=== PATIENT | female | born 1945 | race Hispanic/Latino ===

== ENCOUNTER 2016-12-13 18:40 | Inpatient (IN) | payer MEDICARE ==
[2016-12-13 18:40] VITALS: BMI 36.0
[2016-12-13] MEDS ORDERED: Albuterol-Ipratrop 3 mg / 0.5 (3 ml) UD ONE (19:10)
--- NOTE | 2016-12-13 19:20 | ED PDOC ---
HPI: SOB/CHF/COPD Time Seen by Provider: 12/13/16 19:16 Chief Complaint (Nursing): Shortness Of Breath Chief Complaint (Provider): Shortness of Breath History Per: Patient History/Exam Limitations: no limitations Onset/Duration Of Symptoms: Days (x couple of weeks) Current Symptoms Are (Timing): Still Present Exacerbating Factor(s): Exertion, Laying Flat Current Respiratory Medications: See Home Med List Severity: Moderate Associated Symptoms: denies: Fever, Chest Pain, Ankle/Leg Swelling (baseline only) Additional Complaint(s): Chey Olvera is a 71 year old female, with a medical history inclusive of CAD (s/p MS with implanted defibrillator/pacemaker and coronary stent placement) , CHF, HTN and COPD, who presents to the ED on 12/13/16 for the evaluation of moderate acute on chronic shortness of breath that she has experienced over the past couple of weeks. Though symptoms have been steadily worsening since onset, to the point where she was unable to walk, they had become significantly worse today; prompting ED visit. A Associated productive cough (phlegm, yellow in morning but clear remainder of day) and orthopnea also reported, though patient denies fever, chest pain or worsening of usual leg swelling. Has used usual COPD medications (Spiriva, Proair, etc) without improvement. Of note, patient does not use home O2, though she notes she stopped taking her Lasix 2 weeks ago. PMD/Senior Account Manager: Dr. Jason Animal Care Giver: Ron Past Medical History Reviewed: Historical Data, Nursing Documentation, Vital Signs Vital Signs: Last Vital Signs Temp 97.9 F 12/13/16 18:54 Pulse 75 12/13/16 21:26 Resp 24 12/13/16 20:08 BP 145/87 12/13/16 20:06 Pulse Ox 93 L 12/13/16 21:26 - Medical History PMH: Anxiety, Atrial Fibrillation, CAD (s/p MS), Cardia Arrhythmia, CHF, COPD, Emphysema, HTN, Hypercholesterolemia, Peripheral Edema, Pneumonia Denies: HIV, Chronic Kidney Disease - Surgical History Surgical History: Cholecystectomy, Coronary Stent, Pacemaker (w/defibrilator) - Family History Family History: States: Unknown Family Hx - Social History Ex-Smoker (has not smoked in the last 12 months): Yes Alcohol: None Drugs: Denies - Home Medications Home Medications: Ambulatory Orders Medication Instructions Recorded Valsartan [Diovan] 80 mg PO DAILY 09/23/15 Dabigatran [Pradaxa] 75 mg PO BID #0 cap 09/26/15 Aspirin [Ecotrin] 81 mg PO DAILY 08/27/16 Carvedilol [Coreg] 6.25 mg PO Q12H 08/27/16 Albuterol Sulfate [Proair Hfa] 2 puff IH Q4H PRN 10/18/16 Albuterol/Ipratropium [Duoneb 3 3 ml INH RQ6 #100 neb 10/23/16 mg/0.5 mg (3 ml) UD] Albuterol Sulfate [Proair Hfa] 90 mcg IH Q6 12/13/16 Tiotropium [Spiriva] 15 mg PO DAILY 12/13/16 - Allergies Allergies/Adverse Reactions: Allergies Allergy/AdvReac Type Severity Reaction Status Date / Time No Known Allergies Allergy Verified 12/13/16 18:54 Review of Systems ROS Statement: Except As Marked, All Systems Reviewed And Found Negative Constitutional: Negative for: Fever Cardiovascular: Negative for: Chest Pain, Edema Respiratory: Positive for: Cough, Shortness of Breath, SOB with Exertion, Sputum (phlegm, yellow in morning then clear), Other (orthopnea) Genitourinary Female: Positive for: Dysuria Physical Exam - Reviewed Nursing Documentation Reviewed: Yes Vital Signs Reviewed: Yes - Physical Exam Appears: Positive for: Non-toxic, No Acute Distress Head Exam: Positive for: ATRAUMATIC, NORMOCEPHALIC Skin: Positive for: Normal Color, Warm, Dry Eye Exam: Positive for: Normal appearance, PERRL ENT: Positive for: Normal ENT Inspection Neck: Positive for: Normal, Painless ROM, Supple Cardiovascular/Chest: Positive for: Regular Rate, Rhythm. Negative for: Edema ( no leg swelling), Murmur Respiratory: Positive for: Wheezing (diffuse b/l). Negative for: Respiratory Distress Gastrointestinal/Abdominal: Positive for: Normal Exam, Soft. Negative for: Tenderness Back: Positive for: Normal Inspection Extremity: Positive for: Normal ROM Neurologic/Psych: Positive for: Alert, Oriented - Laboratory Results Result Diagrams: 12/13/16 19:30 12/13/16 19:30 - ECG ECG: Positive for: Interpreted By Me, Viewed By Me ECG Rhythm: Positive for: Sinus Rhythm, Atrial Paced, Premature Ventricular Contraction, Nonspecific Changes (ST, also present on previous EKG) Rate: 75 O2 Sat by Pulse Oximetry: 93 - Radiology X-Ray: Interpreted by Me, Viewed By Me X-Ray Interpretation: No Acute Disease, COPD Medical Decision Making Medical Decision Makin:16 Initial Impression: COPD exacerbation; will r/o infectious/other etiology Initial Plan: * EKG * CXR * ABG * Labs * BNP * Troponin I * PTT * PT * Influenza A B * Solu-Medrol 125mg IVP * Duonebs 3ml INH * Duonebs 3ml INH * Duonebs 3ml INH * Peak Flow Pre/Post Treatment * Peak Flow Pre/Post Treatment * Peak Flow BID * Reevaluation EKG shows an atrial paced sinus rhythm at 75bpm with PVC'S and nonspecific ST changes that are also present on previous EKG. 21:22 Upon provider reevaluation patient reports feeling improved s/p nebulizer treatments, though symptoms remain despite aggressive treatment in ED. Patient will be admitted to [facility] [place] under the service of her PMD Dr. Jason for further evaluation/treatment of COPD exacerbation. Plan has been discussed with patient , who is in agreement. Condition fair. Clinical Impression: COPD Exacerbation. Scribe Attestation: Documented by Janneth Gonzalez, acting as a scribe for Thelma Valladares MD. Provider Scribe Attestation: All medical record entries made by the Scribe were at my direction and personally dictated by me. I have reviewed the chart and agree that the record accurately reflects my personal performance of the history, physical exam, medical decision making, and the department course for this patient. I have also personally directed, reviewed, and agree with the discharge instructions and disposition. Disposition - Clinical Impression Clinical Impression: COPD exacerbation - Patient ED Disposition Is Patient to be Admitted: Yes Discussed With Dr.: Da Jason Doctor Will See Patient In The: ED Counseled Patient/Family Regarding: Studies Performed, Diagnosis - Disposition Disposition Time: 21:22 Condition: FAIR - Pt Status Changed To: Hospital Disposition Of: Inpatient - Admit Certification Admit to Inpatient:: After my assessment, the patient will require hospitalization for at least two midnights. This is because of the severity of symptoms shown, intensity of services needed, and/or the medical risk in this patient being treated as an outpatient. - POA Present On Arrival: None
[2016-12-13] MEDS ORDERED: Albuterol-Ipratrop 3 mg / 0.5 (3 ml) UD INH STA ×3 (19:27→19:31)
[2016-12-13 19:51] LABS: BASO # 0.1 K/uL (0.0-0.2); BASO % 1.1 % (0.0-2.0); EOS # 1.2 K/uL (0.0-0.7); EOS % 9.2 % (0.0-4.0); HEMATOCRIT 43.5 % (34.0-47.0); LYMPH # 2.6 K/uL (1.0-4.3); LYMPH % 20.2 % (20.0-40.0); MEAN CELL VOLUME 90.8 fl (81.0-99.0); MEAN CORPUSCULAR HEMOGLOBIN 30.2 pg (27.0-31.0); MEAN CORPUSCULAR HGB CONC 33.3 g/dL (33.0-37.0); MEAN PLATELET VOLUME 9.4 fl (7.2-11.7); MONO # 1.2 K/uL (0.0-0.8); NEUT # 7.9 K/uL (1.8-7.0); NEUT % 60.5 % (50.0-75.0); RED CELL DISTRIBUTION WIDTH 14.5 % (11.5-14.5)
[2016-12-13 20:00] LABS: ABG ALLEN TEST YES; ARTERIAL BLOOD GAS MODE ROOM AIR; ARTERIAL BLOOD GAS O2 CONTENT 19.4 ML/dL (15-23); ARTERIAL BLOOD GAS PH 7.43 (7.35-7.45); ARTERIAL BLOOD GAS PO2 66 mm/Hg (80-100); ARTERIAL BLOOD HGB O2 SAT 91.5 % (95.0-98.0); CARBOXYHEMOGLOBIN 3.2 % (0.5-1.5); HHB 2.9 % (0.0-5.0); METHEMOGLOBIN 2.3 % (0.0-3.0)
[2016-12-13 20:04] LABS: CALCIUM 9.2 mg/dL (8.4-10.2); POTASSIUM 4.4 MMOL/L (3.6-5.0)
[2016-12-13 20:16] LABS: TROPONIN I 0.031 ng/mL (0.00-0.120)
[2016-12-13 20:20] LABS: PARTIAL THROMBOPLASTIN TIME 37.1 SECONDS (23.3-32.5)
[2016-12-13] MEDS: Albuterol-Ipratrop 3 mg / 0.5 (3 ml) UD INH SCH (23:45)
[2016-12-14] MEDS: methylPREDNISolone 80 MG in Sodium Chloride 0.9% 50 ML IVPB SCH ×3 (00:12→18:10)
[2016-12-14] MEDS: Albuterol-Ipratrop 3 mg / 0.5 (3 ml) UD INH SCH ×5 (04:31→19:04)
--- NOTE | 2016-12-14 11:18 | HP ---
The patient is a 71-year-old female who was admitted via the Emergency Room because of acute exacerba tion of chronic obstructive pulmonary disease. She had been to see her business office assistant and while she wa s in the office, she developed a cough and became very short of breath and had discoloration of the f ingers and lips and was advised to go to the Emergency Room for workup and therapy. In the Emergency Room, she was diagnosed with acute exacerbation of chronic obstructive pulmonary disease and admitte d for workup and therapy. PAST MEDICAL HISTORY: Chronic intermittent atrial fibrillation (paroxysmal atrial fibrillation), chr onic obstructive pulmonary disease, recurrent upper respiratory tract infection, cardiomyopathy requi ring pacemaker placement for arrhythmias, hypertension, near syncopal episode in the past and poor co mpliance to medications. FAMILY HISTORY: Nonrevealing. SOCIAL HISTORY: She is and lives at home alone and denies smoking recently, but used to up u ntil about a year ago. PHYSICAL EXAMINATION: GENERAL: The patient is alert, oriented, appears to be much more comfortable since admission. VITAL SIGNS: Blood pressure 142/74, pulse of 74, respiratory rate 20, O2 sat 94% on 3 L nasal cannul a. SKIN: Shows fair turgor. HEENT: Pupils equal, react to light and accommodation. NECK: JVP flat. Mouth shows fair hygiene. LUNGS: Poor aeration bilaterally with wheezing and rales. HEART: S1, S2. ABDOMEN: Soft, nontender, no organomegaly. EXTREMITIES: Show no edema or cyanosis. CENTRAL NERVOUS SYSTEM: Grossly intact. GENITAL AND RECTAL: Deferred. LABORATORY DATA: WBC 13.0, hemoglobin 14.5, platelet count 184,000. Sodium 145, potassium 4.4, BUN of 24, creatinine 1.1. ProBNP 2060. ABGs: pH 7.43, pCO2 of 39, pO2 of 66, O2 sat 96.9. This is on room air. Chest x-ray official report pending, but read by me shows no acute cardiopulmonary pathol ogy except for cardiomegaly and pacemaker device in place. EKG: Official report is pending. IMPRESSION: Acute exacerbation of chronic obstructive pulmonary disease, history of paroxysmal chron ic atrial fibrillation), history of hypertension, history of cardiomyopathy, status post pacemaker pl acement. PLAN: Continue bronchodilator therapy with IV steroids, IV antibiotics for possible superimposed pul monary infection. We will obtain cardiology evaluation. Further therapy will depend on findings. Da Jason MD cc: 62 TT: 12/14/2016 11:17:37 tn
--- NOTE | 2016-12-14 14:04 | RAD ---
PROCEDURE: CHEST RADIOGRAPH, 1 VIEW HISTORY: dyspnea COMPARISON: 10/18/2016 FINDINGS: LUNGS: Clear. PLEURA: No pneumothorax or pleural fluid seen. CARDIOVASCULAR: Normal heart size. AICD. OSSEOUS STRUCTURES: No significant abnormalities. VISUALIZED UPPER ABDOMEN: Normal. OTHER FINDINGS: None. IMPRESSION: No active disease.
--- NOTE | 2016-12-14 15:23 | CARD ---
APPROVED REPORT EKG Measurement Heart [id number] <Conclusion> Sinus rhythm with atrial paced beats and frequent premature ventricular complexes Marked ST abnormality, possible inferior subendocardial injury Abnormal ECG
--- NOTE | 2016-12-14 19:30 | CP.PCM.CON ---
History of Present Illness - History of Present Illness History of Present Illness: The patient is a 71 year old lady well known to our service who was seen in the office yesterday by Dr. Velasquez. Because of worsening shortness of breath she was advised evaluation in the ED. 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 She also suffers from severe COPD as a result of extensive tobacco use over the years. Review of Systems - Review of Systems Systems not reviewed;Unavailable: Respiratory Distress - Constitutional Constitutional: As Per HPI - EENT Eyes: As Per HPI Ears: As Per HPI - Cardiovascular Cardiovascular: Dyspnea on Exertion, Irregular Heart Rhythm - Respiratory Respiratory: Dyspnea on Exertion - Gastrointestinal Gastrointestinal: As Per HPI - Psychiatric Psychiatric: Anxiety Past Patient History - Past Medical History & Family History Past Medical History?: Yes - Past Social History Smoking Status: Former Smoker - CARDIAC Hx Cardiac Disorders: Yes Hx Atrial Fibrillation: Yes Hx Congestive Heart Failure: Yes Hx Heart Attack: Yes Hx Hypertension: Yes Hx Internal Defibrillator: Yes Hx Pacemaker: Yes - PULMONARY Hx Respiratory Disorders: Yes Hx Chronic Obstructive Pulmonary Disease (COPD): Yes Hx Emphysema: Yes - NEUROLOGICAL Hx Neurological Disorder: No - HEENT Hx HEENT Problems: Yes - RENAL Hx Chronic Kidney Disease: No - ENDOCRINE/METABOLIC Hx Endocrine Disorders: No - HEMATOLOGICAL/ONCOLOGICAL Hx Blood Disorders: No Hx Human Immunodeficiency Virus (HIV): No - INTEGUMENTARY Hx Dermatological Problems: No - MUSCULOSKELETAL/RHEUMATOLOGICAL Hx Musculoskeletal Disorders: No Hx Falls: No - GASTROINTESTINAL Hx Gastrointestinal Disorders: No - GENITOURINARY/GYNECOLOGICAL Hx Genitourinary Disorders: No - PSYCHIATRIC Hx Psychophysiologic Disorder: No Hx Substance Use: No - SURGICAL HISTORY Hx Surgeries: Yes Hx Cholecystectomy: Yes Hx Coronary Stent: Yes - ANESTHESIA Hx Anesthesia: Yes Hx Anesthesia Reactions: No Hx Malignant Hyperthermia: No Has any member of the family had a problem w/ anesthesia?: No Meds Allergies/Adverse Reactions: Allergies Allergy/AdvReac Type Severity Reaction Status Date / Time No Known Allergies Allergy Verified 12/13/16 18:54 - Medications Medications: Current Medications Albuterol/Ipratropium (Duoneb 3 Mg/0.5 Mg (3 Ml) Ud) 3 ml INH RQ4 [facility] Last Admin: 12/14/16 19:04 Dose: Not Given Aspirin (Ecotrin) 81 mg PO DAILY [facility] Last Admin: 12/14/16 09:30 Dose: 81 mg Carvedilol (Coreg) 6.25 mg PO Q12H [facility] Last Admin: 12/14/16 09:30 Dose: 6.25 mg Dabigatran (Pradaxa) 75 mg PO BID [facility] PRN Reason: Protocol Last Admin: 12/14/16 15:31 Dose: 75 mg Levofloxacin/Dextrose (Levaquin 500mg) 100 mls @ 100 mls/hr IVPB DAILY@2100 [facility] Methylprednisolone 80 mg/ (Sodium Chloride) 51.28 mls @ 100 mls/hr IVPB Q8 [facility] Last Admin: 12/14/16 18:10 Dose: 100 mls/hr Valsartan (Diovan) 80 mg PO DAILY [facility] Last Admin: 12/14/16 09:30 Dose: 80 mg Physical Exam - Constitutional Appears: No Acute Distress - Head Exam Head Exam: ATRAUMATIC, NORMOCEPHALIC - Eye Exam Eye Exam: Normal appearance, PERRL - ENT Exam ENT Exam: Mucous Membranes Moist - Respiratory Exam Respiratory Exam: Decreased Breath Sounds, NORMAL BREATHING PATTERN - Cardiovascular Exam Cardiovascular Exam: RRR, +S1, +S2 - GI/Abdominal Exam GI & Abdominal Exam: Normal Bowel Sounds - Extremities Exam Extremities exam: Positive for: normal inspection Results - Vital Signs Recent Vital Signs: Last Vital Signs Temp 98.3 F 12/14/16 17:03 Pulse 74 12/14/16 17:03 Resp 20 12/14/16 17:03 BP 111/65 12/14/16 17:03 Pulse Ox 98 12/14/16 17:03 - Labs Result Diagrams: 12/13/16 19:30 12/13/16 19:30 Assessment & Plan - Assessment and Plan (Free Text) Assessment: 1. Dyspnea. 2. COPD. 3. Hypertension. 4. CAD s/p PCI. 5. PAD. 6. Atrial fibrillation. Plan: 1. Add torsemide 20mg daily. 2. Continue present dose of pradaxs 75 mg q12h. 3. Pulmonary toilet. 4. Will f/u as out patient.
[2016-12-15] MEDS: Albuterol-Ipratrop 3 mg / 0.5 (3 ml) UD INH SCH ×6 (00:07→19:29)
[2016-12-15] MEDS: methylPREDNISolone 80 MG in Sodium Chloride 0.9% 50 ML IVPB SCH ×3 (00:22→17:29)
[2016-12-15] MEDS ORDERED: Promethazine/Cod 6.25mg-10mg/5ml Syr UD PO PRN (11:46)
--- NOTE | 2016-12-15 11:46 | CP.PCM.PN ---
Subjective - Date & Time of Evaluation Date of Evaluation: 12/15/16 Time of Evaluation: 11:46 - Subjective Subjective: COUGHING C/O SWELLING OF LEGS TODAY Objective - Vital Signs/Intake and Output Vital Signs (last 24 hours): Temp Pulse Resp BP Pulse Ox 98.0 F 64 20 127/61 93 L 12/15/16 08:21 12/15/16 09:28 12/15/16 08:21 12/15/16 09:28 12/15/16 08:21 - Medications Medications: Current Medications Albuterol/Ipratropium (Duoneb 3 Mg/0.5 Mg (3 Ml) Ud) 3 ml INH RQ4 [facility] Last Admin: 12/15/16 11:16 Dose: 3 ml Aspirin (Ecotrin) 81 mg PO DAILY [facility] Last Admin: 12/15/16 09:28 Dose: 81 mg Carvedilol (Coreg) 6.25 mg PO Q12H [facility] Last Admin: 12/15/16 09:28 Dose: 6.25 mg Dabigatran (Pradaxa) 75 mg PO BID [facility] PRN Reason: Protocol Last Admin: 12/15/16 09:29 Dose: 75 mg Levofloxacin/Dextrose (Levaquin 500mg) 100 mls @ 100 mls/hr IVPB DAILY@2100 [facility] Last Admin: 12/14/16 21:05 Dose: 100 mls/hr Methylprednisolone 80 mg/ (Sodium Chloride) 51.28 mls @ 100 mls/hr IVPB Q8 [facility] Last Admin: 12/15/16 10:16 Dose: 100 mls/hr Torsemide (Demadex) 20 mg PO DAILY [facility] Last Admin: 12/15/16 09:28 Dose: 20 mg Valsartan (Diovan) 80 mg PO DAILY [facility] Last Admin: 12/15/16 09:27 Dose: 80 mg - Labs Labs: PT 11.4 SECONDS (9.6-11.2) H 12/13/16 19:35 INR 1.10 (0.92-1.08) H 12/13/16 19:35 APTT 37.1 SECONDS (23.3-32.5) H 12/13/16 19:35 - Constitutional Appears: In Acute Distress - Head Exam Head Exam: ATRAUMATIC, NORMAL INSPECTION, NORMOCEPHALIC - Eye Exam Eye Exam: EOMI, Normal appearance, PERRL Pupil Exam: NORMAL ACCOMODATION, PERRL - ENT Exam ENT Exam: Mucous Membranes Moist, Normal Exam - Neck Exam Neck Exam: Full ROM, Normal Inspection. absent: Lymphadenopathy - Respiratory Exam Respiratory Exam: Decreased Breath Sounds, Prolonged Expiratory Phase, Rales, NORMAL BREATHING PATTERN - Cardiovascular Exam Cardiovascular Exam: REGULAR RHYTHM, +S1, +S2. absent: Murmur - GI/Abdominal Exam GI & Abdominal Exam: Soft, Normal Bowel Sounds. absent: Tenderness - Rectal Exam Rectal Exam: NORMAL INSPECTION - Extremities Exam Extremities Exam: Full ROM, Normal Capillary Refill, Normal Inspection, Pedal Edema. absent: Joint Swelling - Back Exam Back Exam: NORMAL INSPECTION - Neurological Exam Neurological Exam: Alert, Awake, CN II-XII Intact, Normal Gait, Oriented x3 - Psychiatric Exam Psychiatric exam: Normal Affect, Normal Mood - Skin Skin Exam: Dry, Intact, Normal Color, Warm Assessment and Plan - Assessment and Plan (Free Text) Assessment: COPD EXAC CHRONIC CHF-DIASTOLIC DYSFUNCTION CARDIOMYOPATHY Plan: CONTINUE RX ORDERED ANTITUSSIVES,PRN
[2016-12-16] MEDS: methylPREDNISolone 80 MG in Sodium Chloride 0.9% 50 ML IVPB SCH (00:53)
[2016-12-16] MEDS: Albuterol-Ipratrop 3 mg / 0.5 (3 ml) UD INH SCH ×6 (01:04→19:34)
[2016-12-16 07:42] LABS: BASO % 0.2 % (0.0-2.0); HEMATOCRIT 41.6 % (34.0-47.0); LYMPH % 4.6 % (20.0-40.0); MEAN CELL VOLUME 92.3 fl (81.0-99.0); MEAN CORPUSCULAR HEMOGLOBIN 29.7 pg (27.0-31.0); MEAN CORPUSCULAR HGB CONC 32.2 g/dL (33.0-37.0); MEAN PLATELET VOLUME 9.5 fl (7.2-11.7); MONO # 0.7 K/uL (0.0-0.8); MONO % 3.2 % (0.0-10.0); NEUT # 19.3 K/uL (1.8-7.0); PLATELET COUNT 172 K/uL (130-400); RED CELL DISTRIBUTION WIDTH 14.8 % (11.5-14.5)
[2016-12-16 07:52] LABS: CALCIUM 8.9 mg/dL (8.4-10.2); POTASSIUM 5.2 MMOL/L (3.6-5.0)
[2016-12-16] MEDS ORDERED: Sodium Chloride 3% for Inhalation 4 ML VIAL.NEB IH PRN (08:37)
--- NOTE | 2016-12-16 08:52 | CP.PCM.PN ---
Subjective - Date & Time of Evaluation Date of Evaluation: 12/16/16 Time of Evaluation: 08:53 - Subjective Subjective: SOB IMPROVING NO CHEST PAINS LESS PEDAL EDEMA STILL COUGHING Objective - Vital Signs/Intake and Output Vital Signs (last 24 hours): Temp Pulse Resp BP Pulse Ox 97.9 F 89 20 166/73 H 94 L 12/15/16 22:00 12/15/16 22:00 12/15/16 22:00 12/15/16 22:00 12/15/16 22:00 - Medications Medications: Current Medications Albuterol/Ipratropium (Duoneb 3 Mg/0.5 Mg (3 Ml) Ud) 3 ml INH RQ4 [facility] Last Admin: 12/16/16 07:44 Dose: 3 ml Aspirin (Ecotrin) 81 mg PO DAILY [facility] Last Admin: 12/15/16 09:28 Dose: 81 mg Carvedilol (Coreg) 6.25 mg PO Q12H [facility] Last Admin: 12/15/16 21:25 Dose: 6.25 mg Dabigatran (Pradaxa) 75 mg PO BID [facility] PRN Reason: Protocol Last Admin: 12/15/16 17:33 Dose: 75 mg Levofloxacin/Dextrose (Levaquin 500mg) 100 mls @ 100 mls/hr IVPB DAILY@2100 [facility] Last Admin: 12/15/16 21:26 Dose: 100 mls/hr Methylprednisolone 40 mg/ (Sodium Chloride) 50.64 mls @ 100 mls/hr IVPB Q12 [facility] Promethazine HCl/Codeine (Phenergan/Codeine Oral Syrup) 10 ml PO Q6 PRN PRN Reason: Cough Last Admin: 12/15/16 22:35 Dose: 10 ml Torsemide (Demadex) 20 mg PO DAILY [facility] Last Admin: 12/15/16 09:28 Dose: 20 mg Valsartan (Diovan) 80 mg PO DAILY [facility] Last Admin: 12/15/16 09:27 Dose: 80 mg - Labs Labs: 12/16/16 06:30 12/16/16 06:30 PT 11.4 SECONDS (9.6-11.2) H 12/13/16 19:35 INR 1.10 (0.92-1.08) H 12/13/16 19:35 APTT 37.1 SECONDS (23.3-32.5) H 12/13/16 19:35 - Constitutional Appears: Chronically Ill - Head Exam Head Exam: ATRAUMATIC, NORMAL INSPECTION, NORMOCEPHALIC - Eye Exam Eye Exam: EOMI, Normal appearance, PERRL Pupil Exam: NORMAL ACCOMODATION, PERRL - ENT Exam ENT Exam: Mucous Membranes Moist, Normal Exam - Neck Exam Neck Exam: Full ROM, Normal Inspection. absent: Lymphadenopathy - Respiratory Exam Respiratory Exam: Decreased Breath Sounds, Rales, Wheezes, NORMAL BREATHING PATTERN - Cardiovascular Exam Cardiovascular Exam: REGULAR RHYTHM, +S1, +S2. absent: Murmur - GI/Abdominal Exam GI & Abdominal Exam: Soft, Normal Bowel Sounds. absent: Tenderness - Rectal Exam Rectal Exam: NORMAL INSPECTION - Extremities Exam Extremities Exam: Full ROM, Normal Capillary Refill, Normal Inspection, Pedal Edema. absent: Joint Swelling - Back Exam Back Exam: NORMAL INSPECTION - Neurological Exam Neurological Exam: Alert, Awake, CN II-XII Intact, Normal Gait, Oriented x3 - Psychiatric Exam Psychiatric exam: Normal Affect, Normal Mood - Skin Skin Exam: Dry, Intact, Normal Color, Warm Assessment and Plan - Assessment and Plan (Free Text) Assessment: ACUTE EXAC OF COPD URI CHF ASHD HTN LEUKOCYTOSIS-?STEROIDS/URI Plan: PANCULTURES CONTINUE PRESENT RX TAPER STEROIDS PT WANTS TO GO HOME BUT WAS ADVISED TO STAY AND BE TREATED
[2016-12-16] MEDS: methylPREDNISolone 40 MG in Sodium Chloride 0.9% 50 ML IVPB SCH ×2 (10:24→20:58)
[2016-12-16 13:56] LABS: NEUTROPHIL 93 % (42-75); TOTAL CELLS COUNTED 100
[2016-12-17] MEDS: Albuterol-Ipratrop 3 mg / 0.5 (3 ml) UD INH SCH ×3 (00:04→07:55)
[2016-12-17 07:47] LABS: BASO % 0.1 % (0.0-2.0); LYMPH # 1.1 K/uL (1.0-4.3); LYMPH % 6.4 % (20.0-40.0); MEAN CELL VOLUME 91.7 fl (81.0-99.0); MEAN CORPUSCULAR HEMOGLOBIN 29.8 pg (27.0-31.0); MEAN CORPUSCULAR HGB CONC 32.6 g/dL (33.0-37.0); MEAN PLATELET VOLUME 9.6 fl (7.2-11.7); NEUT # 14.3 K/uL (1.8-7.0); NEUT % 87.5 % (50.0-75.0); NRBC % 0.1 % (0.0-0.0); RED CELL DISTRIBUTION WIDTH 14.5 % (11.5-14.5); WHITE BLOOD COUNT 16.4 K/uL (4.8-10.8)
[2016-12-17 08:09] LABS: CALCIUM 8.3 mg/dL (8.4-10.2); POTASSIUM 4.8 MMOL/L (3.6-5.0)
--- NOTE | 2016-12-17 09:12 | CP.PCM.PN ---
Subjective - Date & Time of Evaluation Date of Evaluation: 12/17/16 Time of Evaluation: 09:12 - Subjective Subjective: STILL COUGHING HAS EXERTIONAL DYSPNEA Objective - Vital Signs/Intake and Output Vital Signs (last 24 hours): Temp Pulse Resp BP Pulse Ox 98.2 F 66 18 149/85 95 12/17/16 07:41 12/17/16 09:02 12/17/16 07:41 12/17/16 09:02 12/17/16 07:41 - Medications Medications: Current Medications Albuterol Sulfate (Albuterol 0.083% Inhal Jing (2.5 Mg/3 Ml) Ud) 2.5 mg INH RQ6 [facility] Aspirin (Ecotrin) 81 mg PO DAILY [facility] Last Admin: 12/17/16 09:03 Dose: 81 mg Carvedilol (Coreg) 6.25 mg PO Q12H [facility] Last Admin: 12/17/16 09:02 Dose: 6.25 mg Dabigatran (Pradaxa) 75 mg PO BID [facility] PRN Reason: Protocol Last Admin: 12/17/16 09:02 Dose: 75 mg Levofloxacin/Dextrose (Levaquin 500mg) 100 mls @ 100 mls/hr IVPB DAILY@2100 [facility] Last Admin: 12/16/16 20:59 Dose: 100 mls/hr Methylprednisolone 40 mg/ (Sodium Chloride) 50.64 mls @ 100 mls/hr IVPB DAILY [facility] Promethazine HCl/Codeine (Phenergan/Codeine Oral Syrup) 10 ml PO Q6 PRN PRN Reason: Cough Last Admin: 12/15/16 22:35 Dose: 10 ml Torsemide (Demadex) 20 mg PO DAILY [facility] Last Admin: 12/17/16 09:03 Dose: 20 mg Valsartan (Diovan) 80 mg PO DAILY [facility] Last Admin: 12/17/16 09:02 Dose: 80 mg - Labs Labs: 12/17/16 06:35 12/17/16 06:35 PT 11.4 SECONDS (9.6-11.2) H 12/13/16 19:35 INR 1.10 (0.92-1.08) H 12/13/16 19:35 APTT 37.1 SECONDS (23.3-32.5) H 12/13/16 19:35 - Constitutional Appears: In Acute Distress - Head Exam Head Exam: ATRAUMATIC, NORMAL INSPECTION, NORMOCEPHALIC - Eye Exam Eye Exam: EOMI, Normal appearance, PERRL Pupil Exam: NORMAL ACCOMODATION, PERRL - ENT Exam ENT Exam: Mucous Membranes Moist, Normal Exam - Neck Exam Neck Exam: Full ROM, Normal Inspection. absent: Lymphadenopathy - Respiratory Exam Respiratory Exam: Decreased Breath Sounds, Prolonged Expiratory Phase, Rales, Wheezes, NORMAL BREATHING PATTERN - Cardiovascular Exam Cardiovascular Exam: REGULAR RHYTHM, +S1, +S2. absent: Murmur - GI/Abdominal Exam GI & Abdominal Exam: Soft, Normal Bowel Sounds. absent: Tenderness - Rectal Exam Rectal Exam: NORMAL INSPECTION - Extremities Exam Extremities Exam: Full ROM, Normal Capillary Refill, Normal Inspection, Pedal Edema. absent: Joint Swelling - Back Exam Back Exam: NORMAL INSPECTION - Neurological Exam Neurological Exam: Alert, Awake, CN II-XII Intact, Normal Gait, Oriented x3 - Psychiatric Exam Psychiatric exam: Normal Affect, Normal Mood - Skin Skin Exam: Dry, Intact, Normal Color, Warm Assessment and Plan - Assessment and Plan (Free Text) Assessment: ACUTE EXAC OF COPD ASHD URI Plan: TAPER STEROIDS ARRANGE FOR HOME O2 AT 2L/M
--- NOTE | 2016-12-17 09:32 | IP.NPCORE ---
COPD Progress Note - COPD Progress Note Spirometry Assessment Completed:: Yes Plan to assess at outpatient follow up: Yes Symptoms:: Increase in Dyspnea, Cough Initial CXR:: yes Date:: 12/13/16 Time:: 19:29 Oxygen Saturation/Pulse Oximetry:: 95 ABG:: yes Date:: 12/13/16 Nebulizers Q2-4 hrs:: Duonebs/Albuterol Therapy Antibiotics (Name/Dose/Frequency):: Levaquin/500/daily Systemic Steroids w/ methylprednisolone Name/Dose/Frequency:: yes Oxygen Delivery Method: Nasal Cannula Oxygen Flow Rate: 3 Smoking cessation counseling all stages copd exacerbation: Yes
[2016-12-17] MEDS: methylPREDNISolone 40 MG in Sodium Chloride 0.9% 50 ML IVPB SCH (10:00)
[2016-12-17] MEDS: Albuterol 0.083% Inhal Sol (2.5 mg/3 mL) UD INH SCH ×2 (13:16→19:25)
[2016-12-18] MEDS: Albuterol 0.083% Inhal Sol (2.5 mg/3 mL) UD INH SCH ×3 (01:10→13:43)
[2016-12-18 07:35] LABS: BASO # 0.1 K/uL (0.0-0.2); BASO % 0.4 % (0.0-2.0); EOS % 0.1 % (0.0-4.0); HEMATOCRIT 44.9 % (34.0-47.0); LYMPH # 1.5 K/uL (1.0-4.3); LYMPH % 9.9 % (20.0-40.0); MEAN CELL VOLUME 91.1 fl (81.0-99.0); MEAN CORPUSCULAR HEMOGLOBIN 29.8 pg (27.0-31.0); MEAN CORPUSCULAR HGB CONC 32.8 g/dL (33.0-37.0); MEAN PLATELET VOLUME 9.6 fl (7.2-11.7); MONO # 1.4 K/uL (0.0-0.8); MONO % 9.4 % (0.0-10.0); NEUT # 11.9 K/uL (1.8-7.0); NEUT % 80.2 % (50.0-75.0); RED CELL DISTRIBUTION WIDTH 14.4 % (11.5-14.5); WHITE BLOOD COUNT 14.8 K/uL (4.8-10.8)
[2016-12-18 07:40] VITALS: RESP 18
--- NOTE | 2016-12-18 08:38 | CP.PCM.DIS ---
Provider - Provider Date of Admission: 12/13/16 21:22 Attending physician: Da Min MD Time Spent in preparation of Discharge (in minutes): 30 Diagnosis - Discharge Diagnosis (1) COPD exacerbation Status: Acute (2) Chronic atrial fibrillation Status: Acute (3) Upper respiratory infection Status: Acute (4) Acute diastolic congestive heart failure Status: Acute (5) Cardiac arrhythmia Status: Acute (6) Cardiomyopathy Status: Acute (7) Hypertension Status: Acute (8) Non-compliance Status: Acute (9) Hyperkalemia Status: Acute (10) Leukocytosis Status: Acute Hospital Course - Lab Results Lab Results: Micro Results 12/16/16 09:45 Blood-Venous Blood Culture - Preliminary NO GROWTH AFTER 24 HOURS 12/16/16 09:45 Blood-Venous Blood Culture - Preliminary NO GROWTH AFTER 24 HOURS Most Recent Lab Values WBC 14.8 K/uL (4.8-10.8) H 12/18/16 06:15 RBC 4.93 Mil/uL (3.80-5.20) 12/18/16 06:15 Hgb 14.7 g/dL (12.0-16.0) 12/18/16 06:15 Hct 44.9 % (34.0-47.0) 12/18/16 06:15 MCV 91.1 fl (81.0-99.0) 12/18/16 06:15 MCH 29.8 pg (27.0-31.0) 12/18/16 06:15 MCHC 32.8 g/dL (33.0-37.0) L 12/18/16 06:15 RDW 14.4 % (11.5-14.5) 12/18/16 06:15 Plt Count 166 K/uL (130-400) 12/18/16 06:15 MPV 9.6 fl (7.2-11.7) 12/18/16 06:15 Neut % (Auto) 80.2 % (50.0-75.0) H 12/18/16 06:15 Lymph % (Auto) 9.9 % (20.0-40.0) L 12/18/16 06:15 Rains % (Auto) 9.4 % (0.0-10.0) 12/18/16 06:15 Eos % (Auto) 0.1 % (0.0-4.0) 12/18/16 06:15 Baso % (Auto) 0.4 % (0.0-2.0) 12/18/16 06:15 Neut # 11.9 K/uL (1.8-7.0) H 12/18/16 06:15 Lymph # 1.5 K/uL (1.0-4.3) 12/18/16 06:15 Rains # 1.4 K/uL (0.0-0.8) H 12/18/16 06:15 Eos # 0.0 K/uL (0.0-0.7) 12/18/16 06:15 Baso # 0.1 K/uL (0.0-0.2) 12/18/16 06:15 Neutrophils % (Manual) 93 % (42-75) H 12/16/16 06:30 Band Neutrophils % 1 % (0-2) 12/16/16 06:30 Lymphocytes % (Manual) 2 % (20-50) L 12/16/16 06:30 Monocytes % (Manual) 4 % (0-10) 12/16/16 06:30 Platelet Estimate Normal (NORMAL) 12/16/16 06:30 Anisocytosis (manual) Slight 12/16/16 06:30 PT 11.4 SECONDS (9.6-11.2) H 12/13/16 19:35 INR 1.10 (0.92-1.08) H 12/13/16 19:35 APTT 37.1 SECONDS (23.3-32.5) H 12/13/16 19:35 pCO2 39 mm/Hg (35-45) 12/13/16 19:48 pO2 66 mm/Hg (80-100) L 12/13/16 19:48 HCO3 26.0 mmol/L (21-28) 12/13/16 19:48 ABG pH 7.43 (7.35-7.45) 12/13/16 19:48 ABG Total CO2 27.1 mmol/L (22-28) 12/13/16 19:48 ABG O2 Saturation 96.9 % (95-98) 12/13/16 19:48 ABG O2 Content 19.4 ML/dL (15-23) 12/13/16 19:48 ABG Base Excess 1.6 mmol/L (-2.0-3.0) 12/13/16 19:48 ABG Hemoglobin 15.1 g/dL (11.7-17.4) 12/13/16 19:48 ABG Carboxyhemoglobin 3.2 % (0.5-1.5) H 12/13/16 19:48 POC ABG HHb (Measured) 2.9 % (0.0-5.0) 12/13/16 19:48 ABG Methemoglobin 2.3 % (0.0-3.0) 12/13/16 19:48 ABG O2 Capacity 20.0 mL/dL (16-24) 12/13/16 19:48 Simón Test Yes 12/13/16 19:48 A-a O2 Difference 35.0 mm/Hg 12/13/16 19:48 Hgb O2 Saturation 91.5 % (95.0-98.0) L 12/13/16 19:48 Vent Mode Room air 12/13/16 19:48 FiO2 21.0 % 12/13/16 19:48 Sodium 141 mmol/l (132-148) 12/17/16 06:35 Potassium 4.8 MMOL/L (3.6-5.0) 12/17/16 06:35 Chloride 102 mmol/L (98-107) 12/17/16 06:35 Carbon Dioxide 25 mmol/L (22-30) 12/17/16 06:35 Anion Gap 19 (10-20) 12/17/16 06:35 BUN 37 mg/dl (7-17) H 12/17/16 06:35 Creatinine 1.1 mg/dL (0.7-1.2) 12/17/16 06:35 Est GFR ( Amer) 59 12/17/16 06:35 Est GFR (Non-Af Amer) 49 12/17/16 06:35 Random Glucose 145 mg/dL (65-105) H 12/17/16 06:35 Calcium 8.3 mg/dL (8.4-10.2) L 12/17/16 06:35 Troponin I 0.0310 ng/mL (0.00-0.120) 12/13/16 19:30 NT-Pro-B Natriuret Pep 1680 pg/ml (0-900) H 12/16/16 06:30 Influenza Typ A,B (EIA) Negative for flu a/b (NEGATIVE) 12/13/16 19:30 - Hospital Course Hospital Course: SOB IMPROVED COUGH LESS NO CHEST PAINS Discharge Exam - Head Exam Head Exam: ATRAUMATIC, NORMAL INSPECTION, NORMOCEPHALIC - Eye Exam Eye Exam: EOMI, Normal appearance, PERRL Pupil Exam: NORMAL ACCOMODATION, PERRL - Respiratory Exam Respiratory Exam: Prolonged Expiratory Phase - GI/Abdominal Exam GI & Abdominal Exam: Normal Bowel Sounds - Rectal Exam Rectal Exam: NORMAL INSPECTION - Neurological Exam Neurological exam: Alert, CN II-XII Intact, Normal Gait, Oriented x3, Reflexes Normal - Psychiatric Exam Psychiatric exam: Normal Affect, Normal Mood - Skin Skin Exam: Dry, Intact, Normal Color, Warm Discharge Plan - Follow Up Plan Condition: FAIR Disposition: HOME/ ROUTINE Patient education suggested?: Yes Additional Instructions: DISCHARGE TODAY FOLLOW UP WITH DR MIN
[2016-12-18] MEDS ORDERED: methylPREDNISolone 40 MG in Sodium Chloride 0.9% 50 ML IVPB SCH (09:00)
[2016-12-18 12:06] VITALS: BP 132/79; PULSE 62; TEMP 98.2; O2SAT 93
[2016-12-18] MEDS ORDERED: Benzocaine/Menthol (Cepacol) Lozenge PO PRN (12:29)
== END 2016-12-18 14:56 | disposition home or self-care (01) | DRG 190 ==
LOC: H.ER 18:40 → H.ERHOLD 21:22 → H.MEDSURG1 22:15
PROVIDERS: ADMIT Internal Medicine Pulmonary Disease; ATTEND Internal Medicine Pulmonary Disease
DX: J44.1 Chronic obstructive pulmonary disease with (acute) exacerbation (principal); I50.33 Acute on chronic diastolic (congestive) heart failure; I42.9 Cardiomyopathy, unspecified; E87.5 Hyperkalemia; I48.0 Paroxysmal atrial fibrillation; I11.0 Hypertensive heart disease with heart failure; I48.2 Chronic atrial fibrillation; Z91.19 Patient's noncompliance with other medical treatment and regimen; Z95.0 Presence of cardiac pacemaker; I25.10 Atherosclerotic heart disease of native coronary artery without angina pectoris; Z95.5 Presence of coronary angioplasty implant and graft; I25.2 Old myocardial infarction; J06.9 Acute upper respiratory infection, unspecified; E78.5 Hyperlipidemia, unspecified; E78.00 Pure hypercholesterolemia, unspecified; Z72.0 Tobacco use; I73.9 Peripheral vascular disease, unspecified; D72.829 Elevated white blood cell count, unspecified; F41.9 Anxiety disorder, unspecified

== ENCOUNTER 2017-04-22 14:50 | Inpatient (IN) | payer MEDICARE ==
[2017-04-22 14:51] VITALS: BMI 36.0
[2017-04-22] MEDS ORDERED: Morphine 4 MG/ML VIAL IVP STA (15:09)
--- NOTE | 2017-04-22 15:37 | ED PDOC ---
HPI: SOB/CHF/COPD Time Seen by Provider: 04/22/17 15:03 Chief Complaint (Nursing): Upper Extremity Problem/Injury Chief Complaint (Provider): shortness of breath History Per: Patient History/Exam Limitations: no limitations Onset/Duration Of Symptoms: Days (2), Gradual, Persistent Current Symptoms Are (Timing): Still Present Quality: Tightness Current Respiratory Medications: Albuterol Severity: Moderate Associated Symptoms: Chest Pain, Heart Racing, Ankle/Leg Swelling, Light- headedness, Anxiety. denies: Fever, Chills, Sweating, Bloody Cough Similar Symptoms Previously: Similar to previous episodes of COPD exacerbation Additional Complaint(s): Shortness of breath progressive since yesterday after experiencing stress from recent fall and fracture. Exertional dyspnea, cough and leg swelling. No fever. Fell yesterday when she was tripped by her cat. Seen at [facility] in [facility]. Diagnosed with shoulder fracture and discharge to follow up with orthopedist. Taking tylenol with no relief. Denies numbness. PMD Dr Jason Past Medical History Reviewed: Historical Data, Nursing Documentation, Vital Signs Vital Signs: Last Vital Signs Temp 98.7 F 04/22/17 14:54 Pulse 90 04/22/17 14:54 Resp 16 04/22/17 14:54 BP 100/62 04/22/17 14:54 Pulse Ox 100 04/22/17 17:10 - Medical History PMH: Anxiety, Atrial Fibrillation, CAD, Cardia Arrhythmia, CHF, COPD, Emphysema , HTN, Hypercholesterolemia, Peripheral Edema, Pneumonia Denies: HIV, Chronic Kidney Disease - Surgical History Surgical History: Cholecystectomy, Coronary Stent, Pacemaker - Family History Family History: States: Unknown Family Hx - Social History Current smoker - smoking cessation education provided: Yes Ex-Smoker (has not smoked in the last 12 months): Yes Alcohol: None - Home Medications Home Medications: Ambulatory Orders Medication Instructions Recorded Valsartan [Diovan] 80 mg PO DAILY 09/23/15 Aspirin [Ecotrin] 81 mg PO DAILY 08/27/16 Carvedilol [Coreg] 6.25 mg PO Q12H 08/27/16 Albuterol 0.083% [Albuterol 0.083% 3 ml IH Q6H PRN 04/22/17 Inhal Jing (2.5 mg/3 ml) UD] Albuterol Sulfate [Proventil Hfa] 2 puff IH QID PRN 04/22/17 Dabigatran [Pradaxa] 75 mg PO Q12H 04/22/17 Furosemide [Lasix] 40 mg PO DAILY 04/22/17 Promethazine [Phenergan Syrup] 10 ml PO Q6H PRN 04/22/17 - Allergies Allergies/Adverse Reactions: Allergies Allergy/AdvReac Type Severity Reaction Status Date / Time No Known Allergies Allergy Verified 12/13/16 18:54 Review of Systems ROS Statement: Except As Marked, All Systems Reviewed And Found Negative (and as per HPI) Constitutional: Positive for: Weakness, Malaise Cardiovascular: Positive for: Chest Pain, Light Headedness Respiratory: Positive for: Cough, Shortness of Breath, SOB with Exertion. Negative for: Sputum Musculoskeletal: Positive for: Shoulder Pain, Arm Pain Neurological: Negative for: Weakness, Numbness Physical Exam - Reviewed Nursing Documentation Reviewed: Yes Vital Signs Reviewed: Yes - Physical Exam Appears: Positive for: Non-toxic, In Acute Distress Head Exam: Positive for: ATRAUMATIC, NORMOCEPHALIC Skin: Positive for: Dry, Pallor Eye Exam: Positive for: EOMI, PERRL ENT: Positive for: Pharynx Is (clear). Negative for: Nasal Congestion Neck: Positive for: Painless ROM, Supple Cardiovascular/Chest: Positive for: Chest Non Tender, Edema. Negative for: Murmur, Tachycardia Respiratory: Positive for: Rhonchi (faint diffuse), Respiratory Distress. Negative for: Rales Gastrointestinal/Abdominal: Positive for: Soft. Negative for: Tenderness Back: Positive for: Normal Inspection. Negative for: Vertebral Tenderness Extremity: Positive for: Pedal Edema (trace bilateral ankle), Other (LEFT upper extremity: No obvious deformity or swelling, +ttp at humeral head with limited PROM and AROM at shoulder due to pain, 5/5 strength w thumb opposition, thumb abduction and finger abduction, light touch intact in all nerve distrubtions of the hand, <2 sec CR, strong radial pulse) Lymphatic: Negative for: Normal Exam Neurologic/Psych: Positive for: Alert. Negative for: Motor/Sensory Deficits - Laboratory Results Result Diagrams: 04/22/17 15:30 04/22/17 16:00 - ECG ECG: Positive for: Interpreted By Me ECG Rhythm: Positive for: Sinus Rhythm (w PVCs and inferolateral ST segment and T wave abnormalities, similar to previous EKG 12/2016) O2 Sat by Pulse Oximetry: 100 Pulse Ox Interpretation: Normal - Progress ED Course And Treament: Accession No. : [id number] Patient Name / ID : LULÚ PRINGLE / [id number] Exam Date : 04/22/2017 15:28:30 ( Approved ) Study Comment : Sex / Age : F / 72Y Creator : MARCOS CONLEY MD Dictator : MARCOS CONLEY MD Leather Etcher : Edging Machine Feeder : MRACOS CONLEY MD Approver2 : Report Date : 04/22/2017 15:51:24 My Comment : PROCEDURE: Radiographs of the Left Shoulder HISTORY: Shoulder pain COMPARISON: No prior. FINDINGS: BONES: There is an acute nondisplaced fracture in the greater tuberosity of the humerus. There is diffuse bone demineralization. JOINTS: Bone alignment is normal. Glenohumeral and acromioclavicular joints preserved. SOFT TISSUES: Normal. OTHER FINDINGS: None. IMPRESSION: Acute nondisplaced fracture in the greater tuberosity of the humerus. Accession No. : [id number] Patient Name / ID : LULÚ PRINGLE / [id number] Exam Date : 04/22/2017 15:28:30 ( Approved ) Study Comment : Sex / Age : F / 72Y Creator : MARCOS CONLEY MD Dictator : MARCOS CONLEY MD Leather Etcher : Edging Machine Feeder : MARCOS CONLEY MD Approver2 : Report Date : 04/22/2017 15:52:07 My Comment : PROCEDURE: CHEST RADIOGRAPH, 1 VIEW HISTORY: Shortness of breath COMPARISON: 12/13/2016. FINDINGS: LUNGS: There is pulmonary venous congestion. There is no focal consolidation. PLEURA: No pneumothorax or pleural fluid seen. CARDIOVASCULAR: The heart is normal in size. There is stable position of a left-sided dual lead transvenous permanent pacing device. OSSEOUS STRUCTURES: No significant abnormalities. VISUALIZED UPPER ABDOMEN: Normal. OTHER FINDINGS: None. IMPRESSION: Mild pulmonary venous congestion. No active pulmonary disease. Medical Decision Making Medical Decision Makinyo w extensive cardiac and pulmonary comorbities experiencing chest pain and shortness of breath progressively for one day, associated acute LEFT shoulder fracture Needs hospitalization for COPD exacerbation, chest pain in setting of cardiac risk factors Other diagnoses: LEFT humeral head fracture Ddx also include CHF, ACS, anemia, anxiety YOUNG Jason PMD who will admit pt to his service, inpatient ortho consult, pending initial ER workup. 4p Labs demonstrate leukocytosis, elevated probnp. Troponin wnl Potassium elevated but hemolyzed specimen. Ordered repeat. YOUNG Jason findings YOUNG [facility] for inpatient consult 5p Pt c/o chest pain that she attributes to gas. Appears uncomfortable. Requesting sabi vitaly and refusing repeat EKG. Advised that acute chest pain is a sign of heart attack or lethal arrythmia, but she continues to refuse. No sabi vitaly immediately available in ER. GI cocktail ordered pending arrival of sabi vitaly from dietary. Disposition - Clinical Impression Clinical Impression: COPD exacerbation, Humeral head fracture, Chest pain - Patient ED Disposition Is Patient to be Admitted: Yes Counseled Patient/Family Regarding: Studies Performed, Diagnosis - Disposition Disposition Time: 16:00 Condition: FAIR Forms: [employer] (Russian) - Pt Status Changed To: Hospital Disposition Of: Inpatient - Admit Certification Admit to Inpatient:: After my assessment, the patient will require hospitalization for at least two midnights. This is because of the severity of symptoms shown, intensity of services needed, and/or the medical risk in this patient being treated as an outpatient. - POA Present On Arrival: Falls Or Trauma, Poor Glycemic Control
[2017-04-22] MEDS ORDERED: Morphine 4 MG/ML VIAL ONE (15:46)
--- NOTE | 2017-04-22 15:53 | RAD ---
PROCEDURE: Radiographs of the Left Shoulder HISTORY: Shoulder pain COMPARISON: No prior. FINDINGS: BONES: There is an acute nondisplaced fracture in the greater tuberosity of the humerus. There is diffuse bone demineralization. JOINTS: Bone alignment is normal. Glenohumeral and acromioclavicular joints preserved. SOFT TISSUES: Normal. OTHER FINDINGS: None. IMPRESSION: Acute nondisplaced fracture in the greater tuberosity of the humerus.
--- NOTE | 2017-04-22 15:53 | RAD ---
PROCEDURE: CHEST RADIOGRAPH, 1 VIEW HISTORY: Shortness of breath COMPARISON: 12/13/2016. FINDINGS: LUNGS: There is pulmonary venous congestion. There is no focal consolidation. PLEURA: No pneumothorax or pleural fluid seen. CARDIOVASCULAR: The heart is normal in size. There is stable position of a left-sided dual lead transvenous permanent pacing device. OSSEOUS STRUCTURES: No significant abnormalities. VISUALIZED UPPER ABDOMEN: Normal. OTHER FINDINGS: None. IMPRESSION: Mild pulmonary venous congestion. No active pulmonary disease.
[2017-04-22 16:04] LABS: BASO # 0.1 K/uL (0.0-0.2); BASO % 0.8 % (0.0-2.0); EOS # 0.7 K/uL (0.0-0.7); EOS % 4.8 % (0.0-4.0); HEMOGLOBIN 14.8 g/dL (12.0-16.0); LYMPH # 1.7 K/uL (1.0-4.3); LYMPH % 11.1 % (20.0-40.0); MEAN CELL VOLUME 91.8 fl (81.0-99.0); MEAN CORPUSCULAR HGB CONC 32.7 g/dL (33.0-37.0); MEAN PLATELET VOLUME 9.9 fl (7.2-11.7); MONO # 1.2 K/uL (0.0-0.8); MONO % 8.1 % (0.0-10.0); NEUT # 11.5 K/uL (1.8-7.0); NEUT % 75.2 % (50.0-75.0); RBC 4.92 Mil/uL (3.80-5.20); WHITE BLOOD COUNT 15.3 K/uL (4.8-10.8)
[2017-04-22 16:14] LABS: ALB/GLOB RATIO 1.3 (1.0-2.1); ALBUMIN 4.7 g/dL (3.5-5.0); ALT/SGPT 11 U/L (9-52); AST/SGOT 58 U/L (14-36); BLOOD UREA NITROGEN 24 mg/dl (7-17); GFR AFRICAN-AMERICAN > 60; GFR NON-AFRICAN AMERICAN > 60; MAGNESIUM 2.2 MG/DL (1.6-2.3)
[2017-04-22 16:25] LABS: B-TYPE NATRIURETIC PEPTIDE 1130 pg/ml (0-900)
[2017-04-22] MEDS ORDERED: Albuterol-Ipratrop 3 mg / 0.5 (3 ml) UD INH STA (16:35)
[2017-04-22 16:52] LABS: INR 1.2 (0.9-1.2); PARTIAL THROMBOPLASTIN TIME 41.6 Seconds (25.6-37.1); PROTHROMBIN TIME 12.6 Seconds (9.8-13.1)
[2017-04-22] MEDS ORDERED: Alum-Mag Hydrox-Simethicone Susp (30 mL) PO STA (16:59)
[2017-04-22] MEDS ORDERED: Alum-Mag Hydrox-Simethicone Susp (30 mL) ONE (17:50)
[2017-04-22] MEDS ORDERED: Albuterol-Ipratrop 3 mg / 0.5 (3 ml) UD ONE (17:50)
[2017-04-22] MEDS ORDERED: Promethazine 12.5 mg/10 ml Syrup PO PRN (21:01)
[2017-04-23] MEDS: Albuterol-Ipratrop 3 mg / 0.5 (3 ml) UD INH SCH ×4 (04:06→20:08)
[2017-04-23 06:58] LABS: HEMOGLOBIN 13.9 g/dL (12.0-16.0); MEAN CELL VOLUME 92.4 fl (81.0-99.0); MEAN CORPUSCULAR HGB CONC 32.5 g/dL (33.0-37.0); RBC 4.64 Mil/uL (3.80-5.20); RED CELL DISTRIBUTION WIDTH 13.8 % (11.5-14.5); WHITE BLOOD COUNT 12.6 K/uL (4.8-10.8)
[2017-04-23 07:07] LABS: BLOOD UREA NITROGEN 22 mg/dl (7-17); CALCIUM 8.7 mg/dL (8.4-10.2); GFR AFRICAN-AMERICAN > 60; GFR NON-AFRICAN AMERICAN > 60
[2017-04-23 07:14] LABS: B-TYPE NATRIURETIC PEPTIDE 697 pg/ml (0-900)
--- NOTE | 2017-04-23 09:28 | HP ---
HISTORY OF PRESENT ILLNESS: The patient is a 72-year-old female who was admitted via the emergency room followed by an accidental fall at home after she tripped over her car, sustaining right shoulder fracture. She was seen in the hospital in [place], walked up, diagnosed to have a right humerus fracture and was discharged home. She was showed up in the emergency room because she was short of breath, had severe pain in the shoulder and was unable to ambulate without cough and chest tightness. She was admitted for acute exacerbation of COPD and mild congestive heart failure with superimposed right humeral fracture. PAST MEDICAL HISTORY: She has a past medical history of chronic obstructive pulmonary disease; cardiac arrhythmia, status post pacemaker placement; coronary artery disease; recurrent congestive heart failure, hyperlipidemia. FAMILY HISTORY: Non-revealing. SOCIAL HISTORY: She continues to smoke cigarettes. Does not drink alcohol or use drugs and lives at home with family. REVIEW OF SYSTEMS: Essentially remarkable for a chronic shortness of breath, exercise intolerance, and chest tightness. PHYSICAL EXAMINATION GENERAL: The patient is alert, oriented, appears to be in moderate pain because of pain in the shoulder. VITAL SIGNS: Blood pressure 114/71, pulse 70, respiratory rate 18 to 20 per minute. She is afebrile. O2 saturation is 99% on nasal cannula oxygen. SKIN: Shows fair turgor. HEENT: Pupils are equal and reactive to light and accommodation. JVP is flat. LUNGS: Fair aeration with basal dullness and mild rales with mild wheezing. HEART: S1 and S2. She has pacemaker in place in the chest wall. ABDOMEN: Soft and nontender. No organomegaly. EXTREMITIES: 1+ pitting, pedal edema. CENTRAL NERVOUS SYSTEM: Grossly intact. There is a tender left upper extremity placed in a sling. LABORATORY DATA: Remarkable for WBC of 15.3, hemoglobin 14.8, and platelet count of 179,000. Sodium 138, potassium 3.9, BUN of 24, and creatinine 0.9. Pro-BNP 1130. Troponin 0.029. Chest x-ray shows pacemaker in place. No acute cardiopulmonary pathology. EKG: Regular sinus rhythm with premature supraventricular complexes, occasional PVCs, ST-T changes, consider lateral ischemia. X-ray of the right shoulder is remarkable for acute non-displaced fracture in the greater trochanter humerus. IMPRESSION: Acute exacerbation of chronic obstructive pulmonary disease, mild congestive heart failure with diastolic dysfunction, acute right humeral head fracture secondary to fall. PLAN: Orthopedic surgery evaluation, cardiology evaluation for mild congestive heart failure. We will continue the use of bronchodilators and oxygen, analgesics for pain. Further therapy would depend on findings. Da Jason MD
--- NOTE | 2017-04-23 11:29 | CARD ---
APPROVED REPORT EXAM: Two-dimensional and M-mode echocardiogram with Doppler and color Doppler. Other Information Quality : FairRhythm : NSR Technically limited study due to Fractured Lt Shoulder INDICATION Chest Pain Congestive Heart Failure 2D DIMENSIONS IVSd1.29 (0.7-1.1cm)LVDd6.01 (3.9-5.9cm) LVOT Diameter2.67 (1.8-2.4cm)PWd0.84 (0.7-1.1cm) IVSs1.39 (0.8-1.2cm)LVDs4.63 (2.5-4.0cm) FS (%) 22.9 %PWs1.42 (0.8-1.2cm) M-Mode DIMENSIONS Left Atrium (MM)3.42 (2.5-4.0cm)IVSd0.94 (0.7-1.1cm) Aortic Root3.46 (2.2-3.7cm)LVDd5.87 (4.0-5.6cm) Aortic Cusp Exc.2.10 (1.5-2.0cm)PWd0.84 (0.7-1.1cm) IVSs0.98 cmFS (%) 13 % LVDs5.10 (2.0-3.8cm)PWs1.15 cm Mitral Valve MV E Wetfonwq38.2cm/sMV DECEL [id number] A Lsokedht40.0cm/s MV CXV27hdI/A ratio0.6MVA (PHT)2.86cm2 TDI E/Lateral E'0.0E/Medial E'0.0 Pulmonary Valve PV Peak Sjxtwjmn96.7cm/s LEFT VENTRICLE The left ventricle is normal size. There is normal left ventricular wall thickness. The systolic function is moderately impaired. The Ejection Fraction is 30-35%. There is global hypokinesis of the left ventricle. Transmitral Doppler flow pattern is Grade I-abnormal relaxation pattern. No left ventricle thrombus noted on this study. There is no mass noted in the left ventricle. RIGHT VENTRICLE The right ventricle is normal size. There is normal right ventricular wall thickness. The right ventricular systolic function is normal. ATRIA The left atrium size is normal. The right atrium size is normal. The interatrial septum is intact with no evidence for an atrial septal defect. AORTIC VALVE The aortic valve is normal in structure and function. No aortic regurgitation is present. There is no aortic valvular stenosis. There is no aortic valvular vegetation. MITRAL VALVE The mitral valve is normal in structure and function. There is no evidence of mitral valve prolapse. There is no mitral valve stenosis. Mitral regurgitation is trace to mild. TRICUSPID VALVE The tricuspid valve is normal in structure and function. There is no tricuspid valve regurgitation noted. There is no tricuspid valve prolapse or vegetation. There is no tricuspid valve stenosis. PULMONIC VALVE The pulmonary valve is normal in structure and function. There is no pulmonic valvular regurgitation. There is no pulmonic valvular stenosis. GREAT VESSELS The aortic root is normal in size. The IVC is normal in size and collapses >50% with inspiration. PERICARDIAL EFFUSION The pericardium appears normal. There is no pleural effusion. <Conclusion> The left ventricle is normal size. The systolic function is moderately impaired. The Ejection Fraction is 30-35%. There is global hypokinesis of the left ventricle. Transmitral Doppler flow pattern is Grade I-abnormal relaxation pattern. Mitral regurgitation is trace to mild.
--- NOTE | 2017-04-23 11:32 | CARD ---
APPROVED REPORT EKG Measurement Heart [id number] IL [id number] <Conclusion> Sinus rhythm with premature supraventricular complexes and with occasional premature ventricular complexes ST & T wave abnormality, consider inferolateral ischemia Abnormal ECG
--- NOTE | 2017-04-23 11:41 | CARD ---
APPROVED REPORT EKG Measurement Heart [id number] AL [id number] <Conclusion> Sinus rhythm with 1st degree AV block ST & T wave abnormality, consider inferolateral ischemia Abnormal ECG
--- NOTE | 2017-04-23 15:20 | PQF GENQUE ---
Dr. Jason, Please specify the acuity of the Diastolic heart failure in your progress notes: Acute Chronic Acute on chronic Other (please specify) Clinically unable to determine Unknown CXR report: Impression:Mild pulmonary venous congestion. No active pulmonary disease. Pro-BNP:1130->697 Lasix IVP daily, Coreg 6.25 mg PO Q12H This form is a permanent part of the medical record Clarification of your documentation is requested to better reflect the severity of illness and intensity of treatment of your patient. Indicators present [] Specify: [x] ACUTE ON CHRONIC DIASTOLIC HEART FAILURE [] Specify: [] [] Specify: [] [] Specify: [] Location in the medical record that reflects the above clinical findings: [] Treatment Provided: [] PHYSICIAN'S RESPONSE Based on your medical judgment of the clinical indicators outlined above please clarify the following: [] Practitioner response [] If unable to determine, please check the box, sign and date. Present On Admission (POA) Indicator: [] Present at the time of admission [] Not present at the time of admission [] Clinically Undetermined In responding to this query, please exercise your independent professional judgment. The fact that a question is asked does not imply that any particular answer is desired or expected. Thank you for your clarification on this documentation. If you have any questions please call. * Thank you, Shalonda Schofield RN BSN ext. #[phone] MTDD
--- NOTE | 2017-04-23 18:16 | CP.PCM.CON ---
History of Present Illness - History of Present Illness History of Present Illness: I was asked to see patient for Dr. Velasquez, the patient routine beef cattle farm worker. Patient is a 72 year old feamle with a history of ischemic cardiomyopathy s/p AICD ([employer]), CAD s/p stent LAD by Dr. Velasquez, HTN who presents with dyspnea. The patient sustained a fall a few days ago after tripping on her cat. The patient sustained a left shoulder fracture. The patient was discharged from an outside hospital but had persistent dyspnea. The patient was admitted for management of acute on chronic systolic dysfunction. She has received diuretic therapy and is improving. Review of Systems - Constitutional Constitutional: absent: As Per HPI, Anorexia, Chills, Daytime Sleepiness, Excessive Sweating, Fatigue, Fever, Frequent Falls, Headache, Increased Appetite , Lethargy, Malaise, Night Sweats, Snoring, Sleep Apnea, Weight Gain, Weight Loss, Weakness, Other - EENT Eyes: absent: As Per HPI, Blind Spots, Blurred Vision, Change in Vision, Decreased Night Vision, Diplopia, Discharge, Dry Eye, Exophthalmos, Floaters, Irritation, Itchy Eyes, Loss of Peripheral Vision, Pain, Photophobia, Requires Corrective Lenses, Sees Flashes, Spots in Vision, Tunnel Vision, Other Visual Disturbances, Loss of Vision, Other Ears: absent: As Per HPI, Decreased Hearing, Ear Discharge, Ear Pain, Tinnitus, Abnormal Hearing, Disequilibrium, Dizziness, Other Nose/Mouth/Throat: absent: As Per HPI, Epistaxis, Nasal Congestion, Nasal Discharge, Nasal Obstruction, Nasal Trauma, Nose Pain, Post Nasal Drip, Sinus Pain, Sinus Pressure, Bleeding Gums, Change in Voice, Dental Pain, Dry Mouth, Dysphagia, Halitosis, Hoarsness, Lip Swelling, Mouth Lesions, Mouth Pain, Odynophagia, Sore Throat, Throat Swelling, Tongue Swelling, Facial Pain, Neck Pain, Neck Mass, Other - Cardiovascular Cardiovascular: Dyspnea - Respiratory Respiratory: absent: As Per HPI, Cough, Dyspnea, Hemoptysis, Dyspnea on Exertion , Wheezing, Snoring, Stridor, Pain on Inspiration, Chest Congestion, Excessive Mucous Production, Change in Mucous Color, Pain with Coughing, Other - Gastrointestinal Gastrointestinal: absent: As Per HPI, Abdominal Pain, Belching, Bloating, Change in Bowel Habits, Change in Stool Character, Coffee Ground Emesis, Constipation, Cramping, Diarrhea, Dyspepsia, Dysphagia, Early Satiety, Excessive Flatus, Fecal Incontinence, Heartburn, Hematemesis, Hematochezia, Loose Stools, Melena, Nausea, Odynophagia, Temesmus, Vomiting, Other - Genitourinary Genitourinary: absent: As Per HPI, Change in Urinary Stream, Difficulty Urinating, Dysuria, Flank Pain, Hematuria, Pyuria, Nocturia, Urinary Incontinence, Urinary Frequency, Urinary Hesitance, Urinary Urgency, Voiding Freq/Small Amts, Freq UTI, Hx Renal/Bladder Calculi, Hx /Renal Surgery, Bladder Distension, Other - Musculoskeletal Additional comments: shoulder pain - Integumentary Integumentary: absent: As Per HPI, Acne, Alopecia, Bleeding Lesions, Change in Hair, Change in Nails, Change in Pigmentation, Changing Lesions, Dry Skin, Erythema, Furuncle, Hirsutism, Lesions, New Lesions, Non-Healing Lesions, Photosensitivity, Pruritus, Rash, Skin Pain, Skin Ulcer, Sores, Striae, Swelling , Unusual Bruising, Wounds, Jaundice, Other - Neurological Neurological: absent: As Per HPI, Abnormal Gait, Abnormal Hearing, Abnormal Movements, Abnormal Speech, Behavioral Changes, Burning Sensations, Confusion, Convulsions, Disequilibrium, Dizziness, Numbness, Focal Weakness, Frequent Falls , Headaches, Lack of Coordination, Loss of Vision, Memory Loss, Paresthesias, Radicular Pain, Restless Legs, Sensory Deficit, Syncope, Tingling, Tremor, Vertigo, Weakness, Other Visual Disturbances, Other - Psychiatric Psychiatric: absent: As Per HPI, Abnormal Sleep Pattern, Anhedonia, Anxiety, Auditory Hallucinations, Behavioral Changes, Change in Appetite, Change in Libido, Confusion, Depression, Difficulty Concentrating, Hallucinations, Homicidal Ideation, Hopelessness, Irritability, Memory Loss, Mood Swings, Panic Attacks, Paranoia, Suicidal Ideation, Visual Hallucinations, Tactile Hallucinations, Other - Endocrine Endocrine: absent: As Per HPI, Change in Body Appearance, Change in Libido, Cold Intolorance, Deepening of Voice, Excessive Sweating, Fatigue, Flushing, Heat Intolorance, Increase in Ring/Shoe/Hat Size, Palpitations, Polydipsia, Polyphagia, Polyuria, Other - Hematologic/Lymphatic Hematologic: absent: As Per HPI, Easy Bleeding, Easy Bruising, Lymphadenopathy, Other Past Patient History - Infectious Disease Hx of Infectious Diseases: None - Past Medical History & Family History Past Medical History?: Yes - Past Social History Smoking Status: Former Smoker - CARDIAC Hx Cardiac Disorders: Yes Hx Atrial Fibrillation: Yes Hx Cardia Arrhythmia: Yes Hx Congestive Heart Failure: Yes Hx Hypercholesterolemia: Yes Hx Hypertension: Yes Hx Pacemaker: Yes Hx Peripheral Edema: Yes - PULMONARY Hx Respiratory Disorders: Yes Hx Chronic Obstructive Pulmonary Disease (COPD): Yes Hx Emphysema: Yes Hx Pneumonia: Yes - NEUROLOGICAL Hx Neurological Disorder: No - HEENT Hx HEENT Problems: Yes - RENAL Hx Chronic Kidney Disease: No - ENDOCRINE/METABOLIC Hx Endocrine Disorders: No - HEMATOLOGICAL/ONCOLOGICAL Hx Blood Disorders: No Hx Human Immunodeficiency Virus (HIV): No - INTEGUMENTARY Hx Dermatological Problems: No - MUSCULOSKELETAL/RHEUMATOLOGICAL Hx Musculoskeletal Disorders: No Hx Falls: Yes (trip over cat) - GASTROINTESTINAL Hx Gastrointestinal Disorders: No - GENITOURINARY/GYNECOLOGICAL Hx Genitourinary Disorders: No - PSYCHIATRIC Hx Psychophysiologic Disorder: Yes Hx Anxiety: Yes Hx Substance Use: No - SURGICAL HISTORY Hx Surgeries: Yes Hx Cholecystectomy: Yes Hx Coronary Stent: Yes Other/Comment: pacemaker - ANESTHESIA Hx Anesthesia: Yes Hx Anesthesia Reactions: No Hx Malignant Hyperthermia: No Meds Allergies/Adverse Reactions: Allergies Allergy/AdvReac Type Severity Reaction Status Date / Time No Known Allergies Allergy Verified 12/13/16 18:54 - Medications Medications: Current Medications Albuterol/Ipratropium (Duoneb 3 Mg/0.5 Mg (3 Ml) Ud) 3 ml INH RQ6 [facility] Last Admin: 04/23/17 13:21 Dose: 3 ml Aspirin (Ecotrin) 81 mg PO DAILY [facility] Last Admin: 04/23/17 09:09 Dose: 81 mg Carvedilol (Coreg) 6.25 mg PO Q12H [facility] Last Admin: 04/23/17 09:09 Dose: 6.25 mg Dabigatran (Pradaxa) 75 mg PO Q12H [facility] PRN Reason: Protocol Last Admin: 04/23/17 09:08 Dose: 75 mg Furosemide (Lasix) 40 mg IVP DAILY [facility] Last Admin: 04/23/17 09:09 Dose: 40 mg Morphine Sulfate (Morphine) 2 mg IVP Q4 PRN PRN Reason: Pain, moderate (4-7) Last Admin: 08/16/17 15:16 Dose: 2 mg Promethazine HCl (Phenergan Syrup) 12.5 mg PO Q6H PRN PRN Reason: Cough Valsartan (Diovan) 80 mg PO DAILY [facility] Last Admin: 04/23/17 09:09 Dose: 80 mg Physical Exam - Constitutional Appears: Non-toxic - Head Exam Head Exam: NORMAL INSPECTION - Eye Exam Eye Exam: Normal appearance - ENT Exam ENT Exam: Mucous Membranes Moist - Neck Exam Neck exam: Positive for: Full Rom - Respiratory Exam Respiratory Exam: Decreased Breath Sounds - Cardiovascular Exam Cardiovascular Exam: REGULAR RHYTHM - GI/Abdominal Exam GI & Abdominal Exam: Normal Bowel Sounds - Rectal Exam Rectal Exam: Deferred - Extremities Exam Extremities exam: Positive for: normal inspection, pedal edema - Back Exam Back exam: NORMAL INSPECTION - Neurological Exam Neurological exam: Alert, Oriented x3 - Psychiatric Exam Psychiatric exam: Normal Affect - Skin Skin Exam: Normal Color Results - Vital Signs Recent Vital Signs: Last Vital Signs Temp 98.3 F 04/23/17 16:18 Pulse 70 04/23/17 16:18 Resp 18 04/23/17 16:18 BP 116/57 L 04/23/17 16:18 Pulse Ox 93 L 04/23/17 16:18 - Labs Result Diagrams: 04/23/17 06:30 04/23/17 06:30 Labs: Laboratory Results - last 24 hr 04/23/17 04/23/17 04/23/17 06:30 06:30 12:20 WBC 12.6 H RBC 4.64 Hgb 13.9 Hct 42.9 MCV 92.4 MCH 30.0 MCHC 32.5 L RDW 13.8 Plt Count 151 Sodium 138 Potassium 4.0 Chloride 102 Carbon Dioxide 26 Anion Gap 14 BUN 22 H Creatinine 0.9 Est GFR ( Amer) > 60 Est GFR (Non-Af Amer) > 60 Random Glucose 131 H Calcium 8.7 Troponin I 0.0250 0.0280 NT-Pro-B Natriuret Pep 697 Blood Type Confirm 04/23/17 16:11 WBC RBC Hgb Hct MCV MCH MCHC RDW Plt Count Sodium Potassium Chloride Carbon Dioxide Anion Gap BUN Creatinine Est GFR ( Amer) Est GFR (Non-Af Amer) Random Glucose Calcium Troponin I NT-Pro-B Natriuret Pep Blood Type Confirm A POSITIVE - EKG Data EKG Interpreted by: Myself Assessment & Plan (1) Acute on chronic systolic (congestive) heart failure Assessment and Plan: will continue diuretic therapy. patient is improving Status: Acute (2) HTN (hypertension) Assessment and Plan: blood pressure control Status: Acute (3) CAD (coronary artery disease) Assessment and Plan: currently hemodynamically stable Status: Acute (4) Paroxysmal atrial fibrillation Assessment and Plan: continue anticoagulant hterapy Status: Acute
--- NOTE | 2017-04-23 19:58 | CON ---
DATE OF CONSULTATION: 04/23/2017 CHIEF COMPLAINT: Left shoulder proximal humerus fracture. HISTORY OF PRESENT ILLNESS: The patient with the history of cardiac disease, defibrillator, had a mechanical fall landing on to her left shoulder. Patient presented herself with ER. X-ray showed a minimally displaced, left proximal humerus fractures. The patient currently seen on bedside. She denies any shortness of breath. Denies pain in any other extremity or joints. Denies any paresthesia or motor weakness. Currently in a sling. Had limited range of motion secondary to pain. PAST MEDICAL HISTORY: Cardiovascular disease and a defibrillator. PHYSICAL EXAMINATION: EXTREMITIES: Examination of the patient's left shoulder; there is swelling, minimal ecchymosis. Limited range of motion secondary to pain, neurovascularly intact distally, radial, ulnar, median, AIN and PIN nerves are intact. Distal sensation is gross intact. 2+radial pulse. IMAGING: X-ray of the patient's left shoulder shows a minimally displaced proximal humerus fracture of the greater tuberosity. ASSESSMENT: A 72-year-old female with extensive cardiac and pulmonary disease with left shoulder proximal humerus fractures and treatment. I had a detailed discussion with the patient reviewing the history and physical examination x-ray findings of that side due to minimal displacement and the patient extensive medical history. I am recommending a nonoperative management with the proximal humerus fracture for the patient. I reviewed the risks and benefits of both surgical and nonoperative treatment with the patient. She agrees with the plan. She will remain nonweightbearing, remain in sling. Follow up in my office two weeks with the x-rays of the left shoulder. Jeremias Polanco MD
[2017-04-24] MEDS: Albuterol-Ipratrop 3 mg / 0.5 (3 ml) UD INH SCH ×4 (01:00→20:10)
--- NOTE | 2017-04-24 08:33 | CP.PCM.PN ---
Subjective - Date & Time of Evaluation Date of Evaluation: 04/24/17 Time of Evaluation: 08:35 - Subjective Subjective: SOB IMPROVING L SHOULDER PAIN PERSISTS Objective - Vital Signs/Intake and Output Vital Signs (last 24 hours): Temp Pulse Resp BP Pulse Ox 98.4 F 68 18 145/77 95 04/24/17 08:00 04/24/17 08:00 04/24/17 08:00 04/24/17 08:00 04/24/17 08:00 - Medications Medications: Current Medications Albuterol/Ipratropium (Duoneb 3 Mg/0.5 Mg (3 Ml) Ud) 3 ml INH RQ6 [facility] Last Admin: 04/24/17 07:35 Dose: 3 ml Aspirin (Ecotrin) 81 mg PO DAILY [facility] Last Admin: 04/23/17 09:09 Dose: 81 mg Carvedilol (Coreg) 6.25 mg PO Q12H [facility] Last Admin: 04/23/17 21:27 Dose: 6.25 mg Dabigatran (Pradaxa) 75 mg PO Q12H [facility] PRN Reason: Protocol Last Admin: 04/23/17 21:26 Dose: 75 mg Furosemide (Lasix) 40 mg IVP DAILY [facility] Last Admin: 04/23/17 09:09 Dose: 40 mg Morphine Sulfate (Morphine) 2 mg IVP Q4 PRN PRN Reason: Pain, moderate (4-7) Last Admin: 04/24/17 06:31 Dose: 2 mg Promethazine HCl (Phenergan Syrup) 12.5 mg PO Q6H PRN PRN Reason: Cough Valsartan (Diovan) 80 mg PO DAILY [facility] Last Admin: 04/23/17 09:09 Dose: 80 mg - Labs Labs: 04/23/17 06:30 04/23/17 06:30 PT 12.6 Seconds (9.8-13.1) 04/22/17 15:30 INR 1.2 (0.9-1.2) 04/22/17 15:30 APTT 41.6 Seconds (25.6-37.1) H 04/22/17 15:30 - Constitutional Appears: In Acute Distress - Head Exam Head Exam: ATRAUMATIC, NORMAL INSPECTION, NORMOCEPHALIC - Eye Exam Eye Exam: EOMI, Normal appearance, PERRL Pupil Exam: NORMAL ACCOMODATION, PERRL - ENT Exam ENT Exam: Mucous Membranes Moist, Normal Exam - Neck Exam Neck Exam: Full ROM, Normal Inspection. absent: Lymphadenopathy - Respiratory Exam Respiratory Exam: Decreased Breath Sounds, Prolonged Expiratory Phase, NORMAL BREATHING PATTERN - Cardiovascular Exam Cardiovascular Exam: REGULAR RHYTHM, +S1, +S2. absent: Murmur - GI/Abdominal Exam GI & Abdominal Exam: Soft, Normal Bowel Sounds. absent: Tenderness - Rectal Exam Rectal Exam: NORMAL INSPECTION - Extremities Exam Extremities Exam: Full ROM, Normal Capillary Refill, Normal Inspection, Tenderness. absent: Joint Swelling, Pedal Edema Additional comments: L ARM IN A SLING - Back Exam Back Exam: NORMAL INSPECTION - Neurological Exam Neurological Exam: Alert, Awake, CN II-XII Intact, Normal Gait, Oriented x3 - Psychiatric Exam Psychiatric exam: Normal Affect, Normal Mood - Skin Skin Exam: Dry, Intact, Normal Color, Warm Assessment and Plan - Assessment and Plan (Free Text) Assessment: DIASTOLIC CHF-IMPROVING COPD-IMPROVING HTN L HUMERUS FRACTURE Plan: WATCH AND CLOCK REPAIR CLERK FOR TCU PLACEMENT
[2017-04-24 20:22] VITALS: O2SAT 93
--- NOTE | 2017-04-24 21:58 | CP.PCM.PN ---
Subjective - Date & Time of Evaluation Date of Evaluation: 04/24/17 Time of Evaluation: 21:50 - Subjective Subjective: patient has less dyspnea Objective - Vital Signs/Intake and Output Vital Signs (last 24 hours): Temp Pulse Resp BP Pulse Ox 97.9 F 81 18 116/67 93 L 04/24/17 20:22 04/24/17 21:16 04/24/17 20:22 04/24/17 21:16 04/24/17 20:22 - Medications Medications: Current Medications Albuterol/Ipratropium (Duoneb 3 Mg/0.5 Mg (3 Ml) Ud) 3 ml [facility]H RQ6 [facility] Last Admin: 04/24/17 20:10 Dose: 3 ml Aspirin (Ecotrin) 81 mg PO DAILY [facility] Last Admin: 04/24/17 08:51 Dose: 81 mg Carvedilol (Coreg) 6.25 mg PO Q12H [facility] Last Admin: 04/24/17 21:16 Dose: 6.25 mg Dabigatran (Pradaxa) 75 mg PO Q12H [facility] PRN Reason: Protocol Last Admin: 04/24/17 21:16 Dose: 75 mg Furosemide (Lasix) 40 mg IVP DAILY [facility] Last Admin: 04/24/17 08:52 Dose: 40 mg Morphine Sulfate (Morphine) 2 mg IVP Q4 PRN PRN Reason: Pain, moderate (4-7) Last Admin: 04/24/17 14:14 Dose: 2 mg Promethazine HCl (Phenergan Syrup) 12.5 mg PO Q6H PRN PRN Reason: Cough Valsartan (Diovan) 80 mg PO DAILY [facility] Last Admin: 04/24/17 08:51 Dose: 80 mg - Labs Labs: 04/23/17 06:30 04/23/17 06:30 PT 12.6 Seconds (9.8-13.1) 04/22/17 15:30 INR 1.2 (0.9-1.2) 04/22/17 15:30 APTT 41.6 Seconds (25.6-37.1) H 04/22/17 15:30 - Constitutional Appears: Non-toxic - Eye Exam Eye Exam: Normal appearance - ENT Exam ENT Exam: Mucous Membranes Moist - Neck Exam Neck Exam: Full ROM - Respiratory Exam Respiratory Exam: Decreased Breath Sounds - Cardiovascular Exam Cardiovascular Exam: REGULAR RHYTHM - GI/Abdominal Exam GI & Abdominal Exam: Normal Bowel Sounds - Rectal Exam Rectal Exam: Deferred - Extremities Exam Extremities Exam: Pedal Edema - Back Exam Back Exam: NORMAL INSPECTION - Neurological Exam Neurological Exam: Alert - Psychiatric Exam Psychiatric exam: Normal Affect - Skin Skin Exam: Normal Color Assessment and Plan (1) Acute on chronic systolic (congestive) heart failure Assessment & Plan: improving with diuretic therapy Status: Acute (2) HTN (hypertension) Assessment & Plan: controlled Status: Acute (3) CAD (coronary artery disease) Assessment & Plan: will have outpatient follow up wt Dr. Velasquez Status: Acute (4) Paroxysmal atrial fibrillation Assessment & Plan: on Pradaxa Status: Acute
[2017-04-25] MEDS: Albuterol-Ipratrop 3 mg / 0.5 (3 ml) UD INH SCH ×3 (01:00→13:15)
[2017-04-25 05:02] VITALS: TEMP 98.2
[2017-04-25 08:14] VITALS: RESP 18
[2017-04-25 12:02] VITALS: BP 97/62; PULSE 68
--- NOTE | 2017-04-25 12:37 | US ---
PROCEDURE: Bilateral lower extremity venous duplex Doppler. HISTORY: r/o dvt COMPARISON: None available. TECHNIQUE: Bilateral common femoral, superficial femoral, popliteal and posterior tibial veins were evaluated. Flow was assessed with color Doppler, compressibility, assessment of phasic flow and augmentation response. FINDINGS: COMMON FEMORAL VEIN: Right CFV: Unremarkable. Left CFV: Unremarkable. SUPERFICIAL FEMORAL VEIN: Right SFV: Unremarkable. Left SFV: Unremarkable. POPLITEAL VEIN: Right Popliteal: Unremarkable. Left Popliteal: Unremarkable. POSTERIOR TIBIAL VEIN: Right PTV: Unremarkable. Left PTV: Unremarkable. OTHER FINDINGS: None. IMPRESSION: No evidence of deep venous thrombosis.
--- NOTE | 2017-04-25 12:58 | CP.PCM.DIS ---
Provider - Provider Date of Admission: 04/22/17 16:47 Attending physician: Da Jason MD Time Spent in preparation of Discharge (in minutes): 35 Diagnosis - Discharge Diagnosis (1) Acute on chronic systolic (congestive) heart failure Status: Acute (2) CAD (coronary artery disease) Status: Acute (3) COPD exacerbation Status: Acute (4) Chest pain Status: Acute (5) HTN (hypertension) Status: Acute (6) Humeral head fracture Status: Acute (7) Paroxysmal atrial fibrillation Status: Acute (8) Acute diastolic congestive heart failure Status: Acute Hospital Course - Lab Results Lab Results: Most Recent Lab Values WBC 12.6 K/uL (4.8-10.8) H 04/23/17 06:30 RBC 4.64 Mil/uL (3.80-5.20) 04/23/17 06:30 Hgb 13.9 g/dL (12.0-16.0) 04/23/17 06:30 Hct 42.9 % (34.0-47.0) 04/23/17 06:30 MCV 92.4 fl (81.0-99.0) 04/23/17 06:30 MCH 30.0 pg (27.0-31.0) 04/23/17 06:30 MCHC 32.5 g/dL (33.0-37.0) L 04/23/17 06:30 RDW 13.8 % (11.5-14.5) 04/23/17 06:30 Plt Count 151 K/uL (130-400) 04/23/17 06:30 MPV 9.9 fl (7.2-11.7) 04/22/17 15:30 Neut % (Auto) 75.2 % (50.0-75.0) H 04/22/17 15:30 Lymph % (Auto) 11.1 % (20.0-40.0) L 04/22/17 15:30 Knott % (Auto) 8.1 % (0.0-10.0) 04/22/17 15:30 Eos % (Auto) 4.8 % (0.0-4.0) H 04/22/17 15:30 Baso % (Auto) 0.8 % (0.0-2.0) 04/22/17 15:30 Neut # 11.5 K/uL (1.8-7.0) H 04/22/17 15:30 Lymph # 1.7 K/uL (1.0-4.3) 04/22/17 15:30 Knott # 1.2 K/uL (0.0-0.8) H 04/22/17 15:30 Eos # 0.7 K/uL (0.0-0.7) 04/22/17 15:30 Baso # 0.1 K/uL (0.0-0.2) 04/22/17 15:30 PT 12.6 Seconds (9.8-13.1) 04/22/17 15:30 INR 1.2 (0.9-1.2) 04/22/17 15:30 APTT 41.6 Seconds (25.6-37.1) H 04/22/17 15:30 Sodium 138 mmol/l (132-148) 04/23/17 06:30 Potassium 4.0 MMOL/L (3.6-5.0) 04/23/17 06:30 Chloride 102 mmol/L (98-107) 04/23/17 06:30 Carbon Dioxide 26 mmol/L (22-30) 04/23/17 06:30 Anion Gap 14 (10-20) 04/23/17 06:30 BUN 22 mg/dl (7-17) H 04/23/17 06:30 Creatinine 0.9 mg/dL (0.7-1.2) 04/23/17 06:30 Est GFR ( Amer) > 60 04/23/17 06:30 Est GFR (Non-Af Amer) > 60 04/23/17 06:30 Random Glucose 131 mg/dL (65-105) H 04/23/17 06:30 Calcium 8.7 mg/dL (8.4-10.2) 04/23/17 06:30 Phosphorus 2.7 mg/dl (2.5-4.5) 04/22/17 15:20 Magnesium 2.2 MG/DL (1.6-2.3) 04/22/17 15:20 Total Bilirubin 1.7 mg/dl (0.2-1.3) H 04/22/17 15:20 AST 58 U/L (14-36) H D 04/22/17 15:20 ALT 11 U/L (9-52) 04/22/17 15:20 Alkaline Phosphatase 83 U/L (38-126) 04/22/17 15:20 Troponin I 0.0270 ng/mL (0.00-0.120) 04/23/17 20:00 NT-Pro-B Natriuret Pep 697 pg/ml (0-900) 04/23/17 06:30 Total Protein 8.3 G/DL (6.3-8.2) H 04/22/17 15:20 Albumin 4.7 g/dL (3.5-5.0) 04/22/17 15:20 Globulin 3.6 gm/dL (2.2-3.9) 04/22/17 15:20 Albumin/Globulin Ratio 1.3 (1.0-2.1) 04/22/17 15:20 Blood Type A POSITIVE 04/22/17 15:30 Blood Type Confirm A POSITIVE 04/23/17 16:11 Antibody Screen Negative 04/22/17 15:30 BBK History Checked No verified bt 04/22/17 15:30 - Hospital Course Hospital Course: still has dyspnea on exertion and l shoulder pain Discharge Exam - Head Exam Head Exam: ATRAUMATIC, NORMAL INSPECTION, NORMOCEPHALIC - Eye Exam Eye Exam: EOMI, Normal appearance, PERRL Pupil Exam: NORMAL ACCOMODATION, PERRL - Respiratory Exam Respiratory Exam: Decreased Breath Sounds, Prolonged Expiratory Phase - GI/Abdominal Exam GI & Abdominal Exam: Normal Bowel Sounds - Rectal Exam Rectal Exam: NORMAL INSPECTION - Extremities Exam Extremities exam: tenderness Additional comments: left shoulder tenderness - Neurological Exam Neurological exam: Alert, CN II-XII Intact, Normal Gait, Oriented x3, Reflexes Normal - Psychiatric Exam Psychiatric exam: Normal Affect, Normal Mood - Skin Skin Exam: Dry, Intact, Normal Color, Warm Discharge Plan - Follow Up Plan Condition: FAIR Disposition: REHAB FACILITY/REHAB UNIT Patient education suggested?: Yes Additional Instructions: patient cleared for discharge to TCU today by / cont. PT/OT Referrals: Da Jason MD [Staff Provider] -
== END 2017-04-25 14:48 | DRG 190 ==
LOC: H.ER 14:50 → H.ERHOLD 16:47 → H.TEL 20:18
PROVIDERS: ADMIT Internal Medicine Pulmonary Disease; ATTEND Internal Medicine Pulmonary Disease
DX: J44.1 Chronic obstructive pulmonary disease with (acute) exacerbation (principal); I50.43 Acute on chronic combined systolic (congestive) and diastolic (congestive) heart failure; S42.252A Displaced fracture of greater tuberosity of left humerus, initial encounter for closed fracture; I48.0 Paroxysmal atrial fibrillation; I25.5 Ischemic cardiomyopathy; I25.10 Atherosclerotic heart disease of native coronary artery without angina pectoris; I11.0 Hypertensive heart disease with heart failure; E78.5 Hyperlipidemia, unspecified; F41.9 Anxiety disorder, unspecified; E78.00 Pure hypercholesterolemia, unspecified; F17.210 Nicotine dependence, cigarettes, uncomplicated; Z79.01 Long term (current) use of anticoagulants; Z95.5 Presence of coronary angioplasty implant and graft; Z95.810 Presence of automatic (implantable) cardiac defibrillator; W01.0XXA Fall on same level from slipping, tripping and stumbling without subsequent striking against object, initial encounter; Z79.82 Long term (current) use of aspirin; Z87.01 Personal history of pneumonia (recurrent); Y92.009 Unspecified place in unspecified non-institutional (private) residence as the place of occurrence of the external cause

== ENCOUNTER 2017-04-25 13:05 | Inpatient (IN) | payer OTHER, MEDICARE ==
[2017-04-25 16:19] VITALS: RESP 20
[2017-04-25] MEDS: Albuterol-Ipratrop 3 mg / 0.5 (3 ml) UD INH SCH (19:26)
[2017-04-25] MEDS ORDERED: Oxycodone/Acetaminophen 5/325 mg Tab PO PRN (20:22)
[2017-04-26] MEDS: Albuterol-Ipratrop 3 mg / 0.5 (3 ml) UD INH SCH ×4 (01:02→19:26)
[2017-04-26] MEDS: Promethazine 12.5 mg/10 ml Syrup PO PRN (08:39)
--- NOTE | 2017-04-26 23:50 | HP ---
HISTORY OF PRESENT ILLNESS: Mrs. Olvera is a 72-year-old female who was admitted to transitional care unit following stay in the medical floor for fracture of left upper humerus, acute exacerbation of chronic obstructive pulmonary disease and congestive heart failure. She had an accidental fall at home and fractured her left humerus. She also has shortness of breath, chest tightness, exercise intolerance for several days prior to the presentation. PAST MEDICAL HISTORY: Remarkable for coronary artery disease, cardiac arrhythmias status post pacemaker placement, congestive heart failure both diastolic and systolic dysfunction, COPD and hypertension. FAMILY HISTORY: Unremarkable. SOCIAL HISTORY: She indicates that she quit smoking several months ago. Does not use alcohol or drugs. REVIEW OF SYSTEMS: Essentially remarkable for occasional shortness of breath, and pedal edema. PHYSICAL EXAMINATION GENERAL: The patient is alert and oriented. VITAL SIGNS: Stable. HEENT: Pupils are equal and reactive to light and accommodation. JVP is flat. Mouth shows fair hygiene. LUNGS: Fair aeration with dullness at both bases and mild wheezing. HEART: S1 and S2. There is a pacemaker in place in the left anterior chest wall area. ABDOMEN: Soft and nontender. No organomegaly. BREAST: Normal. GENITALIA: Normal. RECTAL: Normal. EXTREMITIES: Shows no edema or cyanosis. There is a sling over the left upper extremity with tenderness in the left shoulder area. CENTRAL NERVOUS SYSTEM: Grossly intact. LABORATORY DATA: Pending. IMPRESSION: Acute exacerbation of chronic obstructive pulmonary disease, congestive heart failure, both diastolic and systolic dysfunction, hypertension fairly controlled, fracture of left humerus due to accidental fall. PLAN: Continue aggressive physical therapy, analgesics for pain as well as bronchodilators, oxygen therapy. No surgery for fracture is indicated at present. As per orthopedic, the patient is to be in sling for several weeks and will be reevaluated by orthopedic doctor as an outpatient. We will continue therapy as ordered in the transitional care unit. Da Jason MD
[2017-04-27] MEDS: Albuterol-Ipratrop 3 mg / 0.5 (3 ml) UD INH SCH ×4 (01:01→19:39)
--- NOTE | 2017-04-27 12:35 | CP.PCM.PN ---
Subjective - Date & Time of Evaluation Date of Evaluation: 04/27/17 Time of Evaluation: 12:39 - Subjective Subjective: STILL HAS L ARM PAIN Objective - Vital Signs/Intake and Output Vital Signs (last 24 hours): Temp Pulse Resp BP Pulse Ox 98.2 F 67 20 134/80 99 04/27/17 08:24 04/27/17 09:24 04/27/17 08:24 04/27/17 09:24 04/27/17 08:24 - Medications Medications: Current Medications Albuterol/Ipratropium (Duoneb 3 Mg/0.5 Mg (3 Ml) Ud) 3 ml INH RQ6 [facility] Last Admin: 04/27/17 08:27 Dose: 3 ml Aspirin (Ecotrin) 81 mg PO DAILY [facility] Last Admin: 04/27/17 09:24 Dose: 81 mg Carvedilol (Coreg) 6.25 mg PO 0900,2100 [facility] Last Admin: 04/27/17 09:24 Dose: 6.25 mg Dabigatran (Pradaxa) 75 mg PO 0900,2100 [facility] PRN Reason: Protocol Last Admin: 04/27/17 09:23 Dose: 75 mg Furosemide (Lasix) 40 mg PO DAILY [facility] Last Admin: 04/27/17 09:24 Dose: 40 mg Oxycodone/Acetaminophen (Percocet 5/325 Mg Tab) 1 tab PO Q4 PRN PRN Reason: Pain, moderate (4-7) Stop: 04/28/17 20:23 Promethazine HCl (Phenergan Syrup) 12.5 mg PO Q6H PRN PRN Reason: Cough Last Admin: 04/26/17 08:39 Dose: 12.5 mg Valsartan (Diovan) 80 mg PO DAILY [facility] Last Admin: 04/27/17 09:24 Dose: 80 mg - Constitutional Appears: No Acute Distress - Head Exam Head Exam: ATRAUMATIC, NORMAL INSPECTION, NORMOCEPHALIC - Eye Exam Eye Exam: EOMI, Normal appearance, PERRL Pupil Exam: NORMAL ACCOMODATION, PERRL - ENT Exam ENT Exam: Mucous Membranes Moist, Normal Exam - Neck Exam Neck Exam: Full ROM, Normal Inspection. absent: Lymphadenopathy - Respiratory Exam Respiratory Exam: Clear to Ausculation Bilateral, NORMAL BREATHING PATTERN - Cardiovascular Exam Cardiovascular Exam: REGULAR RHYTHM, +S1, +S2. absent: Murmur - GI/Abdominal Exam GI & Abdominal Exam: Soft, Normal Bowel Sounds. absent: Tenderness - Rectal Exam Rectal Exam: NORMAL INSPECTION - Extremities Exam Extremities Exam: Full ROM, Normal Capillary Refill, Normal Inspection, Tenderness. absent: Joint Swelling, Pedal Edema Additional comments: L ARM IN A SLING - Back Exam Back Exam: NORMAL INSPECTION - Neurological Exam Neurological Exam: Alert, Awake, CN II-XII Intact, Normal Gait, Oriented x3 - Psychiatric Exam Psychiatric exam: Normal Affect, Normal Mood - Skin Skin Exam: Dry, Intact, Normal Color, Warm Assessment and Plan - Assessment and Plan (Free Text) Assessment: FRACTURE L HUMERAL HEAD COPD ASHD HTN Plan: CONTINUE PRESENT RX WILL ASK VACUUM FILTER OPERATOR TO EVALUATE PT FOR SUBACUTE CARE--SHE INDICATES THAT SHE WILL BE UNABLE TO CARE FOR HERSELF AT HOME BECAUSE OF HER BROKEN ARM
[2017-04-28] MEDS: Albuterol-Ipratrop 3 mg / 0.5 (3 ml) UD INH SCH ×4 (01:00→19:08)
--- NOTE | 2017-04-28 11:08 | CP.PCM.PN ---
Subjective - Date & Time of Evaluation Date of Evaluation: 04/28/17 Time of Evaluation: 11:08 - Subjective Subjective: no new clinical findings Objective - Vital Signs/Intake and Output Vital Signs (last 24 hours): Temp Pulse Resp BP Pulse Ox 97.3 F L 68 20 151/114 H 96 04/28/17 09:35 04/28/17 09:35 04/28/17 09:35 04/28/17 08:58 04/28/17 09:35 - Medications Medications: Current Medications Albuterol/Ipratropium (Duoneb 3 Mg/0.5 Mg (3 Ml) Ud) 3 ml INH RQ6 [facility] Last Admin: 04/28/17 07:34 Dose: 3 ml Aspirin (Ecotrin) 81 mg PO DAILY [facility] Last Admin: 04/28/17 08:58 Dose: 81 mg Carvedilol (Coreg) 6.25 mg PO 0900,2100 [facility] Last Admin: 04/28/17 08:57 Dose: 6.25 mg Dabigatran (Pradaxa) 75 mg PO 0900,2100 [facility] PRN Reason: Protocol Last Admin: 04/28/17 08:58 Dose: 75 mg Furosemide (Lasix) 40 mg PO DAILY [facility] Last Admin: 04/28/17 08:58 Dose: 40 mg Oxycodone/Acetaminophen (Percocet 5/325 Mg Tab) 1 tab PO Q4 PRN PRN Reason: Pain, moderate (4-7) Stop: 04/28/17 20:23 Promethazine HCl (Phenergan Syrup) 12.5 mg PO Q6H PRN PRN Reason: Cough Last Admin: 04/26/17 08:39 Dose: 12.5 mg Valsartan (Diovan) 80 mg PO DAILY [facility] Last Admin: 04/28/17 08:57 Dose: 80 mg - Constitutional Appears: Well - Head Exam Head Exam: ATRAUMATIC, NORMAL INSPECTION, NORMOCEPHALIC - Eye Exam Eye Exam: EOMI, Normal appearance, PERRL Pupil Exam: NORMAL ACCOMODATION, PERRL - ENT Exam ENT Exam: Mucous Membranes Moist, Normal Exam - Neck Exam Neck Exam: Full ROM, Normal Inspection. absent: Lymphadenopathy - Respiratory Exam Respiratory Exam: Clear to Ausculation Bilateral, NORMAL BREATHING PATTERN - Cardiovascular Exam Cardiovascular Exam: REGULAR RHYTHM, +S1, +S2. absent: Murmur - GI/Abdominal Exam GI & Abdominal Exam: Soft, Normal Bowel Sounds. absent: Tenderness - Rectal Exam Rectal Exam: NORMAL INSPECTION - Extremities Exam Extremities Exam: Full ROM, Normal Capillary Refill, Normal Inspection, Tenderness. absent: Joint Swelling, Pedal Edema Additional comments: l arm edema and tenderness - Back Exam Back Exam: NORMAL INSPECTION - Neurological Exam Neurological Exam: Alert, Awake, CN II-XII Intact, Normal Gait, Oriented x3 - Psychiatric Exam Psychiatric exam: Normal Affect, Normal Mood - Skin Skin Exam: Dry, Intact, Normal Color, Warm Assessment and Plan - Assessment and Plan (Free Text) Assessment: copd cad fracture of l humerus Plan: continue same rx physiatry eval
--- NOTE | 2017-04-28 17:22 | CP.PCM.CON ---
History of Present Illness - History of Present Illness History of Present Illness: Dr Garcia PMR consultation on Chey Olvera, born 1945, right hand dominant female who tripped on her grand-daughter's cat and injured her left shoulder. X-ray revealed non-displaced humeral fracture. Dr Polanco reviewed the findings and recommended non-operative treatment. Chey was transferred to the TCU and is non-weight bearing on the left UE. She notes difficulty at home with a flight of steps and a son that is not very helpful at all. She notes some left 4th and 5th, (ulnar distribution) numbness Review of Systems - Constitutional Constitutional: absent: Anorexia, Chills - EENT Ears: absent: Disequilibrium Nose/Mouth/Throat: absent: Nasal Congestion - Cardiovascular Cardiovascular: absent: Chest Pain - Respiratory Respiratory: Dyspnea on Exertion. absent: Dyspnea - Gastrointestinal Gastrointestinal: absent: Constipation - Integumentary Integumentary: Other (ecchymosis left UE) - Neurological Neurological: Numbness (4th and 5th digits left hand). absent: Abnormal Movements Past Patient History - Infectious Disease Hx of Infectious Diseases: None - Past Medical History & Family History Past Medical History?: Yes - Past Social History Smoking Status: Former Smoker Alcohol: None Drugs: Denies Home Situation {Lives}: With Family (but states that son is not helpful at all) - CARDIAC Hx Cardiac Disorders: Yes Hx Atrial Fibrillation: Yes Hx Cardia Arrhythmia: Yes Hx Congestive Heart Failure: Yes Hx Hypercholesterolemia: Yes Hx Hypertension: Yes Hx Pacemaker: Yes Hx Peripheral Edema: Yes - PULMONARY Hx Respiratory Disorders: Yes Hx Chronic Obstructive Pulmonary Disease (COPD): Yes Hx Emphysema: Yes Hx Pneumonia: Yes - NEUROLOGICAL Hx Neurological Disorder: No - HEENT Hx HEENT Problems: Yes - RENAL Hx Chronic Kidney Disease: No - ENDOCRINE/METABOLIC Hx Endocrine Disorders: No - HEMATOLOGICAL/ONCOLOGICAL Hx Blood Disorders: No Hx Human Immunodeficiency Virus (HIV): No - INTEGUMENTARY Hx Dermatological Problems: No - MUSCULOSKELETAL/RHEUMATOLOGICAL Hx Musculoskeletal Disorders: No Hx Falls: Yes (trip over cat) - GASTROINTESTINAL Hx Gastrointestinal Disorders: No - GENITOURINARY/GYNECOLOGICAL Hx Genitourinary Disorders: No - PSYCHIATRIC Hx Psychophysiologic Disorder: Yes Hx Anxiety: Yes Hx Substance Use: No - SURGICAL HISTORY Hx Surgeries: Yes Hx Cholecystectomy: Yes Hx Coronary Stent: Yes Other/Comment: pacemaker - ANESTHESIA Hx Anesthesia: Yes Hx Anesthesia Reactions: No Hx Malignant Hyperthermia: No Meds Allergies/Adverse Reactions: Allergies Allergy/AdvReac Type Severity Reaction Status Date / Time No Known Allergies Allergy Verified 04/25/17 15:01 - Medications Medications: Current Medications Albuterol/Ipratropium (Duoneb 3 Mg/0.5 Mg (3 Ml) Ud) 3 ml INH RQ6 [facility] Last Admin: 04/28/17 13:23 Dose: 3 ml Aspirin (Ecotrin) 81 mg PO DAILY [facility] Last Admin: 04/28/17 08:58 Dose: 81 mg Carvedilol (Coreg) 6.25 mg PO 0900,2099 [facility] Last Admin: 04/28/17 08:57 Dose: 6.25 mg Dabigatran (Pradaxa) 75 mg PO 0900,2100 [facility] PRN Reason: Protocol Last Admin: 04/28/17 08:58 Dose: 75 mg Furosemide (Lasix) 40 mg PO DAILY [facility] Last Admin: 04/28/17 08:58 Dose: 40 mg Oxycodone/Acetaminophen (Percocet 5/325 Mg Tab) 1 tab PO Q4 PRN PRN Reason: Pain, moderate (4-7) Stop: 04/28/17 20:23 Promethazine HCl (Phenergan Syrup) 12.5 mg PO Q6H PRN PRN Reason: Cough Last Admin: 04/26/17 08:39 Dose: 12.5 mg Valsartan (Diovan) 80 mg PO DAILY [facility] Last Admin: 04/28/17 08:57 Dose: 80 mg Physical Exam - Constitutional Appears: Non-toxic (left arm sling) - Head Exam Head Exam: ATRAUMATIC, NORMAL INSPECTION, NORMOCEPHALIC - Eye Exam Pupil Exam: NORMAL ACCOMODATION - ENT Exam ENT Exam: Mucous Membranes Moist - Respiratory Exam Respiratory Exam: NORMAL BREATHING PATTERN - Cardiovascular Exam Cardiovascular Exam: REGULAR RHYTHM - GI/Abdominal Exam GI & Abdominal Exam: absent: Firm - Neurological Exam Neurological exam: Alert, CN II-XII Intact, Oriented x3 - Psychiatric Exam Psychiatric exam: Normal Affect - Skin Skin Exam: Warm (left arm ecchymosis) Results - Vital Signs Recent Vital Signs: Last Vital Signs Temp 97.9 F 04/28/17 16:36 Pulse 68 04/28/17 16:36 Resp 20 04/28/17 16:36 BP 116/75 04/28/17 16:36 Pulse Ox 97 04/28/17 16:36 Assessment & Plan - Assessment and Plan (Free Text) Assessment: decreased sensation in the 4th and 5th digits consistent with her subjective complaints as well she has intact intrinsic motion. This is likely secondary to the positioning of the UE in the sling and resting the elbow on the arm rest as well good ROM right UE good left hand strength intact LE PT/OT to help increase functional independence pain controlled no constipation she will need to have adjustments to living area with grab bars and shower bench and other DMEs to facilitate a safe and appropriate d/c home NWB left UE
[2017-04-29] MEDS ORDERED: Oxycodone/Acetaminophen 5/325 mg Tab PO ONE (00:11)
[2017-04-29] MEDS: Albuterol-Ipratrop 3 mg / 0.5 (3 ml) UD INH SCH ×5 (01:01→19:49)
--- NOTE | 2017-04-29 11:14 | CP.PCM.PN ---
Subjective - Date & Time of Evaluation Date of Evaluation: 04/29/17 Time of Evaluation: 11:14 - Subjective Subjective: undergoing pt/ot Objective - Vital Signs/Intake and Output Vital Signs (last 24 hours): Temp Pulse Resp BP Pulse Ox 97.2 F L 64 20 132/91 H 98 04/29/17 08:06 04/29/17 09:36 04/29/17 08:06 04/29/17 09:36 04/29/17 08:06 - Medications Medications: Current Medications Albuterol/Ipratropium (Duoneb 3 Mg/0.5 Mg (3 Ml) Ud) 3 ml INH RQ6 [facility] Last Admin: 04/29/17 07:44 Dose: 3 ml Aspirin (Ecotrin) 81 mg PO DAILY [facility] Last Admin: 04/29/17 09:32 Dose: 81 mg Carvedilol (Coreg) 6.25 mg PO 0900,2100 [facility] Last Admin: 04/29/17 09:36 Dose: 6.25 mg Dabigatran (Pradaxa) 75 mg PO 0900,2100 [facility] PRN Reason: Protocol Last Admin: 04/29/17 09:32 Dose: 75 mg Furosemide (Lasix) 40 mg PO DAILY [facility] Last Admin: 04/29/17 09:32 Dose: 40 mg Promethazine HCl (Phenergan Syrup) 12.5 mg PO Q6H PRN PRN Reason: Cough Last Admin: 04/26/17 08:39 Dose: 12.5 mg Valsartan (Diovan) 80 mg PO DAILY [facility] Last Admin: 04/29/17 09:32 Dose: 80 mg - Constitutional Appears: Well - Head Exam Head Exam: ATRAUMATIC, NORMAL INSPECTION, NORMOCEPHALIC - Eye Exam Eye Exam: EOMI, Normal appearance, PERRL Pupil Exam: NORMAL ACCOMODATION, PERRL - ENT Exam ENT Exam: Mucous Membranes Moist, Normal Exam - Neck Exam Neck Exam: Full ROM, Normal Inspection. absent: Lymphadenopathy - Respiratory Exam Respiratory Exam: Clear to Ausculation Bilateral, NORMAL BREATHING PATTERN - Cardiovascular Exam Cardiovascular Exam: REGULAR RHYTHM, +S1, +S2. absent: Murmur - GI/Abdominal Exam GI & Abdominal Exam: Soft, Normal Bowel Sounds. absent: Tenderness - Rectal Exam Rectal Exam: NORMAL INSPECTION - Extremities Exam Extremities Exam: Full ROM, Normal Capillary Refill, Normal Inspection. absent : Joint Swelling, Pedal Edema Additional comments: l arm in a sling - Back Exam Back Exam: NORMAL INSPECTION - Neurological Exam Neurological Exam: Alert, Awake, CN II-XII Intact, Normal Gait, Oriented x3 - Psychiatric Exam Psychiatric exam: Normal Affect, Normal Mood - Skin Skin Exam: Dry, Intact, Normal Color, Warm Assessment and Plan - Assessment and Plan (Free Text) Assessment: fracture of l humerus ashd copd Plan: continue present rx social media sr strategy manager consult
[2017-04-29] MEDS ORDERED: Oxycodone/Acetaminophen 5/325 mg Tab PO PRN (20:07)
[2017-04-30] MEDS: Albuterol-Ipratrop 3 mg / 0.5 (3 ml) UD INH SCH ×4 (01:32→19:40)
--- NOTE | 2017-04-30 08:38 | CP.PCM.PN ---
Subjective - Date & Time of Evaluation Date of Evaluation: 04/30/17 Time of Evaluation: 08:39 - Subjective Subjective: NO NEW CLINICAL FINDINGS L ARM STILL IN A SLING WITH SOME OPAIN ON MOVEMENT Objective - Vital Signs/Intake and Output Vital Signs (last 24 hours): Temp Pulse Resp BP Pulse Ox 97.5 F L 73 20 112/66 94 L 04/30/17 07:50 04/30/17 07:50 04/30/17 07:50 04/30/17 07:50 04/30/17 07:50 - Medications Medications: Current Medications Albuterol/Ipratropium (Duoneb 3 Mg/0.5 Mg (3 Ml) Ud) 3 ml INH RQ6 [facility] Last Admin: 04/30/17 07:30 Dose: 3 ml Aspirin (Ecotrin) 81 mg PO DAILY [facility] Last Admin: 04/29/17 09:32 Dose: 81 mg Carvedilol (Coreg) 6.25 mg PO 0900,2099 [facility] Last Admin: 04/29/17 20:14 Dose: 6.25 mg Dabigatran (Pradaxa) 75 mg PO 0900,2099 [facility] PRN Reason: Protocol Last Admin: 04/29/17 20:14 Dose: 75 mg Furosemide (Lasix) 40 mg PO DAILY [facility] Last Admin: 04/29/17 09:32 Dose: 40 mg Nystatin (Nystop Topical Powder) 1 applic TOP TID [facility] Last Admin: 04/29/17 16:37 Dose: 1 u Oxycodone/Acetaminophen (Percocet 5/325 Mg Tab) 1 tab PO Q4 PRN PRN Reason: Pain, moderate (4-7) Stop: 05/02/17 20:08 Promethazine HCl (Phenergan Syrup) 12.5 mg PO Q6H PRN PRN Reason: Cough Last Admin: 04/26/17 08:39 Dose: 12.5 mg Valsartan (Diovan) 80 mg PO DAILY [facility] Last Admin: 04/29/17 09:32 Dose: 80 mg - Constitutional Appears: No Acute Distress - Head Exam Head Exam: ATRAUMATIC, NORMAL INSPECTION, NORMOCEPHALIC - Eye Exam Eye Exam: EOMI, Normal appearance, PERRL Pupil Exam: NORMAL ACCOMODATION, PERRL - ENT Exam ENT Exam: Mucous Membranes Moist, Normal Exam - Neck Exam Neck Exam: Full ROM, Normal Inspection. absent: Lymphadenopathy - Respiratory Exam Respiratory Exam: Clear to Ausculation Bilateral, NORMAL BREATHING PATTERN - Cardiovascular Exam Cardiovascular Exam: REGULAR RHYTHM, +S1, +S2. absent: Murmur - GI/Abdominal Exam GI & Abdominal Exam: Soft, Normal Bowel Sounds. absent: Tenderness - Rectal Exam Rectal Exam: NORMAL INSPECTION - Extremities Exam Extremities Exam: Full ROM, Normal Capillary Refill, Normal Inspection, Tenderness. absent: Joint Swelling, Pedal Edema Additional comments: L ARM IN A SLING - Back Exam Back Exam: NORMAL INSPECTION - Neurological Exam Neurological Exam: Alert, Awake, CN II-XII Intact, Normal Gait, Oriented x3 - Psychiatric Exam Psychiatric exam: Normal Affect, Normal Mood - Skin Skin Exam: Dry, Intact, Normal Color, Warm Assessment and Plan - Assessment and Plan (Free Text) Assessment: FRACTURE OF L HUMERAL HEAD COPD ASHD HTN Plan: CONTINUE PRESENT RX LASER BEAM COLOR SCANNER OPERATOR FOR D/C PLANNING
[2017-05-01] MEDS: Albuterol-Ipratrop 3 mg / 0.5 (3 ml) UD INH SCH ×5 (01:03→19:33)
[2017-05-01 06:26] LABS: BASO # 0.1 K/uL (0.0-0.2); BASO % 0.8 % (0.0-2.0); EOS # 0.9 K/uL (0.0-0.7); EOS % 7.8 % (0.0-4.0); HEMATOCRIT 40.2 % (34.0-47.0); LYMPH # 2.6 K/uL (1.0-4.3); MEAN CELL VOLUME 91.9 fl (81.0-99.0); MEAN CORPUSCULAR HEMOGLOBIN 30.2 pg (27.0-31.0); MEAN CORPUSCULAR HGB CONC 32.9 g/dL (33.0-37.0); MEAN PLATELET VOLUME 8.7 fl (7.2-11.7); MONO # 1.1 K/uL (0.0-0.8); MONO % 9.2 % (0.0-10.0); NEUT # 7.1 K/uL (1.8-7.0); NEUT % 60.2 % (50.0-75.0); RED CELL DISTRIBUTION WIDTH 13.5 % (11.5-14.5); WHITE BLOOD COUNT 11.9 K/uL (4.8-10.8)
[2017-05-01 06:27] LABS: CALCIUM 9.4 mg/dL (8.4-10.2)
[2017-05-01 06:30] LABS: POTASSIUM 4.9 MMOL/L (3.6-5.0)
--- NOTE | 2017-05-01 08:16 | CP.PCM.PN ---
Subjective - Date & Time of Evaluation Date of Evaluation: 05/01/17 Time of Evaluation: 08:17 - Subjective Subjective: NO NEW CLINICAL FINDINGS LESS L SHOULDER PAINS NO CHEST PAINS/SOB Objective - Vital Signs/Intake and Output Vital Signs (last 24 hours): Temp Pulse Resp BP Pulse Ox 98.2 F 74 20 112/70 95 04/30/17 20:46 04/30/17 21:26 04/30/17 20:46 04/30/17 21:26 04/30/17 20:46 - Medications Medications: Current Medications Albuterol/Ipratropium (Duoneb 3 Mg/0.5 Mg (3 Ml) Ud) 3 ml INH RQ6 [facility] Last Admin: 05/01/17 07:41 Dose: 3 ml Aspirin (Ecotrin) 81 mg PO DAILY [facility] Last Admin: 04/30/17 09:38 Dose: 81 mg Carvedilol (Coreg) 6.25 mg PO 0900,2100 [facility] Last Admin: 04/30/17 21:26 Dose: 6.25 mg Dabigatran (Pradaxa) 75 mg PO 0900,2100 [facility] PRN Reason: Protocol Last Admin: 04/30/17 21:26 Dose: 75 mg Furosemide (Lasix) 40 mg PO DAILY [facility] Last Admin: 04/30/17 09:38 Dose: 40 mg Nystatin (Nystop Topical Powder) 1 applic TOP TID [facility] Last Admin: 04/30/17 17:09 Dose: 1 u Oxycodone/Acetaminophen (Percocet 5/325 Mg Tab) 1 tab PO Q4 PRN PRN Reason: Pain, moderate (4-7) Stop: 05/02/17 20:08 Promethazine HCl (Phenergan Syrup) 12.5 mg PO Q6H PRN PRN Reason: Cough Last Admin: 04/26/17 08:39 Dose: 12.5 mg Valsartan (Diovan) 80 mg PO DAILY [facility] Last Admin: 04/30/17 09:38 Dose: 80 mg - Labs Labs: 05/01/17 05:45 05/01/17 05:45 - Constitutional Appears: No Acute Distress - Head Exam Head Exam: ATRAUMATIC, NORMAL INSPECTION, NORMOCEPHALIC - Eye Exam Eye Exam: EOMI, Normal appearance, PERRL Pupil Exam: NORMAL ACCOMODATION, PERRL - ENT Exam ENT Exam: Mucous Membranes Moist, Normal Exam - Neck Exam Neck Exam: Full ROM, Normal Inspection. absent: Lymphadenopathy - Respiratory Exam Respiratory Exam: Clear to Ausculation Bilateral, NORMAL BREATHING PATTERN - Cardiovascular Exam Cardiovascular Exam: REGULAR RHYTHM, +S1, +S2. absent: Murmur - GI/Abdominal Exam GI & Abdominal Exam: Soft, Normal Bowel Sounds. absent: Tenderness - Rectal Exam Rectal Exam: NORMAL INSPECTION - Extremities Exam Extremities Exam: Full ROM, Normal Capillary Refill, Normal Inspection. absent : Joint Swelling, Pedal Edema - Back Exam Back Exam: NORMAL INSPECTION - Neurological Exam Neurological Exam: Alert, Awake, CN II-XII Intact, Normal Gait, Oriented x3 - Psychiatric Exam Psychiatric exam: Normal Affect, Normal Mood - Skin Skin Exam: Dry, Intact, Normal Color, Warm Assessment and Plan - Assessment and Plan (Free Text) Assessment: L HUMERAL FRACTURE COPD ASHD HTN Plan: CONTINUE PRESENT RX
[2017-05-01] MEDS: Promethazine 12.5 mg/10 ml Syrup PO PRN (15:40)
[2017-05-02] MEDS: Albuterol-Ipratrop 3 mg / 0.5 (3 ml) UD INH SCH ×3 (08:48→19:36)
--- NOTE | 2017-05-02 12:59 | CP.PCM.PN ---
Subjective - Date & Time of Evaluation Date of Evaluation: 05/02/17 Time of Evaluation: 12:59 - Subjective Subjective: C/O R HIP PAIN TODAY Objective - Vital Signs/Intake and Output Vital Signs (last 24 hours): Temp Pulse Resp BP Pulse Ox 97.3 F L 64 20 137/50 L 96 05/02/17 09:05 05/02/17 10:59 05/02/17 09:05 05/02/17 10:59 05/02/17 09:05 - Medications Medications: Current Medications Albuterol/Ipratropium (Duoneb 3 Mg/0.5 Mg (3 Ml) Ud) 3 ml INH RQ6 [facility] Last Admin: 05/02/17 08:48 Dose: 3 ml Aspirin (Ecotrin) 81 mg PO DAILY [facility] Last Admin: 05/02/17 09:27 Dose: 81 mg Carvedilol (Coreg) 6.25 mg PO 0900,2100 [facility] Last Admin: 05/02/17 10:59 Dose: 6.25 mg Dabigatran (Pradaxa) 75 mg PO 0900,2100 [facility] PRN Reason: Protocol Last Admin: 05/02/17 09:27 Dose: 75 mg Furosemide (Lasix) 40 mg PO DAILY [facility] Last Admin: 05/02/17 09:32 Dose: 40 mg Nystatin (Nystop Topical Powder) 1 applic TOP TID [facility] Last Admin: 05/02/17 12:11 Dose: 1 u Oxycodone/Acetaminophen (Percocet 5/325 Mg Tab) 1 tab PO Q4 PRN PRN Reason: Pain, moderate (4-7) Stop: 05/02/17 20:08 Promethazine HCl (Phenergan Syrup) 12.5 mg PO Q6H PRN PRN Reason: Cough Last Admin: 05/01/17 15:40 Dose: 12.5 mg Valsartan (Diovan) 80 mg PO DAILY [facility] Last Admin: 05/02/17 09:27 Dose: 80 mg - Labs Labs: 05/01/17 05:45 05/01/17 05:45 - Constitutional Appears: In Acute Distress - Head Exam Head Exam: ATRAUMATIC, NORMAL INSPECTION, NORMOCEPHALIC - Eye Exam Eye Exam: EOMI, Normal appearance, PERRL Pupil Exam: NORMAL ACCOMODATION, PERRL - ENT Exam ENT Exam: Mucous Membranes Moist, Normal Exam - Neck Exam Neck Exam: Full ROM, Normal Inspection. absent: Lymphadenopathy - Respiratory Exam Respiratory Exam: Clear to Ausculation Bilateral, NORMAL BREATHING PATTERN - Cardiovascular Exam Cardiovascular Exam: REGULAR RHYTHM, +S1, +S2. absent: Murmur - GI/Abdominal Exam GI & Abdominal Exam: Soft, Normal Bowel Sounds. absent: Tenderness - Rectal Exam Rectal Exam: NORMAL INSPECTION - Extremities Exam Extremities Exam: Full ROM, Normal Capillary Refill, Normal Inspection, Tenderness. absent: Joint Swelling, Pedal Edema Additional comments: R HIP AND L SHOULDER PAINS - Back Exam Back Exam: NORMAL INSPECTION - Neurological Exam Neurological Exam: Alert, Awake, CN II-XII Intact, Normal Gait, Oriented x3 - Psychiatric Exam Psychiatric exam: Normal Affect, Normal Mood - Skin Skin Exam: Dry, Intact, Normal Color, Warm Assessment and Plan - Assessment and Plan (Free Text) Assessment: S/P L HUMERUS FRACTURE R HIP PAIN CAD COPD Plan: XRAY OF R HIP CONTINUE PRESENT RX
[2017-05-02] MEDS ORDERED: Oxycodone/Acetaminophen 5/325 mg Tab PO PRN (13:01)
--- NOTE | 2017-05-02 15:54 | CP.PCM.PN ---
Subjective - Date & Time of Evaluation Date of Evaluation: 05/02/17 Time of Evaluation: 15:53 - Subjective Subjective: patient seen in room less left hand numbness good intrinsic strength residual ecchymosis continue current care; still hesitant to return home continue current care Objective - Vital Signs/Intake and Output Vital Signs (last 24 hours): Temp Pulse Resp BP Pulse Ox 97.3 F L 64 20 137/50 L 96 05/02/17 09:05 05/02/17 10:59 05/02/17 09:05 05/02/17 10:59 05/02/17 09:05 - Medications Medications: Current Medications Albuterol/Ipratropium (Duoneb 3 Mg/0.5 Mg (3 Ml) Ud) 3 ml INH RQ6 [facility] Last Admin: 05/02/17 13:06 Dose: 3 ml Aspirin (Ecotrin) 81 mg PO DAILY [facility] Last Admin: 05/02/17 09:27 Dose: 81 mg Carvedilol (Coreg) 6.25 mg PO 0900,2100 [facility] Last Admin: 05/02/17 10:59 Dose: 6.25 mg Dabigatran (Pradaxa) 75 mg PO 0900,2100 [facility] PRN Reason: Protocol Last Admin: 05/02/17 09:27 Dose: 75 mg Furosemide (Lasix) 40 mg PO DAILY [facility] Last Admin: 05/02/17 09:32 Dose: 40 mg Nystatin (Nystop Topical Powder) 1 applic TOP TID [facility] Last Admin: 05/02/17 12:11 Dose: 1 u Oxycodone/Acetaminophen (Percocet 5/325 Mg Tab) 1 tab PO Q4 PRN PRN Reason: Pain, moderate (4-7) Stop: 05/02/17 20:08 Oxycodone/Acetaminophen (Percocet 5/325 Mg Tab) 1 tab PO Q4 PRN PRN Reason: Pain, moderate (4-7) Stop: 05/05/17 13:02 Promethazine HCl (Phenergan Syrup) 12.5 mg PO Q6H PRN PRN Reason: Cough Last Admin: 05/01/17 15:40 Dose: 12.5 mg Valsartan (Diovan) 80 mg PO DAILY [facility] Last Admin: 05/02/17 09:27 Dose: 80 mg - Labs Labs: 05/01/17 05:45 05/01/17 05:45
--- NOTE | 2017-05-02 19:03 | RAD ---
PROCEDURE: Right Hip Radiographs. HISTORY: FRACTURE COMPARISON: None. FINDINGS: BONES: There is diffuse bone demineralization. The pelvic ring is intact. There is no acute displaced fracture or bone destruction. 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 SOFT TISSUES: Normal. OTHER FINDINGS: There is mild osteitis pubis. IMPRESSION: No acute displaced fracture or dislocation. Please note occult fractures cannot be excluded on plain radiographs. If there is a persistent clinical concern, an MRI of the hip may be performed for further evaluation.
[2017-05-03] MEDS: Albuterol-Ipratrop 3 mg / 0.5 (3 ml) UD INH SCH ×4 (04:39→19:43)
[2017-05-03] MEDS ORDERED: Albuterol-Ipratrop 3 mg / 0.5 (3 ml) UD INH STA (11:05)
--- NOTE | 2017-05-03 11:49 | CP.PCM.PN ---
Subjective - Date & Time of Evaluation Date of Evaluation: 05/03/17 Time of Evaluation: 11:49 - Subjective Subjective: CONTINUES TO IMPROVE CLINICALLY L SHOULDER PAIN LESS R HIP PAIN LESS Objective - Vital Signs/Intake and Output Vital Signs (last 24 hours): Temp Pulse Resp BP Pulse Ox 96.8 F L 66 20 131/54 L 97 05/03/17 09:13 05/03/17 09:13 05/03/17 09:13 05/03/17 09:13 05/03/17 09:13 - Medications Medications: Current Medications Albuterol/Ipratropium (Duoneb 3 Mg/0.5 Mg (3 Ml) Ud) 3 ml INH RQ6 [facility] Last Admin: 05/03/17 07:09 Dose: Not Given Aspirin (Ecotrin) 81 mg PO DAILY [facility] Last Admin: 05/03/17 08:48 Dose: 81 mg Carvedilol (Coreg) 6.25 mg PO 0900,2100 [facility] Last Admin: 05/03/17 08:47 Dose: 6.25 mg Dabigatran (Pradaxa) 75 mg PO 0900,2100 [facility] PRN Reason: Protocol Last Admin: 05/03/17 08:49 Dose: 75 mg Furosemide (Lasix) 40 mg PO DAILY [facility] Last Admin: 05/03/17 08:48 Dose: 40 mg Nystatin (Nystop Topical Powder) 1 applic TOP TID [facility] Last Admin: 05/03/17 08:48 Dose: 1 u Oxycodone/Acetaminophen (Percocet 5/325 Mg Tab) 1 tab PO Q4 PRN PRN Reason: Pain, moderate (4-7) Stop: 05/05/17 13:02 Promethazine HCl (Phenergan Syrup) 12.5 mg PO Q6H PRN PRN Reason: Cough Last Admin: 05/01/17 15:40 Dose: 12.5 mg Valsartan (Diovan) 80 mg PO DAILY [facility] Last Admin: 05/03/17 08:47 Dose: 80 mg - Labs Labs: 05/01/17 05:45 05/01/17 05:45 - Constitutional Appears: No Acute Distress - Head Exam Head Exam: ATRAUMATIC, NORMAL INSPECTION, NORMOCEPHALIC - Eye Exam Eye Exam: EOMI, Normal appearance, PERRL Pupil Exam: NORMAL ACCOMODATION, PERRL - ENT Exam ENT Exam: Mucous Membranes Moist, Normal Exam - Neck Exam Neck Exam: Full ROM, Normal Inspection. absent: Lymphadenopathy - Respiratory Exam Respiratory Exam: Clear to Ausculation Bilateral, NORMAL BREATHING PATTERN - Cardiovascular Exam Cardiovascular Exam: REGULAR RHYTHM, +S1, +S2. absent: Murmur - GI/Abdominal Exam GI & Abdominal Exam: Soft, Normal Bowel Sounds. absent: Tenderness - Rectal Exam Rectal Exam: NORMAL INSPECTION - Extremities Exam Extremities Exam: Full ROM, Normal Capillary Refill, Normal Inspection. absent : Joint Swelling, Pedal Edema - Back Exam Back Exam: NORMAL INSPECTION - Neurological Exam Neurological Exam: Alert, Awake, CN II-XII Intact, Normal Gait, Oriented x3 - Psychiatric Exam Psychiatric exam: Normal Affect, Normal Mood - Skin Skin Exam: Dry, Intact, Normal Color, Warm Assessment and Plan - Assessment and Plan (Free Text) Assessment: S/P L HUMERUS FRACTURE R HIP PAIN PROBABLY DUE TO FALL ASHD HTN COPD Plan: CONTINUE SAME RX
[2017-05-04] MEDS: Albuterol-Ipratrop 3 mg / 0.5 (3 ml) UD INH SCH ×6 (01:15→23:56)
--- NOTE | 2017-05-04 11:24 | CP.PCM.PN ---
Subjective - Date & Time of Evaluation Date of Evaluation: 05/04/17 Time of Evaluation: 11:25 - Subjective Subjective: NO NEW FINDINGS L SHOULDER PAIN LESS--SHOULDER STILL IN A SLING Objective - Vital Signs/Intake and Output Vital Signs (last 24 hours): Temp Pulse Resp BP Pulse Ox 97.2 F L 72 20 141/88 97 05/04/17 09:15 05/04/17 09:29 05/04/17 09:15 05/04/17 09:30 05/04/17 09:15 - Medications Medications: Current Medications Albuterol/Ipratropium (Duoneb 3 Mg/0.5 Mg (3 Ml) Ud) 3 ml INH RQ6 [facility] Last Admin: 05/04/17 07:44 Dose: 3 ml Aspirin (Ecotrin) 81 mg PO DAILY [facility] Last Admin: 05/04/17 09:28 Dose: 81 mg Carvedilol (Coreg) 6.25 mg PO 0900,2100 [facility] Last Admin: 05/04/17 09:29 Dose: 6.25 mg Dabigatran (Pradaxa) 75 mg PO 0900,2099 [facility] PRN Reason: Protocol Last Admin: 05/04/17 09:27 Dose: 75 mg Furosemide (Lasix) 40 mg PO DAILY [facility] Last Admin: 05/04/17 09:30 Dose: 40 mg Nystatin (Nystop Topical Powder) 1 applic TOP TID [facility] Last Admin: 05/04/17 09:28 Dose: 1 u Oxycodone/Acetaminophen (Percocet 5/325 Mg Tab) 1 tab PO Q4 PRN PRN Reason: Pain, moderate (4-7) Stop: 05/05/17 13:02 Promethazine HCl (Phenergan Syrup) 12.5 mg PO Q6H PRN PRN Reason: Cough Last Admin: 05/01/17 15:40 Dose: 12.5 mg Valsartan (Diovan) 80 mg PO DAILY [facility] Last Admin: 05/04/17 09:29 Dose: 80 mg - Labs Labs: 05/01/17 05:45 05/01/17 05:45 - Constitutional Appears: No Acute Distress - Head Exam Head Exam: ATRAUMATIC, NORMAL INSPECTION, NORMOCEPHALIC - Eye Exam Eye Exam: EOMI, Normal appearance, PERRL Pupil Exam: NORMAL ACCOMODATION, PERRL - ENT Exam ENT Exam: Mucous Membranes Moist, Normal Exam - Neck Exam Neck Exam: Full ROM, Normal Inspection. absent: Lymphadenopathy - Respiratory Exam Respiratory Exam: Clear to Ausculation Bilateral, NORMAL BREATHING PATTERN - Cardiovascular Exam Cardiovascular Exam: REGULAR RHYTHM, +S1, +S2. absent: Murmur - GI/Abdominal Exam GI & Abdominal Exam: Soft, Normal Bowel Sounds. absent: Tenderness - Rectal Exam Rectal Exam: NORMAL INSPECTION - Extremities Exam Extremities Exam: Full ROM, Normal Capillary Refill, Normal Inspection. absent : Joint Swelling, Pedal Edema Additional comments: L SHOULDER IN A SLING - Back Exam Back Exam: NORMAL INSPECTION - Neurological Exam Neurological Exam: Alert, Awake, CN II-XII Intact, Normal Gait, Oriented x3 - Psychiatric Exam Psychiatric exam: Normal Affect, Normal Mood - Skin Skin Exam: Dry, Intact, Normal Color, Warm Assessment and Plan - Assessment and Plan (Free Text) Assessment: S/P L HUMERAL HEAD FRACTURE COPD ASHD Plan: XRAY OF L SHOULDER CONTINUE PRESENT RX D/C HOME IN AM
--- NOTE | 2017-05-04 16:11 | RAD ---
PROCEDURE: Radiographs of the left humerus. HISTORY: FRACTURE COMPARISON: None. FINDINGS: BONES: There is an acute mildly displaced fracture in the greater tuberosity of the humerus with 4 mm distraction of fracture fragments.There is diffuse bone demineralization. Bone alignment is normal. The glenohumeral joint is normal. SOFT TISSUES: Normal. OTHER FINDINGS: None. IMPRESSION: Acute mildly displaced fracture in the greater tuberosity of the humerus with 4 mm distraction of fracture fragments. No dislocation.
[2017-05-05] MEDS: Albuterol-Ipratrop 3 mg / 0.5 (3 ml) UD INH SCH ×3 (05:08→11:35)
[2017-05-05 08:16] VITALS: BP 134/82; PULSE 66
[2017-05-05 08:18] VITALS: TEMP 97; O2SAT 95
--- NOTE | 2017-05-05 08:41 | CP.PCM.DIS ---
Provider - Provider Date of Admission: 04/25/17 15:02 Attending physician: Da Ibrahim MD Time Spent in preparation of Discharge (in minutes): 35 Diagnosis - Discharge Diagnosis (1) CAD (coronary artery disease) Status: Acute (2) COPD exacerbation Status: Acute (3) HTN (hypertension) Status: Acute (4) Humeral head fracture Status: Acute (5) Hypertension Status: Acute (6) Moderate COPD (chronic obstructive pulmonary disease) Status: Acute Hospital Course - Lab Results Lab Results: Most Recent Lab Values WBC 11.9 K/uL (4.8-10.8) H 05/01/17 05:45 RBC 4.37 Mil/uL (3.80-5.20) 05/01/17 05:45 Hgb 13.2 g/dL (12.0-16.0) 05/01/17 05:45 Hct 40.2 % (34.0-47.0) 05/01/17 05:45 MCV 91.9 fl (81.0-99.0) 05/01/17 05:45 MCH 30.2 pg (27.0-31.0) 05/01/17 05:45 MCHC 32.9 g/dL (33.0-37.0) L 05/01/17 05:45 RDW 13.5 % (11.5-14.5) 05/01/17 05:45 Plt Count 184 K/uL (130-400) 05/01/17 05:45 MPV 8.7 fl (7.2-11.7) 05/01/17 05:45 Neut % (Auto) 60.2 % (50.0-75.0) 05/01/17 05:45 Lymph % (Auto) 22.0 % (20.0-40.0) 05/01/17 05:45 [place] % (Auto) 9.2 % (0.0-10.0) 05/01/17 05:45 Eos % (Auto) 7.8 % (0.0-4.0) H 05/01/17 05:45 Baso % (Auto) 0.8 % (0.0-2.0) 05/01/17 05:45 Neut # 7.1 K/uL (1.8-7.0) H 05/01/17 05:45 Lymph # 2.6 K/uL (1.0-4.3) 05/01/17 05:45 [place] # 1.1 K/uL (0.0-0.8) H 05/01/17 05:45 Eos # 0.9 K/uL (0.0-0.7) H 05/01/17 05:45 Baso # 0.1 K/uL (0.0-0.2) 05/01/17 05:45 Sodium 140 mmol/l (132-148) 05/01/17 05:45 Potassium 4.9 MMOL/L (3.6-5.0) 05/01/17 05:45 Chloride 105 mmol/L (98-107) 05/01/17 05:45 Carbon Dioxide 26 mmol/L (22-30) 05/01/17 05:45 Anion Gap 14 (10-20) 05/01/17 05:45 BUN 30 mg/dl (7-17) H 05/01/17 05:45 Creatinine 1.1 mg/dL (0.7-1.2) 05/01/17 05:45 Est GFR ( Amer) 59 05/01/17 05:45 Est GFR (Non-Af Amer) 49 05/01/17 05:45 Random Glucose 123 mg/dL (65-105) H 05/01/17 05:45 Calcium 9.4 mg/dL (8.4-10.2) 05/01/17 05:45 - Hospital Course Hospital Course: clinically stable l arm in a sling Discharge Exam - Head Exam Head Exam: ATRAUMATIC, NORMAL INSPECTION, NORMOCEPHALIC - Eye Exam Eye Exam: EOMI, Normal appearance, PERRL Pupil Exam: NORMAL ACCOMODATION, PERRL - GI/Abdominal Exam GI & Abdominal Exam: Normal Bowel Sounds - Rectal Exam Rectal Exam: NORMAL INSPECTION - Neurological Exam Neurological exam: Alert, CN II-XII Intact, Normal Gait, Oriented x3, Reflexes Normal - Psychiatric Exam Psychiatric exam: Normal Affect, Normal Mood - Skin Skin Exam: Dry, Intact, Normal Color, Warm Discharge Plan - Follow Up Plan Condition: GOOD Disposition: HOME/ ROUTINE Patient education suggested?: Yes Additional Instructions: discharge today followup with flip ibrahim and bonilla
== END 2017-05-05 14:00 | disposition home or self-care (01) | DRG 191 ==
LOC: H.TCU 15:02
PROVIDERS: ADMIT Internal Medicine Pulmonary Disease; ATTEND Internal Medicine Pulmonary Disease
PROC: 3E0F73Z Introduction of Anti-inflammatory into Respiratory Tract, Via Natural or Artificial Opening (ICD-10-PCS; principal; 2017-04-25)
PROC: F07Z9FZ Gait Training/Functional Ambulation Treatment using Assistive, Adaptive, Supportive or Protective Equipment (ICD-10-PCS; 2017-04-25)
PROC: F08Z4FZ Home Management Treatment using Assistive, Adaptive, Supportive or Protective Equipment (ICD-10-PCS; 2017-04-26)
PROC: F07K6FZ Therapeutic Exercise Treatment of Musculoskeletal System - Upper Back / Upper Extremity using Assistive, Adaptive, Supportive or Protective Equipment (ICD-10-PCS; 2017-04-26)
DX: J44.1 Chronic obstructive pulmonary disease with (acute) exacerbation (principal); I50.42 Chronic combined systolic (congestive) and diastolic (congestive) heart failure; I11.0 Hypertensive heart disease with heart failure; I48.91 Unspecified atrial fibrillation; I25.10 Atherosclerotic heart disease of native coronary artery without angina pectoris; S42.292D Other displaced fracture of upper end of left humerus, subsequent encounter for fracture with routine healing; M25.551 Pain in right hip; E78.00 Pure hypercholesterolemia, unspecified; W19.XXXD Unspecified fall, subsequent encounter; Z95.0 Presence of cardiac pacemaker; Z95.5 Presence of coronary angioplasty implant and graft; Z87.01 Personal history of pneumonia (recurrent); Z87.891 Personal history of nicotine dependence

== ENCOUNTER 2018-01-15 19:04 | Inpatient (IN) | payer MEDICARE ==
[2018-01-15 19:04] VITALS: BMI 36.0
[2018-01-15] MEDS ORDERED: Ipratropium 0.02% Inhal Soln (0.5 mg/2.5 ml) UD IH ONE (19:18)
[2018-01-15] MEDS ORDERED: Albuterol 0.083% Inhal Sol (2.5 mg/3 mL) UD ONE (19:18)
[2018-01-15] MEDS ORDERED: Albuterol 0.083% Inhal Sol (2.5 mg/3 mL) UD INH STA (19:28)
[2018-01-15] MEDS ORDERED: Ipratropium 0.02% Inhal Soln (0.5 mg/2.5 ml) UD IH STA (19:28)
[2018-01-15 20:11] LABS: BASO # 0.2 K/uL (0.0-0.2); BASO % 1.5 % (0.0-2.0); EOS # 1.4 K/uL (0.0-0.7); EOS % 9.4 % (0.0-4.0); HEMOGLOBIN 15.1 g/dL (12.0-16.0); LYMPH # 2.1 K/uL (1.0-4.3); LYMPH % 13.8 % (20.0-40.0); MEAN CORPUSCULAR HEMOGLOBIN 30.2 pg (27.0-31.0); MEAN CORPUSCULAR HGB CONC 33.9 g/dL (33.0-37.0); MEAN PLATELET VOLUME 9.7 fl (7.2-11.7); MONO # 1.1 K/uL (0.0-0.8); NEUT # 10.2 K/uL (1.8-7.0); NEUT % 68.3 % (50.0-75.0); NRBC % 0.1 % (0.0-0.0); RBC 4.99 Mil/uL (3.80-5.20); RED CELL DISTRIBUTION WIDTH 15.2 % (11.5-14.5)
--- NOTE | 2018-01-15 20:16 | ED PDOC ---
HPI: SOB/CHF/COPD Time Seen by Provider: 01/15/18 19:16 Chief Complaint (Nursing): Shortness Of Breath Chief Complaint (Provider): Shortness of breath History Per: Patient History/Exam Limitations: no limitations Onset/Duration Of Symptoms: Hrs Current Symptoms Are (Timing): Still Present Initiating Event: Other (believes due to irritation from grass being cut near her home) Additional History Per: Patient Additional Complaint(s): 72yo female with history of COPD, coronary stents and defibrillator, presents to ER with complaints of shortness of breath. Patient states she has been using her home nebulizer with no relief of symptoms. She states she does smoke occasionally and today, the grass near her home was cut, which she feels might have been the trigger. She denies any fever, chills, nausea, vomiting and diarrhea. She has no other medical complaints. Past Medical History Reviewed: Historical Data, Nursing Documentation, Vital Signs Vital Signs: Last Vital Signs Temp 97.9 F 01/16/18 04:40 Pulse 81 01/16/18 04:40 Resp 18 01/16/18 04:40 BP 108/56 L 01/16/18 04:40 Pulse Ox 95 01/16/18 04:40 - Medical History PMH: Anxiety, Atrial Fibrillation, CAD, Cardia Arrhythmia, CHF, COPD, Emphysema , HTN, Hypercholesterolemia, Peripheral Edema, Pneumonia Denies: HIV, Chronic Kidney Disease - Surgical History Surgical History: Cholecystectomy, Coronary Stent, Pacemaker - Family History Family History: States: Unknown Family Hx - Social History Current smoker - smoking cessation education provided: Yes (occasional) - Home Medications Home Medications: Ambulatory Orders Medication Instructions Recorded Albuterol 0.083% [Albuterol 3 ml IH Q6H PRN 01/15/18 Sulfate 3 Ml] Albuterol Sulfate [Proair Hfa] 2 puff INH PRN PRN 01/15/18 Aspirin [Ecotrin] 81 mg PO DAILY 01/15/18 Carvedilol [Coreg] 6.25 mg PO BID 01/15/18 Dabigatran [Pradaxa] 75 mg PO BID 01/15/18 Furosemide [Lasix] 40 mg PO DAILY 01/15/18 Valsartan [Diovan] 80 mg PO DAILY 01/15/18 - Allergies Allergies/Adverse Reactions: Allergies Allergy/AdvReac Type Severity Reaction Status Date / Time No Known Allergies Allergy Verified 01/15/18 19:07 Review of Systems ROS Statement: Except As Marked, All Systems Reviewed And Found Negative Constitutional: Negative for: Fever, Chills Respiratory: Positive for: Shortness of Breath Gastrointestinal: Negative for: Nausea, Vomiting, Diarrhea Physical Exam - Reviewed Nursing Documentation Reviewed: Yes Vital Signs Reviewed: Yes - Physical Exam Appears: Positive for: Uncomfortable (mild distress) Head Exam: Positive for: ATRAUMATIC, NORMAL INSPECTION, NORMOCEPHALIC Skin: Positive for: Normal Color Eye Exam: Positive for: EOMI, PERRL Neck: Positive for: Normal, Supple Cardiovascular/Chest: Positive for: Regular Rate, Rhythm. Negative for: Murmur Respiratory: Positive for: Decreased Breath Sounds (decreased air entry), Wheezing (bilateral expitory wheezing) Gastrointestinal/Abdominal: Positive for: Normal Exam, Soft. Negative for: Tenderness Extremity: Positive for: Normal ROM. Negative for: Pedal Edema Neurologic/Psych: Positive for: Alert, Oriented. Negative for: Motor/Sensory Deficits - Laboratory Results Result Diagrams: 01/15/18 19:50 01/15/18 19:50 - ECG O2 Sat by Pulse Oximetry: 89 (RA) Pulse Ox Interpretation: Abnormal - Critical Care Total Time (In Min): 30 Medical Decision Making Medical Decision Making: Impression: 72yo female with COPD exacerbation Plan: -- Labs -- EKG -- CXR -- Duoneb 3ml INH -- Solumedrol 125mg IVP Labs reviewed show no clinically sig abnlties with exception mild elevation in proBNP Chest Xray NAD Patient repoirtis mild improvement in symptoms; will place under Obs status as d /w Dr ibrahim DX COPD, Chest Pain Fair Scribe Attestation: Documented by Jane Brown, acting as a scribe for Raulito Hernandez MD Provider Scribe Attestation: All medical record entries made by the Scribe were at my direction and personally dictated by me. I have reviewed the chart and agree that the record accurately reflects my personal performance of the history, physical exam, medical decision making, and the department course for this patient. I have also personally directed, reviewed, and agree with the discharge instructions and disposition. Disposition - Clinical Impression Clinical Impression: Chronic congestive heart failure, COPD exacerbation, Chest pain - Patient ED Disposition Is Patient to be Admitted: Yes - Disposition Disposition Time: 21:00 Condition: FAIR - Pt Status Changed To: Hospital Disposition Of: Observation
[2018-01-15 20:19] LABS: MEAN CELL VOLUME 89.2 fl (81.0-99.0)
[2018-01-15 20:20] LABS: ALB/GLOB RATIO 1.1 (1.0-2.1); ALBUMIN 4.2 g/dL (3.5-5.0); CALCIUM 9.2 mg/dL (8.4-10.2); INR 1.1 (0.9-1.2); PARTIAL THROMBOPLASTIN TIME 34.3 Seconds (25.6-37.1); PROTHROMBIN TIME 12.7 Seconds (9.8-13.1)
[2018-01-15 20:28] LABS: TROPONIN I 0.023 ng/mL (0.00-0.120)
[2018-01-16] MEDS: Albuterol-Ipratrop 3 mg / 0.5 (3 ml) UD INH SCH ×3 (01:15→07:34)
[2018-01-16 06:44] LABS: HEMOGLOBIN 14.2 g/dL (12.0-16.0); MEAN CELL VOLUME 89.9 fl (81.0-99.0); MEAN CORPUSCULAR HEMOGLOBIN 30.4 pg (27.0-31.0); MEAN CORPUSCULAR HGB CONC 33.8 g/dL (33.0-37.0); RBC 4.68 Mil/uL (3.80-5.20); RED CELL DISTRIBUTION WIDTH 14.9 % (11.5-14.5); WHITE BLOOD COUNT 9.1 K/uL (4.8-10.8)
[2018-01-16 06:51] LABS: CALCIUM 9.5 mg/dL (8.4-10.2)
[2018-01-16] MEDS ORDERED: methylPREDNISolone 80 MG in Sodium Chloride 0.9% 50 ML IV SCH (08:00)
--- NOTE | 2018-01-16 08:34 | RAD ---
HISTORY: chest pain COMPARISON: Frontal chest radiograph 04/22/2017. FINDINGS: LUNGS: No infiltrate bilaterally. PLEURA: Trace right pleural effusion is suggested. None is seen at the left. No pneumothorax bilaterally. CARDIOVASCULAR: Cardiomegaly is stable. No pulmonary vascular congestion. Automatic implanted defibrillator/ pacemaker again and position. OSSEOUS STRUCTURES: No significant abnormalities. VISUALIZED UPPER ABDOMEN: Normal. OTHER FINDINGS: None. IMPRESSION: Trace right pleural effusion. No infiltrate bilaterally or left pleural effusion. Pacemaker/AICD again in position.
[2018-01-16] MEDS ORDERED: levoFLOXacin 500 mg in D5W 500 MG/100 ML BAG IVPB SCH (09:00)
[2018-01-16] MEDS: Albuterol 0.083% Inhal Sol (2.5 mg/3 mL) UD INH SCH ×2 (13:43→19:54)
--- NOTE | 2018-01-16 14:52 | HP ---
HISTORY OF PRESENT ILLNESS: Ms. Olvera is a 72-year-old female who was admitted via the emergency room because of shortness of breath while at home for the past several days, worse on the day of admission. She indicates that she was exposed to allergens including freshly cut grass and became short of breath. She had taken her nebulizer with albuterol at home, but symptoms worsened. She therefore sought help in the emergency room. She also has some tightness in her chest. PAST MEDICA HISTORY: Remarkable for anxiety disorder, atrial fibrillation, coronary artery disease status post stent placement, and defibrillator placement. She also has hypertension and hyperlipidemia with peripheral edema and fracture of left shoulder, which was surgically repaired several years ago. FAMILY HISTORY: Non-revealing. SOCIAL HISTORY: Socially, she quit smoking recently. Does not drink alcohol. Does not use drugs and lives at home with family. REVIEW OF SYSTEMS: Essentially remarkable for occasional shortness of breath. PHYSICAL EXAMINATION: GENERAL: The patient is alert and oriented, mildly short of breath at rest. VITAL SIGNS: Blood pressure of 108/56, pulse of 81, respiratory rate is 18. She is afebrile. O2 sat is 95% on nasal cannula oxygen. SKIN: Shows fair turgor. HEENT: Pupils are equal and reactive to light and accommodation. Mouth shows fair hygiene. LUNG: Fair aeration with wheezing bilaterally. HEART: Regular with defibrillator in place. ABDOMEN: Soft and nontender, no organomegaly. BREASTS: Normal. EXTREMITIES: Show no edema or cyanosis. CENTRAL NERVOUS SYSTEM: Exam grossly intact. LABORATORY DATA: Laboratory data already reviewed. IMPRESSION: Acute exacerbation of chronic obstructive pulmonary disease, chest tightness secondary to chronic obstructive pulmonary disease, history of hypertension, history of coronary artery disease, history of anxiety disorder, and history of hyperlipidemia. PLAN: The plan is continue therapy with aerolized bronchodilators, oxygen, and intravenous steroids. The patient to be discharged home once clinically stable. Da Jason MD
--- NOTE | 2018-01-16 17:50 | CARD ---
APPROVED REPORT EKG Measurement Heart [id number] CT 208P66 [id number] <Conclusion> Normal sinus rhythm ST & T wave abnormality, consider inferolateral ischemia Abnormal ECG
--- NOTE | 2018-01-16 17:51 | CARD ---
APPROVED REPORT EKG Measurement Heart [id number] NM 210P46 [id number] <Conclusion> Sinus rhythm with 1st degree AV block with premature atrial complexes ST & T wave abnormality, consider inferolateral ischemia Abnormal ECG
[2018-01-17 00:04] VITALS: RESP 18
[2018-01-17] MEDS: Albuterol 0.083% Inhal Sol (2.5 mg/3 mL) UD INH SCH ×3 (01:47→13:28)
[2018-01-17 07:44] VITALS: O2SAT 93
[2018-01-17] MEDS ORDERED: levoFLOXacin 250 mg in D5W 250 MG/50 ML BAG IVPB SCH (09:00)
[2018-01-17] MEDS ORDERED: Albuterol 0.083% Inhal Sol (2.5 mg/3 mL) UD INH ONE (10:01)
[2018-01-17 11:59] VITALS: BP 120/57; PULSE 61; TEMP 98.4
--- NOTE | 2018-01-17 12:05 | CP.PCM.DIS ---
Provider - Provider Date of Admission: 01/15/18 21:29 Attending physician: Da Jason MD Time Spent in preparation of Discharge (in minutes): 30 Diagnosis - Discharge Diagnosis (1) COPD exacerbation Status: Acute (2) Chest pain Status: Acute (3) CAD (coronary artery disease) Status: Acute (4) Cardiac arrhythmia Status: Acute (5) HTN (hypertension) Status: Acute (6) Upper respiratory infection Status: Acute Hospital Course - Lab Results Lab Results: Most Recent Lab Values WBC 9.1 K/uL (4.8-10.8) 01/16/18 05:30 RBC 4.68 Mil/uL (3.80-5.20) 01/16/18 05:30 Hgb 14.2 g/dL (12.0-16.0) 01/16/18 05:30 Hct 42.1 % (34.0-47.0) 01/16/18 05:30 MCV 89.9 fl (81.0-99.0) 01/16/18 05:30 MCH 30.4 pg (27.0-31.0) 01/16/18 05:30 MCHC 33.8 g/dL (33.0-37.0) 01/16/18 05:30 RDW 14.9 % (11.5-14.5) H 01/16/18 05:30 Plt Count 204 K/uL (130-400) 01/16/18 05:30 MPV 9.7 fl (7.2-11.7) 01/15/18 19:50 Neut % (Auto) 68.3 % (50.0-75.0) 01/15/18 19:50 Lymph % (Auto) 13.8 % (20.0-40.0) L 01/15/18 19:50 Yell % (Auto) 7.0 % (0.0-10.0) 01/15/18 19:50 Eos % (Auto) 9.4 % (0.0-4.0) H 01/15/18 19:50 Baso % (Auto) 1.5 % (0.0-2.0) 01/15/18 19:50 Neut # (Auto) 10.2 K/uL (1.8-7.0) H 01/15/18 19:50 Lymph # (Auto) 2.1 K/uL (1.0-4.3) 01/15/18 19:50 Yell # (Auto) 1.1 K/uL (0.0-0.8) H 01/15/18 19:50 Eos # (Auto) 1.4 K/uL (0.0-0.7) H 01/15/18 19:50 Baso # (Auto) 0.2 K/uL (0.0-0.2) 01/15/18 19:50 PT 12.7 Seconds (9.8-13.1) 01/15/18 19:50 INR 1.1 (0.9-1.2) 01/15/18 19:50 APTT 34.3 Seconds (25.6-37.1) 01/15/18 19:50 Sodium 139 mmol/l (132-148) 01/16/18 05:30 Potassium 3.9 MMOL/L (3.6-5.0) 01/16/18 05:30 Chloride 100 mmol/L (98-107) 01/16/18 05:30 Carbon Dioxide 25 mmol/L (22-30) 01/16/18 05:30 Anion Gap 18 (10-20) 01/16/18 05:30 BUN 32 mg/dl (7-17) H 01/16/18 05:30 Creatinine 1.3 mg/dl (0.7-1.2) H 01/16/18 05:30 Est GFR ( Amer) 48 01/16/18 05:30 Est GFR (Non-Af Amer) 40 01/16/18 05:30 Random Glucose 237 mg/dL (65-105) H 01/16/18 05:30 Calcium 9.5 mg/dL (8.4-10.2) 01/16/18 05:30 Total Bilirubin 0.5 mg/dl (0.2-1.3) 01/15/18 19:50 AST 28 U/L (14-36) 01/15/18 19:50 ALT 27 U/L (9-52) 01/15/18 19:50 Alkaline Phosphatase 83 U/L (38-126) 01/15/18 19:50 Troponin I 0.0250 ng/mL (0.00-0.120) 01/16/18 18:00 NT-Pro-B Natriuret Pep 908 pg/ml (0-900) H 01/16/18 05:30 Total Protein 7.9 G/DL (6.3-8.2) 01/15/18 19:50 Albumin 4.2 g/dL (3.5-5.0) 01/15/18 19:50 Globulin 3.7 gm/dL (2.2-3.9) 01/15/18 19:50 Albumin/Globulin Ratio 1.1 (1.0-2.1) 01/15/18 19:50 Triglycerides 56 mg/DL (0-149) D 01/16/18 05:30 Cholesterol 160 mg/dL (0-199) 01/16/18 05:30 LDL Cholesterol Direct 92 mg/dL (0-129) 01/16/18 05:30 HDL Cholesterol 35 MG/DL (30-70) 01/16/18 05:30 - Hospital Course Hospital Course: CLINICALLY IMPROVED REFUSING ALBUTEROL INHALATION THERAPY Discharge Exam - Head Exam Head Exam: ATRAUMATIC, NORMAL INSPECTION, NORMOCEPHALIC - Eye Exam Eye Exam: EOMI, Normal appearance, PERRL Pupil Exam: NORMAL ACCOMODATION, PERRL - GI/Abdominal Exam GI & Abdominal Exam: Normal Bowel Sounds - Rectal Exam Rectal Exam: NORMAL INSPECTION - Neurological Exam Neurological exam: Alert, CN II-XII Intact, Normal Gait, Oriented x3, Reflexes Normal - Psychiatric Exam Psychiatric exam: Normal Affect, Normal Mood - Skin Skin Exam: Dry, Intact, Normal Color, Warm Discharge Plan - Follow Up Plan Condition: FAIR Disposition: HOME/ ROUTINE Patient education suggested?: Yes Instructions: Chest Pain (DC), Exacerbation of COPD (DC) Additional Instructions: follow up with in 1 week. Referrals: Da Jason MD [Staff Provider] -
--- NOTE | 2018-01-19 10:57 | PQF GENQUE ---
Dr. Jason, Please specify the type of Chronic CHF: if known TYPE: Combined systolic and diastolic Heart failure with reduced ejection fraction and diastolic dysfunction Diastolic HFpEF Systolic HFrEF Left heart failure Right heart failure Right heart failure due to left heart failure High Output failure End stage heart failure Other (please specify) Clinically unable to determine Unknown 01/16 CXR: Impression: Trace right pleural effusion. No infiltrate bilaterally or left pleural effusion. Pacemaker/AICD again in position. Pro BNP:[id number]->908 ER: Clinical Impression: Chronic congestive heart failure, COPD exacerbation, Chest pain lasix 40 mg IV stat and IVP daily This form is a permanent part of the medical record Clarification of your documentation is requested to better reflect the severity of illness and intensity of treatment of your patient. Indicators present [] Specify: [] [] Specify: [] [] Specify: [] [] Specify: [] Location in the medical record that reflects the above clinical findings: [] Treatment Provided: [] PHYSICIAN'S RESPONSE Based on your medical judgment of the clinical indicators outlined above please clarify the following: [] Practitioner response [] If unable to determine, please check the box, sign and date. Present On Admission (POA) Indicator: [] Present at the time of admission [] Not present at the time of admission [] Clinically Undetermined In responding to this query, please exercise your independent professional judgment. The fact that a question is asked does not imply that any particular answer is desired or expected. Thank you for your clarification on this documentation. If you have any questions please call. * Thank you, Shalonda Schofield RN ext. #[phone] [facility]
== END 2018-01-17 15:27 | disposition home or self-care (01) | DRG 192 ==
LOC: H.ER 19:04 → OBSVTOIN 21:29 → H.ERHOLD 21:29 → H.TEL 23:40
PROVIDERS: ADMIT Internal Medicine Pulmonary Disease; ATTEND Internal Medicine Pulmonary Disease
DX: J44.1 Chronic obstructive pulmonary disease with (acute) exacerbation (principal); J06.9 Acute upper respiratory infection, unspecified; E78.00 Pure hypercholesterolemia, unspecified; E78.5 Hyperlipidemia, unspecified; I11.0 Hypertensive heart disease with heart failure; I50.9 Heart failure, unspecified; I25.10 Atherosclerotic heart disease of native coronary artery without angina pectoris; Z95.5 Presence of coronary angioplasty implant and graft; Z95.810 Presence of automatic (implantable) cardiac defibrillator; F41.9 Anxiety disorder, unspecified; I48.91 Unspecified atrial fibrillation; F17.200 Nicotine dependence, unspecified, uncomplicated

== ENCOUNTER 2018-03-06 10:28 | Emergency (ER) | payer MEDICARE ==
[2018-03-06 10:47] VITALS: BMI 37.0
[2018-03-06 10:48] VITALS: TEMP 98.3
--- NOTE | 2018-03-06 11:22 | ED PDOC ---
HPI: SOB/CHF/COPD Time Seen by Provider: 03/06/18 11:05 Chief Complaint (Nursing): Lower Extremity Problem/Injury Chief Complaint (Provider): SOB/NV/HOOD History Per: Patient (Pt of Dr Ibrahim) History/Exam Limitations: no limitations Onset/Duration Of Symptoms: Hrs (five) Current Symptoms Are (Timing): Still Present Initiating Event: Other (COPD/CHF) Quality: Dull Exacerbating Factor(s): Exertion, Laying Flat Current Respiratory Medications: Albuterol, Diuretic Severity: Mild Associated Symptoms: Light-headedness, Other (Nausea and Vomiting) Recently: Seen In ED, Treated By A Physician - Risk Factors PE Risk Factors: Pos: Decreased Mobilty /Activity, Recent Hospitalization, CHF Past Medical History Reviewed: Historical Data, Nursing Documentation, Vital Signs Vital Signs: Last Vital Signs Temp 98.3 F 03/06/18 10:47 Pulse 68 03/06/18 17:03 Resp 18 03/06/18 17:03 BP 108/59 L 03/06/18 17:03 Pulse Ox 96 03/06/18 17:03 - Medical History PMH: Anxiety, Atrial Fibrillation, CAD, Cardia Arrhythmia, CHF, COPD, Emphysema , HTN, Hypercholesterolemia, Peripheral Edema, Pneumonia Denies: HIV, Chronic Kidney Disease - Surgical History Surgical History: Appendectomy, Cholecystectomy, Coronary Stent, Pacemaker - Family History Family History: States: Unknown Family Hx - Home Medications Home Medications: Ambulatory Orders Medication Instructions Recorded Albuterol 0.083% [Albuterol 0.083% 3 ml IH Q6H PRN 01/15/18 Inhal Jing (2.5 mg/3 ml) UD] Albuterol Sulfate [Proair Hfa] 2 puff INH PRN PRN 01/15/18 Aspirin [Ecotrin] 81 mg PO DAILY 01/15/18 Carvedilol [Coreg] 6.25 mg PO BID 01/15/18 Dabigatran [Pradaxa] 75 mg PO BID 01/15/18 Furosemide [Lasix] 40 mg PO DAILY 01/15/18 Valsartan [Diovan] 80 mg PO DAILY 01/15/18 Azithromycin [Zithromax] 250 mg PO ASDIR 5 Days #6 tab 01/17/18 Methylprednisolone [Medrol Dose 4 mg PO ASDIR #21 mg 01/17/18 Pack (21 tabs)] Promethazine [Phenergan Syrup] 12.5 mg PO Q6 #1 dose 01/17/18 Colchicine 0.6 mg PO DAILY #30 capsule 03/06/18 Colchicine 0.6 mg PO DAILY #30 tablet 03/06/18 - Allergies Allergies/Adverse Reactions: Allergies Allergy/AdvReac Type Severity Reaction Status Date / Time No Known Allergies Allergy Verified 03/06/18 11:05 Wells Criteria for PE - Wells Criteria for Pulmonary Embolism Clinical Signs and Symptoms of DVT: No P.E is #1 Diagnosis, or Equally Likely: No Heart Rate >100: No Immobilization at least 3 days;Surgery previous 4 weeks: No Previous, objectively diagnosed PE or DVT: No Hemoptysis: No Malignancy w/treatment within 6 months, or palliative: No Total Score: 0 Review of Systems ROS Statement: Except As Marked, All Systems Reviewed And Found Negative Cardiovascular: Positive for: Orthopnea, Paroxysmal Noc. Dyspnea Respiratory: Positive for: Shortness of Breath, SOB with Exertion. Negative for : Wheezing Gastrointestinal: Positive for: Nausea, Vomiting Musculoskeletal: Positive for: Foot Pain (apparent acute gout) Physical Exam - Reviewed Nursing Documentation Reviewed: Yes Vital Signs Reviewed: Yes - Physical Exam Appears: Positive for: Well, Non-toxic, Uncomfortable. Negative for: No Acute Distress Head Exam: Positive for: ATRAUMATIC, NORMAL INSPECTION Skin: Positive for: Normal Color, Warm, Dry Neck: Positive for: Normal, Painless ROM, Supple. Negative for: Decreased ROM Cardiovascular/Chest: Positive for: Regular Rate, Rhythm, Chest Non Tender. Negative for: Edema, Gallop, JVD, Murmur, Bradycardia, Tachycardia, Friction Rub Respiratory: Positive for: Decreased Breath Sounds. Negative for: Accessory Muscle Use, Crackles, Rales, Rhonchi, Stridor, Wheezing, Respiratory Distress Pulses-Carotid (L): 2+ Pulses-Carotid (R): 2+ Pulses-Radial (L): 2+ Pulses-Radial (R): 2+ Neurologic/Psych: Positive for: Alert, Oriented. Negative for: Aphasia - Laboratory Results Result Diagrams: 03/06/18 12:00 03/06/18 15:45 - ECG O2 Sat by Pulse Oximetry: 97 Medical Decision Making Medical Decision Making: Pt presents initially for foot pain which is apparent clinical acute gout During discussion wiht patient, indicates that she has hx of COPD, CHF and ACS with 3-stents; recent SOB, HOOD, nausea and tiredness will work up for CHF/COPD exacerbation xray of foot to r/o Will contact Dr Ibrahim when resulted Discussed case with Dr Ibrahim who agreed with the treatment plan and disposition of discharge Dr Ibrahim indicated and the patient notified to follow up with him on March 09 ( Friday) Disposition - Clinical Impression Clinical Impression: Gout, COPD exacerbation - Patient ED Disposition Is Patient to be Admitted: No Discussed With Dr.: Da Ibrahim Doctor Will See Patient In The: Office Counseled Patient/Family Regarding: Studies Performed, Diagnosis, Need For Followup, Rx Given - Disposition Referrals: Da Ibrahim MD [Family Provider] - Disposition: Routine/Home Disposition Time: 16:13 Condition: STABLE Additional Instructions: follow up with dr ibrahmi in his office on FridayMarch 09 Prescriptions: Colchicine 0.6 mg PO DAILY #30 tablet Colchicine 0.6 mg PO DAILY #30 capsule Forms: [email or web address] (Macedonian)
[2018-03-06 12:09] LABS: BASO # 0.2 K/uL (0.0-0.2); BASO % 1.3 % (0.0-2.0); EOS # 0.5 K/uL (0.0-0.7); EOS % 3.3 % (0.0-4.0); HEMOGLOBIN 14.4 g/dL (12.0-16.0); LYMPH % 12.9 % (20.0-40.0); MEAN CELL VOLUME 90.5 fl (81.0-99.0); MEAN CORPUSCULAR HEMOGLOBIN 29.7 pg (27.0-31.0); MEAN CORPUSCULAR HGB CONC 32.8 g/dL (33.0-37.0); MEAN PLATELET VOLUME 8.9 fl (7.2-11.7); MONO # 1.3 K/uL (0.0-0.8); MONO % 8.7 % (0.0-10.0); NEUT # 11.4 K/uL (1.8-7.0); NEUT % 73.8 % (50.0-75.0); PLATELET COUNT 218 K/uL (130-400); RBC 4.84 Mil/uL (3.80-5.20); RED CELL DISTRIBUTION WIDTH 15.2 % (11.5-14.5); WHITE BLOOD COUNT 15.5 K/uL (4.8-10.8)
--- NOTE | 2018-03-06 12:37 | RAD ---
HISTORY: COMPARISON: 01/15/2018 TECHNIQUE: Chest PA and lateral FINDINGS: LINES AND TUBES: None. LUNG AND PLEURA: The lungs are well inflated. There is moderate pulmonary venous congestion. HEART AND MEDIASTINUM: There is mild cardiomegaly. Atherosclerotic aortic arch calcifications are present. There is stable position of left-sided pacemaker. The hilar and mediastinal contours are within normal limits. SKELETAL STRUCTURES: The bony structures are within normal limits for the patient's age. VISUALIZED UPPER ABDOMEN: Normal. OTHER FINDINGS: None. IMPRESSION: No active pulmonary disease. Mild cardiomegaly and pulmonary venous congestion.
--- NOTE | 2018-03-06 12:39 | RAD ---
PROCEDURE: Left Foot Radiographs. HISTORY: r/o fx COMPARISON: None. FINDINGS: BONES: Bone alignment and mineralization are normal. There is no acute displaced fracture or bone destruction. There is a prominent plantar calcaneal spur. JOINTS: Normal. SOFT TISSUES: Normal. OTHER FINDINGS: None. IMPRESSION: No acute displaced fracture or dislocation.
[2018-03-06 12:56] LABS: ANISOCYTOSIS SLIGHT; BANDS 2 % (0-2); EOSINOPHIL 3 % (0-7); LARGE PLATELETS PRESENT; LYMPHOCYTE 12 % (20-50); MONOCYTE 8 % (0-10); NEUTROPHIL 75 % (42-75); PLATELET ESTIMATE NORMAL (NORMAL); TOTAL CELLS COUNTED 100
[2018-03-06 13:26] LABS: TROPONIN I 0.024 ng/mL (0.00-0.120)
[2018-03-06] MEDS ORDERED: Albuterol-Ipratrop 3 mg / 0.5 (3 ml) UD INH STA (13:26)
[2018-03-06] MEDS ORDERED: Albuterol-Ipratrop 3 mg / 0.5 (3 ml) UD ONE (13:29)
[2018-03-06 16:07] LABS: ALT/SGPT 21 U/L (9-52); AST/SGOT 30 U/L (14-36); BLOOD UREA NITROGEN 27 mg/dl (7-17); CALCIUM 8.9 mg/dL (8.4-10.2); GFR AFRICAN-AMERICAN > 60; GFR NON-AFRICAN AMERICAN 54
[2018-03-06 16:30] LABS: ALB/GLOB RATIO 1.4 (1.0-2.1); ALBUMIN 4.2 g/dL (3.5-5.0)
[2018-03-06 17:03] VITALS: BP 108/59; PULSE 68; RESP 18
[2018-03-06 17:03] LABS: SQUAMOUS EPITHIAL 14 /hpf (0-5); URINE BACTERIA RARE (<OCC); URINE BILIRUBIN NEGATIVE (NEGATIVE); URINE BLOOD NEGATIVE (NEGATIVE); URINE CLARITY CLOUDY (Clear); URINE COLOR AMBER (YELLOW); URINE GLUCOSE (UA) NEG (Normal); URINE LEUKOCYTE ESTERASE NEG Leu/uL (Negative); URINE PROTEIN 30 mg/dL (NEGATIVE)
[2018-03-06 17:15] VITALS: O2SAT 97
--- NOTE | 2018-03-07 12:59 | CARD ---
APPROVED REPORT EKG Measurement Heart [id number] <Conclusion> Normal sinus rhythm ST & T wave abnormality, consider inferolateral ischemia Abnormal ECG
== END 2018-03-06 17:03 | disposition home or self-care (01) ==
LOC: H.ER 10:28
DX: J44.1 Chronic obstructive pulmonary disease with (acute) exacerbation (principal); M10.9 Gout, unspecified; E78.00 Pure hypercholesterolemia, unspecified; F41.9 Anxiety disorder, unspecified; I11.0 Hypertensive heart disease with heart failure; I25.10 Atherosclerotic heart disease of native coronary artery without angina pectoris; I48.91 Unspecified atrial fibrillation; I50.9 Heart failure, unspecified; Z79.01 Long term (current) use of anticoagulants; Z79.82 Long term (current) use of aspirin; Z95.0 Presence of cardiac pacemaker; Z95.5 Presence of coronary angioplasty implant and graft

== ENCOUNTER 2018-03-30 16:09 | Inpatient (IN) | payer MEDICARE ==
[2018-03-30 16:10] VITALS: BMI 37.0
[2018-03-30] MEDS ORDERED: Albuterol-Ipratrop 3 mg / 0.5 (3 ml) UD ONE (16:46)
[2018-03-30] MEDS ORDERED: Albuterol-Ipratrop 3 mg / 0.5 (3 ml) UD INH STA (17:20)
--- NOTE | 2018-03-30 17:37 | ED PDOC ---
HPI: SOB/CHF/COPD Time Seen by Provider: 03/30/18 17:03 Chief Complaint (Nursing): Shortness Of Breath Chief Complaint (Provider): Shortness of breath History Per: Patient History/Exam Limitations: no limitations Onset/Duration Of Symptoms: Days Current Symptoms Are (Timing): Still Present Exacerbating Factor(s): Coughing Current Respiratory Medications: See Home Med List Associated Symptoms: Productive Cough. denies: Fever, Chills, Chest Pain Additional History Per: Patient Additional Complaint(s): 73yo female with history of CHF, hypertnesion, COPD, with defibrillator in place , comes to ER for evaluation of shortness of breath persistent for the past couple days. She reports associated productive cough with clear sputum. Patient states she has been using her albuterol treatments at home with no relief of symptoms; she states she is not on home O2. Otherwise, she denies any fever, chills, chest pain, vomiting, leg swelling, and offers no other medical complaints. PMD: Dr. Jason Past Medical History Reviewed: Historical Data, Nursing Documentation, Vital Signs Vital Signs: Last Vital Signs Temp 98.1 F 04/03/18 16:43 Pulse 65 04/03/18 17:11 Resp 18 04/03/18 16:43 BP 138/75 04/03/18 17:11 Pulse Ox 95 04/08/18 08:31 - Medical History PMH: Anxiety, Atrial Fibrillation, CAD, Cardia Arrhythmia, CHF, COPD, Emphysema , HTN, Hypercholesterolemia, Peripheral Edema, Pneumonia Denies: HIV, Chronic Kidney Disease - Surgical History Surgical History: Appendectomy, Cholecystectomy, Coronary Stent, Pacemaker - Family History Family History: States: Unknown Family Hx - Living Arrangements Living Arrangements: With Family - Social History Current smoker - smoking cessation education provided: Yes (occasional) Alcohol: None Drugs: Denies - Home Medications Home Medications: Ambulatory Orders Medication Instructions Recorded Albuterol 0.083% [Albuterol 0.083% 3 ml IH Q6H PRN 01/15/18 Inhal Jing (2.5 mg/3 ml) UD] Albuterol Sulfate [Proair Hfa] 2 puff INH PRN PRN 01/15/18 Aspirin [Ecotrin] 81 mg PO DAILY 01/15/18 Carvedilol [Coreg] 6.25 mg PO BID 01/15/18 Dabigatran [Pradaxa] 75 mg PO BID 01/15/18 Furosemide [Lasix] 40 mg PO DAILY 01/15/18 Valsartan [Diovan] 80 mg PO DAILY 01/15/18 - Allergies Allergies/Adverse Reactions: Allergies Allergy/AdvReac Type Severity Reaction Status Date / Time No Known Allergies Allergy Verified 03/06/18 11:05 Review of Systems ROS Statement: Except As Marked, All Systems Reviewed And Found Negative Constitutional: Negative for: Fever, Chills Cardiovascular: Negative for: Chest Pain Respiratory: Positive for: Cough, Shortness of Breath, Sputum (white) Gastrointestinal: Negative for: Vomiting Neurological: Negative for: Weakness Physical Exam - Reviewed Nursing Documentation Reviewed: Yes Vital Signs Reviewed: Yes - Physical Exam Appears: Positive for: Non-toxic Head Exam: Positive for: ATRAUMATIC, NORMAL INSPECTION, NORMOCEPHALIC Skin: Positive for: Normal Color Eye Exam: Positive for: Normal appearance, EOMI Neck: Positive for: Normal, Supple Cardiovascular/Chest: Positive for: Regular Rate, Rhythm. Negative for: Murmur Respiratory: Positive for: Rhonchi, Other (On O2 via NC) Extremity: Positive for: Normal ROM. Negative for: Pedal Edema Neurologic/Psych: Positive for: Alert, Oriented. Negative for: Motor/Sensory Deficits Comments: Patient is sitting during exam, so full exam is limited - Laboratory Results Result Diagrams: 04/02/18 05:20 04/02/18 05:20 - ECG O2 Sat by Pulse Oximetry: 96 (via NC) Pulse Ox Interpretation: Normal Medical Decision Making Medical Decision Making: Impression: COPD vs. CHF exacerbation Plan: -- Labs -- Chest x-ray -- EKG -- Duoneb 3ml INH -- Solumedrol 125mg IVP Time: 1821 Chest x-ray FINDINGS: LUNGS: Clear. PLEURA: No pneumothorax or pleural fluid seen. CARDIOVASCULAR: No radiographic findings to suggest acute or significant cardiovascular disease. Position/ configuration of pacemaker\AICD device: Satisfactory. OSSEOUS STRUCTURES: No significant abnormalities. VISUALIZED UPPER ABDOMEN: Normal. OTHER FINDINGS: None. IMPRESSION: No active disease. No acute/significant interval changes. Time: [address] Hernandez pending chemistry, reassessment Scribe Attestation: Documented by Jane Brown, acting as a scribe for Heather Drew MD. Provider Scribe Attestation: All medical record entries made by the Scribe were at my direction and personally dictated by me. I have reviewed the chart and agree that the record accurately reflects my personal performance of the history, physical exam, medical decision making, and the department course for this patient. I have also personally directed, reviewed, and agree with the discharge instructions and disposition. Disposition - Clinical Impression Clinical Impression: COPD exacerbation - Patient ED Disposition Is Patient to be Admitted: Transfer of Care - Disposition Disposition: Transfer of Care Disposition Time: 19:00 Condition: STABLE Patient Signed Over To: Raulito Hernandez Handoff Comments: pending chemisty
--- NOTE | 2018-03-30 18:23 | RAD ---
Date of service: 03/30/2018 PROCEDURE: CHEST RADIOGRAPH, 1 VIEW HISTORY: Shortness of breath COMPARISON: 03/06/2018 FINDINGS: LUNGS: Clear. PLEURA: No pneumothorax or pleural fluid seen. CARDIOVASCULAR: No radiographic findings to suggest acute or significant cardiovascular disease. Position/ configuration of pacemaker device: Satisfactory. OSSEOUS STRUCTURES: No significant abnormalities. VISUALIZED UPPER ABDOMEN: Normal. OTHER FINDINGS: None. IMPRESSION: No active disease. No acute/significant interval changes.
[2018-03-30 18:30] LABS: BASO # 0.1 K/uL (0.0-0.2); BASO % 1.3 % (0.0-2.0); EOS # 0.7 K/uL (0.0-0.7); EOS % 6.1 % (0.0-4.0); HEMOGLOBIN 14.7 g/dL (12.0-16.0); LYMPH % 18.1 % (20.0-40.0); MEAN CELL VOLUME 91.1 fl (81.0-99.0); MEAN CORPUSCULAR HEMOGLOBIN 29.7 pg (27.0-31.0); MEAN CORPUSCULAR HGB CONC 32.6 g/dL (33.0-37.0); MEAN PLATELET VOLUME 9.4 fl (7.2-11.7); MONO # 1.1 K/uL (0.0-0.8); MONO % 9.8 % (0.0-10.0); NEUT # 7.2 K/uL (1.8-7.0); NEUT % 64.7 % (50.0-75.0); NRBC % 0.2 % (0.0-0.0); RBC 4.95 Mil/uL (3.80-5.20); RED CELL DISTRIBUTION WIDTH 15.9 % (11.5-14.5); WHITE BLOOD COUNT 11.1 K/uL (4.8-10.8)
--- NOTE | 2018-03-30 19:23 | ED PDOC ---
- Laboratory Results Result Diagrams: 03/31/18 05:20 03/31/18 05:20 - ECG O2 Sat by Pulse Oximetry: 96 (via NC) Pulse Ox Interpretation: Normal Medical Decision Making Medical Decision Making: Time: 1909 Patient signed out to me by Dr. Drew pending chemistry, reassessment. Time: [address] Laird and patient to be admitted for observation under his service due to COPD exacerbation. Scribe Attestation: Documented by Jane Brown, acting as a scribe for Raulito Hernandez MD. Provider Scribe Attestation: All medical record entries made by the Scribe were at my direction and personally dictated by me. I have reviewed the chart and agree that the record accurately reflects my personal performance of the history, physical exam, medical decision making, and the department course for this patient. I have also personally directed, reviewed, and agree with the discharge instructions and disposition. Disposition - Clinical Impression Clinical Impression: COPD exacerbation - POA Present On Arrival: None - Disposition Disposition: Hospitalized as Observation Patient Disposition Time: 20:00 Condition: FAIR
[2018-03-30 19:36] LABS: ALB/GLOB RATIO 1.4 (1.0-2.1); ALBUMIN 4.1 g/dL (3.5-5.0); CALCIUM 8.7 mg/dL (8.4-10.2)
[2018-03-30] MEDS ORDERED: Promethazine 12.5 mg/10 ml Syrup PO STA (20:21)
[2018-03-30] MEDS ORDERED: Albuterol-Ipratrop 3 mg / 0.5 (3 ml) UD INH PRN (22:11)
[2018-03-30] MEDS: Albuterol-Ipratrop 3 mg / 0.5 (3 ml) UD INH SCH (22:42)
[2018-03-30] MEDS ORDERED: Promethazine DM 12.5 mg-30 mg/10 ml Syrup PO SCH (22:45)
[2018-03-30] MEDS ORDERED: Promethazine DM 12.5 mg-30 mg/10 ml Syrup PO PRN (22:56)
[2018-03-31] MEDS: Promethazine DM 12.5 mg-30 mg/10 ml Syrup PO PRN ×2 (00:11→08:18)
[2018-03-31] MEDS: Albuterol-Ipratrop 3 mg / 0.5 (3 ml) UD INH SCH ×4 (00:59→19:20)
[2018-03-31] MEDS ORDERED: Albuterol-Ipratrop 3 mg / 0.5 (3 ml) UD INH SCH (02:00)
[2018-03-31 06:56] LABS: BASO % 0.3 % (0.0-2.0); EOS % 0.1 % (0.0-4.0); LYMPH # 0.8 K/uL (1.0-4.3); LYMPH % 13.7 % (20.0-40.0); MEAN CELL VOLUME 91.5 fl (81.0-99.0); MEAN CORPUSCULAR HEMOGLOBIN 29.7 pg (27.0-31.0); MEAN CORPUSCULAR HGB CONC 32.5 g/dL (33.0-37.0); MEAN PLATELET VOLUME 9.2 fl (7.2-11.7); MONO # 0.2 K/uL (0.0-0.8); MONO % 3.7 % (0.0-10.0); NEUT # 4.6 K/uL (1.8-7.0); NEUT % 82.2 % (50.0-75.0); NRBC % 0.1 % (0.0-0.0); RBC 4.7 Mil/uL (3.80-5.20); RED CELL DISTRIBUTION WIDTH 15.2 % (11.5-14.5); WHITE BLOOD COUNT 5.6 K/uL (4.8-10.8)
[2018-03-31 07:05] LABS: CALCIUM 8.7 mg/dL (8.4-10.2)
[2018-03-31] MEDS: levoFLOXacin 500 mg in D5W 500 MG/100 ML BAG IVPB SCH (08:23)
--- NOTE | 2018-03-31 08:42 | CP.PCM.HP ---
History of Present Illness - History of Present Illness History of Present Illness: 73 YR OLD FEMALE ADMITTED WITH SHORTNESS OF BREATH,EXERCISE INTOLERANCE AND COUGH X 1 WEEK HX OF COPD,HTN,CARDIAC ARRYTHMIAS,S/P PACEMAKER PLACEMENT AND CHF [employer] Present on Admission - Present on Admission Any Indicators Present on Admission: Yes Past Patient History - Infectious Disease Hx of Infectious Diseases: None - Past Medical History & Family History Past Medical History?: Yes - Past Social History Smoking Status: Never Smoked - CARDIAC Hx Cardiac Disorders: Yes Hx Atrial Fibrillation: Yes Hx Cardia Arrhythmia: Yes Hx Congestive Heart Failure: Yes Hx Hypercholesterolemia: Yes Hx Hypertension: Yes Hx Internal Defibrillator: Yes - PULMONARY Hx Respiratory Disorders: Yes Hx Asthma: Yes Hx Chronic Obstructive Pulmonary Disease (COPD): Yes Hx Emphysema: Yes - NEUROLOGICAL Hx Neurological Disorder: No - HEENT Hx HEENT Problems: No Hx Cataracts: Yes - RENAL Hx Chronic Kidney Disease: No - ENDOCRINE/METABOLIC Hx Endocrine Disorders: No - HEMATOLOGICAL/ONCOLOGICAL Hx Human Immunodeficiency Virus (HIV): No - INTEGUMENTARY Hx Dermatological Problems: No - MUSCULOSKELETAL/RHEUMATOLOGICAL Hx Musculoskeletal Disorders: Yes Hx Falls: Yes Hx Unsteady Gait: Yes - GASTROINTESTINAL Hx Gastrointestinal Disorders: No - GENITOURINARY/GYNECOLOGICAL Hx Genitourinary Disorders: No - PSYCHIATRIC Hx Psychophysiologic Disorder: Yes Hx Anxiety: Yes Hx Substance Use: No - SURGICAL HISTORY Hx Appendectomy: Yes Hx Cholecystectomy: Yes Hx Coronary Stent: Yes - ANESTHESIA Hx Anesthesia: Yes Hx Anesthesia Reactions: No Hx Malignant Hyperthermia: No Meds Allergies/Adverse Reactions: Allergies Allergy/AdvReac Type Severity Reaction Status Date / Time No Known Allergies Allergy Verified 03/06/18 11:05 Physical Exam - Constitutional Appears: In Acute Distress - Head Exam Head Exam: ATRAUMATIC, NORMAL INSPECTION, NORMOCEPHALIC - Eye Exam Eye Exam: EOMI, Normal appearance, PERRL Pupil Exam: NORMAL ACCOMODATION, PERRL - ENT Exam ENT Exam: Mucous Membranes Moist, Normal Exam - Neck Exam Neck exam: Positive for: Normal Inspection - Respiratory Exam Respiratory Exam: Decreased Breath Sounds, Prolonged Expiratory Phase, Rales, Wheezes - Cardiovascular Exam Cardiovascular Exam: REGULAR RHYTHM Additional comments: FREQUENT EXTRASYSTOLES - GI/Abdominal Exam GI & Abdominal Exam: Normal Bowel Sounds, Soft. absent: Tenderness - Rectal Exam Rectal Exam: NORMAL INSPECTION - Extremities Exam Extremities exam: Positive for: normal inspection - Back Exam Back exam: NORMAL INSPECTION - Neurological Exam Neurological exam: Alert, CN II-XII Intact, Normal Gait, Oriented x3, Reflexes Normal - Psychiatric Exam Psychiatric exam: Normal Affect, Normal Mood - Skin Skin Exam: Dry, Intact, Normal Color, Warm Results - Vital Signs Recent Vital Signs: Last Vital Signs Temp 97.9 F 03/31/18 01:00 Pulse 72 03/31/18 08:21 Resp 20 03/31/18 01:00 BP 148/78 03/31/18 08:23 Pulse Ox 96 03/31/18 01:00 - Labs Result Diagrams: 03/31/18 05:20 03/31/18 05:20 Labs: Laboratory Results - last 24 hr 03/30/18 03/30/18 03/31/18 18:05 18:50 05:20 WBC 11.1 H 5.6 RBC 4.95 4.70 Hgb 14.7 14.0 Hct 45.1 43.0 MCV 91.1 91.5 MCH 29.7 29.7 MCHC 32.6 L 32.5 L RDW 15.9 H 15.2 H Plt Count 203 166 MPV 9.4 9.2 Neut % (Auto) 64.7 82.2 H Lymph % (Auto) 18.1 L 13.7 L [place] % (Auto) 9.8 3.7 Eos % (Auto) 6.1 H 0.1 Baso % (Auto) 1.3 0.3 Neut # (Auto) 7.2 H 4.6 Lymph # (Auto) 2.0 0.8 L [place] # (Auto) 1.1 H 0.2 Eos # (Auto) 0.7 0.0 Baso # (Auto) 0.1 0.0 Sodium 139 Potassium 4.3 Chloride 106 Carbon Dioxide 22 Anion Gap 15 BUN 28 H Creatinine 1.2 Est GFR ( Amer) 53 Est GFR (Non-Af Amer) 44 Random Glucose 188 H Calcium 8.7 Total Bilirubin 0.4 AST 28 ALT 34 Alkaline Phosphatase 67 NT-Pro-B Natriuret Pep 632 Total Protein 6.9 Albumin 4.1 Globulin 2.9 Albumin/Globulin Ratio 1.4 03/31/18 05:20 WBC RBC Hgb Hct MCV MCH MCHC RDW Plt Count MPV Neut % (Auto) Lymph % (Auto) [place] % (Auto) Eos % (Auto) Baso % (Auto) Neut # (Auto) Lymph # (Auto) [place] # (Auto) Eos # (Auto) Baso # (Auto) Sodium 138 Potassium 5.0 Chloride 103 Carbon Dioxide 22 Anion Gap 18 BUN 27 H Creatinine 1.1 Est GFR ( Amer) 59 Est GFR (Non-Af Amer) 48 Random Glucose 219 H Calcium 8.7 Total Bilirubin AST ALT Alkaline Phosphatase NT-Pro-B Natriuret Pep 634 Total Protein Albumin Globulin Albumin/Globulin Ratio Assessment & Plan - Assessment and Plan (Free Text) Assessment: ACUTE EXAC OF COPD URI ASHD CARDIAC ARRYTHMIAS HTN Plan: CONTINUE RX ORDERED - Date & Time Date: 03/31/18 Time: 08:46
[2018-03-31] MEDS ORDERED: methylPREDNISolone 60 MG in Sodium Chloride 0.9% 50 ML IVPB SCH (10:15)
[2018-03-31] MEDS: Acetylcysteine 20% Inhal Soln (4ml) INH SCH ×2 (11:00→19:20)
[2018-03-31] MEDS: Pantoprazole 40 mg EC Tab PO SCH (12:15)
--- NOTE | 2018-03-31 12:36 | CARD ---
APPROVED REPORT Date of service: 03/30/2018 EKG Measurement Heart [id number] <Conclusion> Sinus rhythm with sinus arrhythmia with frequent and consecutive premature ventricular complexes ST & T wave abnormality, consider inferolateral ischemia Abnormal ECG
[2018-04-01] MEDS: Albuterol-Ipratrop 3 mg / 0.5 (3 ml) UD INH SCH ×4 (00:59→19:06)
[2018-04-01] MEDS: Acetylcysteine 20% Inhal Soln (4ml) INH SCH ×2 (07:32→19:06)
[2018-04-01] MEDS: Pantoprazole 40 mg EC Tab PO SCH (08:20)
[2018-04-01] MEDS: levoFLOXacin 500 mg in D5W 500 MG/100 ML BAG IVPB SCH ×2 (08:21→11:35)
--- NOTE | 2018-04-01 09:31 | CP.PCM.PN ---
Subjective - Date & Time of Evaluation Date of Evaluation: 04/01/18 Time of Evaluation: 09:32 - Subjective Subjective: STILL DYSPNEIC AT REST AND ON MILD EXERTION UNABLE TO EXPECTORATE SPUTUM C/O PEDAL EDEMA Objective - Vital Signs/Intake and Output Vital Signs (last 24 hours): Temp Pulse Resp BP Pulse Ox 97.7 F 73 20 129/75 95 04/01/18 08:29 04/01/18 08:29 04/01/18 08:29 04/01/18 08:29 04/01/18 08:29 - Medications Medications: Current Medications Acetylcysteine (Acetylcysteine 20%) 2 ml INH RBID [facility] Last Admin: 04/01/18 07:32 Dose: 2 ml Albuterol/Ipratropium (Duoneb 3 Mg/0.5 Mg (3 Ml) Ud) 3 ml INH RQ6 [facility] Last Admin: 04/01/18 07:31 Dose: 3 ml Aspirin (Ecotrin) 81 mg PO DAILY [facility] Last Admin: 04/01/18 08:20 Dose: 81 mg Carvedilol (Coreg) 6.25 mg PO BID [facility] Last Admin: 04/01/18 08:20 Dose: 6.25 mg Dabigatran (Pradaxa) 75 mg PO BID [facility] PRN Reason: Protocol Last Admin: 04/01/18 08:20 Dose: 75 mg Furosemide (Lasix) 40 mg IV DAILY [facility] Last Admin: 04/01/18 08:24 Dose: 40 mg Losartan Potassium (Cozaar) 100 mg PO DAILY [facility] Last Admin: 04/01/18 08:20 Dose: 100 mg Methylprednisolone (Solu-Medrol) 60 mg IV Q8H [facility] Last Admin: 04/01/18 04:55 Dose: 60 mg Pantoprazole Sodium (Protonix Ec Tab) 40 mg PO DAILY [facility] Last Admin: 04/01/18 08:20 Dose: 40 mg Promethazine HCl/Dextromethorphan (Phenergan Dm Syrup) 10 ml PO Q4 PRN PRN Reason: Cough Last Admin: 03/31/18 08:18 Dose: 10 ml - Labs Labs: 03/31/18 05:20 03/31/18 05:20 - Constitutional Appears: Chronically Ill - Head Exam Head Exam: ATRAUMATIC, NORMAL INSPECTION, NORMOCEPHALIC - Eye Exam Eye Exam: EOMI, Normal appearance, PERRL Pupil Exam: NORMAL ACCOMODATION, PERRL - ENT Exam ENT Exam: Mucous Membranes Moist, Normal Exam - Neck Exam Neck Exam: Full ROM, Normal Inspection. absent: Lymphadenopathy - Respiratory Exam Respiratory Exam: Decreased Breath Sounds, Prolonged Expiratory Phase, Rales, Wheezes, NORMAL BREATHING PATTERN - Cardiovascular Exam Cardiovascular Exam: REGULAR RHYTHM, +S1, +S2. absent: Murmur - GI/Abdominal Exam GI & Abdominal Exam: Soft, Normal Bowel Sounds. absent: Tenderness - Rectal Exam Rectal Exam: NORMAL INSPECTION - Extremities Exam Extremities Exam: Full ROM, Normal Capillary Refill, Normal Inspection, Pedal Edema. absent: Joint Swelling - Back Exam Back Exam: NORMAL INSPECTION - Neurological Exam Neurological Exam: Alert, Awake, CN II-XII Intact, Normal Gait, Oriented x3 - Psychiatric Exam Psychiatric exam: Normal Affect, Normal Mood - Skin Skin Exam: Dry, Intact, Normal Color, Warm Assessment and Plan - Assessment and Plan (Free Text) Assessment: ACUTE EXAC OF COPD ASHD HTN URI WITH MUCUS PLUGGING OF AIRWAYS S/P PACEMAKER PLACEMENT Plan: INCREASE DIURETIC DOSAGE CARDIAC EVALUATION IV ANTIBIOTICS
--- NOTE | 2018-04-01 11:50 | IP.NPCORE ---
COPD Progress Note - COPD Progress Note Spirometry Assessment Completed:: Yes FEV1/FVC<70: No Plan to assess at outpatient follow up: Yes Symptoms:: Increase in Dyspnea, Cough Initial CXR:: Yes Date:: 03/30/18 Oxygen Saturation/Pulse Oximetry:: 95 ABG Not Indicated (Symptoms Improved): Yes Nebulizers Q2-4 hrs:: Duonebs/Albuterol Therapy Antibiotics (Name/Dose/Frequency):: Levaquin Oxygen Delivery Method: Nasal Cannula Smoking cessation counseling all stages copd exacerbation: Yes
[2018-04-01] MEDS: Promethazine DM 12.5 mg-30 mg/10 ml Syrup PO PRN (15:59)
--- NOTE | 2018-04-01 20:08 | CP.PCM.CON ---
History of Present Illness - History of Present Illness History of Present Illness: I was asked to see patient by Dr Jason. Coverage for Dr palomares Patient is a 73 year old female with cardiomyopathy afib, AICD who presents with cough dyspnea. Symptoms were present for 2 days and developed lower extremity edema. She has improved with diuretic therapy. Review of Systems - Constitutional Constitutional: absent: As Per HPI, Anorexia, Chills, Daytime Sleepiness, Excessive Sweating, Fatigue, Fever, Frequent Falls, Headache, Increased Appetite , Lethargy, Malaise, Night Sweats, Snoring, Sleep Apnea, Weight Gain, Weight Loss, Weakness, Other - EENT Eyes: absent: As Per HPI, Blind Spots, Blurred Vision, Change in Vision, Decreased Night Vision, Diplopia, Discharge, Dry Eye, Exophthalmos, Floaters, Irritation, Itchy Eyes, Loss of Peripheral Vision, Pain, Photophobia, Requires Corrective Lenses, Sees Flashes, Spots in Vision, Tunnel Vision, Other Visual Disturbances, Loss of Vision, Other Ears: absent: As Per HPI, Decreased Hearing, Ear Discharge, Ear Pain, Tinnitus, Abnormal Hearing, Disequilibrium, Dizziness, Other Nose/Mouth/Throat: absent: As Per HPI, Epistaxis, Nasal Congestion, Nasal Discharge, Nasal Obstruction, Nasal Trauma, Nose Pain, Post Nasal Drip, Sinus Pain, Sinus Pressure, Bleeding Gums, Change in Voice, Dental Pain, Dry Mouth, Dysphagia, Halitosis, Hoarsness, Lip Swelling, Mouth Lesions, Mouth Pain, Odynophagia, Sore Throat, Throat Swelling, Tongue Swelling, Facial Pain, Neck Pain, Neck Mass, Other - Cardiovascular Cardiovascular: Dyspnea, Pedal Edema - Respiratory Respiratory: Dyspnea - Gastrointestinal Gastrointestinal: absent: As Per HPI, Abdominal Pain, Belching, Bloating, Change in Bowel Habits, Change in Stool Character, Coffee Ground Emesis, Constipation, Cramping, Diarrhea, Dyspepsia, Dysphagia, Early Satiety, Excessive Flatus, Fecal Incontinence, Heartburn, Hematemesis, Hematochezia, Loose Stools, Melena, Nausea, Odynophagia, Temesmus, Vomiting, Other - Genitourinary Genitourinary: absent: As Per HPI, Change in Urinary Stream, Difficulty Urinating, Dysuria, Flank Pain, Hematuria, Pyuria, Nocturia, Urinary Incontinence, Urinary Frequency, Urinary Hesitance, Urinary Urgency, Voiding Freq/Small Amts, Freq UTI, Hx Renal/Bladder Calculi, Hx /Renal Surgery, Bladder Distension, Other - Musculoskeletal Musculoskeletal: absent: As Per HPI, Abnormal Gait, Arthralgias, Atrophy, Back Pain, Deformity, Joint Swelling, Limited Range of Motion, Loss of Height, Muscle Cramps, Muscle Weakness, Myalgias, Neck Pain, Numbness, Radiating Pain into Limb, Stiffness, Tingling, Other - Integumentary Integumentary: absent: As Per HPI, Acne, Alopecia, Bleeding Lesions, Change in Hair, Change in Nails, Change in Pigmentation, Changing Lesions, Dry Skin, Erythema, Furuncle, Hirsutism, Lesions, New Lesions, Non-Healing Lesions, Photosensitivity, Pruritus, Rash, Skin Pain, Skin Ulcer, Sores, Striae, Swelling , Unusual Bruising, Wounds, Jaundice, Other - Neurological Neurological: absent: As Per HPI, Abnormal Gait, Abnormal Hearing, Abnormal Movements, Abnormal Speech, Behavioral Changes, Burning Sensations, Confusion, Convulsions, Disequilibrium, Dizziness, Numbness, Focal Weakness, Frequent Falls , Headaches, Lack of Coordination, Loss of Vision, Memory Loss, Paresthesias, Radicular Pain, Restless Legs, Sensory Deficit, Syncope, Tingling, Tremor, Vertigo, Weakness, Other Visual Disturbances, Other - Psychiatric Psychiatric: absent: As Per HPI, Abnormal Sleep Pattern, Anhedonia, Anxiety, Auditory Hallucinations, Behavioral Changes, Change in Appetite, Change in Libido, Confusion, Depression, Difficulty Concentrating, Hallucinations, Homicidal Ideation, Hopelessness, Irritability, Memory Loss, Mood Swings, Panic Attacks, Paranoia, Suicidal Ideation, Visual Hallucinations, Tactile Hallucinations, Other - Endocrine Endocrine: absent: As Per HPI, Change in Body Appearance, Change in Libido, Cold Intolorance, Deepening of Voice, Excessive Sweating, Fatigue, Flushing, Heat Intolorance, Increase in Ring/Shoe/Hat Size, Palpitations, Polydipsia, Polyphagia, Polyuria, Other - Hematologic/Lymphatic Hematologic: absent: As Per HPI, Easy Bleeding, Easy Bruising, Lymphadenopathy, Other Past Patient History - Infectious Disease Hx of Infectious Diseases: None - Past Medical History & Family History Past Medical History?: Yes - Past Social History Smoking Status: Never Smoked - CARDIAC Hx Cardiac Disorders: Yes Hx Atrial Fibrillation: Yes Hx Cardia Arrhythmia: Yes Hx Congestive Heart Failure: Yes Hx Hypercholesterolemia: Yes Hx Hypertension: Yes Hx Internal Defibrillator: Yes - PULMONARY Hx Respiratory Disorders: Yes Hx Asthma: Yes Hx Chronic Obstructive Pulmonary Disease (COPD): Yes Hx Emphysema: Yes - NEUROLOGICAL Hx Neurological Disorder: No - HEENT Hx HEENT Problems: No Hx Cataracts: Yes - RENAL Hx Chronic Kidney Disease: No - ENDOCRINE/METABOLIC Hx Endocrine Disorders: No - HEMATOLOGICAL/ONCOLOGICAL Hx Human Immunodeficiency Virus (HIV): No - INTEGUMENTARY Hx Dermatological Problems: No - MUSCULOSKELETAL/RHEUMATOLOGICAL Hx Musculoskeletal Disorders: Yes Hx Falls: Yes Hx Unsteady Gait: Yes - GASTROINTESTINAL Hx Gastrointestinal Disorders: No - GENITOURINARY/GYNECOLOGICAL Hx Genitourinary Disorders: No - PSYCHIATRIC Hx Psychophysiologic Disorder: Yes Hx Anxiety: Yes Hx Substance Use: No - SURGICAL HISTORY Hx Appendectomy: Yes Hx Cholecystectomy: Yes Hx Coronary Stent: Yes - ANESTHESIA Hx Anesthesia: Yes Hx Anesthesia Reactions: No Hx Malignant Hyperthermia: No Meds Allergies/Adverse Reactions: Allergies Allergy/AdvReac Type Severity Reaction Status Date / Time No Known Allergies Allergy Verified 03/06/18 11:05 - Medications Medications: Current Medications Acetylcysteine (Acetylcysteine 20%) 2 ml [facility]H RBID [facility] Last Admin: 04/01/18 19:06 Dose: 2 ml Albuterol/Ipratropium (Duoneb 3 Mg/0.5 Mg (3 Ml) Ud) 3 ml INH RQ6 [facility] Last Admin: 04/01/18 19:06 Dose: 3 ml Aspirin (Ecotrin) 81 mg PO DAILY [facility] Last Admin: 04/01/18 08:20 Dose: 81 mg Carvedilol (Coreg) 6.25 mg PO BID [facility] Last Admin: 04/01/18 15:59 Dose: 6.25 mg Dabigatran (Pradaxa) 75 mg PO BID [facility] PRN Reason: Protocol Last Admin: 04/01/18 15:59 Dose: 75 mg Furosemide (Lasix) 40 mg IV DAILY [facility] Last Admin: 04/01/18 08:24 Dose: 40 mg Levofloxacin/Dextrose (Levaquin 500mg) 500 mg in 100 mls @ 100 mls/hr IVPB DAILY [facility] PRN Reason: Protocol Last Admin: 04/01/18 11:35 Dose: Not Given Losartan Potassium (Cozaar) 100 mg PO DAILY [facility] Last Admin: 04/01/18 08:20 Dose: 100 mg Methylprednisolone (Solu-Medrol) 60 mg IV Q8H [facility] Last Admin: 04/01/18 11:36 Dose: 60 mg Pantoprazole Sodium (Protonix Ec Tab) 40 mg PO DAILY [facility] Last Admin: 04/01/18 08:20 Dose: 40 mg Promethazine HCl/Dextromethorphan (Phenergan Dm Syrup) 10 ml PO Q4 PRN PRN Reason: Cough Last Admin: 04/01/18 15:59 Dose: 10 ml Physical Exam - Constitutional Appears: Non-toxic - Head Exam Head Exam: NORMAL INSPECTION - Eye Exam Eye Exam: Normal appearance - ENT Exam ENT Exam: Mucous Membranes Moist - Neck Exam Neck exam: Positive for: Full Rom - Respiratory Exam Respiratory Exam: NORMAL BREATHING PATTERN - Cardiovascular Exam Cardiovascular Exam: Irregular Rhythm - GI/Abdominal Exam GI & Abdominal Exam: Normal Bowel Sounds - Rectal Exam Rectal Exam: Deferred - Extremities Exam Extremities exam: Negative for: pedal edema - Back Exam Back exam: NORMAL INSPECTION - Neurological Exam Neurological exam: Alert, Oriented x3 - Psychiatric Exam Psychiatric exam: Normal Affect - Skin Skin Exam: Normal Color Results - Vital Signs Recent Vital Signs: Last Vital Signs Temp 98 F 04/01/18 16:38 Pulse 57 L 04/01/18 16:38 Resp 18 04/01/18 16:38 BP 127/81 04/01/18 16:38 Pulse Ox 96 04/01/18 16:38 - Labs Result Diagrams: 03/31/18 05:20 03/31/18 05:20 - EKG Data EKG Interpreted by: Myself EKG shows normal: Sinus rhythm Assessment & Plan (1) Acute on chronic systolic (congestive) heart failure Assessment and Plan: will continue diuretic therapy. Status: Acute (2) CAD (coronary artery disease) Assessment and Plan: no current angina Status: Acute (3) Chronic atrial fibrillation Assessment and Plan: anticoagulation with Pradaxa Status: Acute (4) HTN (hypertension) Status: Acute
[2018-04-02] MEDS: Albuterol-Ipratrop 3 mg / 0.5 (3 ml) UD INH SCH ×4 (01:12→19:37)
[2018-04-02] MEDS: Promethazine DM 12.5 mg-30 mg/10 ml Syrup PO PRN (01:19)
[2018-04-02 06:38] LABS: BASO % 0.1 % (0.0-2.0); HEMOGLOBIN 13.3 g/dL (12.0-16.0); LYMPH # 1.3 K/uL (1.0-4.3); LYMPH % 6.5 % (20.0-40.0); MEAN CELL VOLUME 90.8 fl (81.0-99.0); MEAN CORPUSCULAR HEMOGLOBIN 29.8 pg (27.0-31.0); MEAN CORPUSCULAR HGB CONC 32.8 g/dL (33.0-37.0); MEAN PLATELET VOLUME 9.2 fl (7.2-11.7); MONO # 0.8 K/uL (0.0-0.8); MONO % 4.1 % (0.0-10.0); NEUT # 17.9 K/uL (1.8-7.0); NEUT % 89.3 % (50.0-75.0); PLATELET COUNT 171 K/uL (130-400); RBC 4.46 Mil/uL (3.80-5.20); RED CELL DISTRIBUTION WIDTH 14.9 % (11.5-14.5); WHITE BLOOD COUNT 20.1 K/uL (4.8-10.8)
[2018-04-02 06:59] LABS: BLOOD UREA NITROGEN 31 mg/dl (7-17); CALCIUM 8.7 mg/dL (8.4-10.2); GFR NON-AFRICAN AMERICAN 54
[2018-04-02] MEDS: Acetylcysteine 20% Inhal Soln (4ml) INH SCH (08:09)
[2018-04-02] MEDS: Pantoprazole 40 mg EC Tab PO SCH (08:15)
[2018-04-02] MEDS: levoFLOXacin 500 mg in D5W 500 MG/100 ML BAG IVPB SCH (08:17)
--- NOTE | 2018-04-02 08:37 | CP.PCM.PN ---
Subjective - Date & Time of Evaluation Date of Evaluation: 04/02/18 Time of Evaluation: 08:38 - Subjective Subjective: STILL COMPLAINS OF SOB AT REST AND ON MIL;D EXERTION COUGH PRESENT DOES NOT WANT MUCOMYST Objective - Vital Signs/Intake and Output Vital Signs (last 24 hours): Temp Pulse Resp BP Pulse Ox 98.3 F 64 20 150/84 94 L 04/02/18 07:54 04/02/18 07:54 04/02/18 07:54 04/02/18 07:54 04/02/18 07:54 - Medications Medications: Current Medications Albuterol/Ipratropium (Duoneb 3 Mg/0.5 Mg (3 Ml) Ud) 3 ml [facility]H RQ6 [facility] Last Admin: 04/02/18 08:10 Dose: 3 ml Aspirin (Ecotrin) 81 mg PO DAILY [facility] Last Admin: 04/02/18 08:16 Dose: 81 mg Carvedilol (Coreg) 6.25 mg PO BID [facility] Last Admin: 04/02/18 08:16 Dose: 6.25 mg Dabigatran (Pradaxa) 75 mg PO BID [facility] PRN Reason: Protocol Last Admin: 04/02/18 08:16 Dose: 75 mg Fluticasone Propionate (Flonase) 1 spr YORDY BID [facility] Furosemide (Lasix) 40 mg IV DAILY [facility] Last Admin: 04/01/18 08:24 Dose: 40 mg Levofloxacin/Dextrose (Levaquin 500mg) 500 mg in 100 mls @ 100 mls/hr IVPB DAILY [facility] PRN Reason: Protocol Last Admin: 04/02/18 08:17 Dose: 100 mls/hr Losartan Potassium (Cozaar) 100 mg PO DAILY [facility] Last Admin: 04/02/18 08:16 Dose: 100 mg Methylprednisolone (Solu-Medrol) 60 mg IV Q8H [facility] Last Admin: 04/02/18 04:54 Dose: 60 mg Pantoprazole Sodium (Protonix Ec Tab) 40 mg PO DAILY [facility] Last Admin: 04/02/18 08:15 Dose: 40 mg Promethazine HCl/Dextromethorphan (Phenergan Dm Syrup) 10 ml PO Q4 PRN PRN Reason: Cough Last Admin: 04/02/18 01:19 Dose: 10 ml - Labs Labs: 04/02/18 05:20 04/02/18 05:20 - Constitutional Appears: In Acute Distress - Head Exam Head Exam: ATRAUMATIC, NORMAL INSPECTION, NORMOCEPHALIC - Eye Exam Eye Exam: EOMI, Normal appearance, PERRL Pupil Exam: NORMAL ACCOMODATION, PERRL - ENT Exam ENT Exam: Mucous Membranes Moist, Normal Exam - Neck Exam Neck Exam: Full ROM, Normal Inspection. absent: Lymphadenopathy - Respiratory Exam Respiratory Exam: Decreased Breath Sounds, Prolonged Expiratory Phase, Rales, Wheezes, NORMAL BREATHING PATTERN - Cardiovascular Exam Cardiovascular Exam: REGULAR RHYTHM, +S1, +S2. absent: Murmur - GI/Abdominal Exam GI & Abdominal Exam: Soft, Normal Bowel Sounds. absent: Tenderness - Rectal Exam Rectal Exam: NORMAL INSPECTION - Extremities Exam Extremities Exam: Full ROM, Normal Capillary Refill, Normal Inspection. absent : Joint Swelling, Pedal Edema - Back Exam Back Exam: NORMAL INSPECTION - Neurological Exam Neurological Exam: Alert, Awake, CN II-XII Intact, Normal Gait, Oriented x3 - Psychiatric Exam Psychiatric exam: Normal Affect, Normal Mood - Skin Skin Exam: Dry, Intact, Normal Color, Warm Assessment and Plan - Assessment and Plan (Free Text) Assessment: ACUTE EXAC OF COPD MUCUS PLUGGING OF AIRWAYS ASHD HTN Plan: D/C MUCOMYST BEGIN MUCINEX BID
[2018-04-02] MEDS: guaiFENesin-DM 600-30 mg ER Tab PO SCH ×2 (10:47→17:43)
--- NOTE | 2018-04-02 11:24 | CP.PCM.PN ---
Subjective - Date & Time of Evaluation Date of Evaluation: 04/02/18 Time of Evaluation: 11:00 - Subjective Subjective: no current chest pain. has nasal congestion Objective - Vital Signs/Intake and Output Vital Signs (last 24 hours): Temp Pulse Resp BP Pulse Ox 98.3 F 64 20 150/84 94 L 04/02/18 07:54 04/02/18 07:54 04/02/18 07:54 04/02/18 10:48 04/02/18 07:54 - Medications Medications: Current Medications Albuterol/Ipratropium (Duoneb 3 Mg/0.5 Mg (3 Ml) Ud) 3 ml INH RQ6 [facility] Last Admin: 04/02/18 08:10 Dose: 3 ml Aspirin (Ecotrin) 81 mg PO DAILY [facility] Last Admin: 04/02/18 08:16 Dose: 81 mg Carvedilol (Coreg) 6.25 mg PO BID [facility] Last Admin: 04/02/18 08:16 Dose: 6.25 mg Dabigatran (Pradaxa) 75 mg PO BID [facility] PRN Reason: Protocol Last Admin: 04/02/18 08:16 Dose: 75 mg Fluticasone Propionate (Flonase) 1 spr YORDY BID [facility] Last Admin: 04/02/18 10:48 Dose: 1 spr Furosemide (Lasix) 40 mg IV DAILY [facility] Last Admin: 04/02/18 10:48 Dose: 40 mg Guaifenesin/Dextromethorphan (Mucinex-Dm 600-30 Mg) 2 tab PO BID [facility] Last Admin: 04/02/18 10:47 Dose: 2 tab Levofloxacin/Dextrose (Levaquin 500mg) 500 mg in 100 mls @ 100 mls/hr IVPB DAILY [facility] PRN Reason: Protocol Last Admin: 04/02/18 08:17 Dose: 100 mls/hr Losartan Potassium (Cozaar) 100 mg PO DAILY [facility] Last Admin: 04/02/18 08:16 Dose: 100 mg Methylprednisolone (Solu-Medrol) 60 mg IV Q8H [facility] Last Admin: 04/02/18 10:59 Dose: 60 mg Pantoprazole Sodium (Protonix Ec Tab) 40 mg PO DAILY [facility] Last Admin: 04/02/18 08:15 Dose: 40 mg Promethazine HCl/Dextromethorphan (Phenergan Dm Syrup) 10 ml PO Q4 PRN PRN Reason: Cough Last Admin: 04/02/18 01:19 Dose: 10 ml - Labs Labs: 04/02/18 05:20 04/02/18 05:20 - Constitutional Appears: Non-toxic - Head Exam Head Exam: NORMAL INSPECTION - Eye Exam Eye Exam: Normal appearance - ENT Exam ENT Exam: Mucous Membranes Moist - Neck Exam Neck Exam: Full ROM - Respiratory Exam Respiratory Exam: Decreased Breath Sounds - Cardiovascular Exam Cardiovascular Exam: REGULAR RHYTHM - GI/Abdominal Exam GI & Abdominal Exam: Normal Bowel Sounds - Rectal Exam Rectal Exam: Deferred - Extremities Exam Extremities Exam: absent: Pedal Edema - Back Exam Back Exam: NORMAL INSPECTION - Neurological Exam Neurological Exam: Alert - Psychiatric Exam Psychiatric exam: Normal Affect - Skin Skin Exam: Normal Color Assessment and Plan (1) Acute on chronic systolic (congestive) heart failure Assessment & Plan: stable. continue medical therapy Status: Acute (2) CAD (coronary artery disease) Assessment & Plan: no angina Status: Acute (3) Chronic atrial fibrillation Assessment & Plan: rate controlled Status: Acute (4) HTN (hypertension) Assessment & Plan: controlled Status: Acute
[2018-04-02 12:03] LABS: BANDS 1 % (0-2); LYMPHOCYTE 9 % (20-50); MONOCYTE 6 % (0-10); NEUTROPHIL 84 % (42-75); TOTAL CELLS COUNTED 100
[2018-04-02 12:04] LABS: ANISOCYTOSIS SLIGHT; PLATELET ESTIMATE NORMAL (NORMAL)
[2018-04-03] MEDS: Albuterol-Ipratrop 3 mg / 0.5 (3 ml) UD INH SCH ×4 (00:59→19:29)
[2018-04-03] MEDS: levoFLOXacin 500 mg in D5W 500 MG/100 ML BAG IVPB SCH (08:38)
[2018-04-03] MEDS: guaiFENesin-DM 600-30 mg ER Tab PO SCH ×2 (08:39→17:11)
[2018-04-03] MEDS: Pantoprazole 40 mg EC Tab PO SCH (08:39)
[2018-04-03] MEDS: Promethazine DM 12.5 mg-30 mg/10 ml Syrup PO PRN (08:46)
--- NOTE | 2018-04-03 13:32 | CP.PCM.DIS ---
Provider - Provider Date of Admission: 03/31/18 08:47 Attending physician: Da Jason MD Primary care physician: Da Jason MD Time Spent in preparation of Discharge (in minutes): 30 Diagnosis - Discharge Diagnosis (1) COPD exacerbation Status: Acute (2) Acute diastolic congestive heart failure Status: Acute (3) Acute on chronic systolic (congestive) heart failure Status: Acute (4) CAD (coronary artery disease) Status: Acute (5) Cardiac arrhythmia Status: Acute (6) Cardiomyopathy Status: Acute (7) HTN (hypertension) Status: Acute (8) Moderate COPD (chronic obstructive pulmonary disease) Status: Acute (9) Upper respiratory infection Status: Acute Hospital Course - Lab Results Lab Results: Micro Results 03/30/18 18:00 Blood-Venous Blood Culture - Preliminary NO GROWTH AFTER 3 DAYS 03/31/18 11:30 Sputum Gram Stain - Final 03/31/18 11:30 Sputum Sputum Culture - Final NORMAL ORAL VINCENT Most Recent Lab Values WBC 20.1 K/uL (4.8-10.8) H D 04/02/18 05:20 RBC 4.46 Mil/uL (3.80-5.20) 04/02/18 05:20 Hgb 13.3 g/dL (12.0-16.0) 04/02/18 05:20 Hct 40.5 % (34.0-47.0) 04/02/18 05:20 MCV 90.8 fl (81.0-99.0) 04/02/18 05:20 MCH 29.8 pg (27.0-31.0) 04/02/18 05:20 MCHC 32.8 g/dL (33.0-37.0) L 04/02/18 05:20 RDW 14.9 % (11.5-14.5) H 04/02/18 05:20 Plt Count 171 K/uL (130-400) 04/02/18 05:20 MPV 9.2 fl (7.2-11.7) 04/02/18 05:20 Neut % (Auto) 89.3 % (50.0-75.0) H 04/02/18 05:20 Lymph % (Auto) 6.5 % (20.0-40.0) L 04/02/18 05:20 Barnes % (Auto) 4.1 % (0.0-10.0) 04/02/18 05:20 Eos % (Auto) 0.0 % (0.0-4.0) 04/02/18 05:20 Baso % (Auto) 0.1 % (0.0-2.0) 04/02/18 05:20 Neut # (Auto) 17.9 K/uL (1.8-7.0) H 04/02/18 05:20 Lymph # (Auto) 1.3 K/uL (1.0-4.3) 04/02/18 05:20 Barnes # (Auto) 0.8 K/uL (0.0-0.8) 04/02/18 05:20 Eos # (Auto) 0.0 K/uL (0.0-0.7) 04/02/18 05:20 Baso # (Auto) 0.0 K/uL (0.0-0.2) 04/02/18 05:20 Neutrophils % (Manual) 84 % (42-75) H 04/02/18 05:20 Band Neutrophils % 1 % (0-2) 04/02/18 05:20 Lymphocytes % (Manual) 9 % (20-50) L 04/02/18 05:20 Monocytes % (Manual) 6 % (0-10) 04/02/18 05:20 Platelet Estimate Normal (NORMAL) 04/02/18 05:20 Anisocytosis (manual) Slight 04/02/18 05:20 Sodium 138 mmol/l (132-148) 04/02/18 05:20 Potassium 4.6 MMOL/L (3.6-5.0) 04/02/18 05:20 Chloride 104 mmol/L (98-107) 04/02/18 05:20 Carbon Dioxide 23 mmol/L (22-30) 04/02/18 05:20 Anion Gap 16 (10-20) 04/02/18 05:20 BUN 31 mg/dl (7-17) H 04/02/18 05:20 Creatinine 1.0 mg/dl (0.7-1.2) 04/02/18 05:20 Est GFR ( Amer) > 60 04/02/18 05:20 Est GFR (Non-Af Amer) 54 04/02/18 05:20 Random Glucose 265 mg/dL (65-105) H 04/02/18 05:20 Calcium 8.7 mg/dL (8.4-10.2) 04/02/18 05:20 Total Bilirubin 0.4 mg/dl (0.2-1.3) 03/30/18 18:50 AST 28 U/L (14-36) 03/30/18 18:50 ALT 34 U/L (9-52) 03/30/18 18:50 Alkaline Phosphatase 67 U/L (38-126) 03/30/18 18:50 NT-Pro-B Natriuret Pep 634 pg/ml (0-900) 03/31/18 05:20 Total Protein 6.9 G/DL (6.3-8.2) 03/30/18 18:50 Albumin 4.1 g/dL (3.5-5.0) 03/30/18 18:50 Globulin 2.9 gm/dL (2.2-3.9) 03/30/18 18:50 Albumin/Globulin Ratio 1.4 (1.0-2.1) 03/30/18 18:50 - Hospital Course Hospital Course: STILL DYSPNEIC AT REST Discharge Exam - Head Exam Head Exam: NORMAL INSPECTION - Eye Exam Eye Exam: EOMI, Normal appearance, PERRL Pupil Exam: NORMAL ACCOMODATION, PERRL - Respiratory Exam Respiratory Exam: Decreased Breath Sounds, Rales, Wheezes, Respiratory Distress - GI/Abdominal Exam GI & Abdominal Exam: Normal Bowel Sounds - Rectal Exam Rectal Exam: NORMAL INSPECTION - Neurological Exam Neurological exam: Alert, CN II-XII Intact, Normal Gait, Oriented x3, Reflexes Normal - Psychiatric Exam Psychiatric exam: Normal Affect, Normal Mood - Skin Skin Exam: Dry, Intact, Normal Color, Warm Discharge Plan - Follow Up Plan Condition: FAIR Disposition: HOME/ ROUTINE Patient education suggested?: Yes Instructions: Exacerbation of COPD (DC) Additional Instructions: TRANSFER TO TCU Referrals: Da Jason MD [Primary Care Provider] -
[2018-04-03 15:54] VITALS: BP 138/75; PULSE 65; RESP 18; TEMP 98.1
--- NOTE | 2018-04-04 11:36 | PQF ---
PROVIDER RESPONSE TEXT: DX-CHRONIC CHF WITH DIASTOLIC DYSFUNCTION--PRESENT ON ADMISSION REVIEWER QUERY TEXT: Present On Admission It is unclear whether Acute on Chronic CHF was present on admission. Your help is needed. Please clarify the POA status :Such as: -- Present on admission -- Not present on admission -- Or: Other explanation of clinical finding CXR: Impression: No active disease. No acute/significant interval changes. ProBNP: 632->634 H and P: H and P: HX OF COPD,HTN,CARDIAC ARRYTHMIAS,S/P PACEMAKER PLACEMENT AND CHF FORMER [employer] Assessment: ACUTE EXACERBATION OF COPD ,URI ,ASHD, CARDIAC ARRYTHMIAS,HTN 04/01 Cardiology consult: presents with cough dyspnea. Symptoms were present for 2 days and developed lower extremity edema. She has improved with diuretic therapy. Dxs. include: Acute on chronic systolic (congestive) heart failure : will continue diuretic therapy. Status: Acute - CAD: no current angina: Acute - Chronic atrial fibrillation : anticoagulation with Pradaxa: Acute 04/01 Attending progress note: Subjective: STILL DYSPNEIC AT REST AND ON MILD EXERTION UNABLE TO EXPECTORATE SPUTUM C/O PEDAL EDEMA coreg, lasix 40 mg IV daily The patient's Clinical Indicators include: xxxx Query created by: Shalonda Schofield on 04/02/2018 2:05 PM Electronically signed by: Da Jason MD 04/04/2018 11:33 AM
[2018-04-08 16:07] VITALS: O2SAT 96
== END 2018-04-03 20:30 | DRG 191 ==
LOC: SUPCPDRO 16:09 → H.ER 16:09 → H.ERHOLD 19:46 → H.MEDSURG1 21:42 → OBSVTOIN 03-31 08:47 → H.MEDSURG1 04-02 18:06
PROVIDERS: ADMIT Internal Medicine Pulmonary Disease; ATTEND Internal Medicine Pulmonary Disease
DX: J44.1 Chronic obstructive pulmonary disease with (acute) exacerbation (principal); I42.9 Cardiomyopathy, unspecified; I50.32 Chronic diastolic (congestive) heart failure; J06.9 Acute upper respiratory infection, unspecified; I25.10 Atherosclerotic heart disease of native coronary artery without angina pectoris; Z95.810 Presence of automatic (implantable) cardiac defibrillator; I48.2 Chronic atrial fibrillation; I11.0 Hypertensive heart disease with heart failure; E78.00 Pure hypercholesterolemia, unspecified; T17.990A Other foreign object in respiratory tract, part unspecified in causing asphyxiation, initial encounter; I49.9 Cardiac arrhythmia, unspecified; F41.9 Anxiety disorder, unspecified; Z95.5 Presence of coronary angioplasty implant and graft; F17.200 Nicotine dependence, unspecified, uncomplicated

== ENCOUNTER 2018-04-03 16:27 | Inpatient (IN) | payer OTHER, MEDICARE ==
[2018-04-03 20:37] VITALS: BMI 37.3
[2018-04-03] MEDS ORDERED: Albuterol 0.083% Inhal Sol (2.5 mg/3 mL) UD IH STA (20:43)
[2018-04-04] MEDS ORDERED: Albuterol 0.083% Inhal Sol (2.5 mg/3 mL) UD INH STA (00:05)
[2018-04-04] MEDS: Albuterol 0.083% Inhal Sol (2.5 mg/3 mL) UD INH SCH ×4 (00:59→19:39)
[2018-04-04] MEDS ORDERED: methylPREDNISolone 60 MG in Sodium Chloride 0.9% 50 ML IVPB SCH (01:00)
[2018-04-04] MEDS ORDERED: Albuterol 0.083% Inhal Sol (2.5 mg/3 mL) UD INH PRN (02:00)
[2018-04-04 07:19] LABS: HEMOGLOBIN 14.3 g/dL (12.0-16.0); MEAN CELL VOLUME 90.4 fl (81.0-99.0); MEAN CORPUSCULAR HEMOGLOBIN 29.6 pg (27.0-31.0); MEAN CORPUSCULAR HGB CONC 32.7 g/dL (33.0-37.0); RBC 4.83 Mil/uL (3.80-5.20); RED CELL DISTRIBUTION WIDTH 14.6 % (11.5-14.5); WHITE BLOOD COUNT 13.4 K/uL (4.8-10.8)
[2018-04-04 07:38] LABS: CALCIUM 8.8 mg/dL (8.4-10.2)
[2018-04-04] MEDS: guaiFENesin-DM 600-30 mg ER Tab PO SCH ×2 (08:24→16:45)
[2018-04-04] MEDS: Pantoprazole 40 mg EC Tab PO SCH (08:24)
[2018-04-04] MEDS: Promethazine DM 12.5 mg-30 mg/10 ml Syrup PO PRN (08:24)
--- NOTE | 2018-04-04 10:54 | CP.PCM.HP ---
History of Present Illness - History of Present Illness History of Present Illness: 73 YR OLD FEMALE ADMITTED FROM THE MEDICAL FLOOR TO TCU FOR IV ANTIBIOTICS/ STEROID THERAPY AND PT FOR COPD EXACERBATION AND DECONDITIONING.S/P PACEMAKER PLACEMENT. HX OF SEVERE COPD,CARDIAC ARRYTHMIAS,CHRONIC CHF-DIASTOLIC DYSFUNCTION,ANXIETY, HTN AND GOUT.S/P PACEMAKER PLACEMENT FORMER [employer] Present on Admission - Present on Admission Any Indicators Present on Admission: Yes Past Patient History - Infectious Disease Hx of Infectious Diseases: None - Past Medical History & Family History Past Medical History?: Yes - Past Social History Smoking Status: Never Smoked - CARDIAC Hx Cardiac Disorders: Yes Hx Atrial Fibrillation: Yes Hx Cardia Arrhythmia: Yes Hx Congestive Heart Failure: Yes Hx Hypercholesterolemia: Yes Hx Hypertension: Yes Hx Internal Defibrillator: Yes - PULMONARY Hx Respiratory Disorders: Yes Hx Asthma: Yes Hx Chronic Obstructive Pulmonary Disease (COPD): Yes Hx Emphysema: Yes - NEUROLOGICAL Hx Neurological Disorder: No - HEENT Hx HEENT Problems: Yes Hx Cataracts: Yes - RENAL Hx Chronic Kidney Disease: No - ENDOCRINE/METABOLIC Hx Endocrine Disorders: No - HEMATOLOGICAL/ONCOLOGICAL Hx Human Immunodeficiency Virus (HIV): No - INTEGUMENTARY Hx Dermatological Problems: No - MUSCULOSKELETAL/RHEUMATOLOGICAL Hx Musculoskeletal Disorders: Yes Hx Falls: No Hx Unsteady Gait: Yes - GASTROINTESTINAL Hx Gastrointestinal Disorders: No - GENITOURINARY/GYNECOLOGICAL Hx Genitourinary Disorders: No - PSYCHIATRIC Hx Psychophysiologic Disorder: Yes Hx Anxiety: Yes Hx Substance Use: No - SURGICAL HISTORY Hx Appendectomy: Yes Hx Cholecystectomy: Yes Hx Coronary Stent: Yes - ANESTHESIA Hx Anesthesia: Yes Hx Anesthesia Reactions: No Hx Malignant Hyperthermia: No Meds Allergies/Adverse Reactions: Allergies Allergy/AdvReac Type Severity Reaction Status Date / Time No Known Allergies Allergy Verified 03/06/18 11:05 Physical Exam - Constitutional Appears: No Acute Distress, Chronically Ill - Head Exam Head Exam: ATRAUMATIC, NORMAL INSPECTION, NORMOCEPHALIC - Eye Exam Eye Exam: EOMI, Normal appearance, PERRL Pupil Exam: NORMAL ACCOMODATION, PERRL - ENT Exam ENT Exam: Mucous Membranes Moist, Normal Exam - Neck Exam Neck exam: Positive for: Normal Inspection - Respiratory Exam Respiratory Exam: Decreased Breath Sounds, Clear to Auscultation Bilateral, Prolonged Expiratory Phase, Rales, Wheezes, NORMAL BREATHING PATTERN - Cardiovascular Exam Cardiovascular Exam: REGULAR RHYTHM - GI/Abdominal Exam GI & Abdominal Exam: Normal Bowel Sounds, Soft. absent: Tenderness - Rectal Exam Rectal Exam: NORMAL INSPECTION - Extremities Exam Extremities exam: Positive for: normal inspection - Back Exam Back exam: NORMAL INSPECTION - Neurological Exam Neurological exam: Alert, CN II-XII Intact, Normal Gait, Oriented x3, Reflexes Normal - Psychiatric Exam Psychiatric exam: Normal Affect, Normal Mood - Skin Skin Exam: Dry, Intact, Normal Color, Warm Results - Vital Signs Recent Vital Signs: Last Vital Signs Temp 97.5 F L 04/04/18 07:52 Pulse 96 H 04/04/18 08:25 Resp 20 04/04/18 07:52 BP 140/76 04/04/18 08:27 Pulse Ox 96 04/04/18 07:52 - Labs Result Diagrams: 04/04/18 05:20 04/04/18 05:20 Labs: Laboratory Results - last 24 hr 04/04/18 04/04/18 05:20 05:20 WBC 13.4 H RBC 4.83 Hgb 14.3 Hct 43.7 MCV 90.4 MCH 29.6 MCHC 32.7 L RDW 14.6 H Plt Count 180 Sodium 140 Potassium 4.9 Chloride 104 Carbon Dioxide 25 Anion Gap 16 BUN 43 H Creatinine 1.1 Est GFR ( Amer) 59 Est GFR (Non-Af Amer) 48 Random Glucose 277 H Calcium 8.8 Assessment & Plan - Assessment and Plan (Free Text) Assessment: COPD EXAC HTN CHRONIC CHF--DIATOLIC DYSFUNCTION S/P PACEMAKER PLACEMENT ASHD HX OF ANXIETY HX OF GOUT URI Plan: CONTINUE RX ORDERED - Date & Time Date: 04/04/18 Time: 10:57
[2018-04-04] MEDS: levoFLOXacin 500 mg in D5W 500 MG/100 ML BAG IVPB SCH (12:55)
[2018-04-04] MEDS: MethylPREDNISolone 40 mg Vial IV SCH (21:29)
[2018-04-05] MEDS: Albuterol 0.083% Inhal Sol (2.5 mg/3 mL) UD INH SCH ×4 (01:00→20:15)
[2018-04-05] MEDS: levoFLOXacin 500 mg in D5W 500 MG/100 ML BAG IVPB SCH (08:27)
[2018-04-05] MEDS: guaiFENesin-DM 600-30 mg ER Tab PO SCH ×2 (08:27→17:10)
[2018-04-05] MEDS: MethylPREDNISolone 40 mg Vial IV SCH ×2 (08:28→20:23)
[2018-04-05] MEDS: Pantoprazole 40 mg EC Tab PO SCH (08:32)
[2018-04-05] MEDS: Promethazine DM 12.5 mg-30 mg/10 ml Syrup PO PRN (10:31)
--- NOTE | 2018-04-05 10:43 | CP.PCM.PN ---
Subjective - Date & Time of Evaluation Date of Evaluation: 04/05/18 Time of Evaluation: 10:45 - Subjective Subjective: C/O FEELING TREMULOUS TODAY SOB IMPROVING COUGHING UP GREEN SPUTUM NO CHEST PAINS/PALPITATIONS HAD BRIGHT RED BLOOD PER RECTUM--?HEMORRHOIDS Objective - Vital Signs/Intake and Output Vital Signs (last 24 hours): Temp Pulse Resp BP Pulse Ox 97.1 F L 88 20 147/89 98 04/05/18 07:45 04/05/18 10:12 04/05/18 07:45 04/05/18 10:12 04/05/18 10:12 - Medications Medications: Current Medications Albuterol Sulfate (Albuterol 0.083% Inhal Jing (2.5 Mg/3 Ml) Ud) 2.5 mg INH RQ6 [facility] Last Admin: 04/05/18 07:00 Dose: 2.5 mg Aspirin (Ecotrin) 81 mg PO DAILY [facility] Last Admin: 04/05/18 08:26 Dose: 81 mg Carvedilol (Coreg) 6.25 mg PO BID [facility] Last Admin: 04/05/18 08:25 Dose: 6.25 mg Dabigatran (Pradaxa) 75 mg PO BID [facility] PRN Reason: Protocol Last Admin: 04/05/18 08:28 Dose: 75 mg Fluticasone Propionate (Flonase) 1 spr YORDY BID [facility] Last Admin: 04/05/18 08:26 Dose: 1 spr Furosemide (Lasix) 40 mg PO DAILY [facility] Last Admin: 04/05/18 08:27 Dose: 40 mg Guaifenesin/Dextromethorphan (Mucinex-Dm 600-30 Mg) 2 tab PO BID [facility] Last Admin: 04/05/18 08:27 Dose: 2 tab Hydrocortisone (Anusol-Hc) 1 applic [place] BID [facility] Levofloxacin/Dextrose (Levaquin 500mg) 500 mg in 100 mls @ 100 mls/hr IVPB DAILY [facility] PRN Reason: Protocol Last Admin: 04/05/18 08:27 Dose: 100 mls/hr Losartan Potassium (Cozaar) 100 mg PO DAILY [facility] Last Admin: 04/05/18 08:25 Dose: 100 mg Methylprednisolone (Solu-Medrol) 40 mg IV Q12 [facility] Last Admin: 04/05/18 08:28 Dose: 40 mg Pantoprazole Sodium (Protonix Ec Tab) 40 mg PO DAILY [facility] Last Admin: 04/05/18 08:32 Dose: 40 mg Promethazine HCl/Dextromethorphan (Phenergan Dm Syrup) 10 ml PO Q4H PRN PRN Reason: Cough Last Admin: 04/05/18 10:31 Dose: 10 ml - Labs Labs: 04/04/18 05:20 04/04/18 05:20 - Constitutional Appears: No Acute Distress, Chronically Ill - Head Exam Head Exam: ATRAUMATIC, NORMAL INSPECTION, NORMOCEPHALIC - Eye Exam Eye Exam: EOMI, Normal appearance, PERRL Pupil Exam: NORMAL ACCOMODATION, PERRL - ENT Exam ENT Exam: Mucous Membranes Moist, Normal Exam - Neck Exam Neck Exam: Full ROM, Normal Inspection. absent: Lymphadenopathy - Respiratory Exam Respiratory Exam: Decreased Breath Sounds, Clear to Ausculation Bilateral, Rales , Wheezes, NORMAL BREATHING PATTERN - Cardiovascular Exam Cardiovascular Exam: REGULAR RHYTHM, +S1, +S2. absent: Murmur - GI/Abdominal Exam GI & Abdominal Exam: Soft, Normal Bowel Sounds. absent: Tenderness - Rectal Exam Rectal Exam: NORMAL INSPECTION Additional comments: ?HEMORRHOIDS - Extremities Exam Extremities Exam: Full ROM, Normal Capillary Refill, Normal Inspection. absent : Joint Swelling, Pedal Edema - Back Exam Back Exam: NORMAL INSPECTION - Neurological Exam Neurological Exam: Alert, Awake, CN II-XII Intact, Normal Gait, Oriented x3 - Psychiatric Exam Psychiatric exam: Normal Affect, Normal Mood - Skin Skin Exam: Dry, Intact, Normal Color, Warm Assessment and Plan - Assessment and Plan (Free Text) Assessment: COPD EXAC CHRONIC CHF RECTAL BLEEDING---?HEMORRHOIDS/PRADAXA INDUCED--R/O GI PATHOLOGY CARDIAC ARRYTHMIAS URI Plan: ANUSOL HC SUPP GASTROENTEROLOGY EVAL CANNOT STOP ANTICOAGULATION BECAUSE OF ARRYTHMIAS AND RISK OF CVA MONITOR HB AND CLOTTING FACTORS CONTINUE CURRENT RX
--- NOTE | 2018-04-05 12:29 | CP.PCM.CON ---
History of Present Illness - History of Present Illness History of Present Illness: I was asked to see patient by Dr Jason. Patient is a 73 year old female with PMH HTN, afib, COPD who presents for rehab. She has developed recent nasal congestion and cough. The patient presents was intially palced on IV diuretic therapy, and bronchodilator therapy. She denies chest pain. She is currently still feels congested. The patient reports progressive cough. She had an episode of rectal bleeding today, and is presumed to have hemorrhoids. Review of Systems - Constitutional Constitutional: absent: As Per HPI, Anorexia, Chills, Daytime Sleepiness, Excessive Sweating, Fatigue, Fever, Frequent Falls, Headache, Increased Appetite , Lethargy, Malaise, Night Sweats, Snoring, Sleep Apnea, Weight Gain, Weight Loss, Weakness, Other - EENT Eyes: absent: As Per HPI, Blind Spots, Blurred Vision, Change in Vision, Decreased Night Vision, Diplopia, Discharge, Dry Eye, Exophthalmos, Floaters, Irritation, Itchy Eyes, Loss of Peripheral Vision, Pain, Photophobia, Requires Corrective Lenses, Sees Flashes, Spots in Vision, Tunnel Vision, Other Visual Disturbances, Loss of Vision, Other Ears: absent: As Per HPI, Decreased Hearing, Ear Discharge, Ear Pain, Tinnitus, Abnormal Hearing, Disequilibrium, Dizziness, Other Nose/Mouth/Throat: absent: As Per HPI, Epistaxis, Nasal Congestion, Nasal Discharge, Nasal Obstruction, Nasal Trauma, Nose Pain, Post Nasal Drip, Sinus Pain, Sinus Pressure, Bleeding Gums, Change in Voice, Dental Pain, Dry Mouth, Dysphagia, Halitosis, Hoarsness, Lip Swelling, Mouth Lesions, Mouth Pain, Odynophagia, Sore Throat, Throat Swelling, Tongue Swelling, Facial Pain, Neck Pain, Neck Mass, Other - Breasts Breasts: absent: As Per HPI, Change in Shape, Mass, Pain, Nipple Discharge, Nipple Inversion, Skin Changes, Swelling, Other - Cardiovascular Cardiovascular: absent: As Per HPI, Acrocyanosis, Chest Pain, Chest Pain at Rest , Chest Pain with Activity, Claudication, Diaphoresis, Dyspnea, Dyspnea on Exertion, Edema, Irregular Heart Rhythm, Pain Radiating to Arm/Neck/Jaw, Leg Edema, Leg Ulcers, Lightheadedness, Orthopnea, Palpitations, Paroxysmal Nocturnal Dyspnea, Pedal Edema, Radiating Pain, Rapid Heart Rate, Slow Heart Rate, Syncope, Other - Respiratory Respiratory: Cough, Dyspnea, Wheezing - Gastrointestinal Gastrointestinal: absent: As Per HPI, Abdominal Pain, Belching, Bloating, Change in Bowel Habits, Change in Stool Character, Coffee Ground Emesis, Constipation, Cramping, Diarrhea, Dyspepsia, Dysphagia, Early Satiety, Excessive Flatus, Fecal Incontinence, Heartburn, Hematemesis, Hematochezia, Loose Stools, Melena, Nausea, Odynophagia, Temesmus, Vomiting, Other - Genitourinary Genitourinary: absent: As Per HPI, Change in Urinary Stream, Difficulty Urinating, Dysuria, Flank Pain, Hematuria, Pyuria, Nocturia, Urinary Incontinence, Urinary Frequency, Urinary Hesitance, Urinary Urgency, Voiding Freq/Small Amts, Freq UTI, Hx Renal/Bladder Calculi, Hx /Renal Surgery, Bladder Distension, Other - Musculoskeletal Musculoskeletal: absent: As Per HPI, Abnormal Gait, Arthralgias, Atrophy, Back Pain, Deformity, Joint Swelling, Limited Range of Motion, Loss of Height, Muscle Cramps, Muscle Weakness, Myalgias, Neck Pain, Numbness, Radiating Pain into Limb, Stiffness, Tingling, Other - Integumentary Integumentary: absent: As Per HPI, Acne, Alopecia, Bleeding Lesions, Change in Hair, Change in Nails, Change in Pigmentation, Changing Lesions, Dry Skin, Erythema, Furuncle, Hirsutism, Lesions, New Lesions, Non-Healing Lesions, Photosensitivity, Pruritus, Rash, Skin Pain, Skin Ulcer, Sores, Striae, Swelling , Unusual Bruising, Wounds, Jaundice, Other - Neurological Neurological: absent: As Per HPI, Abnormal Gait, Abnormal Hearing, Abnormal Movements, Abnormal Speech, Behavioral Changes, Burning Sensations, Confusion, Convulsions, Disequilibrium, Dizziness, Numbness, Focal Weakness, Frequent Falls , Headaches, Lack of Coordination, Loss of Vision, Memory Loss, Paresthesias, Radicular Pain, Restless Legs, Sensory Deficit, Syncope, Tingling, Tremor, Vertigo, Weakness, Other Visual Disturbances, Other - Psychiatric Psychiatric: absent: As Per HPI, Abnormal Sleep Pattern, Anhedonia, Anxiety, Auditory Hallucinations, Behavioral Changes, Change in Appetite, Change in Libido, Confusion, Depression, Difficulty Concentrating, Hallucinations, Homicidal Ideation, Hopelessness, Irritability, Memory Loss, Mood Swings, Panic Attacks, Paranoia, Suicidal Ideation, Visual Hallucinations, Tactile Hallucinations, Other - Endocrine Endocrine: absent: As Per HPI, Change in Body Appearance, Change in Libido, Cold Intolorance, Deepening of Voice, Excessive Sweating, Fatigue, Flushing, Heat Intolorance, Increase in Ring/Shoe/Hat Size, Palpitations, Polydipsia, Polyphagia, Polyuria, Other - Hematologic/Lymphatic Hematologic: absent: As Per HPI, Easy Bleeding, Easy Bruising, Lymphadenopathy, Other Past Patient History - Infectious Disease Hx of Infectious Diseases: None - Past Medical History & Family History Past Medical History?: Yes - Past Social History Smoking Status: Never Smoked - CARDIAC Hx Cardiac Disorders: Yes Hx Atrial Fibrillation: Yes Hx Cardia Arrhythmia: Yes Hx Congestive Heart Failure: Yes Hx Hypercholesterolemia: Yes Hx Hypertension: Yes Hx Internal Defibrillator: Yes - PULMONARY Hx Respiratory Disorders: Yes Hx Asthma: Yes Hx Chronic Obstructive Pulmonary Disease (COPD): Yes Hx Emphysema: Yes - NEUROLOGICAL Hx Neurological Disorder: No - HEENT Hx HEENT Problems: Yes Hx Cataracts: Yes - RENAL Hx Chronic Kidney Disease: No - ENDOCRINE/METABOLIC Hx Endocrine Disorders: No - HEMATOLOGICAL/ONCOLOGICAL Hx Human Immunodeficiency Virus (HIV): No - INTEGUMENTARY Hx Dermatological Problems: No - MUSCULOSKELETAL/RHEUMATOLOGICAL Hx Musculoskeletal Disorders: Yes Hx Falls: No Hx Unsteady Gait: Yes - GASTROINTESTINAL Hx Gastrointestinal Disorders: No - GENITOURINARY/GYNECOLOGICAL Hx Genitourinary Disorders: No - PSYCHIATRIC Hx Psychophysiologic Disorder: Yes Hx Anxiety: Yes Hx Substance Use: No - SURGICAL HISTORY Hx Appendectomy: Yes Hx Cholecystectomy: Yes Hx Coronary Stent: Yes - ANESTHESIA Hx Anesthesia: Yes Hx Anesthesia Reactions: No Hx Malignant Hyperthermia: No Meds Allergies/Adverse Reactions: Allergies Allergy/AdvReac Type Severity Reaction Status Date / Time No Known Allergies Allergy Verified 03/06/18 11:05 - Medications Medications: Current Medications Albuterol Sulfate (Albuterol 0.083% Inhal Jing (2.5 Mg/3 Ml) Ud) 2.5 mg INH RQ6 [facility] Last Admin: 04/05/18 07:00 Dose: 2.5 mg Aspirin (Ecotrin) 81 mg PO DAILY [facility] Last Admin: 04/05/18 08:26 Dose: 81 mg Carvedilol (Coreg) 6.25 mg PO BID [facility] Last Admin: 04/05/18 08:25 Dose: 6.25 mg Dabigatran (Pradaxa) 75 mg PO BID [facility] PRN Reason: Protocol Last Admin: 04/05/18 08:28 Dose: 75 mg Fluticasone Propionate (Flonase) 1 spr YORDY BID [facility] Last Admin: 04/05/18 08:26 Dose: 1 spr Furosemide (Lasix) 40 mg PO DAILY [facility] Last Admin: 04/05/18 08:27 Dose: 40 mg Guaifenesin/Dextromethorphan (Mucinex-Dm 600-30 Mg) 2 tab PO BID [facility] Last Admin: 04/05/18 08:27 Dose: 2 tab Hydrocortisone (Anusol-Hc) 1 applic [place] BID [facility] Levofloxacin/Dextrose (Levaquin 500mg) 500 mg in 100 mls @ 100 mls/hr IVPB DAILY [facility] PRN Reason: Protocol Last Admin: 04/05/18 08:27 Dose: 100 mls/hr Losartan Potassium (Cozaar) 100 mg PO DAILY [facility] Last Admin: 04/05/18 08:25 Dose: 100 mg Methylprednisolone (Solu-Medrol) 40 mg IV Q12 [facility] Last Admin: 04/05/18 08:28 Dose: 40 mg Pantoprazole Sodium (Protonix Ec Tab) 40 mg PO DAILY [facility] Last Admin: 04/05/18 08:32 Dose: 40 mg Promethazine HCl/Dextromethorphan (Phenergan Dm Syrup) 10 ml PO Q4H PRN PRN Reason: Cough Last Admin: 04/05/18 10:31 Dose: 10 ml Physical Exam - Constitutional Appears: Non-toxic - Head Exam Head Exam: NORMAL INSPECTION - Eye Exam Eye Exam: Normal appearance - ENT Exam ENT Exam: Mucous Membranes Moist - Neck Exam Neck exam: Positive for: Full Rom - Respiratory Exam Respiratory Exam: Decreased Breath Sounds - Cardiovascular Exam Cardiovascular Exam: Irregular Rhythm - GI/Abdominal Exam GI & Abdominal Exam: Normal Bowel Sounds - Rectal Exam Rectal Exam: Deferred - Extremities Exam Extremities exam: Positive for: pedal edema - Back Exam Back exam: NORMAL INSPECTION - Neurological Exam Neurological exam: Alert, Oriented x3 - Psychiatric Exam Psychiatric exam: Anxious, Normal Affect - Skin Skin Exam: Normal Color Results - Vital Signs Recent Vital Signs: Last Vital Signs Temp 97.1 F L 04/05/18 07:45 Pulse 88 04/05/18 10:12 Resp 20 04/05/18 07:45 BP 147/89 04/05/18 10:12 Pulse Ox 98 04/05/18 10:12 - Labs Result Diagrams: 04/04/18 05:20 04/04/18 05:20 - EKG Data EKG Interpreted by: Myself Assessment & Plan (1) Chronic atrial fibrillation Assessment and Plan: will continue Pradaxa. hold aspirin Status: Acute (2) HTN (hypertension) Assessment and Plan: consider increse ARB Status: Acute
--- NOTE | 2018-04-05 12:31 | CP.PCM.CON ---
History of Present Illness - History of Present Illness History of Present Illness: 73 yo female with severe COPD and diastolic heart dysfunction referred to GI after experiencing blood on towel yesterday after cleaning herself. No bleeding since. No prior episodes of GI bleeding and stools are normal consistency. Review of Systems - Constitutional Constitutional: absent: Chills - EENT Eyes: absent: Blurred Vision Ears: absent: Ear Discharge Nose/Mouth/Throat: absent: Nasal Congestion - Cardiovascular Cardiovascular: absent: Chest Pain - Respiratory Respiratory: Dyspnea - Gastrointestinal Gastrointestinal: absent: Abdominal Pain - Genitourinary Genitourinary: absent: Change in Urinary Stream Past Patient History - Infectious Disease Hx of Infectious Diseases: None - Past Medical History & Family History Past Medical History?: Yes - Past Social History Smoking Status: Never Smoked - CARDIAC Hx Cardiac Disorders: Yes Hx Atrial Fibrillation: Yes Hx Cardia Arrhythmia: Yes Hx Congestive Heart Failure: Yes Hx Hypercholesterolemia: Yes Hx Hypertension: Yes Hx Internal Defibrillator: Yes - PULMONARY Hx Respiratory Disorders: Yes Hx Asthma: Yes Hx Chronic Obstructive Pulmonary Disease (COPD): Yes Hx Emphysema: Yes - NEUROLOGICAL Hx Neurological Disorder: No - HEENT Hx HEENT Problems: Yes Hx Cataracts: Yes - RENAL Hx Chronic Kidney Disease: No - ENDOCRINE/METABOLIC Hx Endocrine Disorders: No - HEMATOLOGICAL/ONCOLOGICAL Hx Human Immunodeficiency Virus (HIV): No - INTEGUMENTARY Hx Dermatological Problems: No - MUSCULOSKELETAL/RHEUMATOLOGICAL Hx Musculoskeletal Disorders: Yes Hx Falls: No Hx Unsteady Gait: Yes - GASTROINTESTINAL Hx Gastrointestinal Disorders: No - GENITOURINARY/GYNECOLOGICAL Hx Genitourinary Disorders: No - PSYCHIATRIC Hx Psychophysiologic Disorder: Yes Hx Anxiety: Yes Hx Substance Use: No - SURGICAL HISTORY Hx Appendectomy: Yes Hx Cholecystectomy: Yes Hx Coronary Stent: Yes - ANESTHESIA Hx Anesthesia: Yes Hx Anesthesia Reactions: No Hx Malignant Hyperthermia: No Meds Allergies/Adverse Reactions: Allergies Allergy/AdvReac Type Severity Reaction Status Date / Time No Known Allergies Allergy Verified 03/06/18 11:05 - Medications Medications: Current Medications Albuterol Sulfate (Albuterol 0.083% Inhal Jing (2.5 Mg/3 Ml) Ud) 2.5 mg INH RQ6 [facility] Last Admin: 04/05/18 07:00 Dose: 2.5 mg Aspirin (Ecotrin) 81 mg PO DAILY [facility] Last Admin: 04/05/18 08:26 Dose: 81 mg Carvedilol (Coreg) 6.25 mg PO BID [facility] Last Admin: 04/05/18 08:25 Dose: 6.25 mg Dabigatran (Pradaxa) 75 mg PO BID [facility] PRN Reason: Protocol Last Admin: 04/05/18 08:28 Dose: 75 mg Fluticasone Propionate (Flonase) 1 spr YORDY BID [facility] Last Admin: 04/05/18 08:26 Dose: 1 spr Furosemide (Lasix) 40 mg PO DAILY [facility] Last Admin: 04/05/18 08:27 Dose: 40 mg Guaifenesin/Dextromethorphan (Mucinex-Dm 600-30 Mg) 2 tab PO BID [facility] Last Admin: 04/05/18 08:27 Dose: 2 tab Hydrocortisone (Anusol-Hc) 1 applic [place] BID [facility] Levofloxacin/Dextrose (Levaquin 500mg) 500 mg in 100 mls @ 100 mls/hr IVPB DAILY [facility] PRN Reason: Protocol Last Admin: 04/05/18 08:27 Dose: 100 mls/hr Losartan Potassium (Cozaar) 100 mg PO DAILY [facility] Last Admin: 04/05/18 08:25 Dose: 100 mg Methylprednisolone (Solu-Medrol) 40 mg IV Q12 [facility] Last Admin: 04/05/18 08:28 Dose: 40 mg Pantoprazole Sodium (Protonix Ec Tab) 40 mg PO DAILY [facility] Last Admin: 04/05/18 08:32 Dose: 40 mg Promethazine HCl/Dextromethorphan (Phenergan Dm Syrup) 10 ml PO Q4H PRN PRN Reason: Cough Last Admin: 04/05/18 10:31 Dose: 10 ml Physical Exam - Head Exam Head Exam: NORMAL INSPECTION - Eye Exam Eye Exam: Normal appearance Pupil Exam: PERRL - ENT Exam ENT Exam: Mucous Membranes Moist - Neck Exam Neck exam: Positive for: Normal Inspection - Respiratory Exam Respiratory Exam: Clear to Auscultation Bilateral - Cardiovascular Exam Cardiovascular Exam: REGULAR RHYTHM, +S1, +S2 - GI/Abdominal Exam GI & Abdominal Exam: Normal Bowel Sounds, Soft - Rectal Exam Rectal Exam: absent: NORMAL INSPECTION Additional comments: External hemorrhoids moderately swollen, no bleeding Results - Vital Signs Recent Vital Signs: Last Vital Signs Temp 97.1 F L 04/05/18 07:45 Pulse 88 04/05/18 10:12 Resp 20 04/05/18 07:45 BP 147/89 04/05/18 10:12 Pulse Ox 98 04/05/18 10:12 - Labs Result Diagrams: 04/04/18 05:20 04/04/18 05:20 Assessment & Plan - Assessment and Plan (Free Text) Assessment: GI bleeding likely due to hemorrhoids. Not currently bleeding. Already on Anusol. May continue Pradaxa and other anticlotting agents.
[2018-04-05] MEDS: Hydrocortisone 2.5% (Rectal) CREAM PR SCH ×2 (12:43→17:08)
[2018-04-06] MEDS: Albuterol 0.083% Inhal Sol (2.5 mg/3 mL) UD INH SCH ×4 (01:00→19:14)
[2018-04-06 06:56] LABS: PROTHROMBIN TIME 11.4 Seconds (9.8-13.1)
[2018-04-06 07:06] LABS: HEMOGLOBIN 14.8 g/dL (12.0-16.0); MEAN CELL VOLUME 91.2 fl (81.0-99.0); MEAN CORPUSCULAR HEMOGLOBIN 30.1 pg (27.0-31.0); RBC 4.93 Mil/uL (3.80-5.20); RED CELL DISTRIBUTION WIDTH 14.8 % (11.5-14.5); WHITE BLOOD COUNT 15.9 K/uL (4.8-10.8)
[2018-04-06] MEDS: MethylPREDNISolone 40 mg Vial IV SCH ×2 (08:17→21:24)
[2018-04-06] MEDS: guaiFENesin-DM 600-30 mg ER Tab PO SCH ×2 (08:17→17:06)
[2018-04-06] MEDS: Hydrocortisone 2.5% (Rectal) CREAM PR SCH ×2 (08:18→17:06)
[2018-04-06] MEDS: levoFLOXacin 500 mg in D5W 500 MG/100 ML BAG IVPB SCH (08:20)
[2018-04-06] MEDS: Pantoprazole 40 mg EC Tab PO SCH (08:23)
--- NOTE | 2018-04-06 08:42 | CP.PCM.PN ---
Subjective - Date & Time of Evaluation Date of Evaluation: 04/06/18 Time of Evaluation: 08:42 - Subjective Subjective: no recurrence of rectal bleeding still coughing with difficulty expectorating sputum shortness of breath persists Objective - Vital Signs/Intake and Output Vital Signs (last 24 hours): Temp Pulse Resp BP Pulse Ox 97.7 F 65 20 150/77 94 L 04/06/18 07:35 04/06/18 08:17 04/06/18 07:35 04/06/18 08:17 04/06/18 07:35 - Medications Medications: Current Medications Albuterol Sulfate (Albuterol 0.083% Inhal Jing (2.5 Mg/3 Ml) Ud) 2.5 mg INH RQ6 [facility] Last Admin: 04/06/18 07:35 Dose: 2.5 mg Carvedilol (Coreg) 6.25 mg PO BID [facility] Last Admin: 04/06/18 08:16 Dose: 6.25 mg Dabigatran (Pradaxa) 75 mg PO BID [facility] PRN Reason: Protocol Last Admin: 04/06/18 08:16 Dose: 75 mg Fluticasone Propionate (Flonase) 1 spr YORDY BID [facility] Last Admin: 04/06/18 08:18 Dose: 1 spr Furosemide (Lasix) 40 mg PO DAILY [facility] Last Admin: 04/06/18 08:17 Dose: 40 mg Guaifenesin/Dextromethorphan (Mucinex-Dm 600-30 Mg) 2 tab PO BID [facility] Last Admin: 04/06/18 08:17 Dose: 2 tab Hydrocortisone (Anusol-Hc) 1 applic [place] BID [facility] Last Admin: 04/06/18 08:18 Dose: 1 applic Levofloxacin/Dextrose (Levaquin 500mg) 500 mg in 100 mls @ 100 mls/hr IVPB DAILY [facility] PRN Reason: Protocol Last Admin: 04/06/18 08:20 Dose: 100 mls/hr Losartan Potassium (Cozaar) 100 mg PO DAILY [facility] Last Admin: 04/06/18 08:17 Dose: 100 mg Methylprednisolone (Solu-Medrol) 40 mg IV Q12 [facility] Last Admin: 04/06/18 08:17 Dose: 40 mg Pantoprazole Sodium (Protonix Ec Tab) 40 mg PO DAILY [facility] Last Admin: 04/06/18 08:23 Dose: 40 mg Promethazine HCl/Dextromethorphan (Phenergan Dm Syrup) 10 ml PO Q4H PRN PRN Reason: Cough Last Admin: 04/05/18 10:31 Dose: 10 ml - Labs Labs: 04/06/18 06:25 04/04/18 05:20 PT 11.4 Seconds (9.8-13.1) 04/06/18 06:25 INR 1.0 (0.9-1.2) 04/06/18 06:25 - Constitutional Appears: Chronically Ill - Head Exam Head Exam: ATRAUMATIC, NORMAL INSPECTION, NORMOCEPHALIC - Eye Exam Eye Exam: EOMI, Normal appearance, PERRL Pupil Exam: NORMAL ACCOMODATION, PERRL - ENT Exam ENT Exam: Mucous Membranes Moist, Normal Exam - Neck Exam Neck Exam: Full ROM, Normal Inspection. absent: Lymphadenopathy - Respiratory Exam Respiratory Exam: Decreased Breath Sounds, Prolonged Expiratory Phase, Rales, Wheezes, NORMAL BREATHING PATTERN - Cardiovascular Exam Cardiovascular Exam: REGULAR RHYTHM, +S1, +S2. absent: Murmur - GI/Abdominal Exam GI & Abdominal Exam: Soft, Normal Bowel Sounds. absent: Tenderness - Rectal Exam Rectal Exam: NORMAL INSPECTION - Extremities Exam Extremities Exam: Full ROM, Normal Capillary Refill, Normal Inspection. absent : Joint Swelling, Pedal Edema - Back Exam Back Exam: NORMAL INSPECTION - Neurological Exam Neurological Exam: Alert, Awake, CN II-XII Intact, Normal Gait, Oriented x3 - Psychiatric Exam Psychiatric exam: Normal Affect, Normal Mood - Skin Skin Exam: Dry, Intact, Normal Color, Warm Assessment and Plan - Assessment and Plan (Free Text) Assessment: copd exac rectal bleeding--?hemorrhoids uri ashd arrythmias Plan: continue current rx
[2018-04-06] MEDS: Lactobacillus Acidophilus 500 MU Cap PO SCH ×2 (13:18→17:08)
--- NOTE | 2018-04-06 14:12 | CP.PCM.PN ---
Subjective - Date & Time of Evaluation Date of Evaluation: 04/06/18 Time of Evaluation: 14:10 - Subjective Subjective: C/o minimal rectal bleeding with BMs. Objective - Vital Signs/Intake and Output Vital Signs (last 24 hours): Temp Pulse Resp BP Pulse Ox 97.7 F 65 20 150/77 94 L 04/06/18 07:35 04/06/18 08:17 04/06/18 07:35 04/06/18 08:17 04/06/18 07:35 - Medications Medications: Current Medications Albuterol Sulfate (Albuterol 0.083% Inhal Jing (2.5 Mg/3 Ml) Ud) 2.5 mg INH RQ6 [facility] Last Admin: 04/06/18 13:06 Dose: 2.5 mg Aspirin (Aspirin Chewable) 81 mg PO DAILY [facility] Last Admin: 04/06/18 13:18 Dose: 81 mg Carvedilol (Coreg) 6.25 mg PO BID [facility] Last Admin: 04/06/18 08:16 Dose: 6.25 mg Dabigatran (Pradaxa) 75 mg PO BID [facility] PRN Reason: Protocol Last Admin: 04/06/18 08:16 Dose: 75 mg Fluticasone Propionate (Flonase) 1 spr YORDY BID [facility] Last Admin: 04/06/18 08:18 Dose: 1 spr Furosemide (Lasix) 40 mg PO DAILY [facility] Last Admin: 04/06/18 08:17 Dose: 40 mg Guaifenesin/Dextromethorphan (Mucinex-Dm 600-30 Mg) 2 tab PO BID [facility] Last Admin: 04/06/18 08:17 Dose: 2 tab Hydrocortisone (Anusol-Hc) 1 applic [place] BID [facility] Last Admin: 04/06/18 08:18 Dose: 1 applic Levofloxacin/Dextrose (Levaquin 500mg) 500 mg in 100 mls @ 100 mls/hr IVPB DAILY [facility] PRN Reason: Protocol Last Admin: 04/06/18 08:20 Dose: 100 mls/hr Lactobacillus Acidophilus (Bacid Acidophilus) 1 cap PO BID [facility] Last Admin: 04/06/18 13:18 Dose: 1 cap Losartan Potassium (Cozaar) 100 mg PO DAILY [facility] Last Admin: 04/06/18 08:17 Dose: 100 mg Methylprednisolone (Solu-Medrol) 40 mg IV Q12 [facility] Last Admin: 04/06/18 08:17 Dose: 40 mg Pantoprazole Sodium (Protonix Ec Tab) 40 mg PO DAILY [facility] Last Admin: 04/06/18 08:23 Dose: 40 mg Promethazine HCl/Dextromethorphan (Phenergan Dm Syrup) 10 ml PO Q4H PRN PRN Reason: Cough Last Admin: 04/05/18 10:31 Dose: 10 ml - Labs Labs: 04/06/18 06:25 04/04/18 05:20 PT 11.4 Seconds (9.8-13.1) 04/06/18 06:25 INR 1.0 (0.9-1.2) 04/06/18 06:25 - Head Exam Head Exam: ATRAUMATIC - Eye Exam Eye Exam: Normal appearance Pupil Exam: PERRL - ENT Exam ENT Exam: Mucous Membranes Moist - Neck Exam Neck Exam: Normal Inspection - Respiratory Exam Respiratory Exam: Clear to Ausculation Bilateral - Cardiovascular Exam Cardiovascular Exam: REGULAR RHYTHM - GI/Abdominal Exam GI & Abdominal Exam: Soft. absent: Tenderness Assessment and Plan (1) GI (gastrointestinal bleed) Assessment & Plan: Bleeding is minimal likely from hemorrhoids. Patient on Anusol. Status: Acute
[2018-04-06] MEDS: Promethazine DM 12.5 mg-30 mg/10 ml Syrup PO PRN (21:24)
[2018-04-07] MEDS: Albuterol 0.083% Inhal Sol (2.5 mg/3 mL) UD INH SCH ×4 (01:26→19:15)
[2018-04-07] MEDS: guaiFENesin-DM 600-30 mg ER Tab PO SCH ×2 (08:06→16:33)
--- NOTE | 2018-04-07 08:06 | CP.PCM.PN ---
Subjective - Date & Time of Evaluation Date of Evaluation: 04/07/18 Time of Evaluation: 08:07 - Subjective Subjective: STILL HAS DYSPNEA ON MILD EXERTION COUGH LESS STILL HAS OCCASIONAL BLOODY STOOLS BUT NO RECTAL PAIN--WANTS A SUPPOSITORY INSTEAD OF CREAM Objective - Vital Signs/Intake and Output Vital Signs (last 24 hours): Temp Pulse Resp BP Pulse Ox 97.0 F L 66 20 141/63 98 04/07/18 07:55 04/07/18 07:55 04/07/18 07:55 04/07/18 07:55 04/07/18 07:55 - Medications Medications: Current Medications Albuterol Sulfate (Albuterol 0.083% Inhal Jing (2.5 Mg/3 Ml) Ud) 2.5 mg INH RQ6 [facility] Last Admin: 04/07/18 07:28 Dose: 2.5 mg Aspirin (Aspirin Chewable) 81 mg PO DAILY [facility] Last Admin: 04/06/18 13:18 Dose: 81 mg Carvedilol (Coreg) 6.25 mg PO BID [facility] Last Admin: 04/06/18 17:05 Dose: 6.25 mg Dabigatran (Pradaxa) 75 mg PO BID [facility] PRN Reason: Protocol Last Admin: 04/06/18 17:07 Dose: 75 mg Fluticasone Propionate (Flonase) 1 spr YORDY BID [facility] Last Admin: 04/06/18 17:06 Dose: 1 spr Furosemide (Lasix) 40 mg PO DAILY [facility] Last Admin: 04/06/18 08:17 Dose: 40 mg Guaifenesin/Dextromethorphan (Mucinex-Dm 600-30 Mg) 2 tab PO BID [facility] Last Admin: 04/06/18 17:06 Dose: 2 tab Hydrocortisone (Anusol-Hc) 1 applic [place] BID [facility] Last Admin: 04/06/18 17:06 Dose: 1 applic Levofloxacin/Dextrose (Levaquin 500mg) 500 mg in 100 mls @ 100 mls/hr IVPB DAILY [facility] PRN Reason: Protocol Last Admin: 04/06/18 08:20 Dose: 100 mls/hr Lactobacillus Acidophilus (Bacid Acidophilus) 1 cap PO BID [facility] Last Admin: 04/06/18 17:08 Dose: 1 cap Losartan Potassium (Cozaar) 100 mg PO DAILY [facility] Last Admin: 04/06/18 08:17 Dose: 100 mg Methylprednisolone (Solu-Medrol) 40 mg IV Q12 [facility] Last Admin: 04/06/18 21:24 Dose: 40 mg Pantoprazole Sodium (Protonix Ec Tab) 40 mg PO DAILY [facility] Last Admin: 04/06/18 08:23 Dose: 40 mg Promethazine HCl/Dextromethorphan (Phenergan Dm Syrup) 10 ml PO Q4H PRN PRN Reason: Cough Last Admin: 04/06/18 21:24 Dose: 10 ml - Labs Labs: 04/06/18 06:25 04/04/18 05:20 PT 11.4 Seconds (9.8-13.1) 04/06/18 06:25 INR 1.0 (0.9-1.2) 04/06/18 06:25 - Constitutional Appears: Chronically Ill - Head Exam Head Exam: ATRAUMATIC, NORMAL INSPECTION, NORMOCEPHALIC - Eye Exam Eye Exam: EOMI, Normal appearance, PERRL Pupil Exam: NORMAL ACCOMODATION, PERRL - ENT Exam ENT Exam: Mucous Membranes Moist, Normal Exam - Neck Exam Neck Exam: Full ROM, Normal Inspection. absent: Lymphadenopathy - Respiratory Exam Respiratory Exam: Decreased Breath Sounds, Prolonged Expiratory Phase, Rales, Wheezes, NORMAL BREATHING PATTERN - Cardiovascular Exam Cardiovascular Exam: REGULAR RHYTHM, +S1, +S2. absent: Murmur - GI/Abdominal Exam GI & Abdominal Exam: Soft, Normal Bowel Sounds. absent: Tenderness - Rectal Exam Rectal Exam: NORMAL INSPECTION - Extremities Exam Extremities Exam: Full ROM, Normal Capillary Refill, Normal Inspection. absent : Joint Swelling, Pedal Edema - Back Exam Back Exam: NORMAL INSPECTION - Neurological Exam Neurological Exam: Alert, Awake, CN II-XII Intact, Normal Gait, Oriented x3 - Psychiatric Exam Psychiatric exam: Normal Affect, Normal Mood - Skin Skin Exam: Dry, Intact, Normal Color, Warm Assessment and Plan - Assessment and Plan (Free Text) Assessment: ACUTE EXAC OF COPD ASHD RECTAL BLEEDING--?HEMORRHOIDS ATRIAL FIB--CHRONIC URI HYPERGLYCEMIA AND LEUKOCYTOSIS PROBABLY DUE TO STEROIDS Plan: CONTINUE PRESENT RX REPEAT LABS
[2018-04-07] MEDS: MethylPREDNISolone 40 mg Vial IV SCH ×2 (08:07→21:01)
[2018-04-07] MEDS: Lactobacillus Acidophilus 500 MU Cap PO SCH ×2 (08:07→16:31)
[2018-04-07] MEDS: Pantoprazole 40 mg EC Tab PO SCH (08:08)
[2018-04-07] MEDS: levoFLOXacin 500 mg in D5W 500 MG/100 ML BAG IVPB SCH (16:30)
[2018-04-08] MEDS: Albuterol 0.083% Inhal Sol (2.5 mg/3 mL) UD INH SCH ×4 (01:03→19:43)
[2018-04-08 06:46] LABS: BASO # 0.1 K/uL (0.0-0.2); BASO % 0.3 % (0.0-2.0); EOS % 0.1 % (0.0-4.0); HEMOGLOBIN 14.6 g/dL (12.0-16.0); LYMPH # 1.7 K/uL (1.0-4.3); LYMPH % 9.1 % (20.0-40.0); MEAN CELL VOLUME 91.2 fl (81.0-99.0); MEAN CORPUSCULAR HEMOGLOBIN 29.8 pg (27.0-31.0); MEAN CORPUSCULAR HGB CONC 32.7 g/dL (33.0-37.0); MEAN PLATELET VOLUME 8.9 fl (7.2-11.7); MONO # 1.3 K/uL (0.0-0.8); MONO % 6.9 % (0.0-10.0); NEUT # 15.5 K/uL (1.8-7.0); NEUT % 83.6 % (50.0-75.0); NRBC % 0.1 % (0.0-0.0); PLATELET COUNT 200 K/uL (130-400); RBC 4.91 Mil/uL (3.80-5.20); WHITE BLOOD COUNT 18.6 K/uL (4.8-10.8)
[2018-04-08 07:34] LABS: BLOOD UREA NITROGEN 44 mg/dl (7-17); CALCIUM 8.4 mg/dL (8.4-10.2); GFR AFRICAN-AMERICAN > 60; GFR NON-AFRICAN AMERICAN 54
[2018-04-08] MEDS: guaiFENesin-DM 600-30 mg ER Tab PO SCH (08:15)
[2018-04-08] MEDS: Lactobacillus Acidophilus 500 MU Cap PO SCH ×2 (08:16→17:35)
[2018-04-08] MEDS: Promethazine DM 12.5 mg-30 mg/10 ml Syrup PO PRN (08:16)
[2018-04-08] MEDS: MethylPREDNISolone 40 mg Vial IV SCH (08:20)
[2018-04-08] MEDS: Pantoprazole 40 mg EC Tab PO SCH (08:28)
[2018-04-08 09:25] LABS: BANDS 2 % (0-2); LYMPHOCYTE 11 % (20-50); METAMYELOCYTE 2 % (0-0); MONOCYTE 6 % (0-10); NEUTROPHIL 77 % (42-75); PLATELET ESTIMATE NORMAL (NORMAL); REACTIVE LYMPHOCYTES 2 % (0-0); TOTAL CELLS COUNTED 100
[2018-04-08 09:26] LABS: ANISOCYTOSIS SLIGHT
[2018-04-08 09:28] LABS: PLATELET CLUMPS PRESENT
--- NOTE | 2018-04-08 11:20 | CP.PCM.PN ---
Subjective - Date & Time of Evaluation Date of Evaluation: 04/08/18 Time of Evaluation: 11:20 - Subjective Subjective: SOB IMPROVING NO CHEST PAINS EXPECTORATING SPUTUM Objective - Vital Signs/Intake and Output Vital Signs (last 24 hours): Temp Pulse Resp BP Pulse Ox 97.5 F L 73 20 126/80 96 04/08/18 07:40 04/08/18 08:18 04/08/18 07:40 04/08/18 08:19 04/08/18 07:40 - Medications Medications: Current Medications Albuterol Sulfate (Albuterol 0.083% Inhal Jing (2.5 Mg/3 Ml) Ud) 2.5 mg INH RQ6 [facility] Last Admin: 04/08/18 07:29 Dose: 2.5 mg Aspirin (Aspirin Chewable) 81 mg PO DAILY [facility] Last Admin: 04/07/18 12:46 Dose: Not Given Carvedilol (Coreg) 6.25 mg PO BID [facility] Last Admin: 04/08/18 08:17 Dose: 6.25 mg Dabigatran (Pradaxa) 75 mg PO BID [facility] PRN Reason: Protocol Last Admin: 04/08/18 08:16 Dose: 75 mg Fluticasone Propionate (Flonase) 1 spr YORDY BID [facility] Last Admin: 04/08/18 08:19 Dose: 1 spr Furosemide (Lasix) 40 mg PO DAILY [facility] Last Admin: 04/08/18 08:19 Dose: 40 mg Guaifenesin/Dextromethorphan (Mucinex-Dm 600-30 Mg) 2 tab PO BID [facility] Last Admin: 04/08/18 08:15 Dose: 2 tab Hydrocortisone (Anusol-Hc) 25 mg [place] BID@0900,2100 [facility] Last Admin: 04/08/18 08:16 Dose: 25 mg Levofloxacin/Dextrose (Levaquin 500mg) 500 mg in 100 mls @ 100 mls/hr IVPB DAILY@1700 [facility] PRN Reason: Protocol Last Admin: 04/07/18 16:30 Dose: 100 mls/hr Lactobacillus Acidophilus (Bacid Acidophilus) 1 cap PO BID [facility] Last Admin: 04/08/18 08:16 Dose: 1 cap Losartan Potassium (Cozaar) 100 mg PO DAILY [facility] Last Admin: 04/08/18 08:18 Dose: 100 mg Methylprednisolone (Solu-Medrol) 40 mg IV Q12 [facility] Last Admin: 04/08/18 08:20 Dose: 40 mg Pantoprazole Sodium (Protonix Ec Tab) 40 mg PO DAILY [facility] Last Admin: 04/08/18 08:28 Dose: 40 mg Promethazine HCl/Dextromethorphan (Phenergan Dm Syrup) 10 ml PO Q4H PRN PRN Reason: Cough Last Admin: 04/08/18 08:16 Dose: 10 ml - Labs Labs: 04/08/18 05:30 04/08/18 05:30 PT 11.4 Seconds (9.8-13.1) 04/06/18 06:25 INR 1.0 (0.9-1.2) 04/06/18 06:25 - Constitutional Appears: Chronically Ill - Head Exam Head Exam: ATRAUMATIC, NORMAL INSPECTION, NORMOCEPHALIC - Eye Exam Eye Exam: EOMI, Normal appearance, PERRL Pupil Exam: NORMAL ACCOMODATION, PERRL - ENT Exam ENT Exam: Mucous Membranes Moist, Normal Exam - Neck Exam Neck Exam: Full ROM, Normal Inspection. absent: Lymphadenopathy - Respiratory Exam Respiratory Exam: Decreased Breath Sounds, Prolonged Expiratory Phase, Rales, Wheezes, NORMAL BREATHING PATTERN - Cardiovascular Exam Cardiovascular Exam: REGULAR RHYTHM, +S1, +S2. absent: Murmur - GI/Abdominal Exam GI & Abdominal Exam: Soft, Normal Bowel Sounds. absent: Tenderness - Rectal Exam Rectal Exam: NORMAL INSPECTION - Extremities Exam Extremities Exam: Full ROM, Normal Capillary Refill, Normal Inspection. absent : Joint Swelling, Pedal Edema - Back Exam Back Exam: NORMAL INSPECTION - Neurological Exam Neurological Exam: Alert, Awake, CN II-XII Intact, Normal Gait, Oriented x3 - Psychiatric Exam Psychiatric exam: Normal Affect, Normal Mood - Skin Skin Exam: Dry, Intact, Normal Color, Warm Assessment and Plan - Assessment and Plan (Free Text) Assessment: COPD EXAC LEUKOCYTOSIS ASHD HTN ARRYTHMIAS Plan: TAPER STEROIDS ENCOURAGE PT
[2018-04-08] MEDS: levoFLOXacin 500 mg in D5W 500 MG/100 ML BAG IVPB SCH (17:36)
[2018-04-09] MEDS: Albuterol 0.083% Inhal Sol (2.5 mg/3 mL) UD INH SCH ×4 (01:00→19:26)
--- NOTE | 2018-04-09 08:01 | CP.PCM.PN ---
Subjective - Date & Time of Evaluation Date of Evaluation: 04/09/18 Time of Evaluation: 08:01 - Subjective Subjective: COUGHING UP SPUTUM SOB IMPROVING NO CHEST PAINS NO RECURRENCE OF RECTAL BLEEDING Objective - Vital Signs/Intake and Output Vital Signs (last 24 hours): Temp Pulse Resp BP Pulse Ox 98.1 F 77 20 111/60 94 L 04/08/18 21:07 04/08/18 21:07 04/08/18 21:07 04/08/18 21:07 04/08/18 21:07 - Medications Medications: Current Medications Albuterol Sulfate (Albuterol 0.083% Inhal Jing (2.5 Mg/3 Ml) Ud) 2.5 mg INH RQ6 [facility] Last Admin: 04/09/18 07:30 Dose: 2.5 mg Aspirin (Aspirin Chewable) 81 mg PO DAILY [facility] Last Admin: 04/07/18 12:46 Dose: Not Given Carvedilol (Coreg) 6.25 mg PO BID [facility] Last Admin: 04/08/18 17:35 Dose: 6.25 mg Dabigatran (Pradaxa) 75 mg PO BID [facility] PRN Reason: Protocol Last Admin: 04/08/18 17:37 Dose: 75 mg Fluticasone Propionate (Flonase) 1 spr YORDY BID [facility] Last Admin: 04/08/18 17:35 Dose: 1 spr Furosemide (Lasix) 40 mg PO DAILY [facility] Last Admin: 04/08/18 08:19 Dose: 40 mg Hydrocortisone (Anusol-Hc) [address] BID@0900,2100 [facility] Last Admin: 04/08/18 21:32 Dose: Not Given Levofloxacin/Dextrose (Levaquin 500mg) 500 mg in 100 mls @ 100 mls/hr IVPB DAILY@1700 [facility] PRN Reason: Protocol Last Admin: 04/08/18 17:36 Dose: 100 mls/hr Lactobacillus Acidophilus (Bacid Acidophilus) 1 cap PO BID [facility] Last Admin: 04/08/18 17:35 Dose: 1 cap Losartan Potassium (Cozaar) 100 mg PO DAILY [facility] Last Admin: 04/08/18 08:18 Dose: 100 mg Methylprednisolone (Solu-Medrol) 40 mg IV DAILY [facility] Pantoprazole Sodium (Protonix Ec Tab) 40 mg PO DAILY [facility] Last Admin: 04/08/18 08:28 Dose: 40 mg Promethazine HCl/Dextromethorphan (Phenergan Dm Syrup) 10 ml PO Q4H PRN PRN Reason: Cough Last Admin: 04/08/18 08:16 Dose: 10 ml - Labs Labs: 04/08/18 05:30 04/08/18 05:30 PT 11.4 Seconds (9.8-13.1) 04/06/18 06:25 INR 1.0 (0.9-1.2) 04/06/18 06:25 - Constitutional Appears: No Acute Distress - Head Exam Head Exam: ATRAUMATIC, NORMAL INSPECTION, NORMOCEPHALIC - Eye Exam Eye Exam: EOMI, Normal appearance, PERRL Pupil Exam: NORMAL ACCOMODATION, PERRL - ENT Exam ENT Exam: Mucous Membranes Moist, Normal Exam - Neck Exam Neck Exam: Full ROM, Normal Inspection. absent: Lymphadenopathy - Respiratory Exam Respiratory Exam: Prolonged Expiratory Phase, Wheezes, NORMAL BREATHING PATTERN - Cardiovascular Exam Cardiovascular Exam: REGULAR RHYTHM, +S1, +S2. absent: Murmur - GI/Abdominal Exam GI & Abdominal Exam: Soft, Normal Bowel Sounds. absent: Tenderness - Rectal Exam Rectal Exam: NORMAL INSPECTION - Extremities Exam Extremities Exam: Full ROM, Normal Capillary Refill, Normal Inspection. absent : Joint Swelling, Pedal Edema - Back Exam Back Exam: NORMAL INSPECTION - Neurological Exam Neurological Exam: Alert, Awake, CN II-XII Intact, Normal Gait, Oriented x3 - Psychiatric Exam Psychiatric exam: Normal Affect, Normal Mood - Skin Skin Exam: Dry, Intact, Normal Color, Warm Assessment and Plan - Assessment and Plan (Free Text) Assessment: COPD IMPROVING URI ASHD Plan: D/C IV STEROIDS AND BEGIN PO REPEAT LABS D/C HOME IN AM
[2018-04-09] MEDS: Pantoprazole 40 mg EC Tab PO SCH (08:16)
[2018-04-09] MEDS: Lactobacillus Acidophilus 500 MU Cap PO SCH ×2 (08:20→16:30)
[2018-04-09] MEDS ORDERED: MethylPREDNISolone 40 mg Vial IV SCH (09:00)
[2018-04-09 10:34] LABS: BASO % 0.2 % (0.0-2.0); EOS # 0.1 K/uL (0.0-0.7); EOS % 0.3 % (0.0-4.0); HEMOGLOBIN 15.6 g/dL (12.0-16.0); LYMPH % 17.6 % (20.0-40.0); MEAN CELL VOLUME 89.9 fl (81.0-99.0); MEAN CORPUSCULAR HEMOGLOBIN 30.1 pg (27.0-31.0); MEAN CORPUSCULAR HGB CONC 33.5 g/dL (33.0-37.0); MEAN PLATELET VOLUME 9.2 fl (7.2-11.7); MONO # 2.2 K/uL (0.0-0.8); MONO % 9.7 % (0.0-10.0); NEUT # 16.4 K/uL (1.8-7.0); NEUT % 72.2 % (50.0-75.0); NRBC % 0.1 % (0.0-0.0); RBC 5.2 Mil/uL (3.80-5.20); RED CELL DISTRIBUTION WIDTH 14.8 % (11.5-14.5); WHITE BLOOD COUNT 22.8 K/uL (4.8-10.8)
[2018-04-09 10:51] LABS: CALCIUM 8.8 mg/dL (8.4-10.2)
[2018-04-09] MEDS: levoFLOXacin 500 mg in D5W 500 MG/100 ML BAG IVPB SCH (16:28)
[2018-04-09] MEDS: Amoxicillin-Clav 875-125 mg Tab PO SCH ×2 (16:33→22:08)
[2018-04-09 16:35] VITALS: RESP 20
[2018-04-10] MEDS: Albuterol 0.083% Inhal Sol (2.5 mg/3 mL) UD INH SCH ×4 (01:03→19:16)
[2018-04-10 06:59] LABS: HEMOGLOBIN 15.2 g/dL (12.0-16.0); MEAN CELL VOLUME 90.8 fl (81.0-99.0); MEAN CORPUSCULAR HEMOGLOBIN 29.5 pg (27.0-31.0); MEAN CORPUSCULAR HGB CONC 32.5 g/dL (33.0-37.0); RBC 5.15 Mil/uL (3.80-5.20); RED CELL DISTRIBUTION WIDTH 14.7 % (11.5-14.5); WHITE BLOOD COUNT 20.1 K/uL (4.8-10.8)
--- NOTE | 2018-04-10 08:17 | CP.PCM.PN ---
Subjective - Date & Time of Evaluation Date of Evaluation: 04/10/18 Time of Evaluation: 08:17 - Subjective Subjective: STILL COUGHING NO CHEST PAINS REFUSES IV RE-INSERTION Objective - Vital Signs/Intake and Output Vital Signs (last 24 hours): Temp Pulse Resp BP Pulse Ox 97.5 F L 66 20 132/67 97 04/10/18 08:14 04/10/18 08:14 04/10/18 08:14 04/10/18 08:14 04/10/18 08:14 - Medications Medications: Current Medications Albuterol Sulfate (Albuterol 0.083% Inhal Jing (2.5 Mg/3 Ml) Ud) 2.5 mg INH RQ6 [facility] Last Admin: 04/10/18 07:44 Dose: 2.5 mg Amoxicillin/Clavulanate Potassium (Augmentin 875 Mg-125 Mg Tab) 1 tab PO Q12 [facility] PRN Reason: Protocol Last Admin: 04/09/18 22:08 Dose: 1 tab Aspirin (Aspirin Chewable) 81 mg PO DAILY [facility] Last Admin: 04/07/18 12:46 Dose: Not Given Carvedilol (Coreg) 6.25 mg PO BID [facility] Last Admin: 04/09/18 16:31 Dose: 6.25 mg Dabigatran (Pradaxa) 75 mg PO BID [facility] PRN Reason: Protocol Last Admin: 04/09/18 16:33 Dose: 75 mg Fluticasone Propionate (Flonase) 1 spr YORDY BID [facility] Last Admin: 04/09/18 16:30 Dose: Not Given Furosemide (Lasix) 40 mg PO DAILY [facility] Last Admin: 04/09/18 08:15 Dose: 40 mg Hydrocortisone (Anusol-Hc) 25 mg [place] BID@0900,2100 [facility] Last Admin: 04/09/18 22:09 Dose: 25 mg Lactobacillus Acidophilus (Bacid Acidophilus) 1 cap PO BID [facility] Last Admin: 04/09/18 16:30 Dose: Not Given Losartan Potassium (Cozaar) 100 mg PO DAILY [facility] Last Admin: 04/09/18 08:16 Dose: 100 mg Pantoprazole Sodium (Protonix Ec Tab) 40 mg PO DAILY [facility] Last Admin: 04/09/18 08:16 Dose: 40 mg Promethazine HCl/Dextromethorphan (Phenergan Dm Syrup) 10 ml PO Q4H PRN PRN Reason: Cough Last Admin: 04/08/18 08:16 Dose: 10 ml - Labs Labs: 04/10/18 06:00 04/09/18 09:46 PT 11.4 Seconds (9.8-13.1) 04/06/18 06:25 INR 1.0 (0.9-1.2) 04/06/18 06:25 - Constitutional Appears: No Acute Distress - Head Exam Head Exam: ATRAUMATIC, NORMAL INSPECTION, NORMOCEPHALIC - Eye Exam Eye Exam: EOMI, Normal appearance, PERRL Pupil Exam: NORMAL ACCOMODATION, PERRL - ENT Exam ENT Exam: Mucous Membranes Moist, Normal Exam - Neck Exam Neck Exam: Full ROM, Normal Inspection. absent: Lymphadenopathy - Respiratory Exam Respiratory Exam: Decreased Breath Sounds, Prolonged Expiratory Phase, Rales, Wheezes, NORMAL BREATHING PATTERN - Cardiovascular Exam Cardiovascular Exam: REGULAR RHYTHM, +S1, +S2. absent: Murmur - GI/Abdominal Exam GI & Abdominal Exam: Soft, Normal Bowel Sounds. absent: Tenderness - Rectal Exam Rectal Exam: NORMAL INSPECTION - Extremities Exam Extremities Exam: Full ROM, Normal Capillary Refill, Normal Inspection. absent : Joint Swelling, Pedal Edema - Back Exam Back Exam: NORMAL INSPECTION - Neurological Exam Neurological Exam: Alert, Awake, CN II-XII Intact, Normal Gait, Oriented x3 - Psychiatric Exam Psychiatric exam: Normal Affect, Normal Mood - Skin Skin Exam: Dry, Intact, Normal Color, Warm Assessment and Plan - Assessment and Plan (Free Text) Assessment: ACUTE EXAC OF COPD LEUKOCYTOSIS--PROBABLY DUE TO URI AND STEROIDS Plan: D/C STEROIDS CONTINUE ORAL ANTIBIOTICS REPEAT LABS IN AM D/C IN AM IF STABLE
[2018-04-10] MEDS: Amoxicillin-Clav 875-125 mg Tab PO SCH (09:42)
[2018-04-10] MEDS: Lactobacillus Acidophilus 500 MU Cap PO SCH ×2 (09:44→09:50)
[2018-04-10] MEDS: Pantoprazole 40 mg EC Tab PO SCH (09:45)
[2018-04-11] MEDS: Albuterol 0.083% Inhal Sol (2.5 mg/3 mL) UD INH SCH ×2 (01:00→08:18)
[2018-04-11 06:57] LABS: BASO % 0.2 % (0.0-2.0); EOS # 0.2 K/uL (0.0-0.7); EOS % 1.2 % (0.0-4.0); HEMOGLOBIN 15.3 g/dL (12.0-16.0); LYMPH # 4.9 K/uL (1.0-4.3); LYMPH % 26.1 % (20.0-40.0); MEAN CORPUSCULAR HEMOGLOBIN 29.8 pg (27.0-31.0); MEAN CORPUSCULAR HGB CONC 33.1 g/dL (33.0-37.0); MEAN PLATELET VOLUME 9.1 fl (7.2-11.7); MONO % 10.8 % (0.0-10.0); NEUT # 11.5 K/uL (1.8-7.0); NEUT % 61.7 % (50.0-75.0); NRBC % 0.1 % (0.0-0.0); RBC 5.14 Mil/uL (3.80-5.20); RED CELL DISTRIBUTION WIDTH 14.8 % (11.5-14.5); WHITE BLOOD COUNT 18.6 K/uL (4.8-10.8)
[2018-04-11 08:12] VITALS: BP 125/69; PULSE 69; TEMP 97.2; O2SAT 100
[2018-04-11] MEDS: Pantoprazole 40 mg EC Tab PO SCH (10:00)
--- NOTE | 2018-04-11 11:09 | CP.PCM.DIS ---
Provider - Provider Date of Admission: 04/03/18 20:37 Attending physician: Da Jason MD Primary care physician: Da Jason MD Time Spent in preparation of Discharge (in minutes): 35 Diagnosis - Discharge Diagnosis (1) GI (gastrointestinal bleed) Status: Acute (2) Acute on chronic systolic (congestive) heart failure Status: Acute (3) CAD (coronary artery disease) Status: Acute (4) COPD exacerbation Status: Acute (5) Cardiac arrhythmia Status: Acute (6) Cardiomyopathy Status: Acute (7) Chronic atrial fibrillation Status: Acute (8) Chronic congestive heart failure Status: Acute (9) Gout Status: Acute (10) HTN (hypertension) Status: Acute (11) Hypertension Status: Acute (12) Leukocytosis Status: Acute (13) Non-compliance Status: Acute (14) Paroxysmal atrial fibrillation Status: Acute (15) Upper respiratory infection Status: Acute Hospital Course - Lab Results Lab Results: Most Recent Lab Values WBC 18.6 K/uL (4.8-10.8) H 04/11/18 05:30 RBC 5.14 Mil/uL (3.80-5.20) 04/11/18 05:30 Hgb 15.3 g/dL (12.0-16.0) 04/11/18 05:30 Hct 46.3 % (34.0-47.0) 04/11/18 05:30 MCV 90.0 fl (81.0-99.0) 04/11/18 05:30 MCH 29.8 pg (27.0-31.0) 04/11/18 05:30 MCHC 33.1 g/dL (33.0-37.0) 04/11/18 05:30 RDW 14.8 % (11.5-14.5) H 04/11/18 05:30 Plt Count 184 K/uL (130-400) 04/11/18 05:30 MPV 9.1 fl (7.2-11.7) 04/11/18 05:30 Neut % (Auto) 61.7 % (50.0-75.0) 04/11/18 05:30 Lymph % (Auto) 26.1 % (20.0-40.0) 04/11/18 05:30 Patrick % (Auto) 10.8 % (0.0-10.0) H 04/11/18 05:30 Eos % (Auto) 1.2 % (0.0-4.0) 04/11/18 05:30 Baso % (Auto) 0.2 % (0.0-2.0) 04/11/18 05:30 Neut # (Auto) 11.5 K/uL (1.8-7.0) H 04/11/18 05:30 Lymph # (Auto) 4.9 K/uL (1.0-4.3) H 04/11/18 05:30 Patrick # (Auto) 2.0 K/uL (0.0-0.8) H 04/11/18 05:30 Eos # (Auto) 0.2 K/uL (0.0-0.7) 04/11/18 05:30 Baso # (Auto) 0.0 K/uL (0.0-0.2) 04/11/18 05:30 Neutrophils % (Manual) 77 % (42-75) H 04/08/18 05:30 Band Neutrophils % 2 % (0-2) 04/08/18 05:30 Lymphocytes % (Manual) 11 % (20-50) L 04/08/18 05:30 Reactive Lymphs % 2 % (0-0) H 04/08/18 05:30 Monocytes % (Manual) 6 % (0-10) 04/08/18 05:30 Metamyelocytes % 2 % (0-0) H 04/08/18 05:30 Platelet Estimate Normal (NORMAL) 04/08/18 05:30 Plt Clumps, EDTA Present 04/08/18 05:30 Anisocytosis (manual) Slight 04/08/18 05:30 PT 11.4 Seconds (9.8-13.1) 04/06/18 06:25 INR 1.0 (0.9-1.2) 04/06/18 06:25 Sodium 140 mmol/l (132-148) 04/09/18 09:46 Potassium 4.6 MMOL/L (3.6-5.0) 04/09/18 09:46 Chloride 106 mmol/L (98-107) 04/09/18 09:46 Carbon Dioxide 24 mmol/L (22-30) 04/09/18 09:46 Anion Gap 15 (10-20) 04/09/18 09:46 BUN 46 mg/dl (7-17) H 04/09/18 09:46 Creatinine 1.2 mg/dl (0.7-1.2) 04/09/18 09:46 Est GFR ( Amer) 53 04/09/18 09:46 Est GFR (Non-Af Amer) 44 04/09/18 09:46 Random Glucose 194 mg/dL (65-105) H 04/09/18 09:46 Calcium 8.8 mg/dL (8.4-10.2) 04/09/18 09:46 - Hospital Course Hospital Course: clinically improved cough less wants to go home leukocytosis improved Discharge Exam - Head Exam Head Exam: ATRAUMATIC, NORMAL INSPECTION, NORMOCEPHALIC - Eye Exam Eye Exam: EOMI, Normal appearance, PERRL Pupil Exam: NORMAL ACCOMODATION, PERRL - Respiratory Exam Respiratory Exam: Prolonged Expiratory Phase, Wheezes - GI/Abdominal Exam GI & Abdominal Exam: Normal Bowel Sounds - Rectal Exam Rectal Exam: NORMAL INSPECTION - Neurological Exam Neurological exam: Alert, CN II-XII Intact, Normal Gait, Oriented x3, Reflexes Normal - Psychiatric Exam Psychiatric exam: Normal Affect, Normal Mood - Skin Skin Exam: Dry, Intact, Normal Color, Warm Discharge Plan - Follow Up Plan Condition: GOOD Disposition: HOME/ ROUTINE Patient education suggested?: Yes Instructions: Syncope (Fainting) (DC) Referrals: Da Jason MD [Primary Care Provider] -
== END 2018-04-11 13:46 | disposition home or self-care (01) | DRG 190 ==
LOC: H.TCU 20:37
PROVIDERS: ADMIT Internal Medicine Pulmonary Disease; ATTEND Internal Medicine Pulmonary Disease
PROC: 3E03329 Introduction of Other Anti-infective into Peripheral Vein, Percutaneous Approach (ICD-10-PCS; principal; 2018-04-03)
PROC: F07Z9FZ Gait Training/Functional Ambulation Treatment using Assistive, Adaptive, Supportive or Protective Equipment (ICD-10-PCS; 2018-04-03)
PROC: F08Z4FZ Home Management Treatment using Assistive, Adaptive, Supportive or Protective Equipment (ICD-10-PCS; 2018-04-03)
PROC: F07M6FZ Therapeutic Exercise Treatment of Musculoskeletal System - Whole Body using Assistive, Adaptive, Supportive or Protective Equipment (ICD-10-PCS; 2018-04-03)
DX: J44.1 Chronic obstructive pulmonary disease with (acute) exacerbation (principal); I50.43 Acute on chronic combined systolic (congestive) and diastolic (congestive) heart failure; K92.1 Melena; I42.9 Cardiomyopathy, unspecified; K64.9 Unspecified hemorrhoids; M10.9 Gout, unspecified; T38.0X5A Adverse effect of glucocorticoids and synthetic analogues, initial encounter; Z79.02 Long term (current) use of antithrombotics/antiplatelets; Z87.891 Personal history of nicotine dependence; Z90.49 Acquired absence of other specified parts of digestive tract; Z91.19 Patient's noncompliance with other medical treatment and regimen; Z95.0 Presence of cardiac pacemaker; Z95.5 Presence of coronary angioplasty implant and graft; F41.9 Anxiety disorder, unspecified; H26.9 Unspecified cataract; R26.81 Unsteadiness on feet; R73.9 Hyperglycemia, unspecified; E78.00 Pure hypercholesterolemia, unspecified; I11.0 Hypertensive heart disease with heart failure; I25.10 Atherosclerotic heart disease of native coronary artery without angina pectoris; I48.0 Paroxysmal atrial fibrillation; I48.2 Chronic atrial fibrillation; J06.9 Acute upper respiratory infection, unspecified

== ENCOUNTER 2018-06-15 12:23 | Inpatient (IN) | payer MEDICARE ==
[2018-06-15 12:23] VITALS: BMI 37.3
[2018-06-15] MEDS ORDERED: Albuterol-Ipratrop 3 mg / 0.5 (3 ml) UD ONE ×2 (12:40→18:41)
[2018-06-15] MEDS ORDERED: Albuterol-Ipratrop 3 mg / 0.5 (3 ml) UD INH STA ×2 (13:00→16:51)
--- NOTE | 2018-06-15 13:45 | RAD ---
Date of service: 06/15/2018 PROCEDURE: CHEST RADIOGRAPH, 1 VIEW HISTORY: SOB COMPARISON: 03/30/2018 FINDINGS: LUNGS: Clear. PLEURA: No pneumothorax or pleural fluid seen. CARDIOVASCULAR: No radiographic findings to suggest acute or significant cardiovascular disease. Position/ configuration of pacemaker device: Satisfactory. OSSEOUS STRUCTURES: No significant abnormalities. VISUALIZED UPPER ABDOMEN: Normal. OTHER FINDINGS: None. IMPRESSION: No active disease. No acute/significant interval changes.
--- NOTE | 2018-06-15 14:06 | ED PDOC ---
HPI: SOB/CHF/COPD Time Seen by Provider: 06/15/18 12:32 Chief Complaint (Nursing): Shortness Of Breath Chief Complaint (Provider): Shortness Of Breath History Per: Patient History/Exam Limitations: no limitations Onset/Duration Of Symptoms: Days (x2 months) Current Symptoms Are (Timing): Still Present Additional Complaint(s): 73 year old female with a history of htn, hypercholesterolemia, asthma, atrial fibrillation, CAD, CHF, COPD, emphysema, pneumonia, and peripheral edema presents to the ED with shortness of breath and productive cough with yellow/clear sputum onset April. Patient was given Levofloxacin, but was only able to tolerate one dose. She has been using nebulizer treatment at home with no relief. Patient also reports left hand pain and an itchy rash to left abdomen that also started in April. No further complaints. PMD: Dr. Jason Past Medical History Reviewed: Historical Data, Nursing Documentation, Vital Signs Vital Signs: Last Vital Signs Temp 97.6 F 06/15/18 12:28 Pulse 84 06/15/18 12:28 Resp 20 06/15/18 12:28 BP 131/55 L 06/15/18 12:28 Pulse Ox 97 06/15/18 12:28 - Medical History PMH: Anxiety, Asthma, Atrial Fibrillation, CAD, Cardia Arrhythmia, CHF, COPD, Emphysema, HTN, Hypercholesterolemia, Peripheral Edema, Pneumonia Denies: HIV, Chronic Kidney Disease - Surgical History Surgical History: Appendectomy, Cholecystectomy, Coronary Stent, Pacemaker - Family History Family History: States: Unknown Family Hx - Home Medications Home Medications: Ambulatory Orders Medication Instructions Recorded Aspirin [Ecotrin] 81 mg PO DAILY 01/15/18 Dabigatran [Pradaxa] 75 mg PO Q12 01/15/18 Furosemide [Lasix] 40 mg PO DAILY 01/15/18 Albuterol/Ipratropium [Duoneb 3 3 ml INH RQ6 #100 neb 06/19/18 mg/0.5 mg (3 ml) UD] Carvedilol [Coreg] 25 mg PO Q12 #60 tab 06/19/18 predniSONE [predniSONE Tab] 10 mg PO DAILY #10 tab 06/19/18 - Allergies Allergies/Adverse Reactions: Allergies Allergy/AdvReac Type Severity Reaction Status Date / Time No Known Allergies Allergy Verified 03/06/18 11:05 Review of Systems ROS Statement: Except As Marked, All Systems Reviewed And Found Negative Respiratory: Positive for: Cough (productive), Shortness of Breath Musculoskeletal: Positive for: Hand Pain (left) Skin: Positive for: Rash (on left abdomen ) Physical Exam - Reviewed Nursing Documentation Reviewed: Yes Vital Signs Reviewed: Yes - Physical Exam Cardiovascular/Chest: Positive for: Regular Rate, Rhythm Respiratory: Positive for: Wheezing (bilateral), Other (patient is able to speak in full sentences) Gastrointestinal/Abdominal: Positive for: Other (4 lesions, nonvesicular, minimal scaling, no tenderness, no induration, no fluctuance) Extremity: Positive for: Normal ROM (of wrist and hand), Other (Some edema to the posterior wrist) - Laboratory Results Result Diagrams: 06/16/18 04:15 06/19/18 05:45 - ECG O2 Sat by Pulse Oximetry: 97 (RA) Pulse Ox Interpretation: Normal Medical Decision Making Medical Decision Making: Time: 1255 Initial Impression: COPD vs CHF vs Pneumonia Initial Plan: --VBG --EKG --BNP --CMP --Troponin --CBC with differentials --PTT --PT --CXR --Duoneb 3 ml INH --SOLU-Medrol 125 mg IVP --Blood culture --Peak flow pre/post treatment Time: 1343 CXR: FINDINGS: LUNGS: Clear. PLEURA: No pneumothorax or pleural fluid seen. CARDIOVASCULAR: No radiographic findings to suggest acute or significant cardiovascular disease. Position/ configuration of pacemaker\AICD device: Satisfactory. OSSEOUS STRUCTURES: No significant abnormalities. VISUALIZED UPPER ABDOMEN: Normal. OTHER FINDINGS: None. IMPRESSION: No active disease. No acute/significant interval changes. Scribe Attestation: Documented by Sharon Palafox, acting as a scribe for Trish Hussein MD Provider Scribe Attestation: All medical record entries made by the Scribe were at my direction and personally dictated by me. I have reviewed the chart and agree that the record accurately reflects my personal performance of the history, physical exam, medical decision making, and the department course for this patient. I have also personally directed, reviewed, and agree with the discharge instructions and disposition. Disposition - Clinical Impression Clinical Impression: COPD exacerbation, Wrist pain - Patient ED Disposition Is Patient to be Admitted: Yes - Disposition Disposition Time: 16:51 Condition: STABLE - Pt Status Changed To: Hospital Disposition Of: Inpatient - Admit Certification Admit to Inpatient:: After my assessment, the patient will require hospitalizati on for at least two midnights. This is because of the severity of symptoms shown, intensity of services needed, and/or the medical risk in this patient being treated as an outpatient. - POA Present On Arrival: None
[2018-06-15 14:27] LABS: VENOUS BLOOD GAS BASE EXCESS 2.2 mmol/L (0.0-2.0); VENOUS BLOOD GAS PCO2 46 mmHg (40-60); VENOUS BLOOD GAS PO2 43 mm/Hg (30-55); VENOUS BLOOD PH 7.39 (7.32-7.43)
[2018-06-15 14:34] LABS: BASO # 0.1 K/uL (0.0-0.2); BASO % 0.8 % (0.0-2.0); EOS # 0.6 K/uL (0.0-0.7); EOS % 5.9 % (0.0-4.0); HEMOGLOBIN 15.5 g/dL (12.0-16.0); LYMPH # 2.1 K/uL (1.0-4.3); LYMPH % 21.7 % (20.0-40.0); MEAN CELL VOLUME 90.2 fl (81.0-99.0); MEAN CORPUSCULAR HEMOGLOBIN 30.2 pg (27.0-31.0); MEAN CORPUSCULAR HGB CONC 33.4 g/dL (33.0-37.0); MEAN PLATELET VOLUME 9.3 fl (7.2-11.7); MONO # 0.9 K/uL (0.0-0.8); MONO % 9.3 % (0.0-10.0); NEUT # 6.2 K/uL (1.8-7.0); NEUT % 62.3 % (50.0-75.0); NRBC % 0.1 % (0.0-0.0); RBC 5.13 Mil/uL (3.80-5.20); RED CELL DISTRIBUTION WIDTH 14.7 % (11.5-14.5); WHITE BLOOD COUNT 9.9 K/uL (4.8-10.8)
[2018-06-15 14:42] LABS: INR 1.2; PROTHROMBIN TIME 12.8 Seconds (9.8-13.1)
[2018-06-15 14:45] LABS: PARTIAL THROMBOPLASTIN TIME 51.2 Seconds (25.6-37.1)
[2018-06-15 14:49] LABS: ALB/GLOB RATIO 1.3 (1.0-2.1); ALT/SGPT 30 U/L (9-52); AST/SGOT 26 U/L (14-36); BLOOD UREA NITROGEN 17 mg/dl (7-17); CALCIUM 9.2 mg/dL (8.4-10.2); GFR NON-AFRICAN AMERICAN 54
[2018-06-15 14:58] LABS: B-TYPE NATRIURETIC PEPTIDE 2050 pg/ml (0-900)
--- NOTE | 2018-06-15 18:33 | US ---
Left upper extremity ultrasound Indication: Wrist/hand swelling Technique: Duplex ultrasound evaluation of the left upper extremity Comparison: None available Findings: There is normal flow and compressibility of the left brachial, basilic, axillary, and cephalic veins. Radial and ulnar veins appear patent. Normal flow is demonstrated in the left subclavian and internal jugular vein. Impression: No evidence of deep venous thrombosis in the left upper extremity.
[2018-06-16] MEDS: Albuterol-Ipratrop 3 mg / 0.5 (3 ml) UD INH SCH ×4 (01:00→19:24)
[2018-06-16] MEDS ORDERED: methylPREDNISolone 60 MG in Sodium Chloride 0.9% 50 ML IVPB SCH (01:00)
[2018-06-16 05:34] LABS: BASO % 0.5 % (0.0-2.0); HEMOGLOBIN 14.4 g/dL (12.0-16.0); LYMPH % 10.8 % (20.0-40.0); MEAN CELL VOLUME 91.3 fl (81.0-99.0); MEAN CORPUSCULAR HEMOGLOBIN 30.4 pg (27.0-31.0); MEAN CORPUSCULAR HGB CONC 33.3 g/dL (33.0-37.0); MEAN PLATELET VOLUME 9.5 fl (7.2-11.7); MONO # 0.2 K/uL (0.0-0.8); MONO % 2.3 % (0.0-10.0); NEUT # 8.2 K/uL (1.8-7.0); NEUT % 86.4 % (50.0-75.0); NRBC % 0.1 % (0.0-0.0); RBC 4.75 Mil/uL (3.80-5.20); RED CELL DISTRIBUTION WIDTH 14.8 % (11.5-14.5); WHITE BLOOD COUNT 9.5 K/uL (4.8-10.8)
[2018-06-16 05:44] LABS: B-TYPE NATRIURETIC PEPTIDE 2750 pg/ml (0-900)
[2018-06-16 06:12] LABS: BLOOD UREA NITROGEN 22 mg/dl (7-17); GFR NON-AFRICAN AMERICAN 54
--- NOTE | 2018-06-16 07:04 | CARD ---
APPROVED REPORT Date of service: 06/15/2018 EKG Measurement Heart [id number] NM 80P [id number] <Conclusion> Normal sinus rhythm with frequent premature ventricular complexes Low voltage QRS ST & T wave abnormality, consider lateral ischemia Abnormal ECG
--- NOTE | 2018-06-16 09:01 | RAD ---
PROCEDURE: Left Hand Radiographs. HISTORY: Hand pain COMPARISON: None. FINDINGS: BONES: No acute fracture or destructive bony lesion identified. There is osteopenia suggests osteoporosis however. JOINTS: Joint space narrowing and articular cortical sclerosis appreciate throughout the joints of the hand as well as incidentally throughout the visualized carpal joints as well. SOFT TISSUES: Normal. OTHER FINDINGS: None. IMPRESSION: No acute fracture or dislocation is appreciable and degenerative joint disease seen diffusely and diffuse osteopenia suggests osteoporosis.
--- NOTE | 2018-06-16 09:02 | RAD ---
Date of service: 06/15/2018 PROCEDURE: Left Wrist Radiographs. HISTORY: Chronic pain COMPARISON: None. FINDINGS: BONES: Diffuse osteopenia suggests relatively extensive osteoporosis. Clinically correlate. No displaced fracture or focal destructive lesion identified. JOINTS: No subluxation or dislocation identified. Advanced degenerative changes seen the basal joint with lesser degenerative joint space narrowing cortical sclerosis throughout the remaining carpal metacarpal carpal carpal and radiocarpal joints. SOFT TISSUES: Normal. OTHER FINDINGS: None. IMPRESSION: Diffuse osteopenia suggests osteoporosis. No displaced fracture. Degenerative changes as discussed above.
--- NOTE | 2018-06-16 09:12 | CP.PCM.HP ---
History of Present Illness - History of Present Illness History of Present Illness: 73 YR OLD FEMALE WHO WAS ADMITTED VIA THE ER BECAUSE OF PROGRESSIVELY WORSENING DYSPNEA AT REST AND ON EXERTION X SEVERAL WEEKS.SHE IS POORLY COMPLIANT TO MEDS AND OUT PT FOLLOWUP.SHE ALSO COMPLAINS OF COUGH WITH YELLOW MUCUS PRODUCTIO N,SKIN RASH AND R SHOULDER PLUS L ARM PAIN HX OF COPD,CARDIAC ARRYTHMIAS--S/P PACEMAKER PLACEMENT,HTN,FRACTURE OF L SHOULDER AND CHF Present on Admission - Present on Admission Any Indicators Present on Admission: Yes Past Patient History - Infectious Disease Hx of Infectious Diseases: None - Past Medical History & Family History Past Medical History?: Yes - Past Social History Smoking Status: Never Smoked - CARDIAC Hx Cardiac Disorders: Yes - PULMONARY Hx Respiratory Disorders: Yes - NEUROLOGICAL Hx Neurological Disorder: No - HEENT Hx HEENT Problems: Yes Hx Cataracts: Yes - RENAL Hx Chronic Kidney Disease: No - ENDOCRINE/METABOLIC Hx Endocrine Disorders: No - HEMATOLOGICAL/ONCOLOGICAL Hx AIDS: No Hx Human Immunodeficiency Virus (HIV): No - INTEGUMENTARY Hx Dermatological Problems: No - MUSCULOSKELETAL/RHEUMATOLOGICAL Hx Falls: No - GASTROINTESTINAL Hx Gastrointestinal Disorders: No - GENITOURINARY/GYNECOLOGICAL Hx Genitourinary Disorders: No - PSYCHIATRIC Hx Substance Use: No - SURGICAL HISTORY Hx Appendectomy: Yes Hx Cholecystectomy: Yes Hx Coronary Stent: Yes - ANESTHESIA Hx Anesthesia: Yes Hx Anesthesia Reactions: No Hx Malignant Hyperthermia: No Meds Allergies/Adverse Reactions: Allergies Allergy/AdvReac Type Severity Reaction Status Date / Time No Known Allergies Allergy Verified 03/06/18 11:05 Physical Exam - Constitutional Appears: No Acute Distress - Head Exam Head Exam: ATRAUMATIC, NORMAL INSPECTION, NORMOCEPHALIC - Eye Exam Eye Exam: EOMI, Normal appearance, PERRL Pupil Exam: NORMAL ACCOMODATION, PERRL - ENT Exam ENT Exam: Mucous Membranes Moist, Normal Exam - Neck Exam Neck exam: Positive for: Normal Inspection - Respiratory Exam Respiratory Exam: Decreased Breath Sounds, Prolonged Expiratory Phase, Rales, Wheezes, NORMAL BREATHING PATTERN - Cardiovascular Exam Cardiovascular Exam: REGULAR RHYTHM Additional comments: PACEMAKER IN PLACE - GI/Abdominal Exam GI & Abdominal Exam: Normal Bowel Sounds, Soft. absent: Tenderness - Rectal Exam Rectal Exam: NORMAL INSPECTION - Extremities Exam Extremities exam: Positive for: normal inspection, tenderness - Back Exam Back exam: NORMAL INSPECTION - Neurological Exam Neurological exam: Alert, CN II-XII Intact, Normal Gait, Oriented x3, Reflexes Normal - Psychiatric Exam Psychiatric exam: Normal Affect, Normal Mood - Skin Skin Exam: Dry, Intact, Normal Color, Rash, Warm Results - Vital Signs Recent Vital Signs: Last Vital Signs Temp 97.6 F 06/16/18 08:33 Pulse 75 06/16/18 08:33 Resp 20 06/16/18 08:33 BP 125/71 06/16/18 09:05 Pulse Ox 96 06/16/18 08:33 - Labs Result Diagrams: 06/16/18 04:15 06/16/18 04:15 Labs: Laboratory Results - last 24 hr 06/15/18 06/15/18 06/15/18 14:15 14:22 14:22 WBC 9.9 RBC 5.13 Hgb 15.5 Hct 46.3 MCV 90.2 MCH 30.2 MCHC 33.4 RDW 14.7 H Plt Count 194 MPV 9.3 Neut % (Auto) 62.3 Lymph % (Auto) 21.7 [place] % (Auto) 9.3 Eos % (Auto) 5.9 H Baso % (Auto) 0.8 Neut # (Auto) 6.2 Lymph # (Auto) 2.1 [place] # (Auto) 0.9 H Eos # (Auto) 0.6 Baso # (Auto) 0.1 PT INR APTT pO2 43 VBG pH 7.39 VBG pCO2 46 VBG HCO3 26.1 VBG Total CO2 29.2 H VBG O2 Sat (Calc) 84.8 H VBG Base Excess 2.2 H VBG Potassium 3.6 Sodium 139.0 142 Chloride 105.0 104 Glucose 138 H Lactate 1.7 FiO2 21.0 Potassium 3.7 Carbon Dioxide 28 Anion Gap 14 BUN 17 Creatinine 1.0 Est GFR ( Amer) > 60 Est GFR (Non-Af Amer) 54 Random Glucose 132 H Calcium 9.2 Total Bilirubin 0.4 AST 26 ALT 30 Alkaline Phosphatase 79 Troponin I 0.0430 NT-Pro-B Natriuret Pep 2050 H Total Protein 7.2 Albumin 4.0 Globulin 3.1 Albumin/Globulin Ratio 1.3 Venous Blood Potassium 3.6 06/15/18 06/16/18 06/16/18 14:22 04:15 04:15 WBC 9.5 RBC 4.75 Hgb 14.4 Hct 43.3 MCV 91.3 MCH 30.4 MCHC 33.3 RDW 14.8 H Plt Count 177 MPV 9.5 Neut % (Auto) 86.4 H Lymph % (Auto) 10.8 L [place] % (Auto) 2.3 Eos % (Auto) 0.0 Baso % (Auto) 0.5 Neut # (Auto) 8.2 H Lymph # (Auto) 1.0 [place] # (Auto) 0.2 Eos # (Auto) 0.0 Baso # (Auto) 0.0 PT 12.8 INR 1.2 APTT 51.2 H pO2 VBG pH VBG pCO2 VBG HCO3 VBG Total CO2 VBG O2 Sat (Calc) VBG Base Excess VBG Potassium Sodium 138 Chloride 103 Glucose Lactate FiO2 Potassium 4.0 Carbon Dioxide 25 Anion Gap 14 BUN 22 H Creatinine 1.0 Est GFR ( Amer) > 60 Est GFR (Non-Af Amer) 54 Random Glucose 254 H Calcium 9.0 Total Bilirubin AST ALT Alkaline Phosphatase Troponin I NT-Pro-B Natriuret Pep 2750 H Total Protein Albumin Globulin Albumin/Globulin Ratio Venous Blood Potassium Assessment & Plan - Assessment and Plan (Free Text) Assessment: ACUTE EXACERBATION OF COPD HX OF ASHD HX OF ARRYTHMIAS POOR COMPLIANCE TO THERAPY HYPERTENSION SKIN RASH HX OF L SHOULDER SURGERY Plan: SEE ORDERS - Date & Time Date: 06/16/18 Time: 09:14
[2018-06-16] MEDS ORDERED: Sodium Chloride 3% for Inhalation 4 ML VIAL.NEB IH PRN (09:14)
--- NOTE | 2018-06-16 15:24 | CP.PCM.CON ---
History of Present Illness - History of Present Illness History of Present Illness: Orthopedic consult: Dr. Polanco Patient is a 73 y/o female with PMH of HTN, hyperlipidemia, asthma, COPD, emphysema, pneumonia, atrial fibrillation, CAD, CHF admitted due to COPD exacerbation. Orthopedics was consulted due to her complaints of L hand/wrist pain. Patient reports having a L humerus fracture in April 2017 which was tr eated conservatively. Since that time, she has had on and off days of L hand and wrist swelling and pain. Yesterday, the pain was severe and had much swelling. Today, her symptoms have significantly improved, which she attributes to the IV steroid therapy for her COPD. Currently her pain is mild, located at the dorsal aspect of her wrist. She also has stiffness of her L 2nd digit. Her swelling is also minimal. She denies radiation of pain/numbness/tingling. She also denies CP/N/V/D/fever/dysuria/dizziness. She admits to SOB due to COPD. Review of Systems - Review of Systems All systems: reviewed and no additional remarkable complaints except Review of Systems: as per HPI Past Patient History - Infectious Disease Hx of Infectious Diseases: None - Past Medical History & Family History Past Medical History?: Yes Past Family History: Reviewed and not pertinent - Past Social History Smoking Status: Never Smoked Alcohol: None Drugs: Denies - CARDIAC Hx Cardiac Disorders: Yes - PULMONARY Hx Respiratory Disorders: Yes - NEUROLOGICAL Hx Neurological Disorder: No - HEENT Hx HEENT Problems: Yes Hx Cataracts: Yes - RENAL Hx Chronic Kidney Disease: No - ENDOCRINE/METABOLIC Hx Endocrine Disorders: No - HEMATOLOGICAL/ONCOLOGICAL Hx AIDS: No Hx Human Immunodeficiency Virus (HIV): No - INTEGUMENTARY Hx Dermatological Problems: No - MUSCULOSKELETAL/RHEUMATOLOGICAL Hx Falls: No - GASTROINTESTINAL Hx Gastrointestinal Disorders: No - GENITOURINARY/GYNECOLOGICAL Hx Genitourinary Disorders: No - PSYCHIATRIC Hx Substance Use: No - SURGICAL HISTORY Hx Appendectomy: Yes Hx Cholecystectomy: Yes Hx Coronary Stent: Yes - ANESTHESIA Hx Anesthesia: Yes Hx Anesthesia Reactions: No Hx Malignant Hyperthermia: No Meds Allergies/Adverse Reactions: Allergies Allergy/AdvReac Type Severity Reaction Status Date / Time No Known Allergies Allergy Verified 03/06/18 11:05 - Medications Medications: Current Medications Albuterol/Ipratropium (Duoneb 3 Mg/0.5 Mg (3 Ml) Ud) 3 ml INH RQ6 [facility] Last Admin: 06/16/18 13:25 Dose: 3 ml Aspirin (Ecotrin) 81 mg PO DAILY [facility] Last Admin: 06/16/18 09:05 Dose: 81 mg Carvedilol (Coreg) 6.25 mg PO Q12 [facility] Last Admin: 06/16/18 09:05 Dose: 6.25 mg Clotrimazole (Lotrimin 1% Cream) 1 applic TOP BID [facility] Dabigatran (Pradaxa) 75 mg PO Q12 [facility]; Protocol Last Admin: 06/16/18 09:05 Dose: 75 mg Furosemide (Lasix) 40 mg IVP DAILY [facility] Last Admin: 06/16/18 09:05 Dose: 40 mg Ceftriaxone Sodium 1 gm/ (Sodium Chloride) 100 mls @ 100 mls/hr IVPB DAILY [facility]; Protocol Methylprednisolone (Solu-Medrol) 60 mg IV Q8 [facility] Last Admin: 06/16/18 09:04 Dose: 60 mg Physical Exam - Constitutional Appears: Well, No Acute Distress - Eye Exam Eye Exam: EOMI, Normal appearance, PERRL - ENT Exam ENT Exam: Mucous Membranes Moist - Respiratory Exam Respiratory Exam: NORMAL BREATHING PATTERN - Cardiovascular Exam Cardiovascular Exam: +S1, +S2 - GI/Abdominal Exam GI & Abdominal Exam: Soft. absent: Tenderness - Extremities Exam Additional comments: L hand/wrist: no swelling,mild tenderness diffuse dorsally at carpals no pain with ROM, flexion of PIP and DIP limited at 2nd digit sensation and motor intact MN/UN/RN radial pulse intact R hand/wrist: no swelling/tenderness/lesion FROM without pain sensation and motor intact MN/UN/RN radial pulse intact - Neurological Exam Neurological exam: Alert, Oriented x3 - Psychiatric Exam Psychiatric exam: Normal Affect, Normal Mood - Skin Skin Exam: Normal Color, Warm Results - Vital Signs Recent Vital Signs: Last Vital Signs Temp 97.7 F 06/16/18 12:47 Pulse 76 06/16/18 12:47 Resp 20 06/16/18 12:47 BP 118/65 06/16/18 12:47 Pulse Ox 96 06/16/18 12:47 - Labs Result Diagrams: 06/16/18 04:15 06/16/18 04:15 Labs: Laboratory Results - last 24 hr 06/16/18 06/16/18 04:15 04:15 WBC 9.5 RBC 4.75 Hgb 14.4 Hct 43.3 MCV 91.3 MCH 30.4 MCHC 33.3 RDW 14.8 H Plt Count 177 MPV 9.5 Neut % (Auto) 86.4 H Lymph % (Auto) 10.8 L [place] % (Auto) 2.3 Eos % (Auto) 0.0 Baso % (Auto) 0.5 Neut # (Auto) 8.2 H Lymph # (Auto) 1.0 [place] # (Auto) 0.2 Eos # (Auto) 0.0 Baso # (Auto) 0.0 Sodium 138 Potassium 4.0 Chloride 103 Carbon Dioxide 25 Anion Gap 14 BUN 22 H Creatinine 1.0 Est GFR ( Amer) > 60 Est GFR (Non-Af Amer) 54 Random Glucose 254 H Calcium 9.0 NT-Pro-B Natriuret Pep 2750 H Assessment & Plan (1) Osteoarthrosis, wrist Assessment and Plan: -Recommend conservative management -RICE therapy -NSAID's prn -PT/OT ROM and strengthening exercises -orthopedically stable -please reconsult as needed -above d/w Dr. Polanco in agreement Status: Chronic (2) Osteoarthritis of hand, left Status: Chronic Radiology Interpretation - Notes: Notes:: Accession No. : [id number] Patient Name / ID : LULÚ PRINGLE / [id number] Exam Date : 06/15/2018 18:55:02 ( Approved ) Study Comment : Sex / Age : F / 73Y Creator : megan senior Dictator : Hipolito Gutierrez MD E Merchant : [employer] Location Manager : Hipolito Gutierrez MD Approver2 : Report Date : 06/15/2018 19:12:28 My Comment : PROCEDURE: Left Hand Radiographs. HISTORY: Hand pain COMPARISON: None. FINDINGS: BONES: No acute fracture or destructive bony lesion identified. There is osteopenia suggests osteoporosis however. JOINTS: Joint space narrowing and articular cortical sclerosis appreciate throughout the joints of the hand as well as incidentally throughout the visualized carpal joints as well. SOFT TISSUES: Normal. OTHER FINDINGS: None. IMPRESSION: No acute fracture or dislocation is appreciable and degenerative joint disease seen diffusely and diffuse osteopenia suggests osteoporosis. - Radiology Interpretation #2 Interpretation: Accession No. : [id number] Patient Name / ID : LULÚ PRINGLE / [id number] Exam Date : 06/15/2018 18:55:02 ( Approved ) Study Comment : Sex / Age : F / 73Y Creator : megan senior Dictator : Hipolito Gutierrez MD E Merchant : [employer] Location Manager : Hipolito Gutierrez MD Approver2 : Report Date : 06/15/2018 19:12:28 My Comment : Date of service: 06/15/2018 PROCEDURE: Left Wrist Radiographs. HISTORY: Chronic pain COMPARISON: None. FINDINGS: BONES: Diffuse osteopenia suggests relatively extensive osteoporosis. Clinically correlate. No displaced fracture or focal destructive lesion identified. JOINTS: No subluxation or dislocation identified. Advanced degenerative changes seen the basal joint with lesser degenerative joint space narrowing cortical sclerosis throughout the remaining carpal metacarpal carpal carpal and radiocarpal joints. SOFT TISSUES: Normal. OTHER FINDINGS: None. IMPRESSION: Diffuse osteopenia suggests osteoporosis. No displaced fracture. Degenerative changes as discussed above.
--- NOTE | 2018-06-16 20:07 | CP.PCM.CON ---
History of Present Illness - History of Present Illness History of Present Illness: Coverage for Dr Velasquez. Patient is a 73 year old female with HTN afib, cardiomyopathy s/p AICD who presents with dsypnea. The patinet developed shortness of breath ans swelling of her ankles. She was admitted for further management. Orth evalauting for wrist swelling and pain. Review of Systems - Constitutional Constitutional: absent: As Per HPI, Anorexia, Chills, Daytime Sleepiness, Excessive Sweating, Fatigue, Fever, Frequent Falls, Headache, Increased Appet ite, Lethargy, Malaise, Night Sweats, Snoring, Sleep Apnea, Weight Gain, Weight Loss, Weakness, Other - EENT Eyes: absent: As Per HPI, Blind Spots, Blurred Vision, Change in Vision, Decreased Night Vision, Diplopia, Discharge, Dry Eye, Exophthalmos, Floaters, I rritation, Itchy Eyes, Loss of Peripheral Vision, Pain, Photophobia, Requires Corrective Lenses, Sees Flashes, Spots in Vision, Tunnel Vision, Other Visual Disturbances, Loss of Vision, Other Ears: absent: As Per HPI, Decreased Hearing, Ear Discharge, Ear Pain, Tinnitus, Abnormal Hearing, Disequilibrium, Dizziness, Other - Breasts Breasts: absent: As Per HPI, Change in Shape, Mass, Pain, Nipple Discharge, Nipple Inversion, Skin Changes, Swelling, Other - Cardiovascular Cardiovascular: Dyspnea, Pedal Edema - Respiratory Respiratory: Cough, Dyspnea, Chest Congestion - Gastrointestinal Gastrointestinal: absent: As Per HPI, Abdominal Pain, Belching, Bloating, Change in Bowel Habits, Change in Stool Character, Coffee Ground Emesis, Constipation, Cramping, Diarrhea, Dyspepsia, Dysphagia, Early Satiety, Excessive Flatus, Fecal Incontinence, Heartburn, Hematemesis, Hematochezia, Loose Stools, Melena, Nausea, Odynophagia, Temesmus, Vomiting, Other - Musculoskeletal Musculoskeletal: absent: As Per HPI, Abnormal Gait, Arthralgias, Atrophy, Back Pain, Deformity, Joint Swelling, Limited Range of Motion, Loss of Height, Muscle Cramps, Muscle Weakness, Myalgias, Neck Pain, Numbness, Radiating Pain into Limb, Stiffness, Tingling, Other - Integumentary Integumentary: absent: As Per HPI, Acne, Alopecia, Bleeding Lesions, Change in Hair, Change in Nails, Change in Pigmentation, Changing Lesions, Dry Skin, Erythema, Furuncle, Hirsutism, Lesions, New Lesions, Non-Healing Lesions, Photosensitivity, Pruritus, Rash, Skin Pain, Skin Ulcer, Sores, Striae, Swelling, Unusual Bruising, Wounds, Jaundice, Other - Neurological Neurological: absent: As Per HPI, Abnormal Gait, Abnormal Hearing, Abnormal Mov ements, Abnormal Speech, Behavioral Changes, Burning Sensations, Confusion, Convulsions, Disequilibrium, Dizziness, Numbness, Focal Weakness, Frequent Falls, Headaches, Lack of Coordination, Loss of Vision, Memory Loss, Paresthesias, Radicular Pain, Restless Legs, Sensory Deficit, Syncope, Tingling, Tremor, Vertigo, Weakness, Other Visual Disturbances, Other - Psychiatric Psychiatric: absent: As Per HPI, Abnormal Sleep Pattern, Anhedonia, Anxiety, Auditory Hallucinations, Behavioral Changes, Change in Appetite, Change in Libido, Confusion, Depression, Difficulty Concentrating, Hallucinations, Homicidal Ideation, Hopelessness, Irritability, Memory Loss, Mood Swings, Panic Attacks, Paranoia, Suicidal Ideation, Visual Hallucinations, Tactile Hallucinations, Other - Endocrine Endocrine: absent: As Per HPI, Change in Body Appearance, Change in Libido, Cold Intolorance, Deepening of Voice, Excessive Sweating, Fatigue, Flushing, Heat Intolorance, Increase in Ring/Shoe/Hat Size, Palpitations, Polydipsia, Polyphagia, Polyuria, Other - Hematologic/Lymphatic Hematologic: absent: As Per HPI, Easy Bleeding, Easy Bruising, Lymphadenopathy, Other Past Patient History - Infectious Disease Hx of Infectious Diseases: None - Past Medical History & Family History Past Medical History?: Yes Past Family History: Reviewed and not pertinent - Past Social History Smoking Status: Never Smoked Alcohol: None Drugs: Denies - CARDIAC Hx Cardiac Disorders: Yes - PULMONARY Hx Respiratory Disorders: Yes - NEUROLOGICAL Hx Neurological Disorder: No - HEENT Hx HEENT Problems: Yes Hx Cataracts: Yes - RENAL Hx Chronic Kidney Disease: No - ENDOCRINE/METABOLIC Hx Endocrine Disorders: No - HEMATOLOGICAL/ONCOLOGICAL Hx AIDS: No Hx Human Immunodeficiency Virus (HIV): No - INTEGUMENTARY Hx Dermatological Problems: No - MUSCULOSKELETAL/RHEUMATOLOGICAL Hx Falls: No - GASTROINTESTINAL Hx Gastrointestinal Disorders: No - GENITOURINARY/GYNECOLOGICAL Hx Genitourinary Disorders: No - PSYCHIATRIC Hx Substance Use: No - SURGICAL HISTORY Hx Appendectomy: Yes Hx Cholecystectomy: Yes Hx Coronary Stent: Yes - ANESTHESIA Hx Anesthesia: Yes Hx Anesthesia Reactions: No Hx Malignant Hyperthermia: No Meds Allergies/Adverse Reactions: Allergies Allergy/AdvReac Type Severity Reaction Status Date / Time No Known Allergies Allergy Verified 03/06/18 11:05 - Medications Medications: Current Medications Albuterol/Ipratropium (Duoneb 3 Mg/0.5 Mg (3 Ml) Ud) 3 ml INH RQ6 [facility] Last Admin: 06/16/18 19:24 Dose: 3 ml Aspirin (Ecotrin) 81 mg PO DAILY [facility] Last Admin: 06/16/18 09:05 Dose: 81 mg Carvedilol (Coreg) 6.25 mg PO Q12 [facility] Last Admin: 06/16/18 09:05 Dose: 6.25 mg Clotrimazole (Lotrimin 1% Cream) 1 applic TOP BID [facility] Last Admin: 06/16/18 16:01 Dose: 1 applic Dabigatran (Pradaxa) 75 mg PO Q12 [facility]; Protocol Last Admin: 06/16/18 09:05 Dose: 75 mg Furosemide (Lasix) 40 mg IVP DAILY [facility] Last Admin: 06/16/18 09:05 Dose: 40 mg Ceftriaxone Sodium 1 gm/ (Sodium Chloride) 100 mls @ 100 mls/hr IVPB DAILY [facility]; Protocol Last Admin: 06/16/18 15:58 Dose: 100 mls/hr Methylprednisolone (Solu-Medrol) 60 mg IV Q8 [facility] Last Admin: 06/16/18 16:00 Dose: 60 mg Physical Exam - Constitutional Appears: Non-toxic - Head Exam Head Exam: NORMAL INSPECTION - Eye Exam Eye Exam: Normal appearance - ENT Exam ENT Exam: Mucous Membranes Moist - Neck Exam Neck exam: Positive for: Full Rom - Respiratory Exam Respiratory Exam: NORMAL BREATHING PATTERN - Cardiovascular Exam Cardiovascular Exam: Irregular Rhythm - GI/Abdominal Exam GI & Abdominal Exam: Normal Bowel Sounds - Rectal Exam Rectal Exam: Deferred - Extremities Exam Extremities exam: Positive for: pedal edema - Back Exam Back exam: NORMAL INSPECTION - Neurological Exam Neurological exam: Alert, Oriented x3 - Psychiatric Exam Psychiatric exam: Normal Affect - Skin Skin Exam: Normal Color Results - Vital Signs Recent Vital Signs: Last Vital Signs Temp 97.9 F 06/16/18 19:58 Pulse 83 06/16/18 19:58 Resp 17 06/16/18 19:58 BP 150/56 L 06/16/18 19:58 Pulse Ox 94 L 06/16/18 19:58 - Labs Result Diagrams: 06/16/18 04:15 06/16/18 04:15 Labs: Laboratory Results - last 24 hr 06/16/18 06/16/18 04:15 04:15 WBC 9.5 RBC 4.75 Hgb 14.4 Hct 43.3 MCV 91.3 MCH 30.4 MCHC 33.3 RDW 14.8 H Plt Count 177 MPV 9.5 Neut % (Auto) 86.4 H Lymph % (Auto) 10.[address] [facility] % (Auto) 2.3 Eos % (Auto) 0.0 Baso % (Auto) 0.5 Neut # (Auto) 8.2 H Lymph # (Auto) 1.0 [facility] # (Auto) 0.2 Eos # (Auto) 0.0 Baso # (Auto) 0.0 Sodium 138 Potassium 4.0 Chloride 103 Carbon Dioxide 25 Anion Gap 14 BUN 22 H Creatinine 1.0 Est GFR ( Amer) > 60 Est GFR (Non-Af Amer) 54 Random Glucose 254 H Calcium 9.0 NT-Pro-B Natriuret Pep 2750 H - EKG Data EKG Interpreted by: Myself Assessment & Plan (1) CAD (coronary artery disease) Assessment and Plan: no current angina. Status: Acute (2) Cardiomyopathy Assessment and Plan: appears euvolemic at present Status: Acute (3) HTN (hypertension) Assessment and Plan: blood pressure control Status: Acute (4) Paroxysmal atrial fibrillation Assessment and Plan: continue anticoagulation to reduce the risk of CVA Status: Acute
[2018-06-17] MEDS: Albuterol-Ipratrop 3 mg / 0.5 (3 ml) UD INH SCH ×5 (01:21→23:24)
--- NOTE | 2018-06-17 10:00 | CP.PCM.PN ---
Subjective - Date & Time of Evaluation Date of Evaluation: 06/17/18 Time of Evaluation: 10:00 - Subjective Subjective: FEELS BETTER TODAY SOB IMPROVING C/O TRACE PEDAL EDEMA NO CHEST PAINS Objective - Vital Signs/Intake and Output Vital Signs (last 24 hours): Temp Pulse Resp BP Pulse Ox 97.9 F 76 20 191/80 H 98 06/17/18 09:33 06/17/18 09:33 06/17/18 09:33 06/17/18 09:33 06/17/18 09:33 - Medications Medications: Current Medications Albuterol/Ipratropium (Duoneb 3 Mg/0.5 Mg (3 Ml) Ud) 3 ml INH RQ6 [facility] Last Admin: 06/17/18 07:38 Dose: 3 ml Aspirin (Ecotrin) 81 mg PO DAILY [facility] Last Admin: 06/17/18 08:52 Dose: 81 mg Carvedilol (Coreg) 6.25 mg PO Q12 [facility] Last Admin: 06/17/18 08:50 Dose: 6.25 mg Clotrimazole (Lotrimin 1% Cream) 1 applic TOP BID [facility] Last Admin: 06/17/18 09:10 Dose: 1 applic Dabigatran (Pradaxa) 75 mg PO Q12 [facility]; Protocol Last Admin: 06/17/18 08:52 Dose: 75 mg Furosemide (Lasix) 40 mg IVP DAILY [facility] Last Admin: 06/17/18 08:50 Dose: 40 mg Ceftriaxone Sodium 1 gm/ (Sodium Chloride) 100 mls @ 100 mls/hr IVPB DAILY [facility]; Protocol Last Admin: 06/17/18 09:03 Dose: 100 mls/hr Methylprednisolone (Solu-Medrol) 60 mg IV Q8 [facility] Last Admin: 06/17/18 08:50 Dose: 60 mg - Labs Labs: 06/16/18 04:15 06/16/18 04:15 PT 12.8 Seconds (9.8-13.1) 06/15/18 14:22 INR 1.2 06/15/18 14:22 APTT 51.2 Seconds (25.6-37.1) H 06/15/18 14:22 - Constitutional Appears: No Acute Distress - Head Exam Head Exam: ATRAUMATIC, NORMAL INSPECTION, NORMOCEPHALIC - Eye Exam Eye Exam: EOMI, Normal appearance, PERRL Pupil Exam: NORMAL ACCOMODATION, PERRL - ENT Exam ENT Exam: Mucous Membranes Moist, Normal Exam - Neck Exam Neck Exam: Full ROM, Normal Inspection. absent: Lymphadenopathy - Respiratory Exam Respiratory Exam: Prolonged Expiratory Phase, Rales, NORMAL BREATHING PATTERN - Cardiovascular Exam Cardiovascular Exam: REGULAR RHYTHM, +S1, +S2. absent: Murmur - GI/Abdominal Exam GI & Abdominal Exam: Soft, Normal Bowel Sounds. absent: Tenderness - Rectal Exam Rectal Exam: NORMAL INSPECTION - Extremities Exam Extremities Exam: Full ROM, Normal Capillary Refill, Normal Inspection, Pedal Edema. absent: Joint Swelling - Back Exam Back Exam: NORMAL INSPECTION - Neurological Exam Neurological Exam: Alert, Awake, CN II-XII Intact, Normal Gait, Oriented x3 - Psychiatric Exam Psychiatric exam: Normal Affect, Normal Mood - Skin Skin Exam: Dry, Intact, Normal Color, Warm Assessment and Plan - Assessment and Plan (Free Text) Assessment: ACUTE EXAC OF COPD ARRYTHMIAS CARDIOMYOPATHY Plan: CONTINUE CURRENT RX TAPER STEROIDS CARDIOLOGY CONSULT APPRECIATED
[2018-06-18] MEDS: Albuterol-Ipratrop 3 mg / 0.5 (3 ml) UD INH SCH ×3 (08:11→19:34)
--- NOTE | 2018-06-18 08:51 | CP.PCM.PN ---
Subjective - Date & Time of Evaluation Date of Evaluation: 06/18/18 Time of Evaluation: 08:51 - Subjective Subjective: C/O LOW SODIUM DIET SOB IMPROVED Objective - Vital Signs/Intake and Output Vital Signs (last 24 hours): Temp Pulse Resp BP Pulse Ox 97.5 F L 71 18 152/81 H 94 L 06/18/18 08:01 06/18/18 08:01 06/18/18 08:01 06/18/18 08:01 06/18/18 08:01 - Medications Medications: Current Medications Albuterol/Ipratropium (Duoneb 3 Mg/0.5 Mg (3 Ml) Ud) 3 ml INH RQ6 [facility] Last Admin: 06/18/18 08:11 Dose: 3 ml Aspirin (Ecotrin) 81 mg PO DAILY [facility] Last Admin: 06/17/18 08:52 Dose: 81 mg Carvedilol (Coreg) 25 mg PO Q12 [facility] Last Admin: 06/17/18 20:56 Dose: 25 mg Clotrimazole (Lotrimin 1% Cream) 1 applic TOP BID [facility] Last Admin: 06/17/18 16:35 Dose: 1 applic Dabigatran (Pradaxa) 75 mg PO Q12 [facility]; Protocol Last Admin: 06/17/18 20:56 Dose: 75 mg Furosemide (Lasix) 40 mg IVP DAILY [facility] Last Admin: 06/17/18 08:50 Dose: 40 mg Ceftriaxone Sodium 1 gm/ (Sodium Chloride) 100 mls @ 100 mls/hr IVPB DAILY [facility]; Protocol Last Admin: 06/17/18 09:03 Dose: 100 mls/hr Methylprednisolone (Solu-Medrol) 60 mg IV Q8 [facility] Last Admin: 06/18/18 00:27 Dose: 60 mg - Labs Labs: 06/16/18 04:15 06/16/18 04:15 PT 12.8 Seconds (9.8-13.1) 06/15/18 14:22 INR 1.2 06/15/18 14:22 APTT 51.2 Seconds (25.6-37.1) H 06/15/18 14:22 - Constitutional Appears: No Acute Distress - Head Exam Head Exam: ATRAUMATIC, NORMAL INSPECTION, NORMOCEPHALIC - Eye Exam Eye Exam: EOMI, Normal appearance, PERRL Pupil Exam: NORMAL ACCOMODATION, PERRL - ENT Exam ENT Exam: Mucous Membranes Moist, Normal Exam - Neck Exam Neck Exam: Full ROM, Normal Inspection. absent: Lymphadenopathy - Respiratory Exam Respiratory Exam: Clear to Ausculation Bilateral, Prolonged Expiratory Phase, NORMAL BREATHING PATTERN - Cardiovascular Exam Cardiovascular Exam: REGULAR RHYTHM, +S1, +S2. absent: Murmur - GI/Abdominal Exam GI & Abdominal Exam: Soft, Normal Bowel Sounds. absent: Tenderness - Rectal Exam Rectal Exam: NORMAL INSPECTION - Extremities Exam Extremities Exam: Full ROM, Normal Capillary Refill, Normal Inspection. absent: Joint Swelling, Pedal Edema - Back Exam Back Exam: NORMAL INSPECTION - Neurological Exam Neurological Exam: Alert, Awake, CN II-XII Intact, Normal Gait, Oriented x3 - Psychiatric Exam Psychiatric exam: Normal Affect, Normal Mood - Skin Skin Exam: Dry, Intact, Normal Color, Warm Assessment and Plan - Assessment and Plan (Free Text) Assessment: COPD EXAC ARRYTHMIAS ASHD Plan: CONTINUE CURRENT RX D/C IN AM IF STABLE
--- NOTE | 2018-06-18 09:36 | PQF ---
PROVIDER RESPONSE TEXT: BMI 53.3--DUE TO EXOGENOUS OBESITY REVIEWER QUERY TEXT: Documentation Clarification Your help is requested in clarifying the following clinical documentation, if you can please further specify in the medical record and discharge summary. Please clarify if there is an associated diagnosis or not to go along with the elevated BMI of 53.3. If yes please document, as well as documenting the BMI results EMR: 5' 5" tall, 320 pounds with a BMI of 53.3 The patient's Clinical Indicators include: EMR has the patient listed as being 5' 5", 320 pounds with a BMI of 53.3 Query created by: Chey Isbell on 06/17/2018 7:54 AM Electronically signed by: Da Jason MD 06/18/2018 9:33 AM
--- NOTE | 2018-06-18 18:58 | CP.PCM.PN ---
Subjective - Date & Time of Evaluation Date of Evaluation: 06/18/18 Time of Evaluation: 18:50 - Subjective Subjective: blood pressure controlled on current regimen. the patient's cardiac status is stable. Objective - Vital Signs/Intake and Output Vital Signs (last 24 hours): Temp Pulse Resp BP Pulse Ox 97.8 F 57 L 18 144/57 L 98 06/18/18 16:39 06/18/18 16:39 06/18/18 16:39 06/18/18 16:39 06/18/18 16:39 - Medications Medications: Current Medications Albuterol/Ipratropium (Duoneb 3 Mg/0.5 Mg (3 Ml) Ud) 3 ml INH RQ6 [facility] Last Admin: 06/18/18 13:28 Dose: 3 ml Aspirin (Ecotrin) 81 mg PO DAILY [facility] Last Admin: 06/18/18 09:33 Dose: 81 mg Carvedilol (Coreg) 25 mg PO Q12 [facility] Last Admin: 06/18/18 09:33 Dose: 25 mg Clotrimazole (Lotrimin 1% Cream) 1 applic TOP BID [facility] Last Admin: 06/18/18 17:31 Dose: 1 applic Dabigatran (Pradaxa) 75 mg PO Q12 [facility]; Protocol Last Admin: 06/18/18 09:34 Dose: 75 mg Furosemide (Lasix) 40 mg IVP DAILY [facility] Last Admin: 06/18/18 09:36 Dose: 40 mg Ceftriaxone Sodium 1 gm/ (Sodium Chloride) 100 mls @ 100 mls/hr IVPB DAILY [facility]; Protocol Last Admin: 06/18/18 15:29 Dose: 100 mls/hr Methylprednisolone (Solu-Medrol) 60 mg IV Q8 [facility] Last Admin: 06/18/18 17:31 Dose: 60 mg - Labs Labs: 06/16/18 04:15 06/16/18 04:15 PT 12.8 Seconds (9.8-13.1) 06/15/18 14:22 INR 1.2 06/15/18 14:22 APTT 51.2 Seconds (25.6-37.1) H 06/15/18 14:22 Assessment and Plan (1) CAD (coronary artery disease) Status: Acute (2) Cardiomyopathy Status: Acute (3) HTN (hypertension) Status: Acute (4) Paroxysmal atrial fibrillation Status: Acute
[2018-06-19] MEDS: Albuterol-Ipratrop 3 mg / 0.5 (3 ml) UD INH SCH ×4 (01:47→13:55)
[2018-06-19 06:45] LABS: BLOOD UREA NITROGEN 38 mg/dl (7-17); CALCIUM 8.8 mg/dL (8.4-10.2); GFR NON-AFRICAN AMERICAN 54
[2018-06-19 06:57] LABS: T4 3.79 ug/dl (5.5-11.0)
[2018-06-19] MEDS ORDERED: Benzocaine/Menthol (Cepacol) Lozenge PO PRN (09:56)
[2018-06-19 12:41] VITALS: BP 163/84; PULSE 68; RESP 18; TEMP 98.4
--- NOTE | 2018-06-19 12:41 | CP.PCM.DIS ---
Provider - Provider Date of Admission: 06/15/18 16:51 Attending physician: Da Min MD Time Spent in preparation of Discharge (in minutes): 35 Diagnosis - Discharge Diagnosis (1) Osteoarthritis of hand, left Status: Chronic (2) Osteoarthrosis, wrist Status: Chronic (3) Acute diastolic congestive heart failure Status: Acute (4) Acute on chronic systolic (congestive) heart failure Status: Acute (5) CAD (coronary artery disease) Status: Acute (6) COPD exacerbation Status: Acute (7) Cardiac arrhythmia Status: Acute (8) Cardiomyopathy Status: Acute (9) Chronic atrial fibrillation Status: Acute (10) HTN (hypertension) Status: Acute (11) Non-compliance Status: Acute (12) Paroxysmal atrial fibrillation Status: Acute Hospital Course - Lab Results Lab Results: Micro Results 06/16/18 10:31 Blood-Venous Blood Culture - Preliminary NO GROWTH AFTER 3 DAYS 06/16/18 10:31 Blood-Venous Blood Culture - Preliminary NO GROWTH AFTER 3 DAYS 06/15/18 16:58 Blood Blood Culture - Preliminary NO GROWTH AFTER 3 DAYS 06/15/18 14:22 Blood Blood Culture - Preliminary NO GROWTH AFTER 3 DAYS Most Recent Lab Values WBC 9.5 K/uL (4.8-10.8) 06/16/18 04:15 RBC 4.75 Mil/uL (3.80-5.20) 06/16/18 04:15 Hgb 14.4 g/dL (12.0-16.0) 06/16/18 04:15 Hct 43.3 % (34.0-47.0) 06/16/18 04:15 MCV 91.3 fl (81.0-99.0) 06/16/18 04:15 MCH 30.4 pg (27.0-31.0) 06/16/18 04:15 MCHC 33.3 g/dL (33.0-37.0) 06/16/18 04:15 RDW 14.8 % (11.5-14.5) H 06/16/18 04:15 Plt Count 177 K/uL (130-400) 06/16/18 04:15 MPV 9.5 fl (7.2-11.7) 06/16/18 04:15 Neut % (Auto) 86.4 % (50.0-75.0) H 06/16/18 04:15 Lymph % (Auto) 10.8 % (20.0-40.0) L 06/16/18 04:15 [place] % (Auto) 2.3 % (0.0-10.0) 06/16/18 04:15 Eos % (Auto) 0.0 % (0.0-4.0) 06/16/18 04:15 Baso % (Auto) 0.5 % (0.0-2.0) 06/16/18 04:15 Neut # (Auto) 8.2 K/uL (1.8-7.0) H 06/16/18 04:15 Lymph # (Auto) 1.0 K/uL (1.0-4.3) 06/16/18 04:15 [place] # (Auto) 0.2 K/uL (0.0-0.8) 06/16/18 04:15 Eos # (Auto) 0.0 K/uL (0.0-0.7) 06/16/18 04:15 Baso # (Auto) 0.0 K/uL (0.0-0.2) 06/16/18 04:15 PT 12.8 Seconds (9.8-13.1) 06/15/18 14:22 INR 1.2 06/15/18 14:22 APTT 51.2 Seconds (25.6-37.1) H 06/15/18 14:22 pO2 43 mm/Hg (30-55) 06/15/18 14:15 VBG pH 7.39 (7.32-7.43) 06/15/18 14:15 VBG pCO2 46 mmHg (40-60) 06/15/18 14:15 VBG HCO3 26.1 mmol/L 06/15/18 14:15 VBG Total CO2 29.2 mmol/L (22-28) H 06/15/18 14:15 VBG O2 Sat (Calc) 84.8 % (40-65) H 06/15/18 14:15 VBG Base Excess 2.2 mmol/L (0.0-2.0) H 06/15/18 14:15 VBG Potassium 3.6 mmol/L (3.6-5.2) 06/15/18 14:15 Sodium 139.0 mmol/L (132-148) 06/15/18 14:15 Chloride 105.0 mmol/L (98-107) 06/15/18 14:15 Glucose 138 mg/dL (65-105) H 06/15/18 14:15 Lactate 1.7 mmol/L (0.7-2.1) 06/15/18 14:15 FiO2 21.0 % 06/15/18 14:15 Sodium 137 mmol/l (132-148) 06/19/18 05:45 Potassium 4.6 MMOL/L (3.6-5.0) 06/19/18 05:45 Chloride 102 mmol/L (98-107) 06/19/18 05:45 Carbon Dioxide 27 mmol/L (22-30) 06/19/18 05:45 Anion Gap 13 (10-20) 06/19/18 05:45 BUN 38 mg/dl (7-17) H 06/19/18 05:45 Creatinine 1.0 mg/dl (0.7-1.2) 06/19/18 05:45 Est GFR ( Amer) > 60 06/19/18 05:45 Est GFR (Non-Af Amer) 54 06/19/18 05:45 Random Glucose 348 mg/dL (65-105) H 06/19/18 05:45 Calcium 8.8 mg/dL (8.4-10.2) 06/19/18 05:45 Total Bilirubin 0.4 mg/dl (0.2-1.3) 06/15/18 14:22 AST 26 U/L (14-36) 06/15/18 14:22 ALT 30 U/L (9-52) 06/15/18 14:22 Alkaline Phosphatase 79 U/L (38-126) 06/15/18 14:22 Troponin I 0.0430 ng/mL (0.00-0.120) 06/15/18 14:22 NT-Pro-B Natriuret Pep 2750 pg/ml (0-900) H 06/16/18 04:15 Total Protein 7.2 G/DL (6.3-8.2) 06/15/18 14:22 Albumin 4.0 g/dL (3.5-5.0) 06/15/18 14:22 Globulin 3.1 gm/dL (2.2-3.9) 06/15/18 14:22 Albumin/Globulin Ratio 1.3 (1.0-2.1) 06/15/18 14:22 Thyroxine (T4) 3.79 ug/dl (5.5-11.0) L 06/19/18 05:45 TSH 3rd Generation 0.71 mIU/ML (0.46-4.68) 06/19/18 05:45 Venous Blood Potassium 3.6 mmol/L (3.6-5.2) 06/15/18 14:15 - Hospital Course Hospital Course: FEELS BETTER REFUSES FURTHER HOSPITALIZATION Discharge Exam - Head Exam Head Exam: ATRAUMATIC, NORMAL INSPECTION, NORMOCEPHALIC - Eye Exam Eye Exam: EOMI, Normal appearance, PERRL Pupil Exam: NORMAL ACCOMODATION, PERRL - Respiratory Exam Respiratory Exam: Prolonged Expiratory Phase, Rales - GI/Abdominal Exam GI & Abdominal Exam: Normal Bowel Sounds - Rectal Exam Rectal Exam: NORMAL INSPECTION - Neurological Exam Neurological exam: Alert, CN II-XII Intact, Normal Gait, Oriented x3, Reflexes Normal - Psychiatric Exam Psychiatric exam: Normal Affect, Normal Mood - Skin Skin Exam: Dry, Intact, Normal Color, Warm Discharge Plan - Follow Up Plan Condition: FAIR Disposition: HOME/ ROUTINE Patient education suggested?: Yes Additional Instructions: DISCHARGE TODAY FOLLOW UP WITH DR MIN IN 1 WEEK
[2018-06-25 16:06] VITALS: O2SAT 97
--- NOTE | 2018-06-30 18:43 | PQF ---
PROVIDER RESPONSE TEXT: Patient has acute on chronic systolic dysfunction. REVIEWER QUERY TEXT: Cardiomyopathy Type Cardiomyopathy is documented in the Medical Record. Please specify the type Such as: -- Alcoholic -- Congestive -- Constrictive -- Dilated -- Hypertensive -- Ischemic -- Obstructive Hypertrophic - IHSS -- Other Hypertrophic -- Other, please specify The patient's Clinical Indicators include: Patient with a history of COPD and CHF is admitted with SOB and a productive cough. CXR: No active disease Medication: Lasix IV, Coreg Query created by: Chey Isbell on 06/17/2018 7:44 AM Electronically signed by: Gillian Patel MD 06/30/2018 6:40 PM
--- NOTE | 2018-06-30 18:43 | PQF ---
PROVIDER RESPONSE TEXT: Patient had aberrant atrial fibrillation, not ventricular tachycardia REVIEWER QUERY TEXT: Tachycardia Specificity V Tach is noted in the Medical Record by the RN on 06/17/18: RN PN: Patient had run of v-tach, asymptomatic, Dr. Patel made aware of Telemetry rhythm, order ob tained to increase coreg dose to 25mg q12. Please specify the type in your progress notes Such as: -- Paroxysmal -- Re-entrant ventricular tachycardia -- Sinus -- Supraventricular tachycardia (atrial, atrioventricular, atrioventricular re-entrant, junctional, n odal) -- Ventricular tachycardia -- Other, please specify The patient's Clinical Indicators include: Patient with a history of COPD, CHF and Cardiac Arrhythmias is admitted with Acute exacerbation of CO PD. V Tach is noted in the Medical Record by the RN on 06/17/18: RN PN: "Patient had run of v-tach, asymptomatic, Dr. Patel made aware of Telemetry rhythm, order o btained to increase coreg dose to 25mg q12." Query created by: Chey Isbell on 06/19/2018 10:35 AM Electronically signed by: Gillian Patel MD 06/30/2018 6:40 PM
--- NOTE | 2018-06-30 18:43 | PQF ---
PROVIDER RESPONSE TEXT: Acute on chronic systolic dysfunction REVIEWER QUERY TEXT: CHF Acuity and Type Congestive Heart Failure is documented in the Medical Record. Please document the type and acuity (in cludes probable or suspected) Such as: Type: -- Systolic -- Diastolic -- Combined -- Other, please specify Acuity: -- Acute -- Chronic -- Acute on chronic -- Other, please specify Also please document the underlying cause of the CHF (includes probable or suspected) The patient's Clinical Indicators include: Patient with a history of CHF is admitted for a COPD exacerbation. BNP elevated at 2050, 2750 CXR: No active disease ECHO from 04/23/2017: EF 30-35%, Abnormal relaxation pattern, MR Rx: Lasix IV, Coreg Query created by: Chey Isbell on 06/17/2018 7:47 AM Electronically signed by: Gillian Patel MD 06/30/2018 6:40 PM
== END 2018-06-19 14:48 | disposition home health service (06) | DRG 190 ==
LOC: H.ER 12:23 → H.ERHOLD 16:51 → H.TEL 21:46
PROVIDERS: ADMIT Internal Medicine Pulmonary Disease; ATTEND Internal Medicine Pulmonary Disease
DX: J44.1 Chronic obstructive pulmonary disease with (acute) exacerbation (principal); I50.23 Acute on chronic systolic (congestive) heart failure; Z68.43 Body mass index [BMI] 50.0-59.9, adult; I42.9 Cardiomyopathy, unspecified; E66.09 Other obesity due to excess calories; I48.0 Paroxysmal atrial fibrillation; I11.0 Hypertensive heart disease with heart failure; I25.10 Atherosclerotic heart disease of native coronary artery without angina pectoris; I48.2 Chronic atrial fibrillation; E78.5 Hyperlipidemia, unspecified; E78.00 Pure hypercholesterolemia, unspecified; M19.042 Primary osteoarthritis, left hand; G89.29 Other chronic pain; M25.532 Pain in left wrist; M81.0 Age-related osteoporosis without current pathological fracture; F41.9 Anxiety disorder, unspecified; Z91.19 Patient's noncompliance with other medical treatment and regimen; Z95.810 Presence of automatic (implantable) cardiac defibrillator; Z95.5 Presence of coronary angioplasty implant and graft; Z79.01 Long term (current) use of anticoagulants; Z79.02 Long term (current) use of antithrombotics/antiplatelets; Z79.82 Long term (current) use of aspirin; Z87.01 Personal history of pneumonia (recurrent); Z87.81 Personal history of (healed) traumatic fracture; Z90.49 Acquired absence of other specified parts of digestive tract

== ENCOUNTER 2019-01-03 15:27 | Inpatient (IN) | payer MEDICARE ==
[2019-01-03 15:27] VITALS: BMI 37.3
[2019-01-03 16:34] LABS: BASO # 0.1 K/uL (0.0-0.2); EOS % 7.5 % (0.0-4.0); HEMOGLOBIN 16.2 g/dL (12.0-16.0); LYMPH # 2.4 K/uL (1.0-4.3); LYMPH % 18.6 % (20.0-40.0); MEAN CELL VOLUME 89.8 fl (81.0-99.0); MEAN CORPUSCULAR HEMOGLOBIN 29.7 pg (27.0-31.0); MEAN CORPUSCULAR HGB CONC 33.1 g/dL (33.0-37.0); MEAN PLATELET VOLUME 8.8 fl (7.2-11.7); MONO % 7.6 % (0.0-10.0); NEUT # 8.5 K/uL (1.8-7.0); NEUT % 65.3 % (50.0-75.0); NRBC % 0.2 % (0.0-0.0); RBC 5.46 Mil/uL (3.80-5.20); RED CELL DISTRIBUTION WIDTH 14.8 % (11.5-14.5); WHITE BLOOD COUNT 13.1 K/uL (4.8-10.8)
--- NOTE | 2019-01-03 16:35 | ED PDOC ---
HPI: SOB/CHF/COPD Time Seen by Provider: 01/03/19 15:51 Chief Complaint (Nursing): Shortness Of Breath Chief Complaint (Provider): Shortness Of Breath History Per: Patient History/Exam Limitations: no limitations Onset/Duration Of Symptoms: Days Current Symptoms Are (Timing): Still Present Additional Complaint(s): 73 y/o female with a PMHx of COPD, CAD, cardiomyopathy and proximal Atrial Fibrillation presents to the ED for evaluation of a persistent cough that has be en worsening over the last several weeks. Patient reports of having completed a course of steroid several weeks ago that had improved her shortness of breath. However, cough had persisted. Patient notes of being started on an unknown cough medicine that she believes has worsened her cough. Otherwise, patient denies hemoptysis, unintentional weight loss or edema, vomiting and diarrhea. Patient additionally complains of chest wall discomfort when she coughs. Patient notes of being on as needed home oxygen that has been increasing in requirement recently. Patient is an active smoker. PMD: Da Jason I. Past Medical History Reviewed: Historical Data, Nursing Documentation, Vital Signs Vital Signs: Last Vital Signs Temp 98.9 F 01/03/19 15:32 Pulse 93 H 01/03/19 15:32 Resp 22 01/03/19 15:32 BP 142/89 01/03/19 15:32 Pulse Ox 95 01/03/19 15:32 - Medical History PMH: Anxiety, Asthma, Atrial Fibrillation, CAD, Cardia Arrhythmia, CHF, COPD, Emphysema, HTN, Hypercholesterolemia, Peripheral Edema, Pneumonia Denies: HIV, Chronic Kidney Disease - Surgical History Surgical History: Appendectomy, Cholecystectomy, Coronary Stent, Pacemaker - Family History Family History: States: Unknown Family Hx - Social History Current smoker - smoking cessation education provided: Yes - Home Medications Home Medications: Ambulatory Orders Medication Instructions Recorded Aspirin [Ecotrin] 81 mg PO DAILY 01/15/18 Dabigatran [Pradaxa] 75 mg PO Q12 01/15/18 Furosemide [Lasix] 40 mg PO DAILY 01/15/18 Albuterol/Ipratropium [Duoneb 3 3 ml INH RQ6 #100 neb 06/19/18 mg/0.5 mg (3 ml) UD] Albuterol Sulfate [Proair Hfa] 0.09 mg IH PRN PRN 04/28/19 Carvedilol [Coreg] 6.25 mg PO Q12 01/03/19 Sacubitril/Valsartan [Entresto 24 1 each PO BID 01/03/19 mg-26 mg Tablet] - Allergies Allergies/Adverse Reactions: Allergies Allergy/AdvReac Type Severity Reaction Status Date / Time No Known Allergies Allergy Verified 03/06/18 11:05 Review of Systems ROS Statement: Except As Marked, All Systems Reviewed And Found Negative Constitutional: Positive for: Weakness. Negative for: Weight loss Cardiovascular: Positive for: Chest Pain (chest wall pain) Respiratory: Positive for: Cough, Other (dyspnea). Negative for: Hemoptysis Gastrointestinal: Negative for: Vomiting, Diarrhea Physical Exam - Reviewed Nursing Documentation Reviewed: Yes Vital Signs Reviewed: Yes - Physical Exam Appears: Positive for: Uncomfortable Head Exam: Positive for: ATRAUMATIC Skin: Positive for: Normal Color, Warm, Dry Eye Exam: Positive for: Normal appearance Neck: Positive for: Normal Cardiovascular/Chest: Negative for: Bradycardia, Tachycardia Respiratory: Positive for: Decreased Breath Sounds (Mild Dyspnea. Diminished breath sounds bilaterally) Extremity: Negative for: Pedal Edema, Swelling Neurological/Psych: Positive for: Awake, Alert, Oriented (x3), Other (mental status intact) - Laboratory Results Result Diagrams: 01/03/19 04:20 01/03/19 14:35 - ECG ECG Rhythm: Positive for: Sinus Rhythm Interpretation Of Abn EKG: Normal sinus rhythm with frequent PACs and lateral ST changes similar to previous EKG. O2 Sat by Pulse Oximetry: 95 (RA) Pulse Ox Interpretation: Normal Medical Decision Making Medical Decision Making: Time: 1559 A/P: Patient with COPD exacerbation -- Will give SOLU-Medrol -- Will obtain CXR and blood work -- EKG -- EKG -- B-Type Natriuretic Peptide -- CMP -- Troponin I -- CBC with Differentials -- CXR Two Views -- SOLU-Medrol 125 mg IVP -- Duoneb labs reviewed reveal mild leukocytosis chem unremarkble mild elev BNP but no pulm edema noted on CXR BP only mildly elevated SOB likely respiratory related, not acute CHF off oxygen, SPO2 drops to 90% and HR elevates to 115bpm patient failed outpatient therapy given already completed course prednisone and albuterol d/w PMD/pulm Dr Jason, recommends admission tele Scribe Attestation: Documented by Krista Mcgarry, acting as a scribe for Arya Morelos III, DO. Provider Scribe Attestation: All medical record entries made by the Scribe were at my direction and personally dictated by me. I have reviewed the chart and agree that the record accurately reflects my personal performance of the history, physical exam, medical decision making, and the department course for this patient. I have also personally directed, reviewed, and agree with the discharge instructions and disposition. Disposition - Clinical Impression Clinical Impression: Respiratory distress, COPD exacerbation - Patient ED Disposition Is Patient to be Admitted: Yes - Disposition Disposition Time: 17:45 Condition: FAIR - Pt Status Changed To: Hospital Disposition Of: Inpatient - Admit Certification Admit to Inpatient:: After my assessment, the patient will require hospitalization for at least two midnights. This is because of the severity of symptoms shown, intensity of services needed, and/or the medical risk in this patient being treated as an outpatient.
[2019-01-03 17:15] LABS: ALB/GLOB RATIO 1.3 (1.0-2.1); ALBUMIN 4.3 g/dL (3.5-5.0); ALT/SGPT 32 U/L (9-52); AST/SGOT 20 U/L (14-36); BLOOD UREA NITROGEN 24 mg/dl (7-17); CALCIUM 9.1 mg/dL (8.4-10.2); GFR NON-AFRICAN AMERICAN 54
[2019-01-03 17:27] LABS: B-TYPE NATRIURETIC PEPTIDE 2260 pg/ml (0-900)
[2019-01-03] MEDS ORDERED: Albuterol-Ipratrop 3 mg / 0.5 (3 ml) UD ONE (17:55)
[2019-01-03] MEDS ORDERED: Albuterol-Ipratrop 3 mg / 0.5 (3 ml) UD INH STA (17:55)
--- NOTE | 2019-01-03 17:57 | RAD ---
Date of service: 01/03/2019 HISTORY: Chest pain; rule out infiltrate. COMPARISON: Comparison chest 06/15/2018 TECHNIQUE: Chest PA and lateral views FINDINGS: LUNGS: Minor bibasilar atelectasis or scarring PLEURA: No significant pleural effusion identified. No pneumothorax apparent. CARDIOVASCULAR: Aortic atherosclerotic calcification present. Heart is mildly enlarged. No change bipolar pacemaker/defibrillator.. No pulmonary vascular congestion. OSSEOUS STRUCTURES: Minor multilevel degenerative spondylosis of the thoracic spine.. There is a mild levoscoliosis centered in the lower thoracic region. VISUALIZED UPPER ABDOMEN: Normal. OTHER FINDINGS: None. IMPRESSION: Minor bibasilar atelectasis and or scarring suspect minimal biapical pleural thickening.
[2019-01-03] MEDS ORDERED: Promethazine DM 12.5 mg-30 mg/10 ml Syrup PO PRN (22:34)
[2019-01-04] MEDS ORDERED: methylPREDNISolone 80 MG in Sodium Chloride 0.9% 50 ML IVPB SCH (01:00)
[2019-01-04] MEDS: Albuterol-Ipratrop 3 mg / 0.5 (3 ml) UD INH SCH ×4 (01:05→19:11)
[2019-01-04] MEDS: Azithromycin 500 MG in Sodium Chloride 0.9% 250 ML IVPB SCH (08:52)
[2019-01-04] MEDS ORDERED: SACUBITRIL PO SCH (09:00)
[2019-01-04] MEDS ORDERED: VALSARTAN PO SCH (09:00)
[2019-01-04] MEDS ORDERED: Promethazine 12.5 mg/10 ml Syrup PO PRN (09:15)
--- NOTE | 2019-01-04 10:25 | CARD ---
APPROVED REPORT Date of service: 01/03/2019 EKG Measurement Heart [id number] <Conclusion> Sinus rhythm with frequent and consecutive premature ventricular complexes Nonspecific intraventricular block Cannot rule out Septal infarct, age undetermined T wave abnormality, consider lateral ischemia Abnormal ECG
--- NOTE | 2019-01-04 20:20 | HP ---
HISTORY OF PRESENT ILLNESS: The patient is a 73-year-old female who was admitted via the emergency room because of progressively worsening shortness of breath, exercise intolerance, chest tightness, and cough for the past several weeks prior to presentation. She was originally seen in the office almost a month ago and advised admission for acute exacerbation of chronic obstructive pulmonary disease, but refused. She got back to smoking cigarettes despite having home oxygen and symptoms worsened. She therefore sought help in the emergency room and was advised workup and therapy. PAST MEDICAL HISTORY: She has a past medical history of chronic obstructive pulmonary disease and chronic atrial fibrillation. She is status post pacemaker placement. She also has coronary artery disease and hypertension and anxiety disorder. FAMILY HISTORY: Nonrevealing. SOCIAL HISTORY: She continues to smoke cigarettes one to two packs a day. Does not use alcohol. Does not use drugs. Lives at home with her family. REVIEW OF SYSTEMS: Remarkable for shortness of breath and chest tightness. PHYSICAL EXAMINATION: GENERAL: The patient is alert and oriented, appears to be in some distress because of shortness of breath. VITAL SIGNS: Blood pressure 151/85, pulse of 82, respiratory rate 18-20 per minute. She is febrile. O2 sat is 92% on nasal cannula oxygen. SKIN: Shows fair turgor. HEENT: Pupils are equal and reactive to light and accommodation. Mouth shows poor hygiene with mucus engorgement of pharynx. NECK: JVP is flat. LUNGS: Poor aeration bilaterally with wheezing and rales. Scattered both lung blum. HEART: Regular with frequent extrasystoles. There is a pacemaker in place. ABDOMEN: Soft, nontender. No organomegaly. EXTREMITIES: Show no edema or cyanosis. GENITALIA AND RECTAL: Deferred. CENTRAL NERVOUS SYSTEM: Grossly intact. LABORATORY DATA: WBC 13.1, hemoglobin 16.2, platelet count 192,000. Sodium 138, potassium 4, BUN of 24, creatinine 1. ProBNP 2260 and troponin 0.028. EKG is remarkable for sinus rhythm with frequent PVCs and nonspecific intraventricular block; cannot rule out septal infarct, age undetermined, and T-wave abnormality noted. Chest x-ray; mild bibasilar atelectasis, suspect minimal biapical pleural thickening. IMPRESSION: Acute exacerbation of chronic obstructive pulmonary disease, history of coronary artery disease, history of cardiac arrhythmias (atrial fib, noncompliance with therapy) upper respiratory tract infection, history of hypertension, and history of anxiety. PLAN: Aerosolized bronchodilators, oxygen, IV steroids, and IV antibiotics. We will continue therapy as ordered. Advised smoking cessation. The patient advised to go to transitional care once more clinically stable for probable physical therapy and IV antibiotics. Da Jason MD
[2019-01-05] MEDS: Albuterol-Ipratrop 3 mg / 0.5 (3 ml) UD INH SCH ×4 (01:36→19:36)
--- NOTE | 2019-01-05 08:10 | CP.PCM.PN ---
Subjective - Date & Time of Evaluation Date of Evaluation: 01/05/19 Time of Evaluation: 08:10 - Subjective Subjective: SOB IMPROVING DENIES CHEST PAINS COUGH LESS Objective - Vital Signs/Intake and Output Vital Signs (last 24 hours): Temp Pulse Resp BP Pulse Ox 97.9 F 68 20 106/66 96 01/05/19 04:54 01/05/19 04:54 01/05/19 04:54 01/05/19 04:54 01/05/19 04:54 - Medications Medications: Current Medications Albuterol/Ipratropium (Duoneb 3 Mg/0.5 Mg (3 Ml) Ud) 3 ml INH RQ6 [facility] Last Admin: 01/05/19 07:57 Dose: 3 ml Aspirin (Ecotrin) 81 mg PO DAILY [facility] Last Admin: 01/04/19 08:49 Dose: 81 mg Carvedilol (Coreg) 6.25 mg PO Q12 [facility] Last Admin: 01/04/19 21:17 Dose: 6.25 mg Dabigatran (Pradaxa) 75 mg PO Q12 [facility]; Protocol Last Admin: 01/04/19 21:17 Dose: 75 mg Furosemide (Lasix) 40 mg IVP DAILY [facility] Last Admin: 01/04/19 08:49 Dose: 40 mg Azithromycin 500 mg/ Sodium (Chloride) 250 mls @ 250 mls/hr IVPB DAILY [facility]; Protocol Last Admin: 01/04/19 08:52 Dose: 250 mls/hr Methylprednisolone (Solu-Medrol) 80 mg IV Q8 [facility] Last Admin: 01/05/19 01:09 Dose: 80 mg Promethazine HCl (Phenergan Syrup) 12.5 mg PO Q6 PRN PRN Reason: Cough - Labs Labs: 01/03/19 04:20 01/03/19 14:35 - Constitutional Appears: No Acute Distress - Head Exam Head Exam: ATRAUMATIC, NORMAL INSPECTION, NORMOCEPHALIC - Eye Exam Eye Exam: EOMI, Normal appearance, PERRL Pupil Exam: NORMAL ACCOMODATION, PERRL - ENT Exam ENT Exam: Mucous Membranes Moist, Normal Exam - Neck Exam Neck Exam: Full ROM, Normal Inspection. absent: Lymphadenopathy - Respiratory Exam Respiratory Exam: Decreased Breath Sounds, Prolonged Expiratory Phase, Rales, Wheezes, NORMAL BREATHING PATTERN - Cardiovascular Exam Cardiovascular Exam: REGULAR RHYTHM, +S1, +S2. absent: Murmur - GI/Abdominal Exam GI & Abdominal Exam: Soft, Normal Bowel Sounds. absent: Tenderness - Rectal Exam Rectal Exam: NORMAL INSPECTION - Extremities Exam Extremities Exam: Full ROM, Normal Capillary Refill, Normal Inspection. absent: Joint Swelling, Pedal Edema - Back Exam Back Exam: NORMAL INSPECTION - Neurological Exam Neurological Exam: Alert, Awake, CN II-XII Intact, Normal Gait, Oriented x3 - Psychiatric Exam Psychiatric exam: Normal Affect, Normal Mood - Skin Skin Exam: Dry, Intact, Normal Color, Warm Assessment and Plan - Assessment and Plan (Free Text) Assessment: ACUTE EXAC OF COPD ASHD HTN ARRYTHMIAS POOR COMPLIANCE TO RX URI Plan: CONTINUE CURRENT RX FOR POSSIBLE TRANSFER TO TCU IN AM--NEEDS FURTHER IV ANTIBIOTIC AND STEROID RX
[2019-01-05] MEDS: Azithromycin 500 MG in Sodium Chloride 0.9% 250 ML IVPB SCH (09:07)
[2019-01-05] MEDS ORDERED: guaiFENesin 200 mg/10 ml Syrup UD PO PRN (14:46)
[2019-01-06] MEDS: Albuterol-Ipratrop 3 mg / 0.5 (3 ml) UD INH SCH ×3 (01:00→13:04)
[2019-01-06 08:08] VITALS: RESP 18
--- NOTE | 2019-01-06 08:39 | CP.PCM.DIS ---
Provider - Provider Date of Admission: 01/03/19 17:56 Attending physician: Da Jason MD Consults: 01/05/19 08:06 Social Work Referral Routine Comment: IV ANTIBIOTICS AND STEROIDS Physician Instructions: Reason For Exam: TRANSITIONAL CARE TRANSFER Time Spent in preparation of Discharge (in minutes): 35 Diagnosis - Discharge Diagnosis (1) COPD exacerbation Status: Acute Priority: High Comment: STILL DYSPNEIC AT REST AND ON MILD EXERTION (2) Respiratory distress Status: Acute Priority: High (3) CAD (coronary artery disease) Status: Chronic Priority: Medium Comment: EKG REMARKABLE FOR PAROXYSMAL ATRIAL FIB. NO CHEST PAINS OR PALPITATIONS (4) COPD exacerbation Status: Acute Priority: High (5) Cardiac arrhythmia Status: Chronic Priority: Medium (6) Cardiomyopathy Status: Chronic Priority: Medium Comment: S/P PACEMAKER PLACEMENT. CLINICALLY CONTROLLED ON MEDS (7) Chronic atrial fibrillation Status: Acute (8) HTN (hypertension) Status: Chronic Priority: Low (9) Hypertension Status: Acute (10) Non-compliance Status: Acute Priority: High Comment: ADVISED COMPLIANCE TO RX. SMOKING CAESATION ADVISED (11) Paroxysmal atrial fibrillation Status: Chronic Priority: Medium Comment: CONTROLLED ON MEDS (12) Upper respiratory infection Status: Acute Priority: Medium Comment: ON IV ANTIBIOTIC RX Hospital Course - Lab Results Lab Results: Micro Results 01/04/19 05:05 Blood Blood Culture - Preliminary NO GROWTH AFTER 48 HOURS 01/04/19 05:10 Blood Blood Culture - Preliminary NO GROWTH AFTER 48 HOURS Most Recent Lab Values WBC 13.1 K/uL (4.8-10.8) H 01/03/19 04:20 RBC 5.46 Mil/uL (3.80-5.20) H 01/03/19 04:20 Hgb 16.2 g/dL (12.0-16.0) H 01/03/19 04:20 Hct 49.0 % (34.0-47.0) H 01/03/19 04:20 MCV 89.8 fl (81.0-99.0) 01/03/19 04:20 MCH 29.7 pg (27.0-31.0) 01/03/19 04:20 MCHC 33.1 g/dL (33.0-37.0) 01/03/19 04:20 RDW 14.8 % (11.5-14.5) H 01/03/19 04:20 Plt Count 192 K/uL (130-400) 01/03/19 04:20 MPV 8.8 fl (7.2-11.7) 01/03/19 04:20 Neut % (Auto) 65.3 % (50.0-75.0) 01/03/19 04:20 Lymph % (Auto) 18.6 % (20.0-40.0) L 01/03/19 04:20 Garfield % (Auto) 7.6 % (0.0-10.0) 01/03/19 04:20 Eos % (Auto) 7.5 % (0.0-4.0) H 01/03/19 04:20 Baso % (Auto) 1.0 % (0.0-2.0) 01/03/19 04:20 Neut # (Auto) 8.5 K/uL (1.8-7.0) H 01/03/19 04:20 Lymph # (Auto) 2.4 K/uL (1.0-4.3) 01/03/19 04:20 Garfield # (Auto) 1.0 K/uL (0.0-0.8) H 01/03/19 04:20 Eos # (Auto) 1.0 K/uL (0.0-0.7) H 01/03/19 04:20 Baso # (Auto) 0.1 K/uL (0.0-0.2) 01/03/19 04:20 Sodium 138 mmol/l (132-148) 01/03/19 14:35 Potassium 4.0 MMOL/L (3.6-5.0) 01/03/19 14:35 Chloride 104 mmol/L (98-107) 01/03/19 14:35 Carbon Dioxide 27 mmol/L (22-30) 01/03/19 14:35 Anion Gap 11 (10-20) 01/03/19 14:35 BUN 24 mg/dl (7-17) H 01/03/19 14:35 Creatinine 1.0 mg/dl (0.7-1.2) 01/03/19 14:35 Est GFR ( Amer) > 60 01/03/19 14:35 Est GFR (Non-Af Amer) 54 01/03/19 14:35 Random Glucose 177 mg/dL (65-105) H 01/03/19 14:35 Calcium 9.1 mg/dL (8.4-10.2) 01/03/19 14:35 Total Bilirubin 0.6 mg/dl (0.2-1.3) 01/03/19 14:35 AST 20 U/L (14-36) 01/03/19 14:35 ALT 32 U/L (9-52) 01/03/19 14:35 Alkaline Phosphatase 84 U/L (38-126) 01/03/19 14:35 Troponin I 0.0280 ng/mL (0.00-0.120) 01/04/19 06:20 NT-Pro-B Natriuret Pep 2260 pg/ml (0-900) H 01/03/19 14:35 Total Protein 7.5 G/DL (6.3-8.2) 01/03/19 14:35 Albumin 4.3 g/dL (3.5-5.0) 01/03/19 14:35 Globulin 3.2 gm/dL (2.2-3.9) 01/03/19 14:35 Albumin/Globulin Ratio 1.3 (1.0-2.1) 01/03/19 14:35 - Hospital Course Hospital Course: 73 YR OLD FEMALE ADMITTED WITH COPD EXACERBATION AND POOR COMPLIANCE TO THERAPY.SHE CONYINUES TO SMOKE CIGARETTES DESPITE BEING ON HOME OXYGEN.SHORTNESS OF BREATH AND COUGH HAS CLINICALLY IMPROVED ON IV ANTIBIOTICS,O2 AND BRONC HODILATORS.SHE WILL STILL NEED IV ANTIBIOTICS AND STEROIDS X 1 MORE WEEK.WILL BENEFIT FROM TRANSFER FROM TRANSFER TO TRANSITIONAL CARE. Discharge Exam - Head Exam Head Exam: ATRAUMATIC, NORMAL INSPECTION, NORMOCEPHALIC Discharge Plan - Follow Up Plan Condition: FAIR Disposition: HOME/ ROUTINE
[2019-01-06] MEDS ORDERED: Azithromycin 500 MG in Sodium Chloride 0.9% 250 ML IVPB SCH (09:45)
[2019-01-06 11:59] VITALS: O2SAT 95
[2019-01-06 15:50] VITALS: BP 116/52; PULSE 74; TEMP 97.7
--- NOTE | 2019-01-09 09:36 | PQF ---
PROVIDER RESPONSE TEXT: CONGESTIVE CARDIOMYOPATHY--SYSTOLIC AND DIASTOLIC DYSFUNCTION REVIEWER QUERY TEXT: Cardiomyopathy Type Physician?s Documentation Request This Form is Not a Permanent Document in the Medical Record Pt Name: PINO CHINO MR #: [id number] Payor: MEDICARE PART A Unit/Bed: H.TEL-H410-1 Adm Date: 01/03/2019 5:56:00 PM Reviewer: Shalonda Schofield Ext. Query Date: 01/05/2019 11:11:01 AM Cardiomyopathy Type [id number] By submitting this query, we are merely seeking further clarification of documentation to accurately reflect all conditions that you are monitoring, evaluating, treating or that extend the hospitalizati on or utilize additional resources of care. Please utilize your independent clinical judgment when ad dressing the question(s) below. Dear Doctor Da Jason, The patient?s Clinical Indicators include: -- Cardiomyopathy is documented in the Medical Record. Please specify the type if known: Such as: -- Alcoholic -- Congestive -- Constrictive -- Dilated -- Hypertensive -- Ischemic -- Obstructive Hypertrophic - IHSS -- Other Hypertrophic -- Other, please specify ER note includes: Hx. of cardiomyopathy PLEASE DOCUMENT ANY ADDITIONAL DIAGNOSES AND/OR SPECIFICITY IN THE PROGRESS NOTES AND/OR DISCHARGE BUTTS MMARY. Clinically unable to determine/unknown Disagree with the above request Need to discuss Query created by: Shalonda Schofield on 01/05/2019 11:11 AM Electronically signed by: Da Jason MD 01/09/2019 9:33 AM
--- NOTE | 2019-01-09 09:36 | PQF ---
PROVIDER RESPONSE TEXT: ACUTE EXACERBATION OF COPD DUE TO UPPER RESPIRATORY INFECTION AND POOR COMPLIANCE WITH THERAPY REVIEWER QUERY TEXT: Conflicting Documentation Clarification Physician?s Documentation Request This Form is Not a Permanent Document in the Medical Record Pt Name: PINO CHINO MR #: [id number] Payor: MEDICARE PART A Unit/Bed: H.TEL-H410-1 Adm Date: 01/03/2019 5:56:00 PM Reviewer: Shalonda Schofield Ext. Query Date: 01/05/2019 10:47:00 AM Conflicting Documentation Clarification [id number] By submitting this query, we are merely seeking further clarification of documentation to accurately reflect all conditions that you are monitoring, evaluating, treating or that extend the hospitalizati on or utilize additional resources of care. Please utilize your independent clinical judgment when ad dressing the question(s) below. Dear Doctor aD Jason, The patient?s Clinical Indicators include: -- A single mention of Emphysema is documented in the ER record and then the diagnosis is dropped, Plea se also document if the condition is: -- Confirmed and current -- Confirmed, treated and resolved -- Ruled out -- Other, please specify ER note includes: PMH: Emphysema, COPD H and P includes: Impression: COPD Exacerbation PLEASE DOCUMENT ANY ADDITIONAL DIAGNOSES AND/OR SPECIFICITY IN THE PROGRESS NOTES AND/OR DISCHARGE BUTTS MMARY. Clinically unable to determine/unknown Disagree with the above request Need to discuss Query created by: Shalonda Schofield on 01/05/2019 10:47 AM Electronically signed by: Da Jason MD 01/09/2019 9:33 AM
--- NOTE | 2019-01-15 13:46 | PQF ---
PROVIDER RESPONSE TEXT: Cghronic congestive heart failure--diastolic and systolic dysfunction REVIEWER QUERY TEXT: CHF Acuity and Type Congestive Heart Failure is documented in the Medical Record. Please document the type and acuity (in cludes probable or suspected) Such as: Type: -- Systolic -- Diastolic -- Combined -- Other, please specify Acuity: -- Acute -- Chronic -- Acute on chronic -- Other, please specify A hx. of Congestive Heart Failure is documented in the ER record. Please document the type and acuity (includes probable or suspected) versus No CHF: hx. only and not a chronic condition etc. Type: -- Systolic -- Diastolic -- Combined -- Other, please specify Acuity: -- Acute -- Chronic -- Acute on chronic -- Other, please specify ProBNP:[id number] 01/03 CXR; Minor bibasilar atelectasis and or scarring suspect minimal biapical pleural thickening. ER: ROS:Respiratory exam: Positive for: Cough, Other (dyspnea). PE:Respiratory: Positive for: Decreased Breath Sounds (Mild Dyspnea. 01/05 Attending; Exam: Decreased Breath Sounds, Prolonged Expiratory Phase, Rales, Wheezing, Normal br eathing pattern -lasix iv daily, coreg The patient's Clinical Indicators include: -- Query created by: Shalonda Schofield on 01/12/2019 8:23 AM Electronically signed by: Da Jason MD 01/15/2019 1:43 PM
== END 2019-01-06 16:40 | DRG 191 ==
LOC: H.ER 15:27 → H.ERHOLD 17:56 → H.TEL 21:10
PROVIDERS: ADMIT Internal Medicine Pulmonary Disease; ATTEND Internal Medicine Pulmonary Disease
DX: J44.1 Chronic obstructive pulmonary disease with (acute) exacerbation (principal); I50.42 Chronic combined systolic (congestive) and diastolic (congestive) heart failure; I42.0 Dilated cardiomyopathy; I48.2 Chronic atrial fibrillation; I48.0 Paroxysmal atrial fibrillation; J06.9 Acute upper respiratory infection, unspecified; Z91.19 Patient's noncompliance with other medical treatment and regimen; Z95.0 Presence of cardiac pacemaker; Z99.81 Dependence on supplemental oxygen; F17.210 Nicotine dependence, cigarettes, uncomplicated; E78.00 Pure hypercholesterolemia, unspecified; I25.10 Atherosclerotic heart disease of native coronary artery without angina pectoris; Z95.5 Presence of coronary angioplasty implant and graft; I11.0 Hypertensive heart disease with heart failure; Z79.82 Long term (current) use of aspirin; F41.9 Anxiety disorder, unspecified

== ENCOUNTER 2019-01-06 11:25 | Inpatient (IN) | payer OTHER, MEDICARE ==
[2019-01-06 16:59] VITALS: BMI 38.2
[2019-01-06] MEDS ORDERED: guaiFENesin 200 mg/10 ml Syrup UD PO PRN (17:08)
[2019-01-06] MEDS ORDERED: Promethazine 12.5 mg/10 ml Syrup PO PRN (17:12)
[2019-01-06] MEDS: Albuterol-Ipratrop 3 mg / 0.5 (3 ml) UD INH SCH (18:59)
[2019-01-07] MEDS: Albuterol-Ipratrop 3 mg / 0.5 (3 ml) UD INH SCH ×4 (02:00→19:26)
[2019-01-07] MEDS: Azithromycin 500 MG in Sodium Chloride 0.9% 250 ML IVPB SCH (11:10)
--- NOTE | 2019-01-07 18:24 | HP ---
HISTORY OF PRESENT ILLNESS: Ms. Olvera is a 73-year-old female who was admitted from the telemetry unit to the transitional care unit. She originally came to the hospital with acute exacerbation of chronic obstructive pulmonary disease and poor compliance to medications and followup. She had an uneventful stay in the telemetry unit, wanted more IV antibiotics and physical and occupational therapy with IV steroids and was therefore transferred to the Transitional Care Unit for further therapy to help improve chronic obstructive pulmonary disease exacerbation. PAST MEDICAL HISTORY: She has a past medical history of COPD, hypertension, cardiac arrhythmia status post pacemaker placement, poor compliance to medications and diet, congestive heart failure, diastolic and systolic dysfunction, chronic compensated. FAMILY HISTORY: Noncontributory. SOCIAL HISTORY: She continues to smoke cigarettes despite having home oxygen. She does not drink and does not use drugs and lives at home with her family. PHYSICAL EXAMINATION: GENERAL: The patient is alert and oriented, appears weak this morning because of profuse watery diarrhea for the past 24 hours. VITAL SIGNS: Blood pressure 145/72, pulse of 92, respiratory rate 20. She is afebrile. O2 sat 95% on nasal cannula oxygen. SKIN: Shows fair turgor. HEENT: Pupils are equal and reactive to light and accommodation. Mouth shows fair hygiene. JVP flat. LUNGS: Fair aeration with some basal dullness. HEART: Regular with a few extra systoles. BREASTS: Normal. ABDOMEN: Soft, nontender. No organomegaly. EXTREMITIES: Show no edema or cyanosis. CENTRAL NERVOUS SYSTEM: Grossly intact. LABORATORY DATA: Pending. IMPRESSION: Acute exacerbation of chronic obstructive pulmonary disease; history of cardiac arrhythmias (atrial fibrillation), ventricular rate controlled; upper respiratory tract infection; profuse watery diarrhea (stool for C. Diff negative); and hypertension, fairly controlled. PLAN: The plan is intravenous antibiotics, aerosolized bronchodilators, oxygen, and antidiarrhea medications. Would repeat blood work to evaluate electrolytes. Further therapy will depend on findings. Da Jason MD
[2019-01-08] MEDS: Albuterol-Ipratrop 3 mg / 0.5 (3 ml) UD INH SCH ×4 (02:17→19:33)
[2019-01-08 06:57] LABS: MEAN CELL VOLUME 91.2 fl (81.0-99.0); MEAN CORPUSCULAR HEMOGLOBIN 29.7 pg (27.0-31.0); MEAN CORPUSCULAR HGB CONC 32.5 g/dL (33.0-37.0); RBC 5.07 Mil/uL (3.80-5.20); RED CELL DISTRIBUTION WIDTH 14.8 % (11.5-14.5); WHITE BLOOD COUNT 14.6 K/uL (4.8-10.8)
[2019-01-08 07:09] LABS: BLOOD UREA NITROGEN 40 mg/dl (7-17); CALCIUM 8.3 mg/dL (8.4-10.2); GFR NON-AFRICAN AMERICAN > 60
[2019-01-08] MEDS: Azithromycin 500 MG in Sodium Chloride 0.9% 250 ML IVPB SCH (09:48)
--- NOTE | 2019-01-08 12:52 | CP.PCM.PN ---
Subjective - Date & Time of Evaluation Date of Evaluation: 01/08/19 Time of Evaluation: 12:52 - Subjective Subjective: STILL HAS SOB ON MILD EXERTION DIARRHEA IMPROVED C/O GLUTEAL RASH Objective - Vital Signs/Intake and Output Vital Signs (last 24 hours): Temp Pulse Resp BP Pulse Ox 97.9 F 72 18 161/87 H 96 01/08/19 07:46 01/08/19 08:41 01/08/19 07:46 01/08/19 08:42 01/08/19 07:46 - Medications Medications: Current Medications Albuterol/Ipratropium (Duoneb 3 Mg/0.5 Mg (3 Ml) Ud) 3 ml INH RQ6 [facility] Last Admin: 01/08/19 07:36 Dose: 3 ml Aspirin (Ecotrin) 81 mg PO DAILY [facility] Last Admin: 01/08/19 08:41 Dose: 81 mg Carvedilol (Coreg) 6.25 mg PO Q12 [facility] Last Admin: 01/08/19 08:41 Dose: 6.25 mg Dabigatran (Pradaxa) 75 mg PO Q12 [facility]; Protocol Last Admin: 01/08/19 08:42 Dose: 75 mg Furosemide (Lasix) 40 mg IVP DAILY [facility] Last Admin: 01/08/19 08:42 Dose: 40 mg Guaifenesin (Robitussin) 200 mg PO Q6 PRN PRN Reason: Cough Azithromycin 500 mg/ Sodium (Chloride) 250 mls @ 125 mls/hr IVPB DAILY [facility] Last Admin: 01/08/19 09:48 Dose: 125 mls/hr Loperamide HCl (Imodium) 2 mg PO Q4 PRN PRN Reason: Diarrhea Last Admin: 01/06/19 17:46 Dose: 2 mg Methylprednisolone (Solu-Medrol) 80 mg IV Q8 [facility] Last Admin: 01/08/19 08:42 Dose: 80 mg Promethazine HCl (Phenergan Syrup) 12.5 mg PO Q6 PRN PRN Reason: Cough - Labs Labs: 01/08/19 06:25 01/08/19 06:25 - Constitutional Appears: Chronically Ill - Head Exam Head Exam: ATRAUMATIC, NORMAL INSPECTION, NORMOCEPHALIC - Eye Exam Eye Exam: EOMI, Normal appearance, PERRL Pupil Exam: NORMAL ACCOMODATION, PERRL - ENT Exam ENT Exam: Mucous Membranes Moist, Normal Exam - Neck Exam Neck Exam: Full ROM, Normal Inspection. absent: Lymphadenopathy - Respiratory Exam Respiratory Exam: Decreased Breath Sounds, Prolonged Expiratory Phase, Rales, Wheezes, NORMAL BREATHING PATTERN - Cardiovascular Exam Cardiovascular Exam: REGULAR RHYTHM, +S1, +S2. absent: Murmur - GI/Abdominal Exam GI & Abdominal Exam: Soft, Normal Bowel Sounds. absent: Tenderness - Rectal Exam Rectal Exam: NORMAL INSPECTION - Extremities Exam Extremities Exam: Full ROM, Normal Capillary Refill, Normal Inspection. absent: Joint Swelling, Pedal Edema - Back Exam Back Exam: NORMAL INSPECTION - Neurological Exam Neurological Exam: Alert, Awake, CN II-XII Intact, Normal Gait, Oriented x3 - Psychiatric Exam Psychiatric exam: Normal Affect, Normal Mood - Skin Skin Exam: Dry, Intact, Normal Color, Warm Assessment and Plan - Assessment and Plan (Free Text) Assessment: ACUTE EXAC OF COPD ARRYTHMIAS HTN LEUKOCYTOSIS HYPERKALEMIA POOR COMPLIANCE Plan: CONTINUE RX ORDERED
[2019-01-09] MEDS: Albuterol-Ipratrop 3 mg / 0.5 (3 ml) UD INH SCH ×4 (02:42→18:59)
[2019-01-09 07:38] LABS: HEMOGLOBIN 15.3 g/dL (12.0-16.0); MEAN CELL VOLUME 90.5 fl (81.0-99.0); MEAN CORPUSCULAR HEMOGLOBIN 29.1 pg (27.0-31.0); MEAN CORPUSCULAR HGB CONC 32.2 g/dL (33.0-37.0); RBC 5.26 Mil/uL (3.80-5.20); RED CELL DISTRIBUTION WIDTH 14.7 % (11.5-14.5); WHITE BLOOD COUNT 16.6 K/uL (4.8-10.8)
[2019-01-09 07:40] LABS: BLOOD UREA NITROGEN 40 mg/dl (7-17); CALCIUM 8.3 mg/dL (8.4-10.2); GFR NON-AFRICAN AMERICAN > 60
--- NOTE | 2019-01-09 08:23 | CP.PCM.PN ---
Subjective - Date & Time of Evaluation Date of Evaluation: 01/09/19 Time of Evaluation: 08:28 - Subjective Subjective: SHORTNESS OF BREATH IMPROVING COUGH LESS NO CHEST PAINS DIARRHEA IMPROVED Objective - Vital Signs/Intake and Output Vital Signs (last 24 hours): Temp Pulse Resp BP Pulse Ox 97.9 F 69 20 160/70 H 94 L 01/08/19 22:51 01/08/19 22:51 01/08/19 22:51 01/08/19 22:51 01/08/19 22:51 - Medications Medications: Current Medications Albuterol/Ipratropium (Duoneb 3 Mg/0.5 Mg (3 Ml) Ud) 3 ml INH RQ6 [facility] Last Admin: 01/09/19 07:19 Dose: 3 ml Aspirin (Ecotrin) 81 mg PO DAILY [facility] Last Admin: 01/08/19 08:41 Dose: 81 mg Carvedilol (Coreg) 6.25 mg PO Q12 [facility] Last Admin: 01/08/19 21:51 Dose: 6.25 mg Clotrimazole (Lotrimin 1% Cream) 1 applic TOP BID [facility] Last Admin: 01/08/19 17:20 Dose: 1 applic Dabigatran (Pradaxa) 75 mg PO Q12 [facility]; Protocol Last Admin: 01/08/19 21:50 Dose: 75 mg Furosemide (Lasix) 40 mg IVP DAILY [facility] Last Admin: 01/08/19 08:42 Dose: 40 mg Guaifenesin (Robitussin) 200 mg PO Q6 PRN PRN Reason: Cough Azithromycin 500 mg/ Sodium (Chloride) 250 mls @ 125 mls/hr IVPB DAILY [facility] Last Admin: 01/08/19 09:48 Dose: 125 mls/hr Loperamide HCl (Imodium) 2 mg PO Q4 PRN PRN Reason: Diarrhea Last Admin: 01/06/19 17:46 Dose: 2 mg Methylprednisolone (Solu-Medrol) 60 mg IV Q12 [facility] Last Admin: 01/08/19 22:01 Dose: 60 mg Promethazine HCl (Phenergan Syrup) 12.5 mg PO Q6 PRN PRN Reason: Cough - Labs Labs: 01/09/19 06:55 01/09/19 06:55 - Constitutional Appears: No Acute Distress - Head Exam Head Exam: ATRAUMATIC, NORMAL INSPECTION, NORMOCEPHALIC - Eye Exam Eye Exam: EOMI, Normal appearance, PERRL Pupil Exam: NORMAL ACCOMODATION, PERRL - ENT Exam ENT Exam: Mucous Membranes Moist, Normal Exam - Neck Exam Neck Exam: Full ROM, Normal Inspection. absent: Lymphadenopathy - Respiratory Exam Respiratory Exam: Prolonged Expiratory Phase, Rales, NORMAL BREATHING PATTERN - Cardiovascular Exam Cardiovascular Exam: REGULAR RHYTHM, +S1, +S2. absent: Murmur - GI/Abdominal Exam GI & Abdominal Exam: Soft, Normal Bowel Sounds. absent: Tenderness - Rectal Exam Rectal Exam: NORMAL INSPECTION - Extremities Exam Extremities Exam: Full ROM, Normal Capillary Refill, Normal Inspection. absent: Joint Swelling, Pedal Edema - Back Exam Back Exam: NORMAL INSPECTION - Neurological Exam Neurological Exam: Alert, Awake, CN II-XII Intact, Normal Gait, Oriented x3 - Psychiatric Exam Psychiatric exam: Normal Affect, Normal Mood - Skin Skin Exam: Dry, Intact, Normal Color, Warm Assessment and Plan - Assessment and Plan (Free Text) Assessment: ACUTE EXAC OF COPD URI ASHD HTN DIARRHEA IMPROVED NON-COMPLIANCE CHRONIC CIGARETTE SMOKING Plan: TAPER STEROIDS CONTINUE ANTIBIOTICS AND BRONCHODILATORS
[2019-01-09] MEDS: Azithromycin 500 MG in Sodium Chloride 0.9% 250 ML IVPB SCH (08:58)
[2019-01-09] MEDS ORDERED: MethylPREDNISolone 40 mg Vial IV SCH (09:00)
[2019-01-09] MEDS ORDERED: Albuterol-Ipratrop 3 mg / 0.5 (3 ml) UD INH STA (11:16)
[2019-01-09] MEDS ORDERED: Insulin Regular 100 units/ml SC STA ×2 (12:56→17:41)
[2019-01-09] MEDS: Insulin Regular 100 units/ml SC SCH (21:14)
[2019-01-10] MEDS: Albuterol-Ipratrop 3 mg / 0.5 (3 ml) UD INH SCH ×4 (02:14→19:14)
[2019-01-10] MEDS: Insulin Regular 100 units/ml SC SCH ×4 (06:46→21:09)
[2019-01-10] MEDS: Azithromycin 500 MG in Sodium Chloride 0.9% 250 ML IVPB SCH (09:01)
--- NOTE | 2019-01-10 10:02 | CP.PCM.PN ---
Subjective - Date & Time of Evaluation Date of Evaluation: 01/10/19 Time of Evaluation: 10:03 - Subjective Subjective: C/O INCREASING SOB TODAY UNABLE TO EXPECTORATE SPUTUM Objective - Vital Signs/Intake and Output Vital Signs (last 24 hours): Temp Pulse Resp BP Pulse Ox 98 F 70 20 143/90 95 01/10/19 09:18 01/10/19 09:18 01/10/19 09:18 01/10/19 09:18 01/10/19 09:18 - Medications Medications: Current Medications Albuterol/Ipratropium (Duoneb 3 Mg/0.5 Mg (3 Ml) Ud) 3 ml INH RQ6 [facility] Last Admin: 01/10/19 07:26 Dose: 3 ml Aspirin (Ecotrin) 81 mg PO DAILY [facility] Last Admin: 01/10/19 09:02 Dose: 81 mg Carvedilol (Coreg) 6.25 mg PO Q12 [facility] Last Admin: 01/10/19 09:02 Dose: 6.25 mg Clotrimazole (Lotrimin 1% Cream) 1 applic TOP BID [facility] Last Admin: 01/10/19 09:02 Dose: 1 applic Dabigatran (Pradaxa) 75 mg PO Q12 [facility]; Protocol Last Admin: 01/10/19 09:03 Dose: 75 mg Furosemide (Lasix) 40 mg IVP DAILY [facility] Last Admin: 01/10/19 09:01 Dose: 40 mg Guaifenesin (Robitussin) 200 mg PO Q6 PRN PRN Reason: Cough Azithromycin 500 mg/ Sodium (Chloride) 250 mls @ 125 mls/hr IVPB DAILY [facility] Last Admin: 01/10/19 09:01 Dose: 125 mls/hr Insulin Human Regular (Humulin R) 0 units SC ACHS [facility]; Protocol Last Admin: 01/10/19 06:46 Dose: 1 units Loperamide HCl (Imodium) 2 mg PO Q4 PRN PRN Reason: Diarrhea Last Admin: 01/06/19 17:46 Dose: 2 mg Promethazine HCl (Phenergan Syrup) 12.5 mg PO Q6 PRN PRN Reason: Cough - Labs Labs: 01/09/19 06:55 01/09/19 06:55 - Constitutional Appears: In Acute Distress, Chronically Ill - Head Exam Head Exam: ATRAUMATIC, NORMAL INSPECTION, NORMOCEPHALIC - Eye Exam Eye Exam: EOMI, Normal appearance, PERRL Pupil Exam: NORMAL ACCOMODATION, PERRL - ENT Exam ENT Exam: Mucous Membranes Moist, Normal Exam - Neck Exam Neck Exam: Full ROM, Normal Inspection. absent: Lymphadenopathy - Respiratory Exam Respiratory Exam: Decreased Breath Sounds, Prolonged Expiratory Phase, Rales, NORMAL BREATHING PATTERN - Cardiovascular Exam Cardiovascular Exam: Irregular Rhythm, +S1, +S2. absent: Murmur - GI/Abdominal Exam GI & Abdominal Exam: Soft, Normal Bowel Sounds. absent: Tenderness - Rectal Exam Rectal Exam: NORMAL INSPECTION - Extremities Exam Extremities Exam: Full ROM, Normal Capillary Refill, Normal Inspection. absent: Joint Swelling, Pedal Edema - Back Exam Back Exam: NORMAL INSPECTION - Neurological Exam Neurological Exam: Alert, Awake, CN II-XII Intact, Normal Gait, Oriented x3 - Psychiatric Exam Psychiatric exam: Normal Affect, Normal Mood - Skin Skin Exam: Dry, Intact, Normal Color, Warm Assessment and Plan - Assessment and Plan (Free Text) Assessment: ACUTE EXAC OF COPD HYPERGLYCEMIA DUE TO STEROIDS HTN ASHD ARRYTHMIAS Plan: ACUCHECKS WITH REG INSULIN COVERAGE ADD TESSARLON PEARLS AND MUCOMYST TO RX D/C STEROIDS
[2019-01-10] MEDS: Albuterol-Ipratrop 3 mg / 0.5 (3 ml) UD INH PRN (10:56)
--- NOTE | 2019-01-10 16:38 | RAD ---
Date of service: 01/10/2019 HISTORY: COPD COMPARISON: Comparison chest dated 01/03/2019 TECHNIQUE: 1 view obtained. FINDINGS: LUNGS: No active pulmonary disease. PLEURA: No significant pleural effusion identified, no pneumothorax apparent. CARDIOVASCULAR: Aortic atherosclerotic calcification present. No change bipolar pacemaker/defibrillator Cardiomegaly.. No pulmonary vascular congestion. OSSEOUS STRUCTURES: No significant abnormalities. VISUALIZED UPPER ABDOMEN: Normal. OTHER FINDINGS: None. IMPRESSION: No active disease. Cardiomegaly.
[2019-01-10] MEDS: Acetylcysteine 20% Inhal Soln (4ml) INH SCH (19:14)
[2019-01-11] MEDS: Albuterol-Ipratrop 3 mg / 0.5 (3 ml) UD INH SCH ×4 (01:00→19:30)
[2019-01-11] MEDS: Insulin Regular 100 units/ml SC SCH ×4 (06:54→21:57)
[2019-01-11] MEDS: Acetylcysteine 20% Inhal Soln (4ml) INH SCH ×2 (07:24→19:29)
--- NOTE | 2019-01-11 08:16 | CP.PCM.PN ---
Subjective - Date & Time of Evaluation Date of Evaluation: 01/11/19 Time of Evaluation: 08:16 - Subjective Subjective: STILL COUGHING AND DYSPNEIC UNABLE TO EXPECTORATE SPUTUM Objective - Vital Signs/Intake and Output Vital Signs (last 24 hours): Temp Pulse Resp BP Pulse Ox 97.5 F L 66 20 102/64 98 01/11/19 08:02 01/11/19 08:02 01/11/19 08:02 01/11/19 08:02 01/11/19 08:02 - Medications Medications: Current Medications Acetylcysteine (Acetylcysteine 20%) 2 ml INH RBID [facility] Last Admin: 01/11/19 07:24 Dose: 2 ml Albuterol/Ipratropium (Duoneb 3 Mg/0.5 Mg (3 Ml) Ud) 3 ml INH RQ6 [facility] Last Admin: 01/11/19 07:25 Dose: 3 ml Albuterol/Ipratropium (Duoneb 3 Mg/0.5 Mg (3 Ml) Ud) 3 ml INH RQ6 PRN PRN Reason: Shortness of Breath Last Admin: 01/10/19 10:56 Dose: 3 ml Aspirin (Ecotrin) 81 mg PO DAILY [facility] Last Admin: 01/10/19 09:02 Dose: 81 mg Benzonatate (Tessalon Perles) 200 mg PO Q8 [facility] Last Admin: 01/11/19 01:23 Dose: Not Given Carvedilol (Coreg) 6.25 mg PO Q12 [facility] Last Admin: 01/10/19 21:08 Dose: 6.25 mg Clotrimazole (Lotrimin 1% Cream) 1 applic TOP BID [facility] Last Admin: 01/10/19 16:13 Dose: 1 applic Dabigatran (Pradaxa) 75 mg PO Q12 [facility]; Protocol Last Admin: 01/10/19 21:09 Dose: 75 mg Furosemide (Lasix) 40 mg IVP DAILY [facility] Last Admin: 01/10/19 09:01 Dose: 40 mg Azithromycin 500 mg/ Sodium (Chloride) 250 mls @ 125 mls/hr IVPB DAILY [facility] Last Admin: 01/10/19 09:01 Dose: 125 mls/hr Insulin Human Regular (Humulin R) 0 units SC ACHS [facility]; Protocol Last Admin: 01/11/19 06:54 Dose: 1 units Loperamide HCl (Imodium) 2 mg PO Q4 PRN PRN Reason: Diarrhea Last Admin: 01/06/19 17:46 Dose: 2 mg Promethazine HCl (Phenergan Syrup) 12.5 mg PO Q6 PRN PRN Reason: Cough - Labs Labs: 01/09/19 06:55 01/09/19 06:55 - Constitutional Appears: In Acute Distress - Head Exam Head Exam: ATRAUMATIC, NORMAL INSPECTION, NORMOCEPHALIC - Eye Exam Eye Exam: EOMI, Normal appearance, PERRL Pupil Exam: NORMAL ACCOMODATION, PERRL - ENT Exam ENT Exam: Mucous Membranes Moist, Normal Exam - Neck Exam Neck Exam: Full ROM, Normal Inspection. absent: Lymphadenopathy - Respiratory Exam Respiratory Exam: Decreased Breath Sounds, Prolonged Expiratory Phase, Rales, Wheezes - Cardiovascular Exam Cardiovascular Exam: REGULAR RHYTHM, +S1, +S2. absent: Murmur - GI/Abdominal Exam GI & Abdominal Exam: Soft, Normal Bowel Sounds. absent: Tenderness - Rectal Exam Rectal Exam: NORMAL INSPECTION - Extremities Exam Extremities Exam: Full ROM, Normal Capillary Refill, Normal Inspection. absent: Joint Swelling, Pedal Edema - Back Exam Back Exam: NORMAL INSPECTION - Neurological Exam Neurological Exam: Alert, Awake, CN II-XII Intact, Normal Gait, Oriented x3 - Psychiatric Exam Psychiatric exam: Normal Affect, Normal Mood - Skin Skin Exam: Dry, Intact, Normal Color, Warm Assessment and Plan - Assessment and Plan (Free Text) Assessment: ACUTE EXAC OF COPD MUCUS PLUGGING OF AIRWAYS URI HYPERGLYCEMIA DUE TO STEROIDS ASHD ARRYTHMIAS Plan: CONTINUE CURRENT RX CHEST PT
[2019-01-11 08:20] LABS: BASO % 0.3 % (0.0-2.0); EOS # 0.3 K/uL (0.0-0.7); EOS % 1.8 % (0.0-4.0); HEMOGLOBIN 16.4 g/dL (12.0-16.0); LYMPH # 3.2 K/uL (1.0-4.3); LYMPH % 23.1 % (20.0-40.0); MEAN CELL VOLUME 89.7 fl (81.0-99.0); MEAN CORPUSCULAR HEMOGLOBIN 29.5 pg (27.0-31.0); MEAN CORPUSCULAR HGB CONC 32.9 g/dL (33.0-37.0); MEAN PLATELET VOLUME 9.5 fl (7.2-11.7); MONO # 1.2 K/uL (0.0-0.8); MONO % 8.7 % (0.0-10.0); NEUT # 9.3 K/uL (1.8-7.0); NEUT % 66.1 % (50.0-75.0); NRBC % 0.1 % (0.0-0.0); RBC 5.56 Mil/uL (3.80-5.20); RED CELL DISTRIBUTION WIDTH 15.1 % (11.5-14.5)
[2019-01-11 08:29] LABS: BLOOD UREA NITROGEN 42 mg/dl (7-17); CALCIUM 8.5 mg/dL (8.4-10.2); GFR NON-AFRICAN AMERICAN > 60
[2019-01-11] MEDS: Azithromycin 500 MG in Sodium Chloride 0.9% 250 ML IVPB SCH (09:19)
[2019-01-11] MEDS: Albuterol-Ipratrop 3 mg / 0.5 (3 ml) UD INH PRN (22:04)
[2019-01-12] MEDS: Albuterol-Ipratrop 3 mg / 0.5 (3 ml) UD INH SCH ×4 (01:03→19:20)
[2019-01-12] MEDS: Insulin Regular 100 units/ml SC SCH ×4 (06:49→22:13)
[2019-01-12] MEDS: Acetylcysteine 20% Inhal Soln (4ml) INH SCH ×2 (07:44→19:20)
--- NOTE | 2019-01-12 08:07 | CP.PCM.PN ---
Subjective - Date & Time of Evaluation Date of Evaluation: 01/12/19 Time of Evaluation: 08:08 - Subjective Subjective: SOB PERSISTS RECURRENT DIARRHEA RELIEVED BY IMODIUM[STOOL FOR C.DIF NEGATIVE] Objective - Vital Signs/Intake and Output Vital Signs (last 24 hours): Temp Pulse Resp BP Pulse Ox 98.2 F 61 20 108/63 95 01/11/19 20:52 01/11/19 21:56 01/11/19 20:52 01/11/19 21:56 01/11/19 20:52 - Medications Medications: Current Medications Acetylcysteine (Acetylcysteine 20%) 2 ml INH RBID [facility] Last Admin: 01/12/19 07:44 Dose: Not Given Albuterol/Ipratropium (Duoneb 3 Mg/0.5 Mg (3 Ml) Ud) 3 ml INH RQ6 [facility] [place] Last Admin: 01/12/19 07:44 Dose: 3 ml Albuterol/Ipratropium (Duoneb 3 Mg/0.5 Mg (3 Ml) Ud) 3 ml INH RQ6 PRN PRN Reason: Shortness of Breath Last Admin: 01/11/19 22:04 Dose: 3 ml Aspirin (Ecotrin) 81 mg PO DAILY [facility] [place] Last Admin: 01/11/19 09:11 Dose: 81 mg Benzonatate (Tessalon Perles) 200 mg PO Q8 [facility] [place] Last Admin: 01/12/19 01:30 Dose: Not Given Carvedilol (Coreg) 6.25 mg PO Q12 [facility] [place] Last Admin: 01/11/19 21:56 Dose: 6.25 mg Clotrimazole (Lotrimin 1% Cream) 1 applic TOP BID [facility] [place] Last Admin: 01/11/19 17:20 Dose: 1 applic Dabigatran (Pradaxa) 75 mg PO Q12 [facility]; Protocol Last Admin: 01/11/19 21:58 Dose: 75 mg Furosemide (Lasix) 40 mg IVP DAILY [facility] [place] Last Admin: 01/11/19 10:00 Dose: 40 mg Azithromycin 500 mg/ Sodium (Chloride) 250 mls @ 125 mls/hr IVPB DAILY [facility] [place] Last Admin: 01/11/19 09:19 Dose: 125 mls/hr Insulin Human Regular (Humulin R) 0 units SC ACHS [facility]; Protocol Last Admin: 01/12/19 06:49 Dose: 2 units Loperamide HCl (Imodium) 2 mg PO Q4 PRN PRN Reason: Diarrhea Last Admin: 01/11/19 21:58 Dose: 2 mg Promethazine HCl (Phenergan Syrup) 12.5 mg PO Q6 PRN PRN Reason: Cough - Labs Labs: 01/11/19 07:50 01/11/19 07:50 - Constitutional Appears: Chronically Ill - Head Exam Head Exam: ATRAUMATIC, NORMAL INSPECTION, NORMOCEPHALIC - Eye Exam Eye Exam: EOMI, Normal appearance, PERRL Pupil Exam: NORMAL ACCOMODATION, PERRL - ENT Exam ENT Exam: Mucous Membranes Moist, Normal Exam - Neck Exam Neck Exam: Full ROM, Normal Inspection. absent: Lymphadenopathy - Respiratory Exam Respiratory Exam: Decreased Breath Sounds, Prolonged Expiratory Phase, Rales, NORMAL BREATHING PATTERN - Cardiovascular Exam Cardiovascular Exam: REGULAR RHYTHM, +S1, +S2. absent: Murmur - GI/Abdominal Exam GI & Abdominal Exam: Soft, Normal Bowel Sounds. absent: Tenderness - Rectal Exam Rectal Exam: NORMAL INSPECTION - Extremities Exam Extremities Exam: Full ROM, Normal Capillary Refill, Normal Inspection. absent: Joint Swelling, Pedal Edema - Back Exam Back Exam: NORMAL INSPECTION - Neurological Exam Neurological Exam: Alert, Awake, CN II-XII Intact, Normal Gait, Oriented x3 - Psychiatric Exam Psychiatric exam: Normal Affect, Normal Mood - Skin Skin Exam: Dry, Intact, Normal Color, Warm Assessment and Plan - Assessment and Plan (Free Text) Assessment: ACUTE EXAC OF COPD URI ASHD ARRYTHMIAS DIARRHEA Plan: CONTINUE CURRENT RX STOOL CULTURES IF DIARRHEA PERSISTS D/C IV ANTIBIOTICS IN AM
[2019-01-12] MEDS: Azithromycin 500 MG in Sodium Chloride 0.9% 250 ML IVPB SCH (08:49)
[2019-01-13] MEDS: Albuterol-Ipratrop 3 mg / 0.5 (3 ml) UD INH SCH ×4 (02:00→19:07)
[2019-01-13] MEDS: Albuterol-Ipratrop 3 mg / 0.5 (3 ml) UD INH PRN (03:35)
[2019-01-13] MEDS: Insulin Regular 100 units/ml SC SCH ×4 (07:08→21:24)
[2019-01-13] MEDS: Acetylcysteine 20% Inhal Soln (4ml) INH SCH (07:35)
--- NOTE | 2019-01-13 08:47 | CP.PCM.PN ---
Subjective - Date & Time of Evaluation Date of Evaluation: 01/13/19 Time of Evaluation: 08:48 - Subjective Subjective: C/O NAUSEA AND INABILITY TO EXPECTORATE SPUTUM FEELS WEAK DIARRHEA RESOLVED Objective - Vital Signs/Intake and Output Vital Signs (last 24 hours): Temp Pulse Resp BP Pulse Ox 98.1 F 83 18 114/76 98 01/13/19 08:20 01/13/19 08:20 01/13/19 08:20 01/13/19 08:20 01/13/19 08:20 - Medications Medications: Current Medications Albuterol/Ipratropium (Duoneb 3 Mg/0.5 Mg (3 Ml) Ud) 3 ml INH RQ6 [facility] Last Admin: 01/13/19 07:35 Dose: 3 ml Albuterol/Ipratropium (Duoneb 3 Mg/0.5 Mg (3 Ml) Ud) 3 ml INH RQ6 PRN PRN Reason: Shortness of Breath Last Admin: 01/13/19 03:35 Dose: 3 ml Aspirin (Ecotrin) 81 mg PO DAILY [facility] Last Admin: 01/12/19 08:48 Dose: 81 mg Benzonatate (Tessalon Perles) 200 mg PO Q8 [facility] Last Admin: 01/12/19 16:36 Dose: 200 mg Carvedilol (Coreg) 6.25 mg PO Q12 [facility] Last Admin: 01/12/19 22:12 Dose: 6.25 mg Clotrimazole (Lotrimin 1% Cream) 1 applic TOP BID [facility] Last Admin: 01/12/19 16:36 Dose: Not Given Dabigatran (Pradaxa) 75 mg PO Q12 [facility]; Protocol Last Admin: 01/12/19 22:14 Dose: 75 mg Furosemide (Lasix) 40 mg PO DAILY [facility] Insulin Human Regular (Humulin R) 0 units SC [facility]; Protocol Last Admin: 01/13/19 07:08 Dose: 3 units Loperamide HCl (Imodium) 2 mg PO Q4 PRN PRN Reason: Diarrhea Last Admin: 01/11/19 21:58 Dose: 2 mg Promethazine HCl (Phenergan Syrup) 12.5 mg PO Q6 PRN PRN Reason: Cough - Labs Labs: 01/11/19 07:50 01/11/19 07:50 - Constitutional Appears: No Acute Distress - Head Exam Head Exam: ATRAUMATIC, NORMAL INSPECTION, NORMOCEPHALIC - Eye Exam Eye Exam: EOMI, Normal appearance, PERRL Pupil Exam: NORMAL ACCOMODATION, PERRL - ENT Exam ENT Exam: Mucous Membranes Moist, Normal Exam - Neck Exam Neck Exam: Full ROM, Normal Inspection. absent: Lymphadenopathy - Respiratory Exam Respiratory Exam: Prolonged Expiratory Phase, NORMAL BREATHING PATTERN - Cardiovascular Exam Cardiovascular Exam: REGULAR RHYTHM, +S1, +S2. absent: Murmur - GI/Abdominal Exam GI & Abdominal Exam: Soft, Normal Bowel Sounds. absent: Tenderness - Rectal Exam Rectal Exam: NORMAL INSPECTION - Extremities Exam Extremities Exam: Full ROM, Normal Capillary Refill, Normal Inspection. absent: Joint Swelling, Pedal Edema - Back Exam Back Exam: NORMAL INSPECTION - Neurological Exam Neurological Exam: Alert, Awake, CN II-XII Intact, Normal Gait, Oriented x3 - Psychiatric Exam Psychiatric exam: Normal Affect, Normal Mood - Skin Skin Exam: Dry, Intact, Normal Color, Warm Assessment and Plan - Assessment and Plan (Free Text) Assessment: COPD EXAC--IMPROVING HTN ASHD HYPERGLYCEMIA DUE TO STEROIDS GASTRITIS Plan: ZOFRAN FOR NAUSEA ADD CARAFATE TO RX D/C ANTIBIOTICS
[2019-01-13] MEDS: Sucralfate 1 gm/10 ml Oral Susp UD PO SCH ×3 (11:45→21:15)
[2019-01-13 15:53] VITALS: RESP 20
[2019-01-14] MEDS: Albuterol-Ipratrop 3 mg / 0.5 (3 ml) UD INH SCH ×3 (01:08→12:51)
[2019-01-14] MEDS: Albuterol-Ipratrop 3 mg / 0.5 (3 ml) UD INH PRN (04:11)
[2019-01-14] MEDS: Insulin Regular 100 units/ml SC SCH ×2 (06:34→12:20)
[2019-01-14] MEDS: Sucralfate 1 gm/10 ml Oral Susp UD PO SCH ×3 (06:36→12:18)
[2019-01-14 08:00] VITALS: BP 132/84; PULSE 73; TEMP 97.8; O2SAT 98
--- NOTE | 2019-01-14 08:32 | CP.PCM.DIS ---
Provider - Provider Date of Admission: 01/06/19 17:05 Attending physician: Da Ibrahim MD Time Spent in preparation of Discharge (in minutes): 30 Diagnosis - Discharge Diagnosis (1) COPD exacerbation Status: Acute Priority: High (2) Chronic atrial fibrillation Status: Acute (3) Hypertension Status: Acute (4) Non-compliance Status: Acute Priority: High (5) Respiratory distress Status: Acute Priority: High (6) Upper respiratory infection Status: Acute Priority: Medium (7) CAD (coronary artery disease) Status: Chronic Priority: Medium (8) Hyperglycemia Status: Acute Hospital Course - Lab Results Lab Results: Most Recent Lab Values WBC 14.0 K/uL (4.8-10.8) H 01/11/19 07:50 RBC 5.56 Mil/uL (3.80-5.20) H 01/11/19 07:50 Hgb 16.4 g/dL (12.0-16.0) H 01/11/19 07:50 Hct 49.9 % (34.0-47.0) H 01/11/19 07:50 MCV 89.7 fl (81.0-99.0) 01/11/19 07:50 MCH 29.5 pg (27.0-31.0) 01/11/19 07:50 MCHC 32.9 g/dL (33.0-37.0) L 01/11/19 07:50 RDW 15.1 % (11.5-14.5) H 01/11/19 07:50 Plt Count 171 K/uL (130-400) 01/11/19 07:50 MPV 9.5 fl (7.2-11.7) 01/11/19 07:50 Neut % (Auto) 66.1 % (50.0-75.0) 01/11/19 07:50 Lymph % (Auto) 23.1 % (20.0-40.0) 01/11/19 07:50 Hawkins % (Auto) 8.7 % (0.0-10.0) 01/11/19 07:50 Eos % (Auto) 1.8 % (0.0-4.0) 01/11/19 07:50 Baso % (Auto) 0.3 % (0.0-2.0) 01/11/19 07:50 Neut # (Auto) 9.3 K/uL (1.8-7.0) H 01/11/19 07:50 Lymph # (Auto) 3.2 K/uL (1.0-4.3) 01/11/19 07:50 Hawkins # (Auto) 1.2 K/uL (0.0-0.8) H 01/11/19 07:50 Eos # (Auto) 0.3 K/uL (0.0-0.7) 01/11/19 07:50 Baso # (Auto) 0.0 K/uL (0.0-0.2) 01/11/19 07:50 Sodium 135 mmol/l (132-148) 01/11/19 07:50 Potassium 4.5 MMOL/L (3.6-5.0) 01/11/19 07:50 Chloride 99 mmol/L (98-107) 01/11/19 07:50 Carbon Dioxide 27 mmol/L (22-30) 01/11/19 07:50 Anion Gap 14 (10-20) 01/11/19 07:50 BUN 42 mg/dl (7-17) H 01/11/19 07:50 Creatinine 0.9 mg/dl (0.7-1.2) 01/11/19 07:50 Est GFR ( Amer) > 60 01/11/19 07:50 Est GFR (Non-Af Amer) > 60 01/11/19 07:50 POC Glucose (mg/dL) 204 mg/dL (65-110) H 01/14/19 05:28 Random Glucose 179 mg/dL (65-105) H 01/11/19 07:50 Hemoglobin A1c 8.9 % (4.2-6.5) H 01/11/19 07:50 Calcium 8.5 mg/dL (8.4-10.2) 01/11/19 07:50 C. difficile Ag & Toxin Negative (NEGATIVE) 01/06/19 22:20 - Hospital Course Hospital Course: 73 yr old female who was admitted to telemetry because of copd exacerbation and non-compliance with therapy.She continued to have cough with shortness of breath requiring iv antibiotics and bronchodilator rx.She was therefore transferred to transitional care for further therapy.Her clinical condition improved and she will be discharged today to follow up with dr ibrahim in 2 weeks Will monitor serum glucose as out pt to determine need for oral hypoglycemics. Discharge Exam - Head Exam Head Exam: ATRAUMATIC, NORMAL INSPECTION, NORMOCEPHALIC - Eye Exam Eye Exam: EOMI, Normal appearance, PERRL Pupil Exam: NORMAL ACCOMODATION, PERRL - GI/Abdominal Exam GI & Abdominal Exam: Normal Bowel Sounds - Rectal Exam Rectal Exam: NORMAL INSPECTION - Neurological Exam Neurological exam: Alert, CN II-XII Intact, Normal Gait, Oriented x3, Reflexes Normal - Psychiatric Exam Psychiatric exam: Normal Affect, Normal Mood - Skin Skin Exam: Dry, Intact, Normal Color, Warm Discharge Plan - Follow Up Plan Condition: GOOD Disposition: HOME/ ROUTINE Additional Instructions: follow up with dr ibrahim in 2 weeks
== END 2019-01-14 14:10 | disposition home health service (06) | DRG 191 ==
LOC: H.TCU 17:05
PROVIDERS: ADMIT Internal Medicine Pulmonary Disease; ATTEND Internal Medicine Pulmonary Disease
PROC: F08Z0FZ Bathing/Showering Techniques Treatment using Assistive, Adaptive, Supportive or Protective Equipment (ICD-10-PCS; principal; 2019-01-06)
PROC: F08Z1FZ Dressing Techniques Treatment using Assistive, Adaptive, Supportive or Protective Equipment (ICD-10-PCS; 2019-01-06)
PROC: F07L6GZ Therapeutic Exercise Treatment of Musculoskeletal System - Lower Back / Lower Extremity using Aerobic Endurance and Conditioning Equipment (ICD-10-PCS; 2019-01-06)
PROC: F07Z9ZZ Gait Training/Functional Ambulation Treatment (ICD-10-PCS; 2019-01-06)
PROC: 5A0955Z Assistance with Respiratory Ventilation, Greater than 96 Consecutive Hours (ICD-10-PCS; 2019-01-06)
DX: J44.1 Chronic obstructive pulmonary disease with (acute) exacerbation (principal); I50.42 Chronic combined systolic (congestive) and diastolic (congestive) heart failure; J06.9 Acute upper respiratory infection, unspecified; Z95.0 Presence of cardiac pacemaker; I25.10 Atherosclerotic heart disease of native coronary artery without angina pectoris; I11.0 Hypertensive heart disease with heart failure; F17.210 Nicotine dependence, cigarettes, uncomplicated; E87.5 Hyperkalemia; R19.7 Diarrhea, unspecified; R21 Rash and other nonspecific skin eruption; R73.9 Hyperglycemia, unspecified; T38.0X5A Adverse effect of glucocorticoids and synthetic analogues, initial encounter; T17.990A Other foreign object in respiratory tract, part unspecified in causing asphyxiation, initial encounter; K29.70 Gastritis, unspecified, without bleeding; I48.2 Chronic atrial fibrillation; Z91.19 Patient's noncompliance with other medical treatment and regimen; Z99.81 Dependence on supplemental oxygen